=== PATIENT | female | born 1935 | race Caucasian/White ===

== ENCOUNTER 2022-10-30 08:32 | Outpatient (CLI) | payer MEDICARE, SELFPAY ==
[2022-10-30 19:34] LABS: Hematocrit 40.9 % (37.0-47.0); Mean Corpuscular HGB Conc 31.8 g/dl (32-36); Mean Corpuscular Volume 103.8 fl (80-100); Mean Platelet Volume 11.5 fl (7.4-10.4); Platelet Count Result 254 k/mm3 (150-375); Red Blood Count 3.94 M/mm3 (4.2-5.4); Red Cell Distribution Width 14.6 % (11.5-14.5); White Blood Count 8.6 K/mm3 (4.5-10.0)
[2022-10-30 20:22] LABS: Alanine Aminotransferase 16 U/L (6-35); Alkaline Phosphatase 108 U/L (38-126); Anion Gap 8 mmol/L (8-16); Aspartate Amino Transferase 46 U/L (14-36); Bilirubin,Total 0.8 mg/dL (0.2-1.3); Blood Urea Nitrogen 27 mg/dL (7-17); Calcium 9.5 mg/dL (8.4-10.2); Carbon Dioxide 25 mmol/L (22-30); Chloride 100 mmol/L (98-107); Estimated Glomerular Filt Rate 43; Glucose 82 mg/dL (65-110); Potassium 4.5 mmol/L (3.4-5.0); Sodium 133 mmol/L (137-145)
== END 2022-10-30 08:33 | disposition home or self-care (01) ==
PROVIDERS: PCP Family Medicine; Visit Provider Family Medicine
DX: E03.9 Hypothyroidism, unspecified (principal)
CPT/HCPCS: 36415; 80053; 84443; 85027

== ENCOUNTER 2022-12-11 15:19 | Outpatient (CLI) | payer MEDICARE, SELFPAY ==
[2022-12-11 18:45] LABS: Basophils Absolute Auto 0.1 K/mm3 (0.0-0.1); Basophils Percent Auto 0.9 % (0.2-1.2); Eosinophils Absolute Auto 0.3 K/mm3 (0-0.3); Eosinophils Percent Auto 3.6 % (0-4.4); Hematocrit 39.2 % (37.0-47.0); Hemoglobin 12.7 g/dL (12.0-15.0); Immature Granulocyte Absolute 0.02 K/mm3 (0.00-0.031); Immature Granulocyte Percent A 0.3 % (0-0.5); Lymphocytes Absolute Auto 1.04 K/mm3 (0.9-3.2); Mean Corpuscular HGB Conc 32.4 g/dl (32-36); Mean Corpuscular Hemoglobin 32.2 pg (26-34); Mean Corpuscular Volume 99.5 fl (80-100); Mean Platelet Volume 11.2 fl (7.4-10.4); Monocytes Absolute Auto 0.8 K/mm3 (0.1-0.6); Monocytes Percent Auto 10.9 % (2.6-8.5); Neutrophils Absolute Auto 4.8 K/mm3 (1.3-6.7); Neutrophils Percent Auto 69.3 % (45.5-73.1); Platelet Count Result 254 k/mm3 (150-375); Red Blood Count 3.94 M/mm3 (4.2-5.4); Red Cell Distribution Width 14.6 % (11.5-14.5)
[2022-12-11 18:48] LABS: Appearance Urine Clear (Clear); Bacteria Urine None Seen /hpf; Bilirubin Urine Negative (Negative); Blood Urine Negative (Negative); Color Urine Yellow (Yellow); Glucose Urine UA Negative (Negative); Ketones Urine Negative (Negative); Leukocyte Esterase Ur 2+ LEU/UL (NEGATIVE); Nitrate Urine Negative (Negative); Non Pathogenic Casts 0-2; Protein Urine Negative (Negative); RBC Urine 0-2 /hpf (0-2); Specific Grav Ur 1.009 (1.001-1.035); Squamous Epithelial Cell Urine Occasional /hpf (Few); Urobilinogen Urine 0.2 mg/dL (<2.0)
[2022-12-11 19:07] LABS: Add Urine Microscopic? YES; Alanine Aminotransferase 20 U/L (6-35); Albumin Level 4.4 g/dL (3.5-5.1); Alkaline Phosphatase 115 U/L (38-126); Anion Gap 7 mmol/L (8-16); Aspartate Amino Transferase 33 U/L (14-36); Bilirubin,Total 0.7 mg/dL (0.2-1.3); Blood Urea Nitrogen 20 mg/dL (7-17); Calcium 9.6 mg/dL (8.4-10.2); Carbon Dioxide 27 mmol/L (22-30); Chloride 97 mmol/L (98-107); Estimated Glomerular Filt Rate 47; Glucose 97 mg/dL (65-110); Magnesium 1.6 mg/dL (1.6-2.3); Phosphorus 4.1 mg/dL (2.5-4.5); Potassium 4.3 mmol/L (3.4-5.0); Sodium 131 mmol/L (137-145); Uric Acid 2.8 mg/dL (2.5-7.5)
[2022-12-11 19:28] LABS: Erythrocyte Sedimentation Rate 30 mm/hr (0-20)
[2022-12-11 20:06] LABS: Creatinine Urine 50.8 mg/dL; Total Protein Urine Random 9 mg/dL; Ur Ttl Prot Creatinine Ratio 0.18 mg/mg (0-0.20)
== END 2022-12-11 15:20 | disposition home or self-care (01) ==
PROVIDERS: PCP Family Medicine; Visit Provider Internal Medicine Nephrology
DX: I12.9 Hypertensive chronic kidney disease with stage 1 through stage 4 chronic kidney disease, or unspecified chronic kidney disease (principal); N18.31 Chronic kidney disease, stage 3a
CPT/HCPCS: 36415; 80069; 80076; 81001; 82570; 83735; 84156; 84550; 85025; 85652

== ENCOUNTER 2023-01-10 09:06 | Outpatient (CLI) | payer MEDICARE, SELFPAY ==
[2023-01-10 20:25] LABS: Albumin Level 3.8 g/dL (3.5-5.1); Anion Gap 8 mmol/L (8-16); Blood Urea Nitrogen 23 mg/dL (7-17); Carbon Dioxide 23 mmol/L (22-30); Chloride 102 mmol/L (98-107); Estimated Glomerular Filt Rate 53; Glucose 75 mg/dL (65-110); Phosphorus 4.4 mg/dL (2.5-4.5); Potassium 4.4 mmol/L (3.4-5.0); Sodium 133 mmol/L (137-145)
== END 2023-01-10 09:07 | disposition home or self-care (01) ==
PROVIDERS: PCP Family Medicine; Visit Provider Internal Medicine Nephrology
DX: E87.1 Hypo-osmolality and hyponatremia (principal); I12.9 Hypertensive chronic kidney disease with stage 1 through stage 4 chronic kidney disease, or unspecified chronic kidney disease; N18.31 Chronic kidney disease, stage 3a
CPT/HCPCS: 36415; 80069

== ENCOUNTER 2023-04-02 10:05 | Outpatient (CLI) | payer MEDICARE, SELFPAY ==
[2023-04-02 20:07] LABS: Anion Gap 5 mmol/L (8-16); Blood Urea Nitrogen 21 mg/dL (7-17); Carbon Dioxide 27 mmol/L (22-30); Chloride 101 mmol/L (98-107); Estimated Glomerular Filt Rate 39; Glucose 83 mg/dL (65-110); Potassium 4.7 mmol/L (3.4-5.0); Sodium 133 mmol/L (137-145)
== END 2023-04-02 10:06 | disposition home or self-care (01) ==
PROVIDERS: PCP Family Medicine; Visit Provider Family Medicine
DX: E87.1 Hypo-osmolality and hyponatremia (principal)
CPT/HCPCS: 36415; 80048

== ENCOUNTER 2023-05-07 11:21 | Outpatient (CLI) | payer MEDICARE, SELFPAY ==
[2023-05-07 18:53] LABS: Appearance Urine Clear (Clear); Bacteria Urine None Seen /hpf; Bilirubin Urine Negative (Negative); Blood Urine Negative (Negative); Color Urine Yellow (Yellow); Glucose Urine UA Negative (Negative); Ketones Urine Negative (Negative); Leukocyte Esterase Ur Trace LEU/UL (NEGATIVE); Nitrate Urine Negative (Negative); Non Pathogenic Casts 0-2; Protein Urine Negative (Negative); RBC Urine 0-2 /hpf (0-2); Specific Grav Ur 1.007 (1.001-1.035); Squamous Epithelial Cell Urine None seen /hpf (Few); Urobilinogen Urine 0.2 mg/dL (<2.0); WBC Urine 0-5 /hpf (0-3); pH Urine 5.5 (5.0-9.0)
[2023-05-07 19:04] LABS: Add Urine Microscopic? YES
[2023-05-07 20:16] LABS: Albumin Level 4.3 g/dL (3.5-5.1); Anion Gap 9 mmol/L (8-16); Blood Urea Nitrogen 11 mg/dL (7-17); Calcium 9.7 mg/dL (8.4-10.2); Carbon Dioxide 26 mmol/L (22-30); Chloride 101 mmol/L (98-107); Estimated Glomerular Filt Rate 60; Glucose 92 mg/dL (65-110); Phosphorus 3.6 mg/dL (2.5-4.5); Sodium 136 mmol/L (137-145)
== END 2023-05-07 11:22 | disposition home or self-care (01) ==
PROVIDERS: PCP Family Medicine; Visit Provider Internal Medicine Nephrology
DX: N18.31 Chronic kidney disease, stage 3a (principal); E87.1 Hypo-osmolality and hyponatremia; R35.1 Nocturia
CPT/HCPCS: 36415; 80069; 81001

== ENCOUNTER 2023-09-24 07:58 | Outpatient (CLI) | payer MEDICARE, SELFPAY ==
[2023-09-24 19:19] LABS: Hematocrit 42.9 % (37.0-47.0); Hemoglobin 12.9 g/dL (12.0-15.0); Mean Corpuscular HGB Conc 30.1 g/dl (32-36); Mean Corpuscular Hemoglobin 31.2 pg (26-34); Mean Corpuscular Volume 103.6 fl (80-100); Mean Platelet Volume 10.7 fl (7.4-10.4); Platelet Count Result 254 k/mm3 (150-375); Red Blood Count 4.14 M/mm3 (4.2-5.4); Red Cell Distribution Width 14.6 % (11.5-14.5)
[2023-09-24 19:41] LABS: Free T4 Free Thyroxine 1.57 ng/mL (0.78-2.19)
[2023-09-24 20:13] LABS: Alanine Aminotransferase 13 U/L (6-35); Albumin Level 3.9 g/dL (3.5-5.1); Alkaline Phosphatase 123 U/L (38-126); Anion Gap 6 mmol/L (8-16); Aspartate Amino Transferase 63 U/L (14-36); Bilirubin,Total 0.9 mg/dL (0.2-1.3); Blood Urea Nitrogen 16 mg/dL (7-17); Calcium 9.6 mg/dL (8.4-10.2); Carbon Dioxide 27 mmol/L (22-30); Chloride 105 mmol/L (98-107); Cholesterol 126 mg/dL (0-200); Estimated Glomerular Filt Rate > 60; Glucose 82 mg/dL (65-110); HDL Direct 48 mg/dL; Potassium 3.7 mmol/L (3.4-5.0); Sodium 138 mmol/L (137-145); Triglycerides 62 mg/dL (<150)
[2023-09-24 20:24] LABS: LDL Cholesterol Direct 61 mg/dL
[2023-09-27 07:12] LABS: Triiodothyronine T3 Free 2.6 pg/mL (2.3-4.2)
== END 2023-09-24 07:59 | disposition home or self-care (01) ==
PROVIDERS: PCP Family Medicine; Visit Provider Family Medicine
DX: E03.9 Hypothyroidism, unspecified (principal); E87.1 Hypo-osmolality and hyponatremia; N28.9 Disorder of kidney and ureter, unspecified; R10.13 Epigastric pain
CPT/HCPCS: 36415; 80053; 80061; 84439; 84443; 84481; 85027

== ENCOUNTER 2024-03-26 09:24 | Outpatient (CLI) | payer MEDICARE, SELFPAY ==
[2024-03-26 19:29] LABS: Hematocrit 44.4 % (37.0-47.0); Hemoglobin 14.1 g/dL (12.0-15.0); Mean Corpuscular HGB Conc 31.8 g/dl (32-36); Mean Corpuscular Hemoglobin 32.3 pg (26-34); Mean Corpuscular Volume 101.8 fl (80-100); Mean Platelet Volume 11.2 fl (7.4-10.4); Platelet Count Result 260 k/mm3 (150-375); Red Blood Count 4.36 M/mm3 (4.2-5.4); Red Cell Distribution Width 14.2 % (11.5-14.5); White Blood Count 9.9 K/mm3 (4.5-10.0)
[2024-03-26 21:13] LABS: Alanine Aminotransferase 16 U/L (6-35); Albumin Level 4.3 g/dL (3.5-5.1); Alkaline Phosphatase 117 U/L (38-126); Anion Gap 11 mmol/L (4-12); Aspartate Amino Transferase 43 U/L (14-36); Bilirubin,Total 1.2 mg/dL (0.2-1.3); Blood Urea Nitrogen 21 mg/dL (7-17); Calcium 9.7 mg/dL (8.4-10.2); Carbon Dioxide 23 mmol/L (22-30); Chloride 102 mmol/L (98-107); Cholesterol 148 mg/dL (0-200); Estimated Glomerular Filt Rate 59; Glucose 91 mg/dL (65-110); HDL Direct 57 mg/dL; Potassium 4.4 mmol/L (3.4-5.0); Sodium 136 mmol/L (137-145); Triglycerides 47 mg/dL (<150)
[2024-03-26 21:25] LABS: LDL Cholesterol Direct 59 mg/dL
[2024-03-26 21:42] LABS: Thyroid Stimulating Hormone 0.901 uIU/mL (0.465-4.680)
== END 2024-03-26 09:25 | disposition home or self-care (01) ==
LOC: ANHBWCLAB 09:27
PROVIDERS: PCP Nurse Practitioner Adult Health; Visit Provider Nurse Practitioner Adult Health
DX: E03.9 Hypothyroidism, unspecified (principal); E87.5 Hyperkalemia; I10 Essential (primary) hypertension; R10.13 Epigastric pain; Z00.00 Encounter for general adult medical examination without abnormal findings
CPT/HCPCS: 36415; 80053; 80061; 84443; 85027

== ENCOUNTER 2024-12-03 20:00 | Inpatient (IN) | payer MEDICARE, SELFPAY ==
[2024-12-03] VITALS (15 sets, daily range): BP systolic 71–91; BP diastolic 47–77; PULSE 75–81; RESP 18–24; TEMP 36.4; O2SAT 87–97; BMI 25.1
--- NOTE | ~2024-12-03 | CT_ITS ---
EXAMINATION: CT chest high resolution wo co DATE: 12/06/2024 09:19 INDICATION: right hemithorax opacification TECHNIQUE: Computed tomography (CT) of the chest was performed without intravenous contrast. Addition al 3D reconstructions utilizing coronal maximum intensity projection (MIP) were performed. Automated exposure control and iterative reconstruction technique were employed. The dose-length product was 27 6.48 mGy-cm. COMPARISON: Chest CT dated 12/03/2024 FINDINGS: New small bilateral pleural effusions, right greater than left. There is improved aeration of the pre viously collapsed right lower lobe. There are however prominent patchy airspace opacities in the righ t lower lobe as well as in the right upper lobe, left lower lobe and to lesser degree in the lingula consistent with pneumonia. Tracheobronchial malacia with prominent AP narrowing of the trachea and ma instem bronchi. Heart size is normal. Atherosclerotic coronary artery calcific lesion. No pericardial effusion. Thoracic aorta is normal in caliber. No pathologically enlarged thoracic lymphadenopathy. Calcified gallstones in the none dilated gallbladder. Likely age-related mild bilateral renal atrophy . Mild S-shaped curvature of the thoracic spine with moderate spondylosis. IMPRESSION: 1. Worsening multifocal pneumonia in the bilateral lower lobes, right upper lobe and to lesser degree at the lingula. 2. New small bilateral pleural effusions, right greater than left. Reviewed, dictated and finalized at location A. IMPRESSION: 1. Worsening multifocal pneumonia in the bilateral lower lobes, right upper lob e and to lesser degree at the lingula. 2. New small bilateral pleural effusions, right greater than left.
--- NOTE | ~2024-12-03 | XR_ITS ---
XR chest 1V portable Ordering provider: Juan Herrera MD History: 89 years Female with . SOB, low blood pressure . Comparison: None. FINDINGS: MEDIASTINUM: The cardiac silhouette is moderately enlarged. Prominent elliot. LUNGS: No or pneumothorax. Opacification in the right lung base is seen suggestive of atelectasis michael levar pneumonia with possible effusion. Minimal opacification in the left lung base medially is also no surendra. OTHER: No free air under the diaphragm. IMPRESSION: Right basilar atelectasis versus pneumonia. Left basilar atelectasis versus pneumonia in the left lung base medially Reviewed, dictated and finalized at location A.
--- NOTE | ~2024-12-03 | XR_ITS ---
CHEST RADIOGRAPH CLINICAL HISTORY: Respiratory failure, pneumonia . COMPARISON: 12/07/2024 TECHNIQUE: Single portable view of the chest. Examination is somewhat limited by patient rotation. FINDINGS Left internal jugular central venous catheter identified with its tip projecting over the superior ve na cava. The remainder of the cardiomediastinal silhouette is partially obscured, and enlarged, unchanged. Large right-sided pleural effusion with a small left-sided pleural effusion. Patchy opacification of the left mid to lower lung field is unchanged. IMPRESSION: Large right-sided pleural effusion. Small left-sided pleural effusion Left mid to lower lung field infiltrate, largely unchanged from prior. Reviewed, dictated and finalized at location A.
--- NOTE | ~2024-12-03 | XR_ITS ---
Portable chest x-ray Comparison: 12/03/2024 Clinical History: Respiratory failure Findings: Stable right-sided central venous line. Moderate right pleural effusion is significantly i ncreased from prior exam. Possible minimal left pleural effusion. Cardiomediastinal silhouette is st able. Bones and soft tissues are unremarkable. Impression: Moderate right pleural effusion is significantly increased from prior exam. Possible minimal left ple ural effusion. Stable support line. Reviewed, dictated and finalized at location M. Impression: Moderate right pleural effusion is significantly increased from prior exam. Pos sible minimal left pleural effusion. Stable support line.
--- NOTE | ~2024-12-03 | CT_ITS ---
CTA chest PE protocol Ordering provider: Ulices Carrasco MD History: 89 years Female with . hypoxia, recent hosptial amdit, leg swelling . Comparison: None. Technique: CT angiogram chest was performed following timed intravenous injection of contrast. Thin s lice axial images and reformatted coronal images were obtained. Three dimensional reformatted images of the chest were also obtained using a [employer] workstation. . Automated exposure control and iterati ve reconstruction technique were employed. The dose-length product was 432.40 mGy-cm. 100 mL Omnipaqu e 350 was given IV. Findings: PULMONARY ARTERIES: No pulmonary embolus. VISUALIZED THORACIC INLET: Normal. Position of the right carotid artery. position of the right carotid artery is noted. 1 MEDIASTINUM: Aorta/coronary arteries: Mild atheromatous disease. Heart/other: The heart is slightly enlarged. Lymph nodes: No mediastinal or hilar adenopathy. LUNGS: Pneumonia in the right lower lobe is noted medially. Deviation of the trachea to the right side is no surendra. Minimal atelectasis versus pneumonia in the middle lobe is also seen. Patchy areas of pneumonia also seen in the left upper lobe. Possible nodule in the lingula is seen measuring 9 mm. 3 months follow-up CT is advised. Focal pneumonia in the left lung base medially is also noted with possible 9 mm nodule. No pulmonary masses. No effusions. No pneumothorax. VISUALIZED UPPER ABDOMEN: Fat infiltration of the liver. Cholelithiasis. Small right kidney cyst. Oth erwise, the visualized upper abdomen is normal. MUSCULOSKELETAL: Soft tissues: The superficial soft tissues are normal. Bones: Age appropriate degenerative changes of the spine. IMPRESSION: 1. No pulmonary embolism. 2. Pneumonia in the right lower lobe. 3. Focal areas of pneumonia in the middle lobe, lingula and left lower lobe. 4. Nodule in the lingula and left lower lobe. Three-month CT follow-up advised. 5. 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 6. Cholelithiasis. Fat infiltration of the liver. Reviewed, dictated and finalized at location A. IMPRESSION: 1. No pulmonary embolism. 2. Pneumonia in the right lower lobe. 3. Focal areas of pneumonia in the middle lobe, lingula and left lower lobe. 4. Nodule in the lingula and left lower lobe. Three-month CT follow-up advised . 5. 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 6. Cholelithiasis. Fat infiltration of the liver.
--- NOTE | ~2024-12-03 | XR_ITS ---
EXAMINATION: XR chest 1V portable DATE: 12/09/2024 06:06 INDICATION: Respiratory failure. Pneumonia. TECHNIQUE: frontal view of the chest was obtained. COMPARISON: Chest radiograph dated 12/09/2024 FINDINGS: No significant change in patchy airspace opacities throughout both lungs, right greater than left. Sm all right and possible small left pleural effusions. No pneumothorax. Heart size is within normal trejo its for AP technique. IMPRESSION: 1. No significant change in diffuse bilateral lung disease, right greater than left consistent with m ultifocal pneumonia. 2. Small right and possible small left pleural effusions. Reviewed, dictated and finalized at location A. IMPRESSION: 1. No significant change in diffuse bilateral lung disease, right greater than left consistent with multifocal pneumonia. 2. Small right and possible small left pleural effusions.
--- NOTE | ~2024-12-03 | US_ITS ---
EXAMINATION:US venous doppler LE BI INDICATION:Lower extremity swelling TECHNIQUE: Multiple grayscale, color flow and Doppler images of the right and left lower extremity de ep venous systems were obtained and reviewed. COMPARISON:No prior studies for comparison. FINDINGS: The common femoral, superficial femoral and popliteal veins demonstrate normal respiratory variation, augmentation and compressibility. Color flow is also seen within the posterior tibial, pe roneal, greater saphenous and profunda veins. IMPRESSION: 1: No lower extremity deep venous thrombosis. Reviewed, dictated and finalized at location A.
--- NOTE | ~2024-12-03 | XR_ITS ---
XR chest port-a-cath/central Ordering provider: Ulices Carrasco MD History: 89 years Female with . CENTRAL LINE PLACEMENT . Comparison: December 03, 2024 FINDINGS: MEDIASTINUM: The cardiac silhouette is slightly enlarged. Left central line with the tip overlying th e superior vena cava. Slightly congestive elliot. LUNGS: No pneumothorax. Right basilar atelectasis versus pneumonia with effusion. Patchy opacificatio n the left lung base medially. Prominent markings bilaterally OTHER: No free air under the diaphragm. IMPRESSION: Status post placement of left central line with the tip overlying the superior vena cava. Bibasilar opacification suggestive of atelectasis versus pneumonia with possible right pleural effusi on Reviewed, dictated and finalized at location A. IMPRESSION: Status post placement of left central line with the tip overlying the superior vena cava. Bibasilar opacification suggestive of atelectasis versus pneumonia with possibl e right pleural effusion
--- NOTE | ~2024-12-03 | XR_ITS ---
EXAMINATION: XR chest 1V portable DATE: 12/06/2024 05:57 INDICATION: Respiratory failure. Pneumonia. TECHNIQUE: frontal view of the chest was obtained. COMPARISON: Chest radiograph dated 12/05/[address] dated 12/03/2024 FINDINGS: No significant change in complete opacification of the right lower lung zone and mild airspace opacit ies in the left lower lung zone. No pneumothorax. Unchanged cardiomediastinal silhouette with mild ri ghtward shift of the mediastinum. Left internal jugular central venous catheter with distal tip at th e junction of the left brachiocephalic vein and the superior vena cava. IMPRESSION: 1. Unchanged complete opacification of the right lower lung zone consistent with pneumonia, atelectas is, pleural effusion or most likely combination thereof. 2. Mild opacity left lower lung zone which could represent additional atelectasis or pneumonia. Reviewed, dictated and finalized at location A. IMPRESSION: 1. Unchanged complete opacification of the right lower lung zone consistent wit h pneumonia, atelectasis, pleural effusion or most likely combination thereof. 2. Mild opacity left lower lung zone which could represent additional atelectas is or pneumonia.
--- NOTE | ~2024-12-03 | XR_ITS ---
EXAMINATION: XR chest 1V portable DATE: 12/09/2024 02:54 INDICATION: Shortness of breath TECHNIQUE: frontal view of the chest was obtained. COMPARISON: Chest radiograph dated 12/08/[address] dated 12/06/2024 FINDINGS: Interstitial and patchy airspace opacities throughout both lungs relatively sparing the left upper hector ng zone with more dense consolidation at the lower lung zones. Blunting at the costophrenic angles co nsistent with small bilateral pleural effusions, right greater left. No pneumothorax. Heart size with in normal limits for AP technique. IMPRESSION: 1. Persistent opacities throughout the right lung and in the left mid to lower lung zone consistent w ith pneumonia. 2. Small bilateral pleural effusions, right greater than left. Reviewed, dictated and finalized at location A. IMPRESSION: 1. Persistent opacities throughout the right lung and in the left mid to lower lung zone consistent with pneumonia. 2. Small bilateral pleural effusions, right greater than left.
--- NOTE | ~2024-12-03 | XR_ITS ---
Portable chest x-ray Comparison: 12/06/2024 Clinical History: Respiratory failure Findings: Left-sided central venous line unchanged. Moderate right pleural effusion present. Probabl e small left pleural effusion. There is extensive left basilar/left perihilar airspace disease, new f rom prior exam. There is haziness in the right perihilar region. Cardiomediastinal silhouette is sta ble. Bones and soft tissues are unremarkable. Impression: Moderate right pleural effusion and small left pleural effusion. Moderate bilateral pulmonary edema versus bilateral pneumonia, significant worsened in the left lung as compared to prior exam. Probable right lower lobe/right basilar atelectasis. Stable support line. Stable cardiomegaly. Reviewed, dictated and finalized at location . Impression: Moderate right pleural effusion and small left pleural effusion. Moderate bilateral pulmonary edema versus bilateral pneumonia, significant wors ened in the left lung as compared to prior exam. Probable right lower lobe/right basilar atelectasis. Stable support line. Stable cardiomegaly.
--- NOTE | 2024-12-03 20:11 | ECG_ITS ---
Test Date: 2024-12-03 20:08:18 Measurements Intervals [place] Rate: 77 P: 24 [place]: 158 QRS: -34 QRSD: 93 T: 19 QT: 398 QTc: 452 Interpretive Statements SINUS RHYTHM LEFT AXIS DEVIATION [QRS AXIS < -30] PATTERN CONSISTENT WITH PULMONARY DISEASE No previous ECG available for comparison Electronically Signed On 12-04-2024 15:56:23 CDT by Tony Osei M.D.
[2024-12-03 20:39] LABS: Basophils Absolute Auto 0.1 K/mm3 (0.0-0.1); Basophils Percent Auto 0.5 % (0.2-1.2); Eosinophils Absolute Auto 0.1 K/mm3 (0-0.3); Eosinophils Percent Auto 0.4 % (0-4.4); Hematocrit 31.5 % (37.0-47.0); Hemoglobin 10.3 g/dL (12.0-15.0); Immature Granulocyte Absolute 0.09 K/mm3 (0.00-0.031); Immature Granulocyte Percent A 0.8 % (0-0.5); Lymphocytes Absolute Auto 1.21 K/mm3 (0.9-3.2); Lymphocytes Percent Auto 10.6 % (18.3-44.2); Mean Corpuscular HGB Conc 32.7 g/dl (32-36); Mean Corpuscular Hemoglobin 31.9 pg (26-34); Mean Corpuscular Volume 97.5 fl (80-100); Mean Platelet Volume 10.6 fl (7.4-10.4); Monocytes Absolute Auto 0.9 K/mm3 (0.1-0.6); Monocytes Percent Auto 7.6 % (2.6-8.5); Neutrophils Absolute Auto 9.2 K/mm3 (1.3-6.7); Neutrophils Percent Auto 80.1 % (45.5-73.1); Platelet Count Result 376 k/mm3 (150-375); Red Blood Count 3.23 M/mm3 (4.2-5.4); White Blood Count 11.4 K/mm3 (4.5-10.0)
[2024-12-03] MEDS: CEFEPIME 2 GM/NS 50 ML 2 GM/50 ML BAG IVPB (20:42)
[2024-12-03] MEDS: LACTATED RINGERS 1,000 ML 999 ML IV CONT ×2 (20:42)
[2024-12-03 20:48] LABS: Alanine Aminotransferase 16 U/L (6-35); Albumin Level 3.3 g/dL (3.5-5.1); Alkaline Phosphatase 84 U/L (38-126); Anion Gap 12 mmol/L (4-12); Aspartate Amino Transferase 25 U/L (14-36); Bilirubin,Total 0.7 mg/dL (0.2-1.3); Blood Urea Nitrogen 26 mg/dL (7-17); Calcium 8.6 mg/dL (8.4-10.2); Carbon Dioxide 21 mmol/L (22-30); Chloride 97 mmol/L (98-107); Estimated CRCL calculation 26 ml/min; Estimated Glomerular Filt Rate 46; Glucose 101 mg/dL (65-110); Potassium 3.4 mmol/L (3.4-5.0); Sodium 130 mmol/L (137-145)
--- NOTE | 2024-12-03 20:48 | PC.NURSE ---
Pt to CT at this time. Pt placed on monitor, IVF infusing.
--- OUTSIDE RECORDS SUMMARY | 2024-12-03 20:50 | XMS_ITS | Clinical Summary ---
Author Organization [facility] Address [address] [place] [address] Care Team Providers Care Enrober Tender Name Role Phone Tom Sharma MD Primary Care Provider [phone] Social History Tobacco Use Types Packs/Day Years Used Date Smoking Tobacco: Never Assessed Personal Safety Answer Date Recorded Getting School Help Needed Not on file 10/06 Comments Unknown Sex and Gender Information Value Date Recorded Sex Assigned at Not on file Legal Sex Female 2:22 AM DIRECTOR INPATIENT HEADACHE PROGRAM Gender Identity Not on file Sexual Orientation Not on file Plan of Treatment Health Maintenance Due Date Last Done Comments Depression Screening 1935 Fall Risk Assessment 1935 Hepatitis B Screening 11/12/1955 Zoster Vaccine (1 of 2) 11/12/1987 Well Visit 65+ 2002 Covid-19 Vaccine (2023-2 5 season) 2024 05/12/2022, 12/07/2021, 05/27/2021, Additional history exists Influenza Vaccine (Season Ended) 2025 07/23/19 13 DTaP/Tdap/Td Vaccine (2 - Td or Tdap) 08/10/2032 08/10/2022, 06/22/2013 Pneumococcal vaccine 65+ Completed 04/11/2016, 07/2012 Insurance MEDICARE [facility] MEDICARE [facility] Care Teams Enrober Tender Relationship Specialty Start Date End Date Tom Sharma MD PCP - General Family Practice 11/16/22
--- OUTSIDE RECORDS SUMMARY | 2024-12-03 20:50 | XMS_ITS | Encounter Summary ---
Author Organization [facility] Address [address] [place] [address] Phone Care Team Providers Care Business Support Associate Name Role Phone Reyna Vega MD Primary Care Provider [phone] Tom Sharma MD Primary Care Provider [phone] Reason for Visit * Reason Comments Medication Refill Encounter Details Date Type Department Care Team (Late st Contact Info) Description 02/20/2022 Refill [facility] - [place] [address] [place] [place] [address] Reyna Vega MD [address] [place] [address] Medication Refill Social History Tobacco Use Types Packs/Day Years Used Date Smoking Tobacco: Former Cigarettes Q uit: 10/07/2011 Smokeless Tobacco: Never Alcohol Use Standard Drinks/Week Comments No 0 (1 standard drink = 0.6 oz pur e alcohol) PHQ-2 Answer Date Recorded PHQ-2 Score 0 04/08/2019 Comments No Sex and Gender Information Value Date Recorded Sex Assigned at Not on file Legal Sex Female 10:17 PM CDT Gender Identity Not on file Sexual Orientation Not on file documented as of this encounter Miscellaneous Notes * Telephone Encounter - Valerie Kidd RN - 02/20/2022 10:49 AM CDT Medication failed the protocol, provider to review and approve the medication order if appropriate. Requested Prescriptions Pending Prescriptions Disp Refills allopurinol (ZYLOPRIM) 300 MG Tablet [Pharmacy Med Name: ALLOPURINOL 300MG TABLETS] 90 Tablet 1 Sig: TAKE 1 TABLET BY MOUTH DAILY Gout Agents Protocol Failed - 02/20/2022 5:52 AM Failed - Uric acid on record in past 12 months URIC ACID Date Value Ref Range Status 04/17/2019 3.8 2.4 - 5.7 mg/dL Final Passed - Visit with relevant provider in past 12 months or upcoming 90 days Recent Visits Date Type Provider Dept 12/12/21 Office Visit Reyna Vega MD [facility] 06/13/21 Office Visit [facility] Showing recent visits within past 365 days and meeting all other requirements Future Appointments No visits were found meeting these conditions. Showing future appointments within next 90 days and meeting all other requirements Passed - Serum creatinine on record in past 12 months CREATININE, BLOOD Date Value Ref Range Status 12/05/2021 0.84 0.60 - 1.10 mg/dL Final Signed Prescriptions Disp Refills levothyroxine (SYNTHROID) 88 MCG Tablet 90 Tablet 0 Sig: TAKE 1 TABLET BY MOUTH DAILY Thyroid Hormones Protocol Passed - 02/20/2022 5:52 AM Passed - Visit with relevant provider in past 12 months or upcoming 90 days Recent Visits Date Type Provider Dept 12/12/21 Office Visit Reyna Vega MD [facility] 06/13/21 Office Visit Reyna Vega MD [facility] [facility] Showing recent visits within past 365 days and meeting all other requirements Future Appointments No visits were found meeting these conditions. Showing future appointments within next 90 days and meeting all other requirements Passed - Normal TSH in past 12 months TSH Date Value Ref Range Status 12/05/2021 0.859 0.270 - 4.200 mIU/L Final hydroCHLOROthiazide 25 MG Tablet 90 Tablet 0 Sig: TAKE 1 TABLET BY MOUTH DAILY Diuretics Protocol Passed - 02/20/2022 5:52 AM Passed - Serum potassium on record in past 12 months POTASSIUM Date Value Ref Range Status 12/05/2021 4.1 3.5 - 5.1 mmol/L Final Passed - Serum sodium on record in past 12 months SODIUM Date Value Ref Range Status 12/05/2021 133 (L) 136 - 144 mmol/L Final Passed - Blood pressure on record in past 12 months Clinician-entered: BP Readings from Last 3 Encounters: 12/12/21 126/74 06/13/21 118/64 12/06/20 120/72 Patient-entered: No data recorded Passed - Visit with relevant provider in past 12 months or upcoming 90 days Recent Visits Date Type Provider Dept 12/12/21 [facility] 06/13/21 Office Visit Reyna Vega MD [facility] Showing recent visits within past 365 days and meeting all other requirements Future Appointments No visits were found meeting these conditions. Showing future appointments within next 90 days and meeting all other requirements Passed - GFR on record in past 12 months GFR, EST. NONAFRICAN Date Value Ref Range Status 12/05/2021 >60 >=60 Final metoprolol Succinate (TOPROL-XL) 100 MG TABLET SR 24 HR 180 Tablet 0 Sig: TAKE 1 TABLET BY MOUTH TWICE DAILY Beta-Blockers Protocol Passed - 02/20/2022 5:52 AM Passed - BP on record in the past year Clinician-entered: BP Readings from Last 3 Encounters: 12/12/21 126/74 06/13/21 118/64 12/06/20 120/72 Patient-entered: No data recorded Passed - Visit with relevant provider in past 12 months or upcoming 90 days Recent Visits Date Type Provider Dept 12/12/21 Office Visit [facility] 06/13/21 Office Visit Reyna Vega MD [facility] Showing recent visits within past 365 days and meeting all other requirements Future Appointments No visits were found meeting these conditions. Showing future appointments within next 90 days and meeting all other requirements documented in this encounter Plan of Treatment Not on file documented as of this encounter Visit Diagnoses Diagnosis Essential hypertension Unspecified essential hypertension Gout, unspecified cause, unspecified chronicity, unspecified site documented in this encounter Additional Health Concerns Infection Onset Date Last Indicated Resolved Time COVID - 19 11/17/2024 11/17/2024 11/17/2024 1:11 PM CDT Assessment Noted Time PHQ-9 Depression Total Score: 0 10/23/19 9:00 AM CDT documented as of this encounter Care Teams Business Support Associate Relationship Specialty Start Date End Date Reyna Vega MD PCP - General Family Medicine 05/10/15 08/20/22 Tom Sharma MD [address] [place] [address] PCP - General Family Medicine 08/21/22 documented as of this encounter
--- OUTSIDE RECORDS SUMMARY | 2024-12-03 20:50 | XMS_ITS | Encounter Summary ---
Author Organization [facility] Address [address] [facility] [place] [address] Phone Care Team Providers Care Enrollment Advisor Name Role Phone Reyna Vega MD Primary Care Provider [phone] Tom Sharma MD Primary Care Provider [phone] Reason for Visit * Reason Comments Medication Refill Encounter Details Date Type Department Care Team (Late st Contact Info) Description 02/02/2020 [facility] [address] [place] [address] Almita Wright Opal, PAC [address] [place] [address] Medication Refill Social History Tobacco Use Types [...] on file documented as of this encounter Plan of Treatment Not on file documented as of this encounter Visit Diagnoses Diagnosis Essential hypertension Unspecified essential hypertension documented in this encounter Additional Health Concerns Infection Onset Date Last Indicated Resolved Time COVID - 19 11/17/2024 11/17/2024 11/17/2024 1:11 PM CDT Assessment Noted Time PHQ-9 Depression Total Score: 0 10/23/19 19 9:00 AM CDT documented as of this encounter Care Teams Enrollment Advisor Relationship Specialty Start Date End Date Reyna Vega MD PCP - General Family Medicine 05/10/15 08/20/22 Tom Sharma MD [address] [place] [address] PCP - General Family Medicine 08/21/22 documented as of this encounter
--- OUTSIDE RECORDS SUMMARY | 2024-12-03 20:50 | XMS_ITS | Encounter Summary ---
Author Organization [facility] Address [address] [place] [address] Phone Care Team Providers Care Manufacturing Support Engineer Name Role Phone Reyna Vega MD Primary Care Provider [phone] Tom Sharma MD Primary Care Provider [phone] Reason for Visit * Reason Comments Medication Refill Encounter Details Date Type Department Care Team (Late st Contact Info) Description 01/04/2022 Refill [facility] - [place] [address] [place] [address] Reyna Vega MD [address] [place] [address] Medication Refill Social History Tobacco [...] on file Sexual Orientation Not on file COVID-19 Exposure Response Date Recorded In the last 10 days, have yo u been in contact with someone who was confirmed or suspected to have Coronavirus/COVID-19? No / Unsure 12/12/2021 10:15 AM CDT documented as of this encounter Miscellaneous Notes * Telephone Encounter - Catherine Salcido RN - 01/04/2022 10:27 AM CDT Medication approved and signed per standing order protocol. documented in this encounter Plan of Treatment [...] documented as of this encounter Care Teams Manufacturing Support Engineer Relationship Specialty Start Date End Date Reyna Vega MD PCP - General Family Medicine 05/10/15 08/20/22 Tom Sharma MD [address] [place] [address] PCP - General Family Medicine 08/21/22 documented as of this encounter
--- OUTSIDE RECORDS SUMMARY | 2024-12-03 20:50 | XMS_ITS | Encounter Summary ---
Author Organization [facility] Address [address] [place] [address] Phone Care Team Providers Care Can Bander Operator Name Role Phone Reyna Vega MD Primary Care Provider Tom Sharma MD Primary Care Provider [phone] Reason for Visit * Reason Comments Medication Refill Encounter Details Date Type Department Care Team (Late st Contact Info) Description 05/05/2021 Refill [facility] - [place] [address] [place] [address] Reyna Vega MD [address] [place] [address] Medication Refill Social History Tobacco [...] as of this encounter Visit Diagnoses Diagnosis Chronic obstructive pulmonary disease, unspecified COPD type (HCC) documented in this encounter Additional Health Concerns Infection Onset Date Last Indicated Resolved Time COVID - 19 11/17/2024 11/17/2024 11/17/2024 1:11 PM CDT Assessment Noted Time PHQ-9 Depression Total Score: 0 10/23/19 9:00 AM CDT documented as of this encounter Care Teams Can Bander Operator Relationship Specialty Start Date End Date Reyna Vega MD PCP - General Family Medicine 05/10/15 08/20/22 Tom Sharma MD [address] [place] [id number] PCP - General Family Medicine 08/21/22 documented as of this encounter
--- OUTSIDE RECORDS SUMMARY | 2024-12-03 20:50 | XMS_ITS | Encounter Summary ---
Author Organization [facility] Address [address] [place] [address] Phone Care Team Providers Care Boxer Operator Name Role Phone Reyna Vega MD Primary Care Provider Tom Sharma MD Primary Care Provider [phone] Reason for Visit * Reason Comments Medication Refill Encounter Details Date Type Department Care Team (Late st Contact Info) Description 08/20/2022 Refill [facility] - Primary Care - [place] [address] [place] [address] Reyna Vega MD [address] [place] [address] Medication Refill Social History Tobacco [...] encounter Miscellaneous Notes * Telephone Encounter - Cristina Montoya RN - 08/21/2022 10:26 AM CST Duplicate request. RATING KILN OPERATOR documented in this encounter Plan of Treatment Not on file documented as of this encounter Visit Diagnoses Diagnosis Gout, unspecified cause, unspecified chronicity, unspecified site documented in this encounter Additional Health Concerns Infection Onset Date Last Indicated Resolved Time COVID - 19 11/17/2024 11/17/2024 11/17/2024 1:1 1 PM CDT Assessment Noted Time PHQ-9 Depression Total Score: 0 10/23/19 9:00 AM CDT documented as of this encounter Care Teams Boxer Operator Relationship Specialty Start Date End Date Reyna Vega MD PCP - General Family Medicine 05/10/15 08/20/22 Tom Sharma MD [address] [place] [address] PCP - General Family Medicine 08/21/22 documented as of this encounter
--- OUTSIDE RECORDS SUMMARY | 2024-12-03 20:50 | XMS_ITS | Encounter Summary ---
Author Organization [facility] Address [address] [place] [address] Phone Care Team Providers Care Placement Officer Name Role Phone Reyna Vega MD Primary Care Provider [phone] Tom Sharma MD Primary Care Provider [phone] Reason for Visit * Reason Comments Medication Refill Encounter Details Date Type Department Care Team (Late st Contact Info) Description 11/08/2020 Refill [facility] - [place] [address] [place] [address] Reyna Vega MD [address] [place] [address] Medication Refill Social History Tobacco [...] obstructive pulmonary disease, unspecified COPD type (HCC) Essential hypertension Unspecified essential hypertension documented in this encounter Additional Health Concerns Infection Onset Date Last Indicated Resolved Time COVID - 19 11/17/2024 11/17/2024 11/17/2024 1:11 PM CDT Assessment Noted Time PHQ-9 Depression Total Score: 0 10/23/19 19 9:00 AM CDT documented as of this encounter Care Teams Placement Officer Relationship Specialty Start Date End Date Reyna Vega MD PCP - General Family Medicine 05/10/15 08/20/22 Tom Sharma MD [address] [place] [id number] PCP - General Family Medicine 08/21/22 documented as of this encounter
--- OUTSIDE RECORDS SUMMARY | 2024-12-03 20:50 | XMS_ITS | Encounter Summary ---
Author Organization [facility] Address [address] [facility] [place] [address] Phone Care Team Providers Care Language Arts Teacher Name Role Phone Reyna Vega MD Primary Care Provider [phone] Tom Sharma MD Primary Care Provider [phone] Reason for Visit * Reason Comments Medication Refill Encounter Details Date Type Department Care Team (Late st Contact Info) Description 04/27/2020 [facility] [address] [place] [address] Almita Wright Opal, PAC [address] [place] [address] Medication Refill Social History Tobacco Use Types [...] encounter Miscellaneous Notes * Telephone Encounter - Dominique Montes De Oca RN - 04/28/2020 4:04 PM CDT Medication failed the protocol, routing to provider to review and approve the medication order. Requested Prescriptions Pending Prescriptions Disp Refills hydroCHLOROthiazide 25 MG Tablet [Pharmacy Med Name: HYDROCHLOROTHIAZIDE 25MG TABLETS] 90 Tab 0 Sig: TAKE 1 TABLET BY MOUTH DAILY Cardiovascular: Diuretics Failed - 04/27/2020 4:22 PM Failed - Last BP in normal range BP Readings from Last 1 Encounters: 04/24/19 128/62 Passed - Valid encounter within last 12 months Past Office Visits Recent Outpatient Visits 4 months ago Chronic obstructive pulmonary disease, unspecified COPD type (HCC) [facility] - Reyna Perry MD 1 year ago Essential hypertension [facility] - Reyna Perry MD 1 year ago Essential hypertension [facility] - Reyna Perry MD 1 year ago Essential hypertension [facility] - Reyna Perry MD 1 year ago Essential hypertension [facility] - Reyna Perry MD Upcoming Appointments Future Appointments In 1 month [facility] In 1 month Reyna Vega MD [facility] MACHINE II CUTTER - Recent and Past Visits Recent Visits Date Type Provider Dept 12/02/19 Telemedicine Reyna Vega MD [facility] 04/24/19 Office Visit Reyna Vega MD [facility] Showing recent visits within past 460 days with a meds authorizing provider and meeting all other requirements Future Appointments Date Type Provider Dept 06/04/20 Appointment [facility] Show[facility] future appointments within next 90 days with a meds authorizing provider and meeting all other requirements documented in [...] documented as of this encounter Care Teams Language Arts Teacher Relationship Specialty Start Date End Date Reyna Vega MD PCP - General Family Medicine 05/10/15 08/20/22 Tom Sharma MD [address] [place] [id number] PCP - General Family Medicine 08/21/22 documented as of this encounter
--- OUTSIDE RECORDS SUMMARY | 2024-12-03 20:50 | XMS_ITS | Encounter Summary ---
Author Organization [facility] Address [address] [place] [address] Phone Care Team Providers Care Plaster Maker Name Role Phone Reyna Vega MD Primary Care Provider [phone] Tom Sharma MD Primary Care Provider [phone] Reason for Visit * Reason Comments Medication Refill Encounter Details Date Type Department Care Team (Late st Contact Info) Description 12/08/2020 Refill [facility] Primary [facility] - [place] [address] [place] [address] Reyna Vega MD [address] [place] [address] Medication Refill Social History Tobacco [...] Exposure Response Date Recorded In the last month, have you been in contact with someone who was confirmed or suspected to have Coronavirus / COVID-19? No / Unsure 12/06/2020 8:30 AM CDT documented as of this encounter Miscellaneous Notes * Telephone Encounter - Catherine Salcido RN - 12/08/2020 7:48 AM CDT Medication approved and signed per [...] documented as of this encounter Care Teams Plaster Maker Relationship Specialty Start Date End Date Reyna Vega MD PCP - General Family Medicine 05/10/15 08/20/22 Tom Sharma MD [address] [place] [address] PCP - General Family Medicine 08/21/22 documented as of this encounter
--- OUTSIDE RECORDS SUMMARY | 2024-12-03 20:50 | XMS_ITS | Encounter Summary ---
Author Organization [facility] Address [address] [place] [address] Phone Care Team Providers Care Floral Department Specialist Name Role Phone Reyna Vega MD Primary Care Provider Tom Sharma MD Primary Care Provider [phone] Reason for Visit * Reason Comments Medication Refill Encounter Details Date Type Department Care Team (Late st Contact Info) Description 04/27/2020 [facility] [address] [place] [address] Reyna Vega MD [address] [place] [address] Medication Refill Social History Tobacco [...] Dominique Montes De Oca RN - 04/28/2020 3:46 PM CDT Medication failed the protocol, routing to provider to review and approve the medication order. Requested Prescriptions Pending Prescriptions Disp Refills Olmesartan Medoxomil 40 MG Tablet [Pharmacy Med Name: OLMESARTAN MEDOXOMIL 40MG TABLETS] 90 Tab 0 Sig: TAKE 1 TABLET BY MOUTH DAILY Cardiovascular: Angiotensin Receptor Blockers Failed - 04/27/2020 4:22 PM Failed - Last BP in normal range BP Readings from Last 1 Encounters: 04/24/19 128/62 Passed - Valid encounter within last 12 months Past Office Visits Recent Outpatient Visits 4 months ago Chronic obstructive pulmonary disease, unspecified COPD type (HCC) [facility] - Reyna Perry MD 1 year ago Essential hypertension [facility] - Reyna Perry MD 1 year ago Essential hypertension [facility] - Reyna Perry MD 1 year ago Essential hypertension [facility] - Reyna Perry MD 1 year ago Essential hypertension [facility] - Reyna Perry MD Upcoming Appointments [facility] PRESS ASSISTANT AND FEEDER - Recent and Past Visits Recent Visits Date Type Provider Dept 12/02/19 Telemedicine Reyna Vega MD [facility] 04/24/19 Office Visit Reyna Vega MD [facility] Showing recent visits within past 460 days with a meds authorizing provider and meeting all other requirements Future Appointments Date Type Provider Dept 06/04/20 Appointment [facility] future appointments within next 90 days [...] documented as of this encounter Care Teams Floral Department Specialist Relationship Specialty Start Date End Date Reyna Vega MD PCP - General Family Medicine 05/10/15 08/20/22 Tom Sharma MD [address] [place] [address] PCP - General Family Medicine 08/21/22 documented as of this encounter
--- OUTSIDE RECORDS SUMMARY | 2024-12-03 20:50 | XMS_ITS | Encounter Summary ---
Author Organization [facility] Address [address] [place] [address] Phone Care Team Providers Care Fiber Machine Tender Name Role Phone Reyna Vega MD Primary Care Provider Tom Sharma MD Primary Care Provider [phone] Reason for Visit * Reason Comments Medication Refill Encounter Details Date Type Department Care Team (Late st Contact Info) Description 03/31/2021 Refill [facility] - Primary Care - [place] [address] [place] [address] Reyna Vega MD [address] [place] [address] Medication Refill Social History Tobacco [...] Telephone Encounter - Valerie Kidd RN - 03/31/2021 11:01 AM CDT Medication failed the protocol, provider to review and approve the medication order if appropriate. Requested Prescriptions Pending Prescriptions Disp Refills levothyroxine (SYNTHROID) 88 MCG Tablet [Pharmacy Med Name: LEVOTHYROXINE 0.088MG (88MCG) TAB] 90 Tablet 0 Sig: Take 1 Tablet by mouth daily. Thyroid Hormones Protocol Passed - 03/31/2021 10:56 AM Passed - Visit with relevant provider in past 12 months or upcoming 90 days Recent Visits Date Type Provider Dept 12/06/20 Office Visit Reyna Vega MD [facility] 06/04/20 Office Visit Reyna Vega MD [facility] Showing recent visits within past 365 days and meeting all other requirements Future Appointments Date Type Provider Dept 06/06/21 [facility] 06/13/21 Appointment Reyna Vega MD [facility] Showing future appointments within next 90 days and meeting all other requirements Passed - Normal TSH in past 12 months TSH Date Value Ref Range Status 11/29/2020 1.870 0.270 - 4.200 mIU/L Final allopurinol (ZYLOPRIM) 300 MG Tablet [Pharmacy Med Name: ALLOPURINOL 300MG TABLETS] 90 Tablet 0 Sig: TAKE 1 TABLET BY MOUTH DAILY Gout Agents Protocol Failed - 03/31/2021 10:56 AM Failed - Uric acid on record in past 12 months URIC ACID Date Value Ref Range Status 04/17/2019 3.8 2.4 - 5.7 mg/dL Final Passed - Visit with relevant provider in past 12 months or upcoming 90 days Recent Visits Date Type Provider Dept 12/06/20 Office Visit Reyna Vega MD [facility] 06/04/20 Office Visit Reyna Vega MD [facility] Showing recent visits within past 365 days and meeting all other requirements Future Appointments Date Type Provider Dept 06/06/21 Appointment Lab, [facility] 06/13/21 Appointment Reyna Vega MD [facility] Showing future appointments within next 90 days and meeting all other requirements Passed - Serum creatinine on record in past 12 months CREATININE, BLOOD Date Value Ref Range Status 11/29/2020 1.01 0.60 - 1.10 mg/dL Final metoprolol Succinate (TOPROL-XL) 100 MG TABLET SR 24 HR [Pharmacy Med Name: METOPROLOL ER [id number] TABS] 180 Tablet 0 Sig: TAKE 1 TABLET BY MOUTH TWICE DAILY Beta-Blockers Protocol Passed - 03/31/2021 10:56 AM Passed - BP on record in the past year Clinician-entered: BP Readings from Last 3 Encounters: 12/06/20 120/72 06/04/20 132/72 04/24/19 128/62 Patient-entered: No data recorded Passed - Visit with relevant provider in past 12 months or upcoming 90 days Recent Visits Date Type Provider Dept 12/06/20 Office Visit Reyna Vega MD [facility] 06/04/20 Office Visit Reyna Vega MD [facility] Showing recent visits within past 365 days and meeting all other requirements Future Appointments Date Type Provider Dept 06/06/21 Appointment [email or web address] [facility] 06/13/21 Appointment Reyn[facility] MD [facility] Showing future appointments within next 90 days and meeting all other requirements hydroCHLOROthiazide 25 MG Tablet [Pharmacy Med Name: HYDROCHLOROTHIAZIDE 25MG TABLETS] 90 Tablet 0 Sig: TAKE 1 TABLET BY MOUTH DAILY Diuretics Protocol Failed - 03/31/2021 10:56 AM Failed - Serum sodium on record in past 12 months SODIUM Date Value Ref Range Status 11/29/2020 135 (L) 136 - 144 mmol/L Final Passed - Serum potassium on record in past 12 months POTASSIUM Date Value Ref Range Status 11/29/2020 4.2 3.5 - 5.1 mmol/L Final Passed - Blood pressure on record in past 12 months Clinician-entered: BP Readings from Last 3 Encounters: 12/06/20 120/72 06/04/20 132/72 04/24/19 128/62 Patient-entered: No data recorded Passed - Visit with relevant provider in past 12 months or upcoming 90 days Recent Visits Date Type Provider Dept 12/06/20 Office Visit Reyna Vega MD [facility] 06/04/20 Office Visit Reyna Vega MD [facility] Showing recent visits within past 365 days and meeting all other requirements Future Appointments Date Type Provider Dept 06/06/21 Appointment [facility] [employer] [facility] 06/13/21 Appointment Reyna Vega MD [facility] Showing future appointments within next 90 days and meeting all other requirements Passed - GFR on record in past 12 months GFR, EST. NONAFRICAN Date Value Ref Range Status 11/29/2020 52 (L) >=60 Final Olmesartan Medoxomil 40 MG Tablet [Pharmacy Med Name: OLMESARTAN MEDOXOMIL 40MG TABLETS] 90 Tablet 0 Sig: TAKE 1 TABLET BY MOUTH DAILY ARB Protocol Passed - 03/31/2021 10:56 AM Passed - Serum potassium on record in past 12 months POTASSIUM Date Value Ref Range Status 11/29/2020 4.2 3.5 - 5.1 mmol/L Final Passed - BP on record in the past year Clinician-entered: BP Readings from Last 3 Encounters: 12/06/20 120/72 06/04/20 132/72 04/24/19 128/62 Patient-entered: No data recorded Passed - Visit with relevant provider in past year or upcoming 90 days Recent Visits Date Type Provider Dept 12/06/20 Office Visit Reyna Vega MD [facility] [employer] [facility] 06/04/20 Office Visit Reyna Vega MD [facility] Showing recent visits within past 365 days and meeting all other requirements Future Appointments Date Type Provider Dept 06/06/21 Appointment [facility] [employer] [facility] 06/13/21 Appointment Reyna Vega MD [facility] Showing future appointments within next 90 days and meeting all other requirements Passed - GFR on record in past 12 months GFR, EST. NONAFRICAN Date Value Ref Range Status 11/29/2020 52 (L) >=60 Final documented in this encounter Plan of Treatment Not on file documented as of this encounter Visit Diagnoses Diagnosis Gout, unspecified cause, unspecified chronicity, unspecified site Essential hypertension Unspecified essential hypertension documented in this encounter Additional Health Concerns Infection Onset Date Last Indicated Resolved Time COVID - 19 11/17/2024 11/17/2024 11/17/2024 1:11 PM CDT Assessment Noted Time PHQ-9 Depression Total Score: 0 10/23/19 9:00 AM CDT documented as of this encounter Care Teams Fiber Machine Tender Relationship Specialty Start Date End Date Reyan Vega MD PCP - General Family Medicine 05/10/15 08/20/22 Tom Sharma MD [address] [place] [id number] PCP - General Family Medicine 08/21/22 documented as of this encounter
--- OUTSIDE RECORDS SUMMARY | 2024-12-03 20:50 | XMS_ITS | Encounter Summary ---
Author Organization [facility] Address [address] [place] [address] Phone Care Team Providers Care Rotor Assembler Name Role Phone Reyna Vega MD Primary Care Provider Tom Sharma MD Primary Care Provider [phone] Reason for Visit * Reason Comments Medication Refill Encounter Details Date Type Department Care Team (Late st Contact Info) Description 05/22/2022 Refill [facility] Family [facility] [address] [place] [address] Reyna Vega MD [address] [place] [address] Medication Refill Social History Tobacco Use Types [...] encounter Miscellaneous Notes * Telephone Encounter - Sandra Tamayo RN - 05/22/2022 2:31 PM CDT Medication failed the protocol, provider to review and approve the medication order if appropriate. Requested Prescriptions Pending Prescriptions Disp Refills Advair Diskus 250-50 MCG/ACT AEROSOL POWDER, BREATH ACTIVATED [Pharmacy Med Name: ADVAIR DISKUS 250/50MCG (YELLOW) 60] 180 Each 0 Sig: INHALE 1 PUFF BY MOUTH TWICE DAILY Inhaled Combinations Protocol Failed - 05/22/2022 2:16 PM Failed - Active short-acting beta agonist prescription Passed - Visit with relevant provider in past 12 months or upcoming 90 days Recent Visits Date Type Provider Dept 12/12/21 Office Visit [facility]a [facility] [employer] 06/13/21 Office Visit Reyna Vega MD [facility] [employer] Showing recent visits within past 365 days and meeting all other requirements Future Appointments Date Type Provider Dept 05/29/22 Appointment [facility] 06/05/22 Appointment Reyna Vega MD [facility] [employer] Showing future appointments within next 90 days [...] documented as of this encounter Care Teams Rotor Assembler Relationship Specialty Start Date End Date Reyna Vega MD PCP - General Family Medicine 05/10/15 08/20/22 Tom Sharma MD [address] [place] [id number] PCP - General Family Medicine 08/21/22 documented as of this encounter
--- OUTSIDE RECORDS SUMMARY | 2024-12-03 20:50 | XMS_ITS | Clinical Summary ---
Author Organization [facility] Facility Address [address] [address] Care Team Providers Care Research Center Director Name Role Phone Tom Sharma MD Primary Care Provider [phone] Allergies Active Allergy Reactions Criticality Noted Date Comments Ciprofloxacin Other (see comments) 11/16/2022 constipation Influenza Virus Vaccine Other (see comments) High Medications omeprazole (PriLOSEC) [address] capsule Take 40 mg by mouth 1 (one) time each day Do not crush or chew. Active aspirin (ST CHEYANNE) 81 MG EC tablet Take 81 mg by mouth 1 (one) time each day Active cholecalciferol (VITAMIN D-3) 25 MCG (1000 UT) tablet Take 1,000 Units by mouth 1 (one) time each day Active cyanocobalamin (VITAMIN B-12) 1000 MCG tablet Take 1,000 mcg by mouth 1 (one) time each day Active allopurinol (ZYLOPRIM) 300 MG tablet Take 300 mg by mouth 1 (one) time each day Active metoprolol succinate XL (TOPROL-XL) 100 MG 24 hr tablet Take 100 mg by mouth in the morning and 100 mg in the evening. Do not crush or chew. . Active olmesartan (BENICAR) 40 MG tablet Take 40 mg by mouth 1 (one) time each day Active tiotropium (SPIRIVA) 18 MCG per inhalation capsule Place 1 capsule into inhaler and inhale 1 (one) time each day Active levothyroxine sodium (TIROSINT) 88 MCG capsule Take 88 mcg by mouth 1 (one) time each day Active amLODIPine (NORVASC) 10 MG tablet Take 10 mg by mouth 1 (one) time each day Active Multiple Vitamins-Minera ls (ICAPS AREDS 2 PO) Take 2 tablets by mouth 1 (one) time each day Active Active Problems No known active problems Family History Medical History Relation Comments Hypertension Mother Stroke Mother Thyroid disease Sister Relation Status Comments Mother Sister Social History Tobacco Use Types Packs/Day Years Used Date Smoking Tobacco: Former Cigarettes Q uit: 2012 Smokeless Tobacco: Never Tobacco Cessation:Counseling Given: Not Answered Alcohol Use Standard Drinks/Week Comments Never 0 (1 standard drink = 0.6 oz pur e alcohol) Comments Unknown Sex and Gender Information Value Date Recorded Sex Assigned at Not on file Legal Sex Female 1:46 PM EDT Gender Identity Not on file Sexual Orientation Not on file Last Filed Vital Signs Vital Sign Reading Time Taken Comments Blood Pressure 130/70 11/29/2022 10:26 AM CDT Pulse 64 11/29/2022 10:26 AM CDT Temperature 36.7 C (98 F) 11/29/2022 10:26 AM CDT Respiratory Rate - - Oxygen Saturation 97% 11/29/2022 10:26 AM CDT Inhaled Oxygen Concentration - - Weight 66 kg (145 lb 8 oz) 11/29/2022 10:26 AM C DT Height 149.9 cm (4' 11 ) 11/29/2022 10:26 AM CDT Body Mass Index 29.39 11/29/2022 10:26 AM CDT Plan of Treatment Upcoming Encounters Date Type Department Care Team (Late st Contact Info) Description 01/20/2025 9:30 AM CDT Office Visit [facility]. [address] [facility] [address] [place] [id number] Jimbo Mauricio MD [address] [facility] [address] [place] [address] Health Maintenance Due Date Last Done Comments Pneumococcal Vaccine: 50+ Years Completed 04/11/2016, 06/22/2013 Hepatitis B Vaccine Aged Out No longe r eligible based on patient's age to complete this topic Insurance Medicare [facility] Care Teams Research Center Director Relationship Specialty Start Date End Date Tom Sharma MD [address] [place] [address] PCP - General Family Medicine 11/29/22
--- OUTSIDE RECORDS SUMMARY | 2024-12-03 20:50 | XMS_ITS | Clinical Summary ---
Author Organization [facility] Address [address] [address] Phone Care Team Providers Care Assistant Foreman Name Role Phone Tom Sharma MD Primary Care Provider [phone] Allergies Active Allergy Reactions Criticality Noted Date Comments Ciprofloxacin Other (see Comments) constipation Influenza Virus Vaccine Other (see Comments) High Medications vitamin D (CHOLECALCIFEROL ) 1000 UNIT Tablet Take 1,000 Units by mouth daily. Active Aspirin 81 MG Tablet Take 81 mg by mouth daily. Active Multiple Vitamins-Mineral s (PRESERVISION AREDS 2) Capsule Take 1 Cap by mouth 2 times daily. Active amLODIPine (NORVASC) 10 MG TabletIndication s:Essential hypertension TAKE 1 TABLET BY MOUTH DAILY 90 Tablet 1 01/05/20 22 Active allopurinol (ZYLOPRIM) 300 MG TabletIndication s:Gout, unspecified cause, unspecified chronicity, unspecified site TAKE 1 TABLET BY MOUTH DAILY 90 Tablet 1 02/21/20 22 Active Olmesartan Medoxomil 40 MG TabletIndication s:Essential hypertension TAKE 1 TABLET BY MOUTH DAILY 90 Tablet 05/22/20 22 Active Spiriva HandiHaler 18 MCG CapsuleIndicatio ns:Chronic obstructive pulmonary disease, unspecified COPD type (HCC) INHALE THE CONTENTS OF 1 CAPSULE VIA INHALATION DEVICE DAILY 90 Capsule 1 05/22/20 22 Active levothyroxine (SYNTHROID) 88 MCG Tablet TAKE 1 TABLET BY MOUTH DAILY 90 Tablet 05/22/20 22 Active metoprolol Succinate (TOPROL-XL) 100 MG TABLET SR 24 HRIndications:Es sential hypertension TAKE 1 TABLET BY MOUTH TWICE DAILY 180 Tablet 05/22/20 Active Dulera 200-5 MCG/ACT Aerosol take 2 Puffs by inhalation 2 times daily. 10/28/19 25 Active omeprazole (PriLOSEC) 40 MG CAPSULE DELAYED RELEASE Take 40 mg by mouth daily. Active Cyanocobalamin 1000 MCG Tablet Take 1,000 mcg by mouth daily. Active hydroCHLOROthiaz poncho 25 MG TabletIndication s:Essential hypertension TAKE 1 TABLET BY MOUTH DAILY 90 Tablet 05/22/20 22 025 Discontinu ed(Med List Clean Up) Advair Diskus 250-50 MCG/ACT AEROSOL POWDER, BREATH ACTIVATEDIndicat ions:Chronic obstructive pulmonary disease, unspecified COPD type (HCC) INHALE 1 PUFF BY MOUTH TWICE DAILY 180 Each 05/22/20 22 025 Discontinu ed(Med List Clean Up) Cyanocobalamin (B-12 PO) Take by mouth daily. 025 Discontinu ed(Med List Clean Up) amoxicillin-clav ulanate (AUGMENTIN) 875-125 MG TabletIndication s:Community Acquired Pneumonia Take 1 Tablet by mouth 3 times daily for 3 doses. Indications: Community Acquired Pneumonia 3 Tablet 11/22/19 25 025 Active Problems Problem Noted Date Diagnosed Date Acute respiratory failure with hypoxia Multifocal pneumonia 11/17/2024 Macular degeneration of left eye 06/13/2021 Chronic kidney disease 04/24/2019 Macrocytosis without anemia 04/24/2019 Obesity (BMI 30.0-34.9) 04/17/2017 Vitamin D deficiency 10/07/2015 COPD (chronic obstructive pulmonary disease) HTN (hypertension) GERD (gastroesophageal reflux disease) Mild diastolic dysfunction IBS (irritable bowel syndrome) Hypothyroidism Prediabetes Gout Subclavian artery stenosis Overview (06/09/2015): Right Encounters Date Type Department Care Team Description 11/17/2024 1:34 PM CDT - 11/20/2024 7:03 PM CDT Hospital Encounter [facility] Med Surg [address] [place] [phone] Irais Polk MD Dianati, Behfar, MD Acute respiratory failure with hypoxia (HCC) Discharge Disposition: Discharged/Transferr ed to [facility] 11/17/2024 Travel from Last 3 Months Immunizations Immunization Administration Dates Next Due Covid-19, Mrna, Lnp-s, PF, 1 00 mcg/0.5 mL Dose (Moderna) 09/25/2020,08/28/2020 Covid-19, Mrna, Lnp-s, Pf, 1 00 Mcg Or 50 Mcg Dose (MODERNA) 05/27/2021 Influenza Vaccine greater than 3 yrs 07/23/2012 PUR PCV-13 04/11/2016 Pneumococcal Vaccine Adult - 23 Valent 3 TD VACCINE 06/22/2013 Social History Tobacco Use Types Packs/Day Years Used Date Smoking Tobacco: Former Cigarettes Q uit: 10/07/2011 Smokeless Tobacco: Never Tobacco Cessation:Counseling Given: Not Answered Alcohol Use Standard Drinks/Week Comments No 0 (1 standard drink = 0.6 oz pur e alcohol) Repities Answer Date Recorded In the past 12 months has th e [email or web address], gas, oil, or water [employer] threatened to shut off services in your home? No 11/17/2024 AUDIT-C Answer Date Recorded Q1: How often do you have a drink containing alcohol? Never 11/17/2024 Q2: How many drinks containi ng alcohol do you have on a typical day when you are drinking? Patient does not drink Q3: How often do you have si x or more drinks on one occasion? Never 11/17/2024 PHQ-2 Answer Date Recorded PHQ-2 Score 0 04/08/2019 Hunger Vital Sign Answer Date Recorded Within the past 12 months, y ou worried that your food would run out before you got the money to buy more. Never true 11/18/19 25 Within the past 12 months, t he food you bought just didn't last and you didn't have money to get more. Never true 11/17/2024 PRAPARE - Transportation Answer Date Re corded In the past 12 months, has l ack of transportation kept you from medical appointments or from getting medications? No 10/22 In the past 12 months, has l ack of transportation kept you from meetings, work, or from getting things needed for daily living? No 11/17/2024 Housing Stability Vital Sign Answer Milton e Recorded In the last 12 months, was t here a time when you were not able to pay the mortgage or rent on time? No 11/17/2024 In the past 12 months, how m any times have you moved where you were living? 0 11/17/2024 At any time in the past 12 m [facility], were you homeless or living in a long-term (including now)? No 11/17/2024 Comments No Sex and Gender Information Value Date Recorded Sex Assigned at Not on file Legal Sex Female 10:17 PM CDT Gender Identity Not on file Sexual Orientation Not on file Last Filed Vital Signs Vital Sign Reading Time Taken Comments Blood Pressure 94/61 11/20/2024 8:12 AM CDT Pulse 78 11/20/2024 3:34 PM CDT Temperature 36.1 C (96.9 F) 11/20/2024 3:34 PM CDT Respiratory Rate 16 11/20/2024 3:34 PM CDT Oxygen Saturation 95% 11/20/2024 3:34 PM CDT Inhaled Oxygen Concentration - - Weight 64.1 kg (141 lb 5 oz) 11/17/2024 7:16 PM CDT Height 149.9 cm (4' 11 ) 11/17/2024 7:16 PM CDT Body Mass Index 28.54 11/17/2024 7:16 PM CDT Plan of Treatment Health Maintenance Due Date Last Done Comments Hepatitis C Virus (HCV) Screening 1935 Zoster Immunization (1 of 2) 11/12/1987 Respiratory Syncytial Virus (RSV) Immunization (Adult) (1 - 1-dose 75+ series) 2012 SARS-COV-2 Immunization ( season) 2024 05/07/2023, 05/12/2022, 12/07/2021, Additional history exists Influenza Immunization Discontinued 07/23/2012 Pneumococcal Immunization (50+ years) Completed 04/11/2016, 06/22/2013 Pneumococcal Immunization Combined Discontinued 04/11/2016, 06/22/2013 TdaP Immunization Completed 08/10/2022 DEXA Bone Density Discontinued Hepatitis B Immunization Aged Out No longer eligible based on patient's age to complete this topic Human Papillomavirus (HPV) Immunization Aged Out No longer eligible based on patient's age to complete this topic Meningococcal Immunization (ACWY) Aged Out No longer eligible based on patient's age to complete this topic Rotavirus Immunization Aged Out No lo nger eligible based on patient's age to complete this topic Procedures Procedure Name Priority Date/Time Associated Diagnosis Comments XR FOOT 2 VIEWS LEFT Routine 11/20/2024 3:23 PM CDT CBC WITH AUTO DIFFERENTIAL Routine 11/20/2024 3:38 AM CDT COMPLETE BLOOD COUNT (CBC) WITH DIFF Routine 11/20/2024 3:38 AM CDT BASIC METABOLIC PANEL W/ CALCIUM TOTAL Routine 11/20/2024 3:38 AM CDT RHYTHM STRIP 11/20/2024 12:00 AM CDT RHYTHM STRIP 11/20/2024 12:00 AM CDT ADULT TRANS THORACIC ECHO 2D COMPLT W CONT Routine 11/19/2024 11:35 AM CDT PHOSPHORUS (PO4) Routine 11/19/2024 10:06 AM CDT MAGNESIUM (MG) Routine 11/19/2024 10:06 AM CDT CBC WITH AUTO DIFFERENTIAL Routine 11/19/2024 3:46 AM CDT COMPLETE BLOOD COUNT (CBC) WITH DIFF Routine 11/19/2024 3:46 AM CDT BASIC METABOLIC PANEL W/ CALCIUM TOTAL Routine 11/19/2024 3:46 AM CDT RHYTHM STRIP 11/19/2024 12:00 AM CDT RHYTHM STRIP 11/19/2024 12:00 AM CDT RHYTHM STRIP 11/19/2024 12:00 AM CDT RHYTHM STRIP 11/19/2024 12:00 AM CDT RHYTHM STRIP 11/19/2024 12:00 AM CDT STREPTOCOCCUS PNEUMONIAE ANTIGEN, URINE Routine 11/18/2024 5:08 AM CDT UR LEGIONELLA ANTIGEN Routine 11/18/2024 5:08 AM CDT URINALYSIS REFLEX IF INDICATED BY ABNORMAL RESULTS STAT 11/18/2024 5:08 AM CDT CBC WITH AUTO DIFFERENTIAL STAT 11/18/2024 4:25 AM CDT PROCALCITONIN Routine 11/18/2024 4:25 AM CDT COMPLETE BLOOD COUNT (CBC) WITH DIFF STAT 11/18/2024 4:25 AM CDT BASIC METABOLIC PANEL W/ CALCIUM TOTAL STAT 11/18/2024 4:25 AM CDT RHYTHM STRIP 11/18/2024 12:00 AM CDT RHYTHM STRIP 11/18/2024 12:00 AM CDT RHYTHM STRIP 11/18/2024 12:00 AM CDT POCT GLUCOSE Routine 11/17/2024 9:17 PM CDT MDI TREATMENT RT-INITIAL Routine 11/17/2024 8:16 PM CDT AEROSOL NEBULIZER-INITIAL Routine 11/17/2024 8:16 PM CDT MRSA NASAL PCR Routine 11/17/2024 7:47 PM CDT MRSA NASAL BY PCR Routine 11/17/2024 7:4 7 PM CDT POCT GLUCOSE STAT 11/17/2024 5:[address] ANGIO CHEST W/WO CONTRAST WITH PP (POST PROCESSING) Stat with Interpretation 11/17/2024 4:24 PM CDT TROPONIN I, HIGH SENSITIVITY (HSTRP) STAT 11/17/2024 3:18 PM CDT BLOOD GASES, ARTERIAL W/ O2 SATURATION STAT 11/17/2024 3:01 PM CDT CULTURE, BLOOD STAT 11/17/2024 2:34 PM CDT LACTIC ACID (LACTATE) STAT 11/17/2024 2:26 PM CDT D-DIMER STAT 11/17/2024 2:26 PM CDT CULTURE, BLOOD STAT 11/17/2024 2:26 PM CDT CRITICAL CARE Routine 11/17/2024 2:25 PM CDT XR CHEST 2 VIEWS STAT 11/17/2024 11:49 AM CDT CBC WITH AUTO DIFFERENTIAL STAT 11/17/2024 11:30 AM CDT HEMOGLOBIN A1C W/ ESTIMATED GLUCOSE STAT 11/17/2024 11:30 AM CDT B-TYPE NATRIURETIC PEPTIDE (BNP) STAT 11/17/2024 11:30 AM CDT TROPONIN I, HIGH SENSITIVITY (HSTRP) STAT 11/17/2024 11:30 AM CDT CMP (COMPREHENSIVE METABOLIC PANEL) STAT 11/17/2024 11:30 AM CDT COMPLETE BLOOD COUNT (CBC) WITH DIFF STAT 11/17/2024 11:30 AM CDT RSV,SARS-COV-2,INFL UENZA A&B BY PCR STAT 11/17/2024 11:30 AM CDT EKG 12 LEAD STAT 11/17/2024 11:24 AM CDT RHYTHM STRIP 11/17/2024 12:00 AM CDT EKG SCAN 11/17/2024 12:00 AM CDT from Last 3 Months Results * XR FOOT 2 VIEWS LEFT (11/20/2024 3:23 PM CDT) Anatomical Region Laterality Modality LOWER EXTREMITY, foot Left Digital Ra diography 11/20/2024 6:56 PM CDT Impressions 11/20/2024 6:59 PM CDT IMPRESSION: No acute osseous abnormality. Narrative 11/20/2024 6:59 PM CDT EXAM DESCRIPTION: XR FOOT 2 VIEWS LEFT REASON FOR STUDY: Left foot pain at rest and with activity x today. pt is unsure if there was injury. TECHNIQUE: 2 radiographic view(s) of the left foot . COMPARISON: 08/13/2014 FINDINGS: BONES/JOINTS: There is no acute fracture, malalignment or osseous abnormality. The joint spaces are normal. Osteopenia. Hallux valgus and metatarsus varus. SOFT TISSUES: Soft tissue swelling about the left foot. No radiopaque foreign body. THIS IS AN ELECTRONICALLY VERIFIED FINAL REPORT 11/20/2024 6:56 PM - Electronically signed by Carlos Barriga M.D. KT: RACQUEL Report ID: [id number] Reading Location: [id number] Procedure Note Carlos Barriga MD - 11/20/2024 EXAM DESCRIPTION: XR FOOT 2 VIEWS LEFT REASON FOR STUDY: Left foot pain at rest and with activity x today. pt is unsure if there was injury. TECHNIQUE: 2 radiographic view(s) of the left foot . COMPARISON: 08/13/2014 FINDINGS: BONES/JOINTS: There is no acute fracture, malalignment or osseous abnormality. The joint spaces are normal. Osteopenia. Hallux valgus and metatarsus varus. SOFT TISSUES: Soft tissue swelling about the left foot. No radiopaque foreign body. THIS IS AN ELECTRONICALLY VERIFIED FINAL REPORT 11/20/2024 6:56 PM - Electronically signed by Carlos Barriga M.D. KT: RACQUEL Report ID: [id number] Reading Location: [id number] IMPRESSION: No acute osseous abnormality. Behhernando Stephenson MD [facility] ORDERABLES Aleah l Result * (ABNORMAL) CBC with Auto Differential (11/20/2024 3:38 AM CDT) Only the most recent of4 resultswithin the time period is included. WBC 9.48 4.00 - 12.00 10(3)/mcL 11/20/2024 4:29 AM CDT [facility] RBC 2.82(L) 3.80 - 5.30 10(6)/mcL 11/20/2024 4:29 AM CDT [facility] HEMOGLOBIN (HGB) 9.2(L) 12.0 - 15.8 g/dL 11/20/2024 4:29 AM CDT [facility] HEMATOCRIT (HCT) 27.3(L) 36.0 - 47.0 % 11/20/2024 4:29 AM CDT [facility] MCV 96.8(H) 82.0 - 96.0 fL 11/20/2024 4:29 AM CDT [facility] MCH 32.6 26.0 - 34.0 pg 11/20/2024 4:29 AM CDT [facility] MCHC 33.7 31.0 - 36.0 g/dL 11/20/2024 4:29 AM CDT [facility] PLATELET COUNT 256 140 - 440 10(3)/mcL 11/20/2024 4:29 AM CDT [facility] RDW 13.0 11.8 - 15.5 % 11/20/2024 4:29 AM CDT [facility] MPV 10.1 9.7 - 12.4 fL 11/20/2024 4:29 AM CDT [facility] NEUTROPHILS 78.3(H) 47.0 - 73.0 % 11/20/2024 4:29 AM CDT [facility] LYMPHOCYTES 9.4(L) 18.0 - 42.0 % 11/20/2024 4:29 AM CDT [facility] MONOCYTES 9.5 4.0 - 12.0 % 11/20/2024 4:29 AM CDT [facility] EOSINOPHILS 2.3 0.0 - 5.0 % 11/20/2024 4:29 AM CDT [facility] BASOPHILS 0.5 0.0 - 1.0 % 11/20/2024 4:29 AM CDT [facility] ABSOLUTE NEUTROPHILS 7.42 1.60 - 7.70 10(3)/mcL 11/20/2024 4:29 AM CDT [facility] ABSOLUTE LYMPHOCYTES 0.89(L) 1.30 - 3.20 10(3)/[facility] 11/20/2024 4:29 AM CDT [facility] ABSOLUTE MONOCYTES 0.90 0.20 - 1.00 10(3)/[facility] 11/20/2024 4:29 AM CDT [facility] ABSOLUTE EOSINOPHIL 0.22 0.00 - 0.40 10(3)/[facility] 11/20/2024 4:29 AM CDT [facility] ABSOLUTE BASOPHILS 0.05 0.00 - 0.10 10(3)/[facility] 11/20/2024 4:29 AM CDT [facility] NRBC PER 100 WBC 0 11/21/19 25 4:29 AM CDT [facility] Blood Venipuncture / Unknown 11/20/2024 3:38 AM CDT 11/20/2024 4:22 AM CDT us Lona Lopez FRONT END MANAGER, HEAD SULFIDE OPERATOR HEMATOLOGY ORDERABLES F inal Result [facility] [address] [place] [address] * (ABNORMAL) BMP with Ca, Total (11/20/2024 3:38 AM CDT) Only the most recent of3 resultswithin the time period is included. SODIUM 132(L) 136 - 145 mmol/L 11/20/2024 5:00 AM CDT [facility] POTASSIUM 3.8 3.5 - 5.1 mmol/L 11/20/2024 5:00 AM CDT [facility] CHLORIDE 105 98 - 107 mmol/L 11/20/2024 5:00 AM CDT [facility] CO2, VENOUS 17(L) 22 - 30 mmol/L 11/20/2024 5:00 AM CDT [facility] ANION GAP 13.8 <18.0 mmol/L 11/20/2024 5:00 AM CDT [facility] GLUCOSE 65(L) 70 - 99 mg/dL 11/20/2024 5:00 AM CDT [facility] BUN 24(H) 10 - 20 mg/dL 11/20/2024 5:00 AM T [facility] CREATININE, BLOOD 0.99 0.60 - 1.00 mg/dL 11/20/2024 5:00 AM T [facility] BUN/CREATININE RATIO 24(H) 12 - 20 ratio 11/20/2024 5:00 AM T [facility] CALCIUM 8.8 8.7 - 10.5 mg/dL 11/20/2024 5:00 AM CDT [facility] GFR, ESTIMATED 55(L) >=60 11/20/2024 5:00 AM CDT [facility] Comment: Creatinine Clearance is the preferred criteria for selecting drug dose adjustments in renally impaired patients. The GFR is provided as additional pertinent clinical information. GFR is reported in mL/min/1.73 sq m. Calculation based on the Chronic Kidney Disease Epidemiology Collaboration (CKD- EPI) equation refit without adjustment for race. GFR, EST. >60 >=60 025 5:00 AM CDT [facility] GFR, EST. NONAFRICAN 53(L) >=60 11/20/2024 5:00 AM T [facility] Blood Venipuncture / Unknown 11/20/2024 3:38 AM CDT 11/20/2024 4:22 AM CDT us Lona Lopez FRONT END MANAGER, HEAD SULFIDE OPERATOR CHEMISTRY ORDERABLES Fi nal Result [facility] [facility] [place] [address] * RHYTHM STRIP (11/20/2024 12:00 AM CDT) Only the most recent of11 resultswithin the time period is included. 11/20/2024 us Provider Scan IMG ECG ORDERABLES Final Result RESULTING AGENCY * ADULT TRANS THORACIC ECHO 2D COMPLT W CONT (11/19/2024 11:35 AM CDT) AV Peak Grad mmHg 8.29 mmHg RESULTING AGENCY Mean Aortic Valve Gradient (MAVG) 5 mmHg RESULTING AGENCY LV end jaquan diam cm 3.5 cm RESULTING AGENCY LV end sys diam cm 2.6 cm RESULTING AGENCY Aortic Root Diam cm 2.6 cm RESULTING AGENCY LA vol index ml/m2 20 ml/m2 RESULTING AGENCY LVOT Peak Tommie m/sec 1.09 m/sec RESULTING AGENCY AV Peak Tommie m/sec 1.44 m/sec RESULTING AGENCY MVA by PHT cm2 3.01 cm2 RESUL TING AGENCY E/A Ratio 0.61 RESULTING AGENCY TR Tommie m/sec 2.47 m/sec RESULTI NG AGENCY E/E' 7.6 RESULTING AGENCY AV Area (VTI) cm2 2.02 cm2 RESULTING AGENCY SEPTUM DIASTOLIC CM 1.1 cm RESULTING AGENCY PW DIASTOLIC CM 1.1 cm RESU LTING AGENCY LA VOLUME 31.9 ml RESULTING AGENCY LV EF(estimated)% 63 RESULTING AGENCY Anatomical Region Laterality Modality CARDIO N/A Ultrasound Narrative 11/20/2024 5:09 PM CDT Transthoracic Echocardiography Report (TTE) Patient name ARIAS Loving Johana 1935 Patient ID (UPI) [id number] Indications: Respiratory Distress, Atrial fibrillation, Hypertension, COPD and Shortness of breath. Study Date11/19/2024 Technical quality: Poor visualization Limitation Reason: COPD/Emphysema Type of Study: TTE procedure: Adult Trans Thoracic Echo 2D Complete. Priority:RoutineHR: 82 bpmBP: 120/101 mmHg Contrast Medium: Lumason. Amount - 3 ml Conclusions Summary The left ventricle is normal in size. Wall thickness is normal. LV function is normal. There are no regional wall motion abnormalities. LV EF of 60-65%. Grade I diastolic dysfunction. Findings Mitral Valve The mitral valve is normal. There is no evidence of mitral stenosis. There is no significant mitral regurgitation. Aortic Valve The aortic valve is trileaflet with normal leaflet excursion. There is no evidence of aortic valve stenosis. Trace AI. Tricuspid Valve The tricuspid valve is normal. There is no evidence of tricuspid stenosis. Trace tricuspid valve regurgitation. Insufficient TR jet to estimate PASP. Pulmonic Valve The pulmonic valve structure appears normal. There is no evidence of pulmonic stenosis. Trace pulmonic regurgitation. Left Atrium The left atrium size is normal. Left Ventricle The left ventricle is normal in size. Wall thickness is normal. LV function is normal. There are no regional wall motion abnormalities. LV EF of 60-65%. Grade I diastolic dysfunction. Right Atrium The right atrium size is normal. Right Ventricle Normal right ventricular cavity size and normal systolic function. Pericardial Effusion Epicardial fat pad noted. No pericardial effusion. Miscellaneous Aortic root and proximal ascending aorta are normal in size. Atrial septum appears intact. IVC is normal in size and respiratory response. Aortic arch appears normal. Valves Mitral Valve Area (PHT): 3.01 cm^2 Peak E-Wave: 0.65 m/s Deceleration Time: 249 msec Peak A-Wave: 1.08 m/s Peak Gradient: 1.72 mmHg P1/2t: 73 msec Tissue Doppler E' Velocity: 0.05 m/s E/E':7.6 E/A Ratio: 0.61 E/Lat E': 7.6 E/Med E':11 Aortic Valve Area (continuity): 2.02 cm^2 Mean Velocity: 1.01 m/s Area (VTI):2.01 cm^2 Mean Gradient: 5 mmHg Peak Velocity: 1.44 m/s AV VTI: 24.9 cm Peak Gradient: 8.29 mmHg Tricuspid Valve Peak E-Wave: 0.53 m/s Peak Gradient: 1.14 mmHg TR Velocity: 2.47 m/s TR Gradient: 24.4 mmHg Pulmonic Valve Peak Velocity: 1.09 m/s Mean Velocity: 0.63 m/s Peak Gradient: 4.75 mmHg Mean Gradient: 2 mmHg LVOT Peak Velocity: 1.09 m/s Mean Velocity: 0.73 m/s Peak Gradient: 5 mmHg Mean Gradient: 3 mmHg LVOT Diameter: 1.9 cm LVOT VTI: 17.7 cm Stroke Volume: 50 ml Stroke Volume Index: 31.45 ml/m^2 Structures Left Ventricle Diastolic Dimension: 3.5 cm Systolic Dimension: 2.6 cm Septum Diastolic: 1.1 cm Septum Systolic: 1.6 cm PW Diastolic: 1.1 cm PW Systolic: 1.6 cm Diastolic Length: 28 cm Systolic Length: 17 cm EF Calculated: 61.02% CI: 2.58 l/min*m^2 CO: 4.11 l/min RWT: 0.63 LV EDV: 96.2 ml FS: 25.71 % LV EDV Index: 61 m^2 LV Length: 6.75 cm LV ESV: 37.5 ml LVOT Diameter: 1.9 cm LV ESV Index: 24 m^2 Right Ventricle RVOT (PLAX) diameter:3.9 cm Tissue Doppler RV S': 14.1 TAPSE: 1.88 cm Left Atrium LA Systolic Pressure: 11.53 mmHg LA Area: 11.4 cm^2 LA Volume: 31.9 ml LA Index: 20ml/m^2 Great Vessels Aorta Ascending Aorta: 2.9 cm Aorta Root:2.6 cm Ascending Aorta Index:1.82 cm/m^2 Contractility Score LV regional wall motion: (0-Not visualized 1-Normal 1'-Hyperkinesis 2-Hypokinesis 3-Akinesis 4-Dyskinesis 5-Aneurysm) Demographics Age 89 Gender Female Race Height 59.02 in. Weight 141.32 lbs. BMI (BSA) 28.53 kg/m^2 (1.59 m^2) Community Support Specialist Julia Rodriguezcy Room 7 Interpreting Jo-Ann ALICIA Physician Aris Physician Procedure Note Aris Busch MD - 11/20/2024 Transthoracic Echocardiography Report (TTE) Patient name ARIAS Loving Johana 1935 Patient ID ([facility]) [id number] Indications: Respiratory Distress, Atrial fibrillation, Hypertension, COPD and Shortness of breath. Study Date11/19/2024 Technical quality: Poor visualization Limitation Reason: COPD/Emphysema Type of Study: TTE procedure: Adult Trans Thoracic Echo 2D Complete. Priority:RoutineHR: 82 bpmBP: 120/101 mmHg Contrast Medium: Lumason. Amount - 3 ml Conclusions Summary The left ventricle is normal in size. Wall thickness is normal. LV function is normal. There are no regional wall motion abnormalities. LV EF of 60-65%. Grade I diastolic dysfunction. Findings Mitral Valve The mitral valve is normal. There is no evidence of mitral stenosis. There is no significant mitral regurgitation. Aortic Valve The aortic valve is trileaflet with normal leaflet excursion. There is no evidence of aortic valve stenosis. Trace AI. Tricuspid Valve The tricuspid valve is normal. There is no evidence of tricuspid stenosis. Trace tricuspid valve regurgitation. Insufficient TR jet to estimate PASP. Pulmonic Valve The pulmonic valve structure appears normal. There is no evidence of pulmonic stenosis. Trace pulmonic regurgitation. Left Atrium The left atrium size is normal. Left Ventricle The left ventricle is normal in size. Wall thickness is normal. LV function is normal. There are no regional wall motion abnormalities. LV EF of 60-65%. Grade I diastolic dysfunction. Right Atrium The right atrium size is normal. Right Ventricle Normal right ventricular cavity size and normal systolic function. Pericardial Effusion Epicardial fat pad noted. No pericardial effusion. Miscellaneous Aortic root and proximal ascending aorta are normal in size. Atrial septum appears intact. IVC is normal in size and respiratory response. Aortic arch appears normal. Valves Mitral Valve Area (PHT): 3.01 cm^2 Peak E-Wave: 0.65 m/s Deceleration Time: 249 msec Peak A-Wave: 1.08 m/s Peak Gradient: 1.72 mmHg P1/2t: 73 msec Tissue Doppler E' Velocity: 0.05 m/s E/E':7.6 E/A Ratio: 0.61 E/Lat E': 7.6 E/Med E':11 Aortic Valve Area (continuity): 2.02 cm^2 Mean Velocity: 1.01 m/s Area (VTI):2.01 cm^2 Mean Gradient: 5 mmHg Peak Velocity: 1.44 m/s AV VTI: 24.9 cm Peak Gradient: 8.29 mmHg Tricuspid Valve Peak E-Wave: 0.53 m/s Peak Gradient: 1.14 mmHg TR Velocity: 2.47 m/s TR Gradient: 24.4 mmHg Pulmonic Valve Peak Velocity: 1.09 m/s Mean Velocity: 0.63 m/s Peak Gradient: 4.75 mmHg Mean Gradient: 2 mmHg LVOT Peak Velocity: 1.09 m/s Mean Velocity: 0.73 m/s Peak Gradient: 5 mmHg Mean Gradient: 3 mmHg LVOT Diameter: 1.9 cm LVOT VTI: 17.7 cm Stroke Volume: 50 ml Stroke Volume Index: 31.45 ml/m^2 Structures Left Ventricle Diastolic Dimension: 3.5 cm Systolic Dimension: 2.6 cm Septum Diastolic: 1.1 cm Septum Systolic: 1.6 cm PW Diastolic: 1.1 cm PW Systolic: 1.6 cm Diastolic Length: 28 cm Systolic Length: 17 cm EF Calculated: 61.02% CI: 2.58 l/min*m^2 CO: 4.11 l/min RWT: 0.63 LV EDV: 96.2 ml FS: 25.71 % LV EDV Index: 61 m^2 LV Length: 6.75 cm LV ESV: 37.5 ml LVOT Diameter: 1.9 cm LV ESV Index: 24 m^2 Right Ventricle RVOT (PLAX) diameter:3.9 cm Tissue Doppler RV S': 14.1 TAPSE: 1.88 cm Left Atrium LA Systolic Pressure: 11.53 mmHg LA Area: 11.4 cm^2 LA Volume: 31.9 ml LA Index: 20ml/m^2 Great Vessels Aorta Ascending Aorta: 2.9 cm Aorta Root:2.6 cm Ascending Aorta Index:1.82 cm/m^2 Contractility Score LV regional wall motion: (0-Not visualized 1-Normal 1'-Hyperkinesis 2-Hypokinesis 3-Akinesis 4-Dyskinesis 5-Aneurysm) Demographics Age 89 Gender Female Race Height 59.02 in. Weight 141.32 lbs. BMI (BSA) 28.53 kg/m^2 (1.59 m^2) Community Support Specialist [facility] Room 7 Interpreting Jo-Ann ALICIA Physician Aris Physician Isabell Stephenson MD IMG ECHO ORDERABLES Edited Res ult - Final * PHOSPHORUS (PO4) (11/19/2024 10:06 AM CDT) PHOSPHORUS 3.4 2.5 - 4.5 mg/dL 11/19/2024 10:33 AM CDT [facility] Blood Venipuncture / Unknown 11/19/2024 10:06 AM CDT 11/19/2024 10:06 AM CDT us Isabell Stephenson MD CHEMISTRY ORDERABLES Final Res ult [facility] [place] [address] * MAGNESIUM (MG) (11/19/2024 10:06 AM CDT) MAGNESIUM 1.8 1.6 - 2.6 mg/dL 11/19/2024 10:33 AM CDT [facility] Blood Venipuncture / Unknown 11/19/2024 10:06 AM CDT 11/19/2024 10:06 AM CDT Isabell Stephenson MD CHEMISTRY ORDERABLES Final Res ult [facility] [place] [address] * (ABNORMAL) URINALYSIS REFLEX IF INDICATED BY ABNORMAL RESULTS (11/18/2024 5:08 AM CDT) SPECIFIC GRAVITY 1.015 1.003 - 1.030 11/18/2024 5:30 AM CDT [facility] URINE PH 5.0 5.0 - 9.0 11/18/2024 5:30 AM CDT [facility] WBC ESTERASE Negative Negative 11/18/2024 5:30 AM CDT [facility] NITRITE Negative Negative 11/18/2024 5:30 AM CDT [facility] PROTEIN, RANDOM URINE 30 mg/dL(A) Negative 11/18/2024 5:30 AM CDT [facility] URINE GLUCOSE, QUAL Negative Negative 11/18/2024 5:30 AM CDT [facility] URINE KETONES 15 mg/dL(A) Negative 11/18/2024 5:30 AM CDT [facility] UROBILINOGEN Normal Normal mg/dL 11/18/2024 5:30 AM CDT [facility] URINE BLOOD Negative Negative david/ul 11/18/2024 5:30 AM CDT [facility] URINALYSIS COLOR Yellow 11/19/19 5:30 AM CDT [facility] URINALYSIS CLARITY Clear 11/18/2024 5:30 AM CDT [facility] WBC (Urine) 0-5 Negative, 0-5 /hpf 11/18/2024 5:30 AM CDT [facility] URINE RBC'S 0-2 Negative, 0-2 /hpf 11/18/2024 5:30 AM CDT [facility] EPITHELIAL CELLS Small amount /lpf 2024 5:30 AM CDT [facility] BACTERIA, URINE Few(A) Negative /hpf 11/18/2024 5:30 AM CDT [facility] CRYSTALS Amorphous urates 11/18/2024 5:30 AM CDT [facility] Urine URINE SPECIMEN OBTAINED BY CLEAN CATCH PROCEDURE / Unknown Non-Phlebotomy Collection / Unknown 11/18/2024 5:08 AM CDT 11/18/2024 5:12 AM CDT us Irais Polk MD URINE ORDERABLES Final Result Performing Organization Address City/[facility]/ZIP Co de Phone Number [facility] [place] [address] * Streptococcus Pneumoniae Antigen (11/18/2024 5:08 AM CDT) STREP PNEUMO ANTIGEN Negative Negative 11/18/2024 3:22 PM CDT [facility] Comment:Negative result sugg ests no current or recent pneumococcal infection. Infection due to S. pneumoniae cannot be ruled out since the antigen present in the sample may be below the detection limit of the test. Other Non-Phlebotomy Collection / Unknown 11/18/2024 5:08 AM CDT 11/18/2024 5:12 AM CDT us Lona Lopez FRONT END MANAGER, HEAD SULFIDE OPERATOR URINE ORDERABLES Final Result Performing Organization Address City/[facility]/ZIP Co de Phone Number [facility] [address] [place] [address], * Ur Legionella Antigen (11/18/2024 5:08 AM CDT) LEGIONELLA URINE AG Negative Negative 11/18/2024 3:22 PM CDT [facility] Comment:Presumptive Negative for Legionella Pneumophila Serogroup 1 Antigen in urine, suggesting no recent or current infection. Infection due to Legionella cannot be ruled out since other serogroups and species may cause disease. Antigen may not be present in urine in early infection, and the level of antigen present in the urine may be below the detection limit of the test. Other Non-Phlebotomy Collection / Unknown 11/18/2024 5:08 AM CDT 11/18/2024 5:12 AM CDT Lona Lopez FRONT END MANAGER, HEAD SULFIDE OPERATOR URINE ORDERABLES Final Result [facility] [address] [place] [address], * (ABNORMAL) Procalcitonin (11/18/2024 4:25 AM CDT) PROCALCITONIN 3.79(H) <=0.25 ng/mL 11/18/2024 5:57 AM CDT [facility] Blood Venipuncture / Unknown 11/18/2024 4:25 AM CDT 11/18/2024 5:13 AM CDT Narrative [facility] - 11/18/2024 5:57 AM CDT If the differential diagnosis is systemic bacterial infection, sepsis, or septic shock use these guidelines: <=0.25 ng/mL: Low risk for systemic bacterial infection, sepsis, or septic shock. Localized bacterial infection possible: Suggest re-testing in 24 hours >=0.50 ng/mL: Systemic bacterial infection, sepsis, or septic shock are possible: suggest re-testing in approximately 24 hours. If the differential diagnosis is suspected lower respiratory tract infection (LRTI) or there is confirmed LRTI: < 0.1 ng/mL: Suggests absence of bacterial infection. Antibiotic therapy strongly discouraged. 0.1-0.25 ng/mL: Suggests bacterial infection is unlikely. Antibiotic therapy discouraged. 0.26-0.5 ng/mL: Suggests possible bacterial infection. Antibiotic therapy encouraged. > 0.5 ng/mL: Suggests bacterial infection. Antibiotic therapy strongly encouraged us Lavada J Lopez FRONT END MANAGER, HEAD SULFIDE OPERATOR IMMUNOLOGY ORDERABLES F inal Result Performing Organization Address [facility] Co de Phone Number [facility] [place] [address] * POCT Glucose (11/17/2024 9:17 PM CDT) Only the most recent of2 resultswithin the time period is included. GLUCOSE,BEDSIDE POCT 89 70 - 99 mg/dL 11/17/2024 9:23 PM CDT [facility] Blood 11/17/2024 9:17 PM CDT 11/17/2024 9:23 PM CDT us None Provider POINT OF CARE TESTING Final Resu lt Performing Organization Address [facility] Co de Phone Number [facility] [place] [address] * MRSA NASAL PCR (11/17/2024 7:47 PM CDT) MRSA PCR RESULT Negative Negative, Invalid 11/17/2024 9:28 PM CDT [facility] Other NASOPHARYNGEAL SWAB / Unknown Non-Phlebotomy Collection / Unknown 11/17/2024 7:47 PM CDT 11/17/2024 8:16 PM CDT us Isabell Stephenson MD MICROBIOLOGY - GENERAL ORDERAB LES Final Result Performing Organization Address [facility] Co de Phone Number [facility] [place] [address] * CT ANGIO CHEST W/WO CONTRAST WITH PP (POST PROCESSING) (11/17/2024 4:24 PM CDT) Anatomical Region Laterality Modality vascular N/A Computed Tomogra phy 11/17/2024 4:48 PM CDT Impressions 11/17/2024 4:51 PM CDT IMPRESSION: No evidence of pulmonary embolism. Multifocal areas of consolidation bilaterally, concerning for pneumonia. Recommend follow-up chest CT in 3 months to ensure resolution. Mild emphysema. Dilated main pulmonary artery, which can be seen in the setting of pulmonary hypertension. Cholelithiasis. Marked cortical atrophy of the kidneys. Additional findings as above. Narrative 11/17/2024 4:51 PM CDT EXAM DESCRIPTION: CT ANGIO CHEST W/WO CONTRAST WITH PP (POST PROCESSING) REASON FOR STUDY: shortness of breath and productive cough for 1 week. d-dmier 3.68 TECHNIQUE: CT angiogram of the chest performed with intravenous contrast using helical scanning technique with dynamic intravenous contrast injection. Reconstructed coronal and sagittal MPR images reviewed. All images stored on PACS. 3D MIP images rendered on scanning unit and reviewed at time of interpretation. Automated exposure control was used as a dose optimization technique for this examination. CONTRAST TYPE/DOSE: 100mL of IOPAMIDOL 76 % IV SOLN injected via Intravenous COMPARISON: None FINDINGS: VASCULATURE: No identified pulmonary emboli. Main pulmonary artery is dilated measuring 3.4 cm. Thoracic aorta is normal in course and caliber without dissection. It contains a large amount of atherosclerotic plaque. LUNGS: Mild respiratory motion degrades evaluation of the pulmonary parenchyma. There is mild emphysema. Central airways are patent. There are multifocal areas of consolidation bilaterally in the lung bases, as well as in the upper portions of the right and left upper lobes. PLEURA: No effusion. No pneumothorax. MEDIASTINUM/SID: Small hiatal hernia. No lymphadenopathy. HEART: The heart size is mildly enlarged. There is trace pericardial fluid. There are multivessel coronary artery calcifications. Aortic valvular calcifications are also present. AXILLA: No adenopathy. CHEST WALL: No masses. No subcutaneous air. HARDWARE/LINES/TUBES: None. UPPER ABDOMEN: Cholelithiasis. There is also marked cortical atrophy of the kidneys. MUSCULOSKELETAL: There is no suspicious osseous lesion. OTHER: No significant abnormality. THIS IS AN ELECTRONICALLY VERIFIED FINAL REPORT 11/17/2024 4:48 PM - Electronically signed by Marko Sherwood M.D. AM: AM Report ID: [id number] Reading Location: [place] [address] Procedure Note Marko Sherwood MD - 11/17/2024 EXAM DESCRIPTION: CT ANGIO CHEST W/WO CONTRAST WITH PP (POST PROCESSING) REASON FOR STUDY: shortness of breath and productive cough for 1 week. d-dmier 3.68 TECHNIQUE: CT angiogram of the chest performed with intravenous contrast using helical scanning technique with dynamic intravenous contrast injection. Reconstructed coronal and sagittal MPR images reviewed. All images stored on PACS. 3D MIP images rendered on scanning unit and reviewed at time of interpretation. Automated exposure control was used as a dose optimization technique for this examination. CONTRAST TYPE/DOSE: 100mL of IOPAMIDOL 76 % IV SOLN injected via Intravenous COMPARISON: None FINDINGS: VASCULATURE: No identified pulmonary emboli. Main pulmonary artery is dilated measuring 3.4 cm. Thoracic aorta is normal in course and caliber without dissection. It contains a large amount of atherosclerotic plaque. LUNGS: Mild respiratory motion degrades evaluation of the pulmonary parenchyma. There is mild emphysema. Central airways are patent. There are multifocal areas of consolidation bilaterally in the lung bases, as well as in the upper portions of the right and left upper lobes. PLEURA: No effusion. No pneumothorax. MEDIASTINUM/SID: Small hiatal hernia. No lymphadenopathy. HEART: The heart size is mildly enlarged. There is trace pericardial fluid. There are multivessel coronary artery calcifications. Aortic valvular calcifications are also present. AXILLA: No adenopathy. CHEST WALL: No masses. No subcutaneous air. HARDWARE/LINES/TUBES: None. UPPER ABDOMEN: Cholelithiasis. There is also marked cortical atrophy of the kidneys. MUSCULOSKELETAL: There is no suspicious osseous lesion. OTHER: No significant abnormality. THIS IS AN ELECTRONICALLY VERIFIED FINAL REPORT 11/17/2024 4:48 PM - Electronically signed by Marko Sherwood M.D. AM: AM Report ID: [id number] Reading Location: [id number] IMPRESSION: No evidence of pulmonary embolism. Multifocal areas of consolidation bilaterally, concerning for pneumonia. Recommend follow-up chest CT in 3 months to ensure resolution. Mild emphysema. Dilated main pulmonary artery, which can be seen in the setting of pulmonary hypertension. Cholelithiasis. Marked cortical atrophy of the kidneys. Additional findings as above. Irais Polk MD IMG CT ORDERABLES Final Resul t * TROPONIN I, HIGH SENSITIVITY (HSTRP) (11/17/2024 3:18 PM CDT) Only the most recent of2 resultswithin the time period is included. Pathologist [facility] TROPONIN I, HIGH SENSITIVITY- OTRRES 9 <=14 ng/L 11/17/2024 4:15 PM CDT [facility] Comment: High-sensitivity troponin I results are reported in ng/L making the result appear to be 1,000 times higher than the contemporary troponin I value which is reported in ng/ml. Results from [facility]. Blood Venipuncture / Unknown 11/17/2024 3:18 PM CDT 11/17/2024 3:46 PM CDT us Irais Polk MD CHEMISTRY ORDERABLES Final Re sult [facility] [place] [address] * (ABNORMAL) Blood Gases, Arterial w/ O2 Saturation [id number] (11/17/2024 3:01 PM CDT) [facility] O2 STATUS 2 lpm nasal cannula 11/17/2024 3:05 PM CDT [facility] PH ARTERIAL 7.45 7.35 - 7.45 11/17/2024 3:05 PM CDT [facility] PC02 (ARTERIAL) 24(L) 35 - 45 mmHg 11/17/2024 3:05 PM CDT [facility] PO2 (ARTERIAL) 66(L) 75 - 100 mmHg 11/17/2024 3:05 PM CDT [facility] O2 SAT ART, MEASURED 87(L) 94 - 100 % 11/17/2024 3:05 PM CDT [facility] BASE ARTERIAL -4.9(L) -2.0 - 2.0 mmol/L 11/17/2024 3:05 PM CDT [facility] BICARBONATE 16.9(L) 22.0 - 26.0 mmol/L 11/17/2024 3:05 PM CDT [facility] KAVON'S TEST RESULTS Not Performed 11/17/2024 3:05 PM CDT [facility] Comment:left brachial CARBOXYHEMOGLOBIN 1.1 0.0 - 5.0 % 11/17/2024 3:05 PM CDT [facility] METHEMOGLOBIN 0.4 0.0 - 1.5 % 11/17/2024 3:05 PM CDT [facility] ART Blood Gas Arterial Punctur e / Unknown 11/17/2024 3:01 PM CDT 11/17/2024 3:02 PM CDT Irais Polk MD CHEMISTRY ORDERABLES Final Re sult [facility] [place] [address] * Culture, Blood [id number] (11/17/2024 2:34 PM CDT) Only the most recent of2 resultswithin the time period is included. CULTURE RESULTS NO GROWTH WITHIN 5 DAYS, FINAL RESULT 11/22/2024 3:00 PM CDT [facility] Culture (Peripheral Vein) Venipuncture / Unknown 11/17/2024 2:34 PM CDT 11/17/2024 2:38 PM CDT Irais Polk MD MICROBIOLOGY - GENERAL ORDERA BLES Final Result [facility] [address] [place] [address], [place] * Lactic Acid (Lactate) (11/17/2024 2:26 PM CDT) LACTIC ACID 1.6 0.7 - 2.0 mmol/L 11/17/2024 3:02 PM CDT [facility] Blood Venipuncture / Unknown 11/17/2024 2:26 PM CDT 11/17/2024 2:38 PM CDT us Irais Polk MD CHEMISTRY ORDERABLES Final Re sult Performing Organization Address [facility] Co de Phone Number [facility] [place] [address] * (ABNORMAL) D-DIMER [id number] (11/17/2024 2:26 PM CDT) D DIMER 3.68(H) <0.50 mcg/mL FEU 11/17/2024 2:37 PM CDT [facility] Blood Venipuncture / Unknown 11/17/2024 2:26 PM CDT 11/17/2024 2:28 PM CDT Narrative [facility] - 11/17/2024 2:37 PM CDT The FDA has approved this method to exclude the diagnosis of DVT and/or PE at the cutoff value of <0.50 mcg/mL FEU. us Irais Polk MD HEMATOLOGY ORDERABLES Final R esult Performing Organization Address [facility] Co de Phone Number [facility] [place] [address] * Critical Care (11/17/2024 2:25 PM CDT) Narrative Irais Polk MD - 11/17/2024 2:25 PM CDT Irais Polk MD 11/19/2024 1:25 PM Critical Care Performed by: Irais Polk MD Authorized by: Irais Polk MD Critical care provider statement: Critical care time (minutes): 35 Critical care was necessary to treat or prevent imminent or life-threatening deterioration of the following conditions: Respiratory failure Critical care was time spent personally by me on the following activities: Development of treatment plan with patient or surrogate, evaluation of patient's response to treatment, examination of patient, ordering and performing treatments and interventions, ordering and review of radiographic studies, ordering and review of laboratory studies, pulse oximetry and re-evaluation of patient's condition Care discussed with: admitting provider Comments: Supplemental O2 for Hypoxia Irais Polk MD PROCEDURE/MINOR SURGICAL ORDKendra BRINK Final Result * XR CHEST 2 VIEWS (11/17/2024 11:49 AM CDT) Anatomical Region Laterality Modality Chest N/A Digital Radiogra phy 11/17/2024 12:5 5 PM CDT Impressions 11/17/2024 12:58 PM CDT IMPRESSION: Mild patchy bilateral airspace opacities, likely multifocal pneumonia. Recommend follow-up radiographs in 6-8 weeks to document improvement. Narrative 11/17/2024 12:58 PM CDT EXAM DESCRIPTION: XR CHEST 2 VIEWS REASON FOR STUDY: sob and productive cough x 1 week. hx of copd and htn TECHNIQUE: 2 radiographic view(s) of the chest. COMPARISON: None FINDINGS: Mild patchy bilateral airspace opacities. Likely small left effusion. No definite pneumothorax. Heart size is normal. Hilar prominent. The thoracic aorta is likely tortuous. THIS IS AN ELECTRONICALLY VERIFIED FINAL REPORT 11/17/2024 12:55 PM - Electronically signed by Ceferino Gustafson M.D. AG: CLARITA Report ID: [id number] Reading Location: [id number] Procedure Note Ceferino Gustafson MD - 11/17/2024 EXAM DESCRIPTION: XR CHEST 2 VIEWS REASON FOR STUDY: sob and productive cough x 1 week. hx of copd and htn TECHNIQUE: 2 radiographic view(s) of the chest. COMPARISON: None FINDINGS: Mild patchy bilateral airspace opacities. Likely small left effusion. No definite pneumothorax. Heart size is normal. Hilar prominent. The thoracic aorta is likely tortuous. THIS IS AN ELECTRONICALLY VERIFIED FINAL REPORT 11/17/2024 12:55 PM - Electronically signed by Ceferion Gustafson M.D. AG: AG Report ID: [id number] Reading Location: [id number] IMPRESSION: Mild patchy bilateral airspace opacities, likely multifocal pneumonia. Recommend follow-up radiographs in 6-8 weeks to document improvement. us Irais Polk MD IM DIAGNOSTIC ORDERABLES Fin al Result * Hemoglobin A1C (if indicated) (11/17/2024 11:30 AM CDT) HGB-A1C 4.9 4.0 - 6.0 % 11/17/2024 5:22 PM CDT [facility] Est Average Glucose 93.9 mg/dL 11/17/2024 5:22 PM CDT [facility] Blood Venipuncture / Unknown 11/17/2024 11:30 AM CDT 11/17/2024 12:20 PM CDT Narrative [facility] - 11/17/2024 5:22 PM CDT HEMOGLOBIN A1C: DIABETIC PATIENTS: WELL-CONTROLLED: 6.2 - 7.0 INTERMEDIATE WELL-CONTROLLED: 7.0 - 9.0 POORLY-CONTROLLED: >9.0 Specimens containing greater than 5% of Hemoglobin F may result in lower than expected % HbA1C results. us Lona Lopez FRONT END MANAGER, HEAD SULFIDE OPERATOR CHEMISTRY ORDERABLES Fi nal Result [facility] [place] [address] * RSV,SARS-COV-2,INFLUENZA A&B BY PCR (11/17/2024 11:30 AM CDT) FLU A Negative Negative, Error 11/17/2024 1:11 PM CDT [facility] FLU B Negative Negative 11/17/2024 1:11 PM CDT [facility] RESP SYNC VIRUS Negative Negative 1:11 PM CDT [facility] SARSCOV2 NOT DETECTED (Reference Range for this test is Not Detected) 11/17/2024 1:11 PM CDT [facility] Comment:This test was perfor med by a Reverse Human Resources Director PCR Method. Swab NASOPHARYNGEAL STRUCTURE / Unknown Non-Phlebotomy Collection / Unknown 11/17/2024 11:30 AM CDT 11/17/2024 12:20 PM CDT Irais Polk MD MICROBIOLOGY - GENERAL ORDERA BLES Final Result [facility] [place] [address] * (ABNORMAL) Comprehensive Metabolic Panel (Cmp) [id number] (11/17/2024 11:30 AM CDT) SODIUM 132(L) 136 - 145 mmol/L 11/17/2024 12:50 PM CDT [facility] POTASSIUM 3.5 3.5 - 5.1 mmol/L 11/17/2024 12:50 PM CDT [facility] CHLORIDE 103 98 - 107 mmol/L 11/17/2024 12:50 PM CDT [facility] CO2, VENOUS 15(L) 22 - 30 mmol/L 11/17/2024 12:50 PM CDT [facility] ANION GAP 17.5 <18.0 mmol/L 11/17/2024 12:50 PM CDT [facility] GLUCOSE 105(H) 70 - 99 mg/dL 11/17/2024 12:50 PM CDT [facility] BUN 22(H) 10 - 20 mg/dL 11/17/2024 12:50 PM CDT [facility] CREATININE, BLOOD 0.96 0.60 - 1.00 mg/dL 11/17/2024 12:50 PM CDT [facility] BUN/CREATININE RATIO 23(H) 12 - 20 ratio 11/17/2024 12:50 PM CDT [facility] TOTAL PROTEIN 6.4 6.0 - 8.0 g/dL 11/17/2024 12:50 PM CDT [facility] ALBUMIN 3.0(L) 3.5 - 5.0 g/dL 11/17/2024 12:50 PM CDT [facility] A/G RATIO 0.9(L) 1.0 - 2.2 11/17/2024 12:50 PM CDT [facility] CALCIUM 8.7 8.7 - 10.5 mg/dL 11/17/2024 12:50 PM CDT [facility] T BILI 2.1(H) 0.2 - 1.2 mg/dL 11/17/2024 12:50 PM CDT [facility] SGOT (AST) 21 <43 U/L 11/17/2024 12:50 PM CDT [facility] SGPT (ALT) 8 <56 U/L 11/17/2024 12:50 PM CDT [facility] ALKALINE PHOSPHATASE 94 40 - 150 U/L 11/17/2024 12:50 PM CDT [facility] GFR, ESTIMATED 57(L) >=60 11/17/2024 12:50 PM CDT [facility] Comment: Creatinine Clearance is the preferred criteria for selecting drug dose adjustments in renally impaired patients. The GFR is provided as additional pertinent clinical information. GFR is reported in mL/min/1.73 sq m. Calculation based on the Chronic Kidney Disease Epidemiology Collaboration (CKD- EPI) equation refit without adjustment for race. GFR, EST. >60 >=60 025 12:50 PM CDT [facility] GFR, EST. NONAFRICAN 55(L) >=60 11/17/2024 12:50 PM CDT [facility] Blood Venipuncture / Unknown 11/17/2024 11:30 AM CDT 11/17/2024 12:20 PM CDT Irais Polk MD CHEMISTRY ORDERABLES Final Re sult [facility] [place] [address] * (ABNORMAL) B-Type Natriuretic Peptide (BNP) (11/17/2024 11:30 AM CDT) B TYPE NATRIURETIC PEPTIDE 167(H) <100 pg/mL 11/17/2024 12:54 PM CDT [facility] Blood Venipuncture / Unknown 11/17/2024 11:30 AM CDT 11/17/2024 12:20 PM CDT us Irais Polk MD CHEMISTRY ORDERABLES Final Re sult [facility] [place] [address] * EKG 12 LEAD (11/17/2024 11:24 AM CDT) Ventricular Rate 83 BPM EXTERNAL EKG Atrial Rate 83 BPM EXTERNAL EKG P-R Interval 136 ms EXTERNAL EKG QRS Duration 86 ms EXTERNAL EKG Q-T Duration 374 ms EXTERNAL EKG QTC CALCULATION 439 ms EXTERNAL EKG P [place] 37 degrees EXTERNAL EKG R [place] -53 degrees EXTERNAL EKG T [place] 26 degrees EXTERNAL EKG 11/17/2024 11:2 4 AM CDT Impressions EXTERNAL EKG - 11/17/2024 10:04 PM CDT Sinus rhythm with premature atrial complexes Left anterior fascicular block Minimal voltage criteria for LVH, may be normal variant ( R in aVL ) Possible Lateral infarct , age undetermined Abnormal ECG No previous ECGs available Confirmed by Yoana Perez ([id number]) on 11/17/2024 10:04:21 PM Narrative Procedure Note Yoana Perez MD PhD - 11/17/2024 IMPRESSION: Sinus rhythm with premature atrial complexes Left anterior fascicular block Minimal voltage criteria for LVH, may be normal variant ( R in aVL ) Possible Lateral infarct , age undetermined Abnormal ECG No previous ECGs available Confirmed by Yoana Perez ([id number]) on 11/17/2024 10:04:21 PM us Irais Polk MD IMG ECG ORDERABLES Final Resu lt EXTERNAL EKG * EKG SCAN (11/17/2024 12:00 AM CDT) 11/17/2024 us Provider Scan IMG ECG ORDERABLES Final Result RESULTING AGENCY from Last 3 Months Insurance MEDICARE [facility] Advance Directives * Full Code (Latest Code Status on File) Date Activated Date Inactivated Comments 11/17/2024 4:48 PM CPR-Full Treat ment: FULL ARREST: Attempt Resuscitation/CPR wit intubation and mechanical ventilation. PRE-ARREST: Use entire range of life support measures to stabilize the patient. Care Teams Assistant Foreman Relationship Specialty Start Date End Date Tom Sharma MD [address] [place] [address] PCP - General Family Medicine 08/21/22
--- OUTSIDE RECORDS SUMMARY | 2024-12-03 20:50 | XMS_ITS | Encounter Summary ---
Author Organization [facility] Address [address] [place] [address] Phone Care Team Providers Care Tower Truck Driver Name Role Phone Reyna Vega MD Primary Care Provider [phone] Tom Sharma MD Primary Care Provider [phone] Reason for Visit * Reason Comments Medication Refill Encounter Details Date Type Department Care Team (Late st Contact Info) Description 01/03/2021 Refill [facility] - [place] [address] [place] [address] Reyna Vega MD [address] [place] [address] Medication Refill Social History Tobacco [...] encounter Miscellaneous Notes * Telephone Encounter - Varsha Siegel RN - 01/03/2021 10:02 AM CDT Medication failed the protocol, provider to review and approve the medication order if appropriate. Requested Prescriptions Pending Prescriptions Disp Refills allopurinol (ZYLOPRIM) 300 MG Tablet [Pharmacy Med Name: ALLOPURINOL 300MG TABLETS] 90 Tablet 0 Sig: Take 1 [facility]t [facility] mouth daily. [facility]: Gout Agents Passed - 01/03/2021 10:02 AM Passed - Valid encounter within last 12 months Past Office Visits Recent Outpatient Visits 4 weeks ago Essential hypertension [facility] Reyna Vega MD 7 months ago Essential hypertension [facility] Reyna Vega MD 1 year ago Chronic obstructive pulmonary disease, unspecified COPD type (HCC) [facility] Reyna Perry MD 1 year ago Essential hypertension [facility] Reyna Vega MD 2 years ago Essential hypertension [facility] Reyna Vega MD Upcoming Appointments Future Appointments In 5 months Tra [facility] In 5 months Reyna Vega MD [facility] ROOFING CONTRACTOR - Recent and Past Visits Recent Visits Date Type Provider Dept 12/06/20 Office Visit Reyna Vega MD [facility] 06/04/20 Office Visit Reyna Vega MD [facility] 12/02/19 Telemedicine Reyna Vega MD [facility] Showing recent visits within past 460 days with a meds authorizing provider and meeting all other requirements Future Appointments No visits were found meeting these conditions. Showing future appointments within next 90 days with a meds authorizing provider and meeting all other requirements metoprolol Succinate (TOPROL-XL) 100 MG TABLET SR 24 HR [Pharmacy Med Name: METOPROLOL ER [id number] TABS] 180 Tablet 0 Sig: TAKE 1 TABLET BY MOUTH TWICE DAILY Beta-Blockers Protocol Passed - 01/03/2021 10:02 AM Passed - BP on record in the past year Clinician-entered: BP Readings from Last 3 Encounters: 12/06/20 120/72 06/04/20 132/72 04/24/19 128/62 Patient-entered: No data recorded Passed - Visit with relevant provider in past 12 months or upcoming 90 days Recent Visits Date Type Provider Dept 12/06/20 Office Visit Reyna Vega MD [facility] [address] 06/04/20 Office Visit Reyna Vega MD [facility] [address] Showing recent visits within past 365 days and meeting all other requirements Future Appointments No visits were found meeting these conditions. Showing future appointments within next 90 days and meeting all other requirements hydroCHLOROthiazide 25 MG Tablet [Pharmacy Med Name: HYDROCHLOROTHIAZIDE 25MG TABLETS] 90 Tablet 0 Sig: Take 1 Tablet by mouth daily. Diuretics Protocol Failed - 01/03/2021 10:02 AM Failed - Serum sodium on record [...] Type Provider Dept 12/06/20 Office Visit Reyna Vgea MD [facility] [address] 06/04/20 Office Visit Reyna Vega MD [facility] [address] Showing recent visits within past 365 days and meeting all other requirements Future Appointments No visits were found meeting these conditions. Showing future appointments within next 90 days and meeting all other requirements Passed - GFR on record in past 12 months GFR, EST. Date Value Ref Range Status 11/29/2020 >60 >=60 Final Comment: Creatinine Clearance is the preferred criteria for selecting drug dose adjustments in renally impaired patients. The GFR is provided as additional pertinent clinical information. GFR is reported in mL/min/1.73 sq m. GFR, EST. NONAFRICAN Date Value Ref Range Status 11/29/2020 52 (L) >=60 Final Olmesartan Medoxomil 40 MG Tablet [Pharmacy Med Name: OLMESARTAN MEDOXOMIL 40MG TABLETS] 90 Tablet 0 Sig: Take 1 Tablet by mouth daily. ARB Protocol Passed - 01/03/2021 10:02 AM Passed - Serum potassium on record [...] Dept 12/06/20 Office Visit [facility] Office Visit Reyna Vega MD [facility] Showing recent visits within past 365 days and meeting all other requirements Future Appointments No visits were found meeting these conditions. Showing future appointments within next 90 days and meeting all other requirements Passed - GFR on record in past 12 months GFR, EST. Date Value Ref Range Status 11/29/2020 >60 >=60 Final Comment: Creatinine Clearance is the preferred criteria for selecting drug dose adjustments in renally impaired patients. The GFR is provided as additional pertinent clinical information. GFR is reported in mL/min/1.73 sq m. GFR, EST. NONAFRICAN Date Value Ref Range [...] documented as of this encounter Care Teams Tower Truck Driver Relationship Specialty Start Date End Date Reyna Vega MD PCP - General Family Medicine 05/10/15 08/20/22 Tom Sharma MD [address] [place] [address] PCP - General Family Medicine 08/21/22 documented as of this encounter
--- OUTSIDE RECORDS SUMMARY | 2024-12-03 20:50 | XMS_ITS | Encounter Summary ---
Author Organization [facility] Address [address] [place] [address] Phone Care Team Providers Care Business Communications Instructor Name Role Phone Reyna Vega MD Primary Care Provider Tom Sharma MD Primary Care Provider [phone] Reason for Visit * Reason Comments Medication Refill Encounter Details Date Type Department Care Team (Late st Contact Info) Description 03/21/2022 Refill [facility] [address] [place] [id number] Reyna Vega MD [address] [place] [address] Medication Refill Social History Tobacco Use Types [...] Telephone Encounter - Valerie Kidd RN - 03/21/2022 11:03 AM CDT Medication failed the protocol, provider to review and approve the medication order if appropriate. Requested Prescriptions Pending Prescriptions Disp Refills Advair Diskus 250-50 MCG/ACT AEROSOL POWDER, BREATH ACTIVATED [Pharmacy Med Name: ADVAIR DISKUS 250/50MCG (YELLOW) 60] 180 Each 0 Sig: INHALE 1 PUFF BY MOUTH TWICE DAILY Inhaled Combinations Protocol Failed - 03/21/2022 10:59 AM Failed - Active short-acting beta agonist prescription Passed - Visit with relevant provider in past 12 months or upcoming 90 days Recent Visits Date Type Provider Dept 12/12/21 Office Visit [facility] 06/13/21 Office Visit Reyn[facility] Showing recent visits within past 365 days and meeting all other requirements Future Appointments Date Type Provider Dept 05/29/22 Appointment [facility] 06/05/22 Appointment Reyna [facility]ega MD [facility] Showing future appointments within next 90 days [...] as of this encounter Care Teams Business Communications Instructor Relationship Specialty Start Date End Date Reyna Vega MD PCP - General Family Medicine 05/10/15 08/20/22 Tom Sharma MD [address] [place] [id number] PCP - General Family Medicine 08/21/22 documented as of this encounter
--- OUTSIDE RECORDS SUMMARY | 2024-12-03 20:50 | XMS_ITS | Encounter Summary ---
Author Organization [facility] Address [address] [place] [address] Phone Care Team Providers Care Pv Design Engineer Name Role Phone Reyna Vega MD Primary Care Provider Tom Sharma MD Primary Care Provider [phone] Reason for Visit * Reason Comments Medication Refill Encounter Details Date Type Department Care Team (Late st Contact Info) Description 08/19/2022 Refill [facility] - Primary Care - [place] [address] [place] [address] Reyna Vega MD [address] [place] [address] Medication Refill Social History Tobacco [...] Encounter - Cristina Montoya RN - 08/21/2022 10:29 AM CST Patient no longer under provider/office care. RAMMER documented in this encounter Plan of Treatment [...] documented as of this encounter Care Teams Pv Design Engineer Relationship Specialty Start Date End Date Reyna Vega MD PCP - General Family Medicine 05/10/15 08/20/22 Tom Sharma MD [address] [place] [address] PCP - General Family Medicine 08/21/22 documented as of this encounter
--- OUTSIDE RECORDS SUMMARY | 2024-12-03 20:50 | XMS_ITS | Encounter Summary ---
Author Organization [facility] Address [address] [place] [address] Phone Care Team Providers Care Dynamics Ax Consultant Name Role Phone Reyna Vega MD Primary Care Provider Tmo Sharma MD Primary Care Provider [phone] Reason for Visit * Reason Comments Medication Refill Encounter Details Date Type Department Care Team (Late st Contact Info) Description 05/21/2022 Refill [facility] - [facility] - [place] [address] [place] [address] Reyna Vega MD [address] [place] [address] Medication Refill Social History Tobacco [...] Encounter - Sandra Tamayo RN - 05/22/2022 9:51 AM CDT Medication failed the protocol, provider to review and approve the medication order if appropriate. Requested Prescriptions Pending Prescriptions Disp Refills Spiriva HandiHaler 18 MCG Capsule [Pharmacy Med Name: SPIRIVA 18MCG CAPS 30S &HANDIHALER] 90 Capsule 1 Sig: INHALE THE CONTENTS OF 1 CAPSULE VIA INHALATION DEVICE DAILY Inhaled Anticholinergics Protocol Failed - 05/21/2022 5:48 AM Failed - Active short-acting beta agonist prescription Passed - Visit with relevant provider in past 12 months or upcoming 90 days Recent Visits Date Type Provider Dept 12/12/21 Office Visit [facility] 06/13/21 Office Visit Reyna Vega MD [facility] [employer] Showing recent visits within past 365 days and meeting all other requirements Future Appointments Date Type Provider Dept 05/29/22 Appointment Lab, [employer] 06/05/22 Appointment Reyna Vega MD [facility] [employer] Showing future appointments within next 90 days and meeting all other requirements Passed - No encounter with glaucoma or BPH diagnosis in the past 6 months Signed Prescriptions Disp Refills Olmesartan Medoxomil 40 MG Tablet 90 Tablet 0 Sig: TAKE 1 TABLET BY MOUTH DAILY ARB Protocol Passed - 05/21/2022 5:48 AM Passed - Serum potassium on record [...] Dept 12/12/21 Office Visit Reyna [facility] 06/13/21 Office Visit Reyna Vega MD [facility] Showing recent visits within past 365 days and meeting all other requirements Future Appointments Date Type Provider Dept 05/29/22 Appointment Lab, [employer] 06/05/22 Appointment Reyna Vega MD [facility] [employer] Showing future appointments within next 90 days and meeting all other requirements Passed - GFR on record in past 12 months GFR, EST. NONAFRICAN Date Value Ref Range Status 12/05/2021 >60 >=60 Final levothyroxine (SYNTHROID) 88 MCG Tablet 90 Tablet 0 Sig: TAKE 1 TABLET BY MOUTH DAILY Thyroid Hormones Protocol Passed - 05/21/2022 5:48 AM Passed - Visit with relevant provider in past 12 months or upcoming 90 days Recent Visits Date Type Provider Dept 12/12/21 Office Visit Reyna [facility] 06/13/21 Office Visit Reyna Vega MD [facility] Showing recent visits within past 365 days and meeting all other requirements Future Appointments Date Type Provider Dept 05/29/22 Appointment Lab[facility] [place] [facility] 06/05/22 Appointment Reyna Vega MD [facility] Showing future appointments within next 90 days and meeting all other requirements Passed - Normal TSH in past 12 months TSH Date Value Ref Range Status 12/05/2021 0.859 0.270 - 4.200 mIU/L Final metoprolol Succinate (TOPROL-XL) 100 MG TABLET SR 24 HR 180 Tablet 0 Sig: TAKE 1 TABLET BY MOUTH TWICE DAILY Beta-Blockers Protocol Passed - 05/21/2022 5:48 AM Passed - BP on record in the past year Clinician-entered: BP Readings from Last 3 Encounters: 12/12/21 126/74 06/13/21 118/64 12/06/20 120/72 Patient-entered: No data recorded Passed - Visit with relevant provider in past 12 months or upcoming 90 days Recent Visits Date Type Provider Dept 12/12/21 Office Visit Reyna [facility] MD [facility] 06/13/21 Office Visit Reyna Vega MD [facility] Showing recent visits within past 365 days and meeting all other requirements Future Appointments Date Type Provider Dept 05/29/22 Appointment Lab, [place] [facility] 06/05/22 Appointment Reyna Vega MD [facility] Showing future appointments within next 90 days and meeting all other requirements hydroCHLOROthiazide 25 MG Tablet 90 Tablet 0 Sig: TAKE 1 TABLET BY MOUTH DAILY Diuretics Protocol Passed - 05/21/2022 5:48 AM Passed - Serum potassium on record [...] Dept 12/12/21 Office Visit Reyna Vega MD [facility] 06/13/21 Office Visit Reyna Vega MD [facility] [employer] Showing recent visits within past 365 days and meeting all other requirements Future Appointments Date Type Provider Dept 05/29/22 Appointment Lab, [place] [facility] 06/05/22 Appointment Reyna Vega MD [facility] Showing future appointments within next 90 days and meeting all other requirements Passed - GFR on record in past 12 months GFR, EST. NONAFRICAN Date Value Ref Range Status 12/05/2021 >60 >=60 Final Refused Prescriptions Disp Refills amLODIPine (NORVASC) 10 MG Tablet [Pharmacy Med Name: AMLODIPINE BESYLATE 10MG TABLETS] 90 Tablet 1 Sig: TAKE 1 TABLET BY MOUTH DAILY Calcium-Channel Blockers Protocol Passed - 05/21/2022 5:48 AM Passed - BP on record in the past year Clinician-entered: BP Readings from Last 3 Encounters: 12/12/21 126/74 06/13/21 118/64 12/06/20 120/72 Patient-entered: No data recorded Passed - Visit with relevant provider in past 12 months or upcoming 90 days Recent Visits Date Type Provider Dept 12/12/21 Office Visit Reyna Vega MD [facility] [employer] 06/13/21 Office Visit Reyna Vega MD [facility] [employer] Showing recent visits within past 365 days and meeting all other requirements Future Appointments Date Type Provider Dept 05/29/22 [facility] [place] [facility] [address] 06/05/22 Appointment Reyna Vega MD [facility] Showing future appointments within next 90 days and meeting all other requirements documented in this encounter Plan of Treatment Not on file documented as of this encounter Visit Diagnoses Diagnosis Essential hypertension Unspecified essential hypertension Chronic obstructive pulmonary disease, unspecified COPD type (HCC) documented in this encounter Additional Health Concerns Infection Onset Date Last Indicated Resolved Time COVID - 19 11/17/2024 11/17/2024 11/17/2024 1:11 PM CDT Assessment Noted Time PHQ-9 Depression Total Score: 0 10/23/19 19 9:00 AM CDT documented as of this encounter Care Teams Dynamics Ax Consultant Relationship Specialty Start Date End Date Reyna Vega MD PCP - General Family Medicine 05/10/15 08/20/22 Tom Sharma MD [address] [place] [address] PCP - General Family Medicine 08/21/22 documented as of this encounter
--- OUTSIDE RECORDS SUMMARY | 2024-12-03 20:50 | XMS_ITS | Referral Summary ---
Author Organization [facility] Address [address] [place] [address] Care Team Providers Care Milled Rubber Tender Name Role Phone Tom Sharma MD Primary Care Provider [phone] Social History Tobacco Use Types Packs/Day Years Used Date Smoking Tobacco: Never Assessed Personal Safety Answer Date Recorded Getting School Help Needed Not on file 10/06 Comments Unknown Sex and Gender Information Value Date Recorded Sex Assigned at Not on file Legal Sex Female 2:22 AM CYTOPATHOLOGIST Gender Identity Not on file Sexual Orientation Not on file Plan of Treatment Not [place] [address] [facility] MEDICARE [facility] Care Teams Milled Rubber Tender Relationship Specialty Start Date End Date Tom Sharma MD PCP - General Family Practice 11/16/22
--- OUTSIDE RECORDS SUMMARY | 2024-12-03 20:51 | XMS_ITS | Encounter Summary ---
Author Organization [facility] Address [address] [place] [address] Phone Care Team Providers Care Bowling Floor Desk Clerk Name Role Phone Reyna Vega MD Primary Care Provider Tom Sharma MD Primary Care Provider [phone] Reason for Visit * Reason Comments Medication Refill Encounter Details Date Type Department Care Team (Late st Contact Info) Description 09/19/2021 Refill [facility] - Primary Care - [place] [address] [place] [address] Reyna Vega MD [address] [place] [address] Medication Refill Social History Tobacco [...] Telephone Encounter - Valerie Kidd RN - 09/19/2021 9:16 AM PROJECT DESIGN ENGINEER Medication failed the protocol, provider to review and approve the medication order if appropriate. Requested Prescriptions Pending Prescriptions Disp Refills allopurinol (ZYLOPRIM) 300 MG Tablet [Pharmacy Med Name: ALLOPURINOL 300MG TABLETS] 90 Tablet 0 Sig: TAKE 1 TABLET BY MOUTH DAILY Gout Agents Protocol Failed - 09/19/2021 8:40 AM Failed - Uric acid on record in past 12 months URIC ACID Date Value Ref Range Status 04/17/2019 3.8 2.4 - 5.7 mg/dL Final Passed - Visit with relevant provider in past 12 months or upcoming 90 days Recent Visits Date Type Provider Dept 06/13/21 Office Visit Reyna Vega MD [address] [employer] [facility] 12/06/20 Office [facility] [employer] Showing recent visits within past 365 days and meeting all other requirements Future Appointments Date Type Provider Dept 12/05/21 Appointment Lab, [employer] 12/12/21 Appointment [facility] [employer] Showing future appointments within next 90 days and meeting all other requirements Passed - Serum creatinine on record in past 12 months CREATININE, BLOOD Date Value Ref Range Status 06/08/2021 0.95 0.60 - 1.10 mg/dL Final Signed Prescriptions Disp Refills levothyroxine (SYNTHROID) 88 MCG Tablet 90 Tablet 0 Sig: TAKE 1 TABLET BY MOUTH DAILY Thyroid Hormones Protocol Passed - 09/19/2021 8:40 AM Passed - Visit with relevant provider in past 12 months or upcoming 90 days Recent Visits Date Type Provider Dept 06/13/21 Office Visit [facility] 12/06/20 Office Visit Reyn[facility] [employer] Showing recent visits within past 365 days and meeting all other requirements Future Appointments Date Type Provider Dept 12/05/21 Appointment Lab, [employer] 12/12/21 Appointment Reyna [facility] [employer] Showing future appointments within next 90 days and meeting all other requirements Passed - Normal TSH in past 12 months TSH Date Value Ref Range Status 06/08/2021 3.400 0.270 - 4.200 mIU/L Final metoprolol Succinate (TOPROL-XL) 100 MG TABLET SR 24 HR 180 Tablet 0 Sig: TAKE 1 TABLET BY MOUTH TWICE DAILY Beta-Blockers Protocol Passed - 09/19/2021 8:40 AM Passed - BP on record in the past year Clinician-entered: BP Readings from Last 3 Encounters: 06/13/21 118/64 12/06/20 120/72 06/04/20 132/72 Patient-entered: No data recorded Passed - Visit with relevant provider in past 12 months or upcoming 90 days Recent Visits Date Type Provider Dept 06/13/21 Office Visit [facility] [employer] 12/06/20 Office Visit Reyn[facility] [employer] Showing recent visits within past 365 days and meeting all other requirements Future Appointments Date Type Provider Dept 12/05/21 Appointment Lab, [employer] 12/12/21 Appointment Reyna V[facility] [employer] Showing future appointments within next 90 days and meeting all other requirements hydroCHLOROthiazide 25 MG Tablet 90 Tablet 0 Sig: TAKE 1 TABLET BY MOUTH DAILY Diuretics Protocol Passed - 09/19/2021 8:40 AM Passed - Serum potassium on record in past 12 months POTASSIUM Date Value Ref Range Status 06/08/2021 4.0 3.5 - 5.1 mmol/L Final Passed - Serum sodium on record in past 12 months SODIUM Date Value Ref Range Status 06/08/2021 136 136 - 144 mmol/L Final Passed - Blood pressure on record in past 12 months Clinician-entered: BP Readings from Last 3 Encounters: 06/13/21 118/64 12/06/20 120/72 06/04/20 132/72 Patient-entered: No data recorded Passed - Visit with relevant provider in past 12 months or upcoming 90 days Recent Visits Date Type Provider Dept 06/13/21 Office Visit Reyna [facility] [employer] 12/06/20 Office Visit Reyn[facility] [employer] Showing recent visits within past 365 days and meeting all other requirements Future Appointments Date Type Provider Dept 12/05/21 Appointment Lab, [employer] 12/12/21 Appointment Reyna Vega MD [facility] Showing future appointments within next 90 days and meeting all other requirements Passed - GFR on record in past 12 months GFR, EST. NONAFRICAN Date Value Ref Range Status 06/08/2021 56 (L) >=60 Final ECT DESIGN ENGINEER documented in this encounter Plan of Treatment [...] documented as of this encounter Care Teams Bowling Floor Desk Clerk Relationship Specialty Start Date End Date Reyna Vega MD PCP - General Family Medicine 05/10/15 08/20/22 Tom Sharma MD [address] [place] [address] PCP - General Family Medicine 08/21/22 documented as of this encounter
--- OUTSIDE RECORDS SUMMARY | 2024-12-03 20:51 | XMS_ITS | Continuity of Care Document ---
Author Organization [employer] Address [address] [address] [place] [address] Phone Care Team Providers Care Fixture Maker Name Role Phone Lilly CALIX FACS, Jorge Unavailable Unavailab le Allergies, Adverse Reactions, Alerts Substance Reaction Status Criticality FLU VIRUS VACC TVS (18 YR UP) CELL DERIVED Active No Information CIPROFLOXACIN HCL Active No Informa tion ciprofloxacin Active No Information Medications Medication Instructions Dosage Effective Dates (start - stop) Status Comments AREDS 2 ORAL CAPSULE take 1 tablet once daily - Active Vitamin D3 25 mcg (1,000 unit) capsule take 1 tablet once daily - Active olmesartan 40 mg tablet take 1 tablet by oral route every day 40 MG - Active amlodipine 10 mg tablet take 1 tablet by oral route every day 10 MG - Active hydrochlorothiazide 25 mg tablet take 1 tablet by oral route every day 25 MG - Active Advair Diskus 250 mcg-50 mcg/dose powder for inhalation inhale 1 puff by inhalation route 2 times every day in the morning and evening approximately 12 hours apart 1.00 puff - Active Spiriva with HandiHaler 18 mcg and inhalation capsules inhale 1 capsule by inhalation route every day using 2 inhalations via handihaler - Active aspirin 81 mg tablet,delayed release take 1 tablet by oral route every day 81 MG - Active Tirosint 88 mcg capsule take 1 capsule b y oral route every day 88 MCG - Active metoprolol succinate ER 100 mg tablet,extended release 24 hr take 1 tablet by oral route 2 times every day 100 MG - Active allopurinol 300 mg tablet take 1 tablet by oral route every day 300 MG - Active Procedures Procedure Date No Charge GDX Retina Fundus Photography W/ Report Eye Exam & Treatment Fundus Photography W/ Report Eye Exam & Treatment No Charge Refraction Eye Exam & Treatment No Charge Refraction Office/outpatient Visit, Est No Charge Refraction Post-op Follow-up Visit Post-op Follow-up Visit Remove Cataract, Post Op Care 7 Remove Cataract, Insert Lens,Comanaged A IOLMaster-Professional No Charge Refraction Post-op Follow-up Visit Post-op Follow-up Visit Remove Cataract, Post Op Care 7 Remove Cataract, Insert Lens,Comanaged F IOLMaster-Professional No Charge Refraction IOLMaster-Technical Office/outpatient Visit, [facility] Advance Directives Directive Yes / No Effective Date File Name No Information Encounters Encounter Description Practice Location Reason(s) For Visit Diagnoses Date Provider Providers [facility]ied on [facility], [facility] Tech [address], [place], [place], [id number], tel:[phone] SEC Tabby Handley No Information 0 Lilly Patel. [facility] [employer], [address], [place], [place], [address], [place]. tel:[phone] [facility] [employer] [facility], [address], [place], [place], [address], tel:[phone] SEC Gianluca MCDONOUGH Professional Complete Exam (chief complaint) Nexdtve age-related mclr degn, bilateral, stage unspecifiedOt her secondary cataract, bilateralPres ence of intraocular lens 0 Lilly Jorge. [facility] [employer], [address], [place], [place], [address], [place]. tel:[phone] Specialist : Srinivasan Trejo MD, [address] [place] [address], [address] . tel:[phone] erring Provider: Tom Geoffrey OD, [facility] [address] [place], [address]. tel:[phone] [facility], [address] [place] [address] [address], [place], [place], [address], [place] tel:[phone] SEC [place] Luz Ware No Information November- 5- 0 Sharad Velasquez. [address] [facility], [address], [place], [place], [address], [place]. tel:[phone] [facility], [address] [place] [address] [address], [place], [place], [address], [place] tel:[phone] SEC [facility] Professional Complete Exam (chief complaint) Nexdtve age-related mclr degn, bilateral, intermed dry stagePresence of intraocular lensOther secondary cataract, bilateralABMD (anterior basement membrane dystrophy) 201 9 Sharad Velasquez. [address] [facility], [address], [place], [place], [address], [place]. tel:[phone] Referring Provider: Tom Hale OD, [facility] [address] [place], [address]. tel:[phone] [facility], [address] [place] [address] [address], [place], [place], [address], [place] tel:[phone] SEC Gianluca [place] Professional Complete Exam (chief complaint) Nexdtve age-related mclr degn, bilateral, intermed dry stageBilatera l artificial lens implantOther secondary cataract, bilateral -201 8 Sharad Velasquez. [address] [facility], [address], [place], [place], [address], [place]. tel:[phone] Referring Provider: Tom Hale OD, [facility] [address] [place], [address]. tel:[phone] [facility], [address], [place], [place], [address], [place] tel:[phone] SEC [place] Serena [employer] Lily Professional No Information 8 7 Whitt Laurence. [address] [place], [address], [place]. tel:[phone] Office/outpa tient Visit, Est [facility], [address], [place], [place], [address], [place] [phone] SEC Gianluca [place] Professional 6 mo IOL ck (chief complaint) Bilateral artificial lens implantNexdtv e age-related mclr degn, bilateral, intermed dry stage 7 Whitt Laurence. [address] [place], [address], [place]. tel:[phone] Referring Provider: Tom Hale OD, [facility] [address] [place], [address]. tel:[phone] [facility], [address] [place] [address] [address], [place], [place], [address], [place] [phone] SEC Gianluca [employer] Professional 4 wk PC IOL PO (chief complaint) No Information 201 7 Wankum Bryan. [address] [place], [address], [place]. tel:[phone] Referring Provider: Tom Hale OD, [facility] [address] [place], [address]. tel:[phone] [facility], [address] [place] [address] [address], [place], [place], [address], [place] [phone] SEC [place] Professional 1 wk CE PO (chief complaint) No Information 0 3-201 7 Wankum Bryan. [address] [facility] [place], [address], [place]. tel:[phone] Referring Provider: Tom Geoffrey OD, [facility] [address] [place], [address]. tel:[phone] [facility], [address], [place], [place], [address], [place] tel:[phone] SEC [place] Professional 1 day PO PCIOL (chief complaint) No Information Storm Admas. [address], [place], [place], [address], [place]. tel:[phone] Referring Provider: Tom Geoffrey OD, [facility] [address] [place], [address]. tel:[phone] [facility], [address], [place], [place], [address], [place] [phone] [facility] No Information 7 Sharad Velasquez. [address], [place], [place], [address], [place]. tel:[phone] Referring Provider: Tom Hale OD, [facility] [address] [place], [address]. tel:[phone] [facility], [address], [place], [place], [address], [place] [phone] SEC Tabby Handley No Information 7 Sharad Velasquez. [address], [place], [place], [address], [place]. tel:[phone] Referring Provider: Tom Hale OD, [facility] [address] [place], [address]. tel:[phone] [facility], [address], [place], [place], [address], [place] tel:[phone] SEC [place] Professional 1 mo CAT PO (chief complaint) No Information 0- 7 Sharad Velasquez. [address] [employer], [address], [place], [place], [address], [place]. tel:[phone] Referring Provider: Tom Hale OD, [facility] [address] [place], [address]. tel:[phone] [facility], [address], [place], [place], [address], [place] tel:[phone] SEC Gianluca MCDONOUGH Professional Post-Op (chief complaint) No Information 7 Storm Adams. [address], [address], [place], [place], [address], [place]. tel:[phone] Referring Provider: Tom Hale OD, [facility] [address] [place], [address]. tel:[phone] [facility], [address] [place] [address] [address], [place], [place], [address], [place] tel:[phone] SEC Gianluca MCDONOUGH Professional 1 day post op to phaco c IOL OD (chief complaint) No Information 0 9 7 Storm Adams. [address] [employer] [employer], [address], [place], [place], [address], [place]. tel:[phone] Referring Provider: Tom Geoffrey OD, [facility] [address] [place], [address]. tel:[phone] [facility], [address], [place], [place], [address], [place] tel:[phone] [facility] No Information 0 8- 7 Sharad Velasquez. [address], [address], [address], [place]. tel:[phone] Referring Provider: Tom Hale OD, [facility] [address] [place], [address]. tel:[phone] [facility], [address] [place] [address] [address], [place], [place], [address], tel:[phone] SEC Tabby Handley No Information 7 Sharad Velasquez. [address], [address], [address], [place]. tel:[phone] Referring Provider: Tom Hale OD, [facility] [address] [place], [address]. tel:[phone] Office/outpa tient Visit, [facility], [address] [place], [place] [address], [place], [place], [address], tel:[phone] SEC Gianluca MCDONOUGH Professional Cataract Evaluation (chief complaint) No Information 6 Sharad Velasquez. [address], [address], [address], [place]. tel:[phone] Referring Provider: Tom Hale OD, [facility] [address] [place], [address]. tel:[phone] [facility], [address] [place], [place] [address], [place], [place], [address], [phone] SEC Gianluc[place] Professional No Information 6 Sharad Velasquez. [address], [address], [place], [address], [place]. tel:[phone] Family History Family Member Type Diagnosis Age At Onset Brother Problem (finding) degenerative disorder o f macula Maternal grandfather Problem (finding) glaucoma Sister Problem (finding) degenerative disorder o f macula Mother Problem (finding) degenerative disorder o f macula Payers Payer name Insurance type Covered constitution party ID Authoriza tion(s) Medicare [facility] [id number] [facility] [id number] Social History Type Description Quantity Date Captured Comments Alcohol Use Details Unknown Caffeine Use Details Unknown Tobacco Use Status No Information Smoking Status No Information Sex Female Chief Complaint And Reason For Visit No Information Reason For Referral Reason For Referral No Information Plan Of Treatment Date Type Action Status Referral Referred To: Srinivasan Trejo [address] [place], [place], [id number] Ordered: Referrals: Allopathic & Osteopathic Physicians : Ophthalmology. Srinivasan Trejo. Consult ordered Patient Education Age-Related Macular Deg eneration: Car~ completed Patient Education Age-Related Macular Deg eneration: Car~ completed History Of Present Illness Encounter Date Complaint History Of Prese nt Illness Complete Exam The 84 year old female presents for evaluation of Complete Exam in the right eye and left eye. Hx PCIOL OU, PCO OU, Dry AMD OU, ABMD OU. Pt reports wavy lines in OS when watching TV since June, words look broken and are floating around. Pt reports losing her AMSLER grid and not being able to check daily. Pt has been taking AREDS2 po BID. Pt uses ATs BID OU. Complete Exam The 83 year old female presents for a complete exam ou. Patient is pseudo ou and monitoring macular degeneration ou. Patient c/o she has noticed when reading words look jagged with her left eye for the last 2-3 months. Patient wears reading glasses. Complete Exam The 82 year old female presents for evaluation of Complete Exam in the right eye and left eye. Hx of PCIOL OU, AMD OU, PCO OD, PVD OD and DENA OU. Pt reports she uses AFT TID OU and AREDS BID PO. Pt reports no change in VA, OD, since last appt. Pt reports she noticed, while checking the Amsler grid, that lines are broken and wavy with OS, x couple mos. Pt denies any changes in VA, OU, since last appt. 6 mo IOL ck The 81 year old female presents for 6 mo IOL ck in the right eye and left eye. Hx of PC IOL OU and ARMD OU. Pt states vision is stable OU at distance and near x 6 mos. Pt states she is seeing a black spot on left eye, it moves when she moves her eye, spot is in her vision all the time and it is like a gnat is flying around her eye. Pt denies flashes of light. 4 wk PC IOL PO The 81 year old female presents for 4 wk PC IOL PO in the left eye. Pt using Poly tid, pt stopped using PF1& anfd Diclo yesterday at her 4 wks. Should pt continue using Poly? Pt states Va is very good. Pt denies pain or discomfort. 1 wk CE PO The 81 year old female presents for 1 wk CE PO in the left eye. Hx of PCIOL OU. Pt using Pred, Diclo, and Poly TID OS. Pt reports OU seems to be doing great. Pt reports no pain, irritation, or discomfort OU. 1 day PO PCIOL The 81 year old female presents for 1 day PO PCIOL in the left eye. Hx PCIOL OD. PT states her vision is doing pretty good this morning. PT states she is using Pred, Poly adn Diclo as directed OS. PT states no pain/discomfort. 1 mo CAT PO The 80 year old female presents for 1 mo CAT PO in the right eye. Pt has Hx of PCIOL OD, CAT OS, and AMD OU. Pt reports OD seems to be doing great. Pt reports no pain, irritation, or discomfort OU. Pt has only a couple of gtts left of Diclofenac. Pt states she is still having trouble with OS vision while driving at night because of her vision. States she has a lot of glare with headlights and on bright cortez days. Pt has a hard time seeing at distance but near vision seems ok with glasses. Pt reports she has appt to have CE for OS on October 11. Post-Op The 80 year old female presents for a 1 week post op CE OD., Patient is using Pred and Poly qid OD and Diclofenac. Patient states OD is doing good. 1 day post op to phaco c IOL OD The 80 year old female presents for 1 day post op to phaco c IOL OD, post op instructions explained, understood, and given to patient. Patient assigned poly, pred, and diclo Cataract Evaluation The 80 year old female presents for Cataract Evaluation in the right eye and left eye. Hx Cataracts OU, AMD OU. Pt taking Ocuvite. Pt states she has been having trouble driving at night because of her vision. States she has a lot of glare with headlights and on bright cortez days. Pt has a hard time seeing at distance but near vision seems ok with glasses. Pt states no pain, irritation or discomfort OU. Functional Status Date Functional Assessmen t No Information Instructions Date Instruction Additional Guccir maria a Impression/Plan Impression/Plan Impression/Plan Educational material given Relat ed to Nexdtve age-related mclr degn, bilateral, intermed dry stage Return in 1 year wit edy Whitt M.D. for Complete Exam. Related to Bilateral artificial lens implant Bilateral artificial lens implant - Educational material provided Related to Bilateral artificial lens implant Impression/Plan - Co ndition appears stable OU. Recommend AREDS 2 BID PO. Amsler Grid given to patient, instructed weekly monitoring and to call office right away with any changes. Return to Dr Hale in 6 months for follow up. Return to our clinic in 1 year for complete exam. Related to Nexdtve age-related mclr degn, bilateral, intermed dry stage Impression/Plan - Di scussed exam findings with patient. IOL's in good position, clear pc OU. IOP is stable OU. Return to Dr Hale in 6 months for follow up. Return to our clinic in 1 year for complete exam or sooner with problems. Related to Bilateral artificial lens implant Follow up - Return i n 1 year with Laurence Whitt M.D. for Complete Exam. Related to Bilateral artificial lens implant Follow up - 6 months for IOL johann ck Impression/Plan - Go od post op results. Instructed pt to finish all post op drops. Discussed AMD, continue AREDS 2 formula. Instructed pt to call office right away with any sudden vision changes. Completed DMV form for patient. Return to clinic in 6 months for IOL check or sooner with any problems. Impression/Plan - Go od results after CE OS. Pt understands OS vision is not as good as OD due to AMD. Continue post op drops as instructed. Return to clinic as scheduled or sooner with any problems. Follow up - as scheduled Follow up - as scheduled Impression/Plan - 1 day post op Phaco with PCIOL OS, discussed post op instructions and medication use. Return to clinic as scheduled Impression/Plan - 1 month s/p Phaco IOL OD:- Patient has healed well.- All post operative medications are finished.- Vision is good and IOP is stable.- Patient elects to proceed with OS CE as scheduled. Follow up - Proceed with OS CE as scheduled Impression/Plan - Go od post op results after CE OD. Continue post op drops as instructed. Follow up - as scheduled Impression/Plan - 1 day post op Phaco with PCIOL OD, discussed post op instructions and medication use. Return to clinic as scheduled. 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 Related to Combined forms of age-related cataract of right eye Impression/Plan - No nexudative macular degeneration OU discussed with patient. Recommend patient continue the use of eye vitamins as directed by Dr. Hale. Discussed with patient that AMD may continue to limit vision s/p CE.Cataract OU accounts for patient's visual complaints. Discussed all risks, benefits and alternatives pertaining to cataract surgery. The procedure and recovery from cataract extraction were discussed. Recommend phacoemulsification with intraocular lens implant. Lifestyle lens options discussed. The possibility that patient may still need to wear glasses to correct astigmatism and/or for reading vision following surgery reviewed and understood by patient. Patient elects to proceed with CE OD with the standard IOL set for distance, followed by CE OS with the standard IOL set for distance.*Shugarcaine and possible Malyugin ring due to poor pupillary dilation in the office. *Tom Hale, OD referral*Surgeries to be 4 weeks apart due to high myopia*Call daughterChika to schedule surgery and PO appointments Follow up - Schedule CE OD with the standard IOL set for distance, followed by OS CE with the standard IOL set for distance Assessments Type Assessment Date No Information Patient Care Teams Name Effective Dates (start - stop) Status Members No Information
--- OUTSIDE RECORDS SUMMARY | 2024-12-03 20:51 | XMS_ITS | Encounter Summary ---
Author Organization [facility] Address [address] [place] [address] Phone Care Team Providers Care Bag Presser Name Role Phone Reyna Vega MD Primary Care Provider [phone] Tom Sharma MD Primary Care Provider [phone] Reason for Visit * Reason Comments Medication Refill Encounter Details Date Type Department Care Team (Late st Contact Info) Description 11/23/2021 Refill [facility] - Primary Care - [place] [address] [place] [address] Reyna Vega MD [address] [place] [address] Medication Refill Social History Tobacco [...] Telephone Encounter - Varsha Siegel RN - 11/23/2021 9:11 AM CDT Medication failed the protocol, provider to review and approve the medication order if appropriate. Requested Prescriptions Pending Prescriptions Disp Refills levothyroxine (SYNTHROID) 88 MCG Tablet [Pharmacy Med Name: LEVOTHYROXINE 0.088MG (88MCG) TAB] 90 Tablet 0 Sig: TAKE 1 TABLET BY MOUTH DAILY Thyroid Hormones Protocol Passed - 11/23/2021 5:52 AM Passed - Visit with relevant provider in past 12 months or upcoming 90 days Recent Visits Date Type Provider Dept 06/13/21 Office Visit Reyna Vega MD [facility] 12/06/20 Office Visit Reyna Vega MD [facility] Showing recent visits within past 365 days and meeting all other requirements Future Appointments Date Type Provider Dept 12/05/21 Appointment [facility] 12/12/21 Appointment Reyna Vega MD [facility] Showing future appointments within next 90 days and meeting all other requirements Passed - Normal TSH in past 12 months TSH Date Value Ref Range Status 06/08/2021 3.400 0.270 - 4.200 mIU/L Final hydroCHLOROthiazide 25 MG Tablet [Pharmacy Med Name: HYDROCHLOROTHIAZIDE 25MG TABLETS] 90 Tablet 0 Sig: TAKE 1 TABLET BY MOUTH DAILY Diuretics Protocol Passed - 11/23/2021 5:52 AM Passed - Serum potassium on [...] Dept 06/13/21 Office Visit Reyna Vega MD [facility] 12/06/20 Office Visit Reyna Vega MD [facility] Showing recent visits within past 365 days and meeting all other requirements Future Appointments Date Type Provider Dept 12/05/21 [facility]ointment [facility] 12/12/21 Appointment Reyna Vega MD [facility] Showing future appointments within next 90 days and meeting all other requirements Passed - GFR on record in past 12 months GFR, EST. NONAFRICAN Date Value Ref Range Status 06/08/2021 56 (L) >=60 Final Spiriva HandiHaler 18 MCG Capsule [Pharmacy Med Name: SPIRIVA 18MCG CAPS 30S &HANDIHALER] 90 Capsule 1 Sig: INHALE THE CONTENTS OF 1 CAPSULE VIA INHALATION DEVICE DAILY Inhaled Anticholinergics Protocol Failed - 11/23/2021 5:52 AM Failed - Active short-acting beta agonist prescription Passed - Visit with relevant provider in past 12 months or upcoming 90 days Recent Visits Date Type Provider Dept 06/13/21 Office Visit Reyna Vega MD [facility] 12/06/20 Office Visit Reyna Vega MD [facility] Showing recent visits within past 365 days and meeting all other requirements Future Appointments Date Type Provider Dept 12/05/21 Appointment [facility] 12/12/21 Appointment Reyna Vega MD [facility] Showing future appointments within next 90 days and meeting all other requirements Passed - No encounter with glaucoma or BPH diagnosis in the past 6 months metoprolol Succinate (TOPROL-XL) 100 MG TABLET SR 24 HR [Pharmacy Med Name: METOPROLOL ER [id number] TABS] 180 Tablet 0 Sig: TAKE 1 TABLET BY MOUTH TWICE DAILY Beta-Blockers Protocol Passed - 11/23/2021 5:52 AM Passed - BP on record in the past year Clinician-entered: BP Readings from Last 3 Encounters: 06/13/21 118/64 12/06/20 120/72 06/04/20 132/72 Patient-entered: No data recorded Passed - Visit with relevant provider in past 12 months or upcoming 90 days Recent Visits Date Type Provider Dept 06/13/21 Office Visit Reyna Vega MD [facility] 12/06/20 Office Visit Reyna Vega MD [facility] Showing recent visits within past 365 days and meeting all other requirements Future Appointments Date Type Provider Dept 12/05/21 [facility]21 Appointment Reyna Vega MD [facility] Showing future appointments within next 90 days [...] documented as of this encounter Care Teams Bag Presser Relationship Specialty Start Date End Date Reyna Vega MD PCP - General Family Medicine 05/10/15 08/20/22 Tom Sharma MD [address] [place] [address] PCP - General Family Medicine 08/21/22 documented as of this encounter
--- OUTSIDE RECORDS SUMMARY | 2024-12-03 20:51 | XMS_ITS | Encounter Summary ---
Author Organization [facility] Address [address] [place] [address] Phone Care Team Providers Care Welder Gas Automatic Name Role Phone Reyna Vega MD Primary Care Provider Tom Sharma MD Primary Care Provider [phone] Reason for Visit * Reason Comments Medication Refill Encounter Details Date Type Department Care Team (Late st Contact Info) Description 06/30/2021 Refill [facility] - Primary [facility] - [place] [address] [place] [address] Reyna Vega MD [address] [place] [address] Medication Refill Social History Tobacco [...] have Coronavirus / COVID-19? No / Unsure 06/13/2021 8:10 AM MUSHROOM PICKER documented as of this encounter Miscellaneous Notes * Telephone Encounter - OmariCatherine mina ARI Monsivais - 06/30/2021 11:46 AM MUSHROOM PICKER Medication failed the protocol, provider to review and approve the medication order if appropriate. Requested Prescriptions Pending Prescriptions Disp Refills hydroCHLOROthiazide 25 MG Tablet [Pharmacy Med Name: HYDROCHLOROTHIAZIDE 25MG TABLETS] 90 Tablet 0 Sig: TAKE 1 TABLET BY MOUTH DAILY Diuretics Protocol Passed - 06/30/2021 11:44 AM Passed - Serum potassium on record [...] 3 Encounters: 06/13/21 118/64 12/06/20 120/72 06/04/20 13272 Patient-entered: No data recorded Passed - Visit with relevant provider in past 12 months or upcoming 90 days Recent Visits Date Type Provider Dept 06/13/21 Office Visit Reyna Vega MD [facility] 12/06/20 Office Visit Reyna Vega MD [facility] Showing recent visits within past 365 days and meeting all other requirements Future Appointments No visits were found meeting these conditions. Showing future appointments within next 90 days and meeting all other requirements Passed - GFR on record in past 12 months GFR, EST. NONAFRICAN Date Value Ref Range Status 06/08/2021 56 (L) >=60 Final Olmesartan Medoxomil 40 MG Tablet [Pharmacy Med Name: OLMESARTAN MEDOXOMIL 40MG TABLETS] 90 Tablet 0 Sig: TAKE 1 TABLET BY MOUTH DAILY ARB Protocol Passed - 06/30/2021 11:44 AM Passed - Serum potassium on record [...] Dept 06/13/21 Office Visit Reyna Vega MD [email or web address] 12/06/20 Office Visit Reyna Vega MD [facility] [email or web address] [facility] Showing recent visits within past 365 days and meeting all other requirements Future Appointments No visits were found meeting these conditions. Showing future appointments within next 90 days and meeting all other requirements Passed - GFR on record in past 12 months GFR, EST. NONAFRICAN Date Value Ref Range Status 06/08/2021 56 (L) >=60 Final metoprolol Succinate (TOPROL-XL) 100 MG TABLET SR 24 HR [Pharmacy Med Name: METOPROLOL ER [id number] TABS] 180 Tablet 0 Sig: TAKE 1 TABLET BY MOUTH TWICE DAILY Beta-Blockers Protocol Passed - 06/30/2021 11:44 AM Passed - BP on record in the past year Clinician-entered: BP Readings from Last 3 Encounters: 06/13/21 118/64 12/06/20 120/72 06/04/20 132/72 Patient-entered: No data recorded Passed - Visit with relevant provider in past 12 months or upcoming 90 days Recent Visits Date Type Provider Dept 06/13/21 Office Visit Reyna Vega MD [facility] [email or web address] [facility] 12/06/20 Office Visit Reyna Vega MD [facility] [email or web address] [facility] Showing recent visits within past 365 days and meeting all other requirements Future Appointments No visits were found meeting these conditions. Showing future appointments within next 90 days and meeting all other requirements levothyroxine (SYNTHROID) 88 MCG Tablet [Pharmacy Med Name: LEVOTHYROXINE 0.088MG (88MCG) TAB] 90 Tablet 0 Sig: TAKE 1 TABLET BY MOUTH DAILY Thyroid Hormones Protocol Passed - 06/30/2021 11:44 AM Passed - Visit with relevant provider in past 12 months or upcoming 90 days Recent Visits Date Type Provider Dept 06/13/21 Office Visit Reyna Vega MD [facility] [email or web address] [facility] 12/06/20 Office Visit Reyna Vega MD [facility] Showing recent visits within past 365 days and meeting all other requirements Future Appointments No visits were found meeting these conditions. Showing future appointments within next 90 days and meeting all other requirements Passed - Normal TSH in past 12 months TSH Date Value Ref Range Status 06/08/2021 3.400 0.270 - 4.200 mIU/L Final allopurinol (ZYLOPRIM) 300 MG Tablet [Pharmacy Med Name: ALLOPURINOL 300MG TABLETS] 90 Tablet 0 Sig: TAKE 1 TABLET BY MOUTH DAILY Gout Agents Protocol Failed - 06/30/2021 11:44 AM Failed - Uric acid on record in past 12 months URIC ACID Date Value Ref Range Status 04/17/2019 3.8 2.4 - 5.7 mg/dL Final Passed - Visit with relevant provider in past 12 months or upcoming 90 days Recent Visits Date Type Provider Dept 06/13/21 Office Visit Reyna Vega MD [facility] 12/06/20 Office Visit Reyna Vega MD [facility] Showing recent visits within past 365 days and meeting all other requirements Future Appointments No visits were found meeting these conditions. Showing future appointments within next 90 days and meeting all other requirements Passed - Serum creatinine on record in past 12 months CREATININE, BLOOD Date Value Ref Range Status 06/08/2021 0.95 0.60 - 1.10 mg/dL Final ROOM PICKER documented in this encounter Plan of Treatment [...] documented as of this encounter Care Teams Welder Gas Automatic Relationship Specialty Start Date End Date Reyna Vega MD PCP - General Family Medicine 05/10/15 08/20/22 Tom Sharma MD [address] [place], [place] [phone] (Work) PCP - General Family Medicine 08/21/22 documented as of this encounter
--- OUTSIDE RECORDS SUMMARY | 2024-12-03 20:51 | XMS_ITS | Encounter Summary ---
Author Organization [facility] Address [address] [place] [address] Phone Care Team Providers Care Entertainment Lawyer Name Role Phone Reyna Vega MD Primary Care Provider Tom Sharma MD Primary Care Provider [phone] Reason for Visit * Reason Comments Medication Refill Encounter Details Date Type Department Care Team (Late st Contact Info) Description 12/09/2021 Refill [facility] - Primary Care - [place] [address] [place] [address] Reyna Vega MD [address] [place] [address] Medication Refill Social History Tobacco [...] Telephone Encounter - Sandra Tamayo RN - 12/09/2021 11:11 AM CDT Medication failed the protocol, provider to review and approve the medication order if appropriate. Requested Prescriptions Pending Prescriptions Disp Refills Advair Diskus 250-50 MCG/ACT AEROSOL POWDER, BREATH ACTIVATED [Pharmacy Med Name: ADVAIR DISKUS 250/50MCG (YELLOW) 60] 60 Each 0 Sig: INHALE 1 PUFF BY MOUTH TWICE DAILY Inhaled Combinations Protocol Failed - 12/09/2021 11:05 AM Failed - Active on medication list Failed - Active short-acting beta agonist prescription Passed - Visit with relevant provider in past 12 months or upcoming 90 days Recent Visits Date Type Provider Dept 06/13/21 Office Visit [email or web address] Showing recent visits within past 365 days and meeting all other requirements Future Appointments Date Type Provider Dept 12/12/21 Appointment [facility] Showing future appointments within next 90 days [...] documented as of this encounter Care Teams Entertainment Lawyer Relationship Specialty Start Date End Date Reyna Vega MD PCP - General Family Medicine 05/10/15 08/20/22 Tom Sharma MD [address] [place] [address] PCP - General Family Medicine 08/21/22 documented as of this encounter
[2024-12-03 20:54] LABS: Lactic Acid Reflex 1.1 mmol/L (0.7-2.0)
[2024-12-03 21:00] LABS: Troponin I < 0.012 ng/mL (0.000-0.034)
[2024-12-03 21:02] LABS: INR 1.1; Prothrombin Time 14.7 Seconds (11.1-14.7)
[2024-12-03 21:03] LABS: Partial Thromboplastin Time 38.5 Seconds (22.3-36.8)
--- NOTE | 2024-12-03 21:04 | ED_ITS ---
HPI - SOB/Dyspnea General Chief Complaint: Shortness of Breath/Dyspnea Stated Complaint: SHORTNESS OF BREATH Time Seen by Provider: 12/03/24 20:12 History of Present Illness HPI Narrative: 89-year-old female with a past medical history including hypertension, hypothyroidism, GERD. Patient presents to the emergency department from local rehab institute for consult lytes of shortness of breath and hypotension. Patient has a history of recent pneumonia infection requiring ICU admission at [facility] at the end of last month. Patient was discharged to rehab facility after her hospital stay. During her rehab stay they obtained a chest x-ray yesterday that showed pneumonia and she was started on antibiotics again including azithromycin and Augmentin. Patient is noted to be hypotensive in the 70s to 80s systolic at the facility as well as hypoxic now requiring oxygen. EMS arrived and found her 8 3% on room air, 87% on 3 L nasal cannula and presently she is 97% on 4 L. patient's family notes that she has been hypotensive all weekend no and has been doing anything about this. Patient is on 3 different blood pressure medications for high blood pressure and never had any issues with low blood pressure and there has not been any changes to her regimen upon discharge. 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 Family is concerned that they were told she might have heart failure but worked also told that her ejection fraction was 65% during her last hospital admission several weeks ago. Patient herself is DNR, awake and answering questions appropriately in complaining of shortness of breath but no pain. Patient is very hard of hearing and a poor historian because of this. Related Data Home Medications ?Medication ?Instructions ?Recorded ?Confirmed ?Last Taken ?Type aspirin 81 mg tablet,delayed 81 mg PO DAILY 08/10/22 12/03/24 Unknown History release (Adult Low Dose Aspirin) cholecalciferol (vitamin D3) 25 25 mcg PO DAILY 08/10/22 12/03/24 Unknown History mcg (1,000 unit) chewable tablet mecobalamin (vitamin B12) 1,000 1,000 mcg PO DAILY 08/10/22 12/03/24 Unknown History mcg chewable tablet fluticasone 250 mcg-salmeterol 50 1 inh inhalation BID 12/03/24 12/03/24 Unknown History mcg/dose blistr powdr for inhalation (Advair Diskus) Allergies Allergy/AdvReac Type Severity Reaction Status Date / Time ciprofloxacin (From Cipro) Allergy Unknown Unknown Verified 12/03/24 21:14 flu vaccine Allergy Unknown Unknown Uncoded 12/03/24 21:14 Review of Systems 2 Review of Systems: As reviewed above in HPI [facility] Family History Family History Father History of ETOH abuse Mother Hypertension Cerebrovascular accident Sibling Disorder of thyroid Social History Social History Smoking status: Never smoker Alcohol intake: never Substance use: never Substance use type: does not use Lack of Transportation: No Lack of Food: Never True Current Housing: I Have Housing Concerned About Future Housing: No Difficulty Paying Gas/Electric Bills: No Difficulty Paying for Meds: No Currently Unemployed: No Education: High School Diploma/GED Difficulty w/ Childcare or Family Care: No Living arrangements: alone Occupation/Education: retired Gender identity (if verbalized by the patient): Female Agree to blood products: Yes Exam 2 Narrative: GENERAL: Elderly and chronically ill-appearing, not any acute distress, awake and answering questions HEAD: [Normocephalic, atraumatic.] EYES: [PERRLA and EOMI.] ENT: Nares clear, no rhinorrhea or epistaxis. Mucous membranes moist. NECK: Supple. CHEST: Coarse bibasilar breath sounds but no wheezing, prolonged expiratory phase or retractions. Slightly tachypneic. Conversing in full sentences. HEART: [Regular rate and rhythm]. No murmur heard. [Normal peripheral pulses.] ABDOMEN: [Soft, nondistended], [nontender], [No rigidity or guarding] EXTREMITIES: Normal range of motion. 1+ pitting edema bilaterally and symmetric SKIN: Warm, dry, no rash. NEURO: [No focal deficits]. Alert and oriented [x3.] PSYCH: [Normal mood and affect.] Course Vital Signs Vital signs: Vital Signs Temperature 36.4 C L 12/03/24 19:58 Pulse Rate 78 12/03/24 19:58 Respiratory Rate 24 H 12/03/24 19:58 Blood Pressure 83/57 L 12/03/24 19:58 Pulse Oximetry 97 12/03/24 19:58 Oxygen Delivery Nasal Cannula 12/03/24 19:58 Oxygen Flow Rate 4 12/03/24 19:58 Temperature 36.4 C L 12/03/24 19:58 Pulse Rate 81 12/03/24 21:52 Respiratory Rate 19 12/03/24 21:52 Blood Pressure 87/61 L 12/03/24 21:52 Pulse Oximetry 95 12/03/24 21:58 Oxygen Delivery High Flow Nasal Cannula 12/03/24 21:58 Oxygen Flow Rate 6 12/03/24 21:58 Procedures Central Line Placement Left IJ: Central Line Date: 12/03/24 Central Line Time: 22:00 Discussed w/ the patient/family/POA,the placement of a central venous catheter, including its clinical necessity/indication & associated potential risks, benifits and alternatives.: Yes The patient/family/POA understand(s) and acknowledge(s) the need to proceed with central venous catheter insertion as an important element of the patient's clinical management.: Yes Time Out Performed: Yes Patient Placed on Monitor/Pulse Ox: Yes Max. Sterile Barrier Technique: Caps, large sterile sheet and hand hygiene Central Line Prep: 2% chlorhexidine scrub and sterile drapes applied Technique: US-Guided Local Anesthetic: lidocaine 1% Amount of anesthesia used (mL): 5 Ultrasound Used for Placement: Yes Central Line Lumen Inserted: triple Post Procedure: sutured in place, good blood return, all ports aspirated, flushed, capped and sterile dressing applied Post Procedure X-Ray: tip of catheter in good position and no pneumothorax seen Patient Tolerated Procedure: well and no complications Complications: none Additional Comments: Did fail left subclavian central venous access prior to converting to left IJ successfully Other Procedure Procedure 1: Other Procedure: Procedure: Bedside echocardiogram point of care ultrasound Indication: Shock and hypotension Note: Four views of the cardiac chambers were reviewed including parasternal long axis, parasternal short axis, apical 4 chamber and subxiphoid views and evaluation of the IVC was conducted as well. Patient has an ejection fraction greater than 60%, appears without any right ventricular strain or bowing of the right ventricle, trace pericardial effusion is identified, IVC is flattened collapsible with respiratory variation. No signs of arrhythmia or hypokinesis. Findings consistent with good systolic function and intravascular volume depletion consistent with patient's exam and history. MDM - SOB/Dyspnea MDM Narrative Medical decision making narrative: 89-year-old female with history of hypertension, hypothyroidism, GERD, recent admission to the ICU at [facility] at the end of last month for pneumonia. She was discharged to local rehab [place] where she had a repeat x-ray showing recurrence of pneumonia several days ago and started on antibiotics including Augmentin and azithromycin. Patient is noted to be hypotensive at the facility for several days and now hypoxic. EMS found her hypoxic to 83% on room air currently she is 97% on 4 L and after DuoNeb inhalation. Patient is complaining of weakness and shortness of breath, but no chest pain, nauseousness, vomiting, headache, vision changes, abdominal pain, back pain, fever chills. She is chronically ill-appearing, elderly and is hypoxic and hypotensive. Her blood pressure is 83/57 in triage, she is tachypneic with coarse bibasilar breath sounds but no wheezing or prolonged expiratory phase. Afebrile presently but requiring oxygen supplementation for maintaining oxygen saturation. Considerations at this time are recurrence of her pneumonia causing sepsis, septic shock, intravascular depletion, ROXANA, electrolyte derangements, urinary infection, pulmonary embolism or cardiogenic causes of shock although very unlikely given her normal ejection fraction recently and no significant cardiac history other than high blood pressure. Workup was ordered including septic bundle and initiation of vancomycin and cefepime for hospital-acquired pneumonia coverage, blood cultures lactic acid, CBC, CMP, troponin, BNP, ABG, chest x-ray and a CTA of the chest with PE protocol as ordered. A bedside echocardiogram confirms that she has a good ejection fraction greater than 60%, slight trace pericardial effusion, collapsed IVC and no signs of ventricular dysfunction right heart strain. She was given a full 30 cc/kg bolus given her reassuring echocardiogram findings and a total of 2 L LR infused via pressure bags. Patient will be re-evaluated for blood pressure response and started on pressors if need be. Patient's workup shows a leukocytosis of 11.4, hemoglobin of 10.3 with no recent baseline to compare to but no active bleeding or history of bleeding per family. Platelets are normal. Has a left shift consistent with infectious process. Coag panel largely unremarkable. Electrolytes show dehydration with low sodium and chloride but no significant derangements otherwise. She does have an ROXANA consistent with intravascular volume depletion and her dehydration on echocardiogram. She was given 2 L pressure bag. Lactic acid is -1.1. Normal LFTs. Negative troponin. BNP is mildly elevated at 1220 which is normal for her age range. Albumin is slightly low but not severe range. Chest x-ray independently reviewed shows multifocal pneumonia. Patient is on appropriate antibiotic coverage. CTA is pending. EKG shows no signs of dysrhythmia or ST segment elevations or depressions. CTA shows no pulmonary embolism but does have multifocal pneumonia. Patient did not respond any fluid resuscitation and still appears very dry on ultrasonography and clinical examination with blood pressures in the low 80s. She was started on peripheral norepinephrine while central venous catheter was placed. Left subclavian was attempted and ultimately left IJ was successfully placed with acceptable positioning on the chest x-ray. Norepinephrine switched to central venous catheter after confirming on the x-ray. Patient is doing well on high-flow nasal cannula at this time and saturating 95%. Blood pressures improving. ABG shows respiratory alkalosis secondary to tachypnea but no signs of metabolic acidosis. Negative lactic acid. I discussed the case with the ICU attending Dr. Ortiz as well as the and hospitalist Dr. Humphrey who accepted the patient to the hospital for further evaluation and treatment of her multifocal pneumonia leading to dehydration, shock and likely sepsis. Maintenance IV fluids started. Family members aware of the plan and agreeable to plan. Patient is DNR DNI and confirmed on paperwork presented at bedside with family members. Hospitalist team made aware of code status. Medical Records Attestation: I reviewed the patient's medical records. Lab Data Attestation: I reviewed the patient's lab results. 12/03/24 20:26 12/03/24 20:26 Labs: Lab Results 12/03/24 12/03/24 12/03/24 Range/Units 20:25 20:26 20:36 WBC 11.4 H (4.5-10.0) K/mm3 RBC 3.23 L (4.2-5.4) M/mm3 Hgb 10.3 L D (12.0-15.0) g/dL Hct 31.5 L (37.0-47.0) % MCV 97.5 (80-100) fl MCH 31.9 (26-34) pg MCHC 32.7 (32-36) g/dl RDW 14.0 (11.5-14.5) % Plt Count 376 H (150-375) k/mm3 MPV 10.6 H (7.4-10.4) fl Immature Gran % (Auto) 0.8 H (0-0.5) % Neut % (Auto) 80.1 H (45.5-73.1) % Lymph % (Auto) 10.6 L (18.3-44.2) % Alpine % (Auto) 7.6 (2.6-8.5) % Eos % (Auto) 0.4 (0-4.4) % Baso % (Auto) 0.5 (0.2-1.2) % Lymph # (Auto) 1.21 (0.9-3.2) K/mm3 Alpine # (Auto) 0.9 H (0.1-0.6) K/mm3 Eos # (Auto) 0.1 (0-0.3) K/mm3 Baso # (Auto) 0.1 (0.0-0.1) K/mm3 Abs Immat Gran (auto) 0.09 H (0.00-0.031) K/mm3 Absolute Neuts (auto) 9.2 H (1.3-6.7) K/mm3 Absolute Nucleated RBC 0.000 (0.0-0.012) K/mm3 Nucleated RBC % 0.0 (0.0-0.2) % PT 14.7 (11.1-14.7) Seconds INR 1.1 APTT 38.5 H (22.3-36.8) Seconds Methemoglobin (0-1.5) %THb Sodium 130 L (137-145) mmol/L Potassium 3.4 (3.4-5.0) mmol/L Chloride 97 L (98-107) mmol/L Carbon Dioxide 21 L (22-30) mmol/L Anion Gap 12 (4-12) mmol/L BUN 26 H (7-17) mg/dL Creatinine 1.11 H (0.7-1.0) mg/dL Estim Creat Clear Calc 26 ml/min Estimated GFR 46 L (59 - ) Glucose 101 (65-110) mg/dL Lactic Acid 1.1 (0.7-2.0) mmol/L Calcium 8.6 (8.4-10.2) mg/dL Total Bilirubin 0.7 (0.2-1.3) mg/dL AST 25 (14-36) U/L ALT 16 (6-35) U/L Alkaline Phosphatase 84 (38-126) U/L Troponin I < 0.012 (0.000-0.034) ng/mL C-Reactive Protein 13.1 H (<1.0) mg/dL NT-Pro-B Natriuret Pep 1220 H (19.9-100) pg/mL Total Protein 7.0 (6.3-8.2) g/dL Albumin 3.3 L (3.5-5.1) g/dL Influenza A (RT-PCR) Negative (Negative) Influenza B (RT-PCR) Negative (Negative) RSV (RT-PCR) Negative (Negative) SARS-CoV-2 RNA (RT-PCR) Negative (Negative) 12/03/24 Range/Units 21:24 WBC (4.5-10.0) K/mm3 RBC (4.2-5.4) M/mm3 Hgb (12.0-15.0) g/dL Hct (37.0-47.0) % MCV (80-100) fl MCH (26-34) pg MCHC (32-36) g/dl RDW (11.5-14.5) % Plt Count (150-375) k/mm3 MPV (7.4-10.4) fl Immature Gran % (Auto) (0-0.5) % Neut % (Auto) (45.5-73.1) % Lymph % (Auto) (18.3-44.2) % Alpine % (Auto) (2.6-8.5) % Eos % (Auto) (0-4.4) % Baso % (Auto) (0.2-1.2) % Lymph # (Auto) (0.9-3.2) K/mm3 Alpine # (Auto) (0.1-0.6) K/mm3 Eos # (Auto) (0-0.3) K/mm3 Baso # (Auto) (0.0-0.1) K/mm3 Abs Immat Gran (auto) (0.00-0.031) K/mm3 Absolute Neuts (auto) (1.3-6.7) K/mm3 Absolute Nucleated RBC (0.0-0.012) K/mm3 Nucleated RBC % (0.0-0.2) % PT (11.1-14.7) Seconds INR APTT (22.3-36.8) Seconds Methemoglobin 0.2 (0-1.5) %THb Sodium (137-145) mmol/L Potassium (3.4-5.0) mmol/L Chloride (98-107) mmol/L Carbon Dioxide (22-30) mmol/L Anion Gap (4-12) mmol/L BUN (7-17) mg/dL Creatinine (0.7-1.0) mg/dL Estim Creat Clear Calc ml/min Estimated GFR (59 - ) Glucose (65-110) mg/dL Lactic Acid (0.7-2.0) mmol/L Calcium (8.4-10.2) mg/dL Total Bilirubin (0.2-1.3) mg/dL AST (14-36) U/L ALT (6-35) U/L Alkaline Phosphatase (38-126) U/L Troponin I (0.000-0.034) ng/mL C-Reactive Protein (<1.0) mg/dL NT-Pro-B Natriuret Pep (19.9-100) pg/mL Total Protein (6.3-8.2) g/dL Albumin (3.5-5.1) g/dL Influenza A (RT-PCR) (Negative) Influenza B (RT-PCR) (Negative) RSV (RT-PCR) (Negative) SARS-CoV-2 RNA (RT-PCR) (Negative) ABG Data ABG results: 12/03/24 21:24 Puncture Site Right brachial ABG pH 7.484 H ABG pCO2 26.8 L ABG pO2 48.2 L* ABG PO2/FiO2 Ratio 1.21 ABG HCO3 19.7 L ABG O2 Saturation 87.7 L* ABG O2 Content 10.6 L ABG Base Excess -3.0 A-a Gradient 206.2 Oxyhemoglobin 84.7 L* Carboxyhemoglobin 0.3 Reduced Hemoglobin 14.8 H Total Hemoglobin 8.9 L O2 Delivery Device Nasal cannula O2 Liters/Min 5.0 FiO2 40 Attestation: I personally reviewed and interpreted this ABG as follows: Interpretation: Respiratory alkalosis with tachypnea, no metabolic acidosis component. Imaging Data Attestation: I personally reviewed and interpreted this imaging study as follows: My impression: Impressions Chest X-Ray 12/03/24 20:39 IMPRESSION: Right basilar atelectasis versus pneumonia. Left basilar atelectasis versus pneumonia in the left lung base medially Chest CTA 12/03/24 21:39 IMPRESSION: 1. No pulmonary embolism. 2. Pneumonia in the right lower lobe. 3. Focal areas of pneumonia in the middle lobe, lingula and left lower lobe. 4. Nodule in the lingula and left lower lobe. Three-month CT follow-up advised. 5. 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 6. Cholelithiasis. Fat infiltration of the liver. Critical Care Time Critical Care Time Critical Care Time: Yes Total Critical Care Time: 75 Discharge Plan Discharge Clinical Impression: Multifocal pneumonia, Acute dehydration, Shock circulatory, ROXANA (acute kidney injury), Sepsis Patient Disposition: Still a Patient Condition: Guarded Prognosis Patient Language: Martiniquais Prescriptions: No Action aspirin [Adult Low Dose Aspirin] 81 mg tablet,delayed release (DR/EC) 81 mg PO DAILY cholecalciferol (vitamin D3) 25 mcg (1,000 unit) tablet,chewable 25 mcg PO DAILY mecobalamin (vitamin B12) 1,000 mcg tablet,chewable 1,000 mcg PO DAILY fluticasone propion-salmeterol [Advair Diskus] 250-50 mcg/dose blister with device 1 inh inhalation BID levothyroxine 88 mcg tablet 88 mcg PO DAILY Qty: 90 1RF Dulera 200-5 mcg/actuation HFA aerosol inhaler See Rx Instructions .ROUTE .COMPLEX Qty: 13 6RF Dose Instruction: INHALE 2 PUFFS BY MOUTH TWICE DAILY Rx Instructions: INHALE 2 PUFFS BY MOUTH TWICE DAILY tiotropium bromide [Spiriva with HandiHaler] 18 mcg capsule, w/inhalation device See Rx Instructions .ROUTE .COMPLEX Qty: 90 6RF Dose Instruction: INHALE CONTENTS OF 1 CAPSULE ONCE DAILY USING HANDIHALER DIRECTED Rx Instructions: INHALE CONTENTS OF 1 CAPSULE ONCE DAILY USING HANDIHALER DIRECTED amlodipine 10 mg tablet See Rx Instructions .ROUTE .COMPLEX Qty: 90 3RF Dose Instruction: TAKE 1 TABLET BY MOUTH DAILY Rx Instructions: TAKE 1 TABLET BY MOUTH DAILY olmesartan 40 mg tablet See Rx Instructions .ROUTE .COMPLEX Qty: 90 3RF Dose Instruction: TAKE 1 TABLET BY MOUTH DAILY Rx Instructions: TAKE 1 TABLET BY MOUTH DAILY allopurinol 300 mg tablet See Rx Instructions .ROUTE .COMPLEX Qty: 90 3RF Dose Instruction: TAKE 1 TABLET BY MOUTH DAILY Rx Instructions: TAKE 1 TABLET BY MOUTH DAILY metoprolol succinate 100 mg tablet extended release 24 hr See Rx Instructions .ROUTE .COMPLEX Qty: 180 3RF Dose Instruction: TAKE 1 TABLET BY MOUTH TWICE DAILY Rx Instructions: TAKE 1 TABLET BY MOUTH TWICE DAILY azithromycin 250 mg tablet See Rx Instructions PO .COMPLEX Qty: 6 0RF Rx Instructions: For 250 mg dose pack: take 500 mg today (day 1), then 250 mg for 4 days (days 2-5) PO Follow-up/Referrals: Rosie Miguel APRN [Primary Care Provider] - Time of Disposition: 22:22
[2024-12-03 21:09] LABS: NT Pro B Type Natriuretic Pept 1220 pg/mL (19.9-100)
[2024-12-03 21:16] LABS: Influenza A QL RT-PCR Negative (Negative); Influenza B QL RT-PCR Negative (Negative); RSV RNA, RT-PCR Negative (Negative); SARS-CoV-2 RNA PCR Negative (Negative)
[2024-12-03 21:17] LABS: CRP 13.1 mg/dL (<1.0)
[2024-12-03] MEDS: NOREPINEPHRINE 8 MG/D5W 250 ML 8 MG/250 ML BAG 9.38 MG IV CONT (21:33)
[2024-12-03 21:44] LABS: Alveolar/Arterial O2 Gradient 206.2 mmHg; Carboxyhemoglobin 0.3 % THb (0-2.0); Fractional Inspired Oxygen 40 %; HCO3 ABG 19.7 mEq/l (22.0-26.0); Methemoglobin ABG 0.2 %THb (0-1.5); Oxygen Content ABG 10.6 %vol (16.0-22.0); PCO2 ABG 26.8 mmHg (35.0-45.0); PO2 FiO2 Ratio Arterial Blood 1.21 %; Reduced Hemoglobin 14.8 %THb (0-5.0); Total Hemoglobin 8.9 g/dL (12.0-18.0); pH ABG 7.484 (7.350-7.450)
--- NOTE | 2024-12-03 21:46 | PC.NURSE ---
This RN at bedside with EDP Dr. Carrasco for central line placement.
[2024-12-03 21:49] LABS: PO2 ABG 48.2 mmHg (80.0-100.0)
[2024-12-03 21:50] LABS: Device NASAL CANNULA; Modified Allen's Test Pass; Oxygen Saturation ABG 87.7 % (95.0-100.0); Oxyhemoglobin 84.7 % THb (90.0-100.0); Site Drawn RIGHT BRACHIAL
--- NOTE | 2024-12-03 22:14 | P.HP_ITS ---
H&P: HPI History of Present Illness Date/Time: 12/03/24 22:14 Chief Complaint: Shortness of breath Narrative: Patient is 89-year-old female with history of hypertension, hypothyroidism, GERD, recent admission to the ICU at [facility] at the end of last month for pneumonia. patient was later discharged to rehab [place] with a repeat chest x-ray showed recurrence of pneumonia and was started on Augmentin and azithromycin. Patient had episode of hypotension and hypoxia at the rehab and was sent by EMS to [place] ED. pertinent ED labs: WBC 11.4, hemoglobin 10.3, hematocrit 31.25, platelet 376, sodium 130, potassium 3.4, chloride 97, bicarb 21, creatinine 1.1, GFR 46 CRP 30.1 BNP 1220 UA shows no significant finding for UTI CTA chest:1. No pulmonary embolism. 2. Pneumonia in the right lower lobe. 3. Focal areas of pneumonia in the middle lobe, lingula and left lower lobe. 4. Nodule in the lingula and left lower lobe. Three-month CT follow-up advised. 5. 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 6. Cholelithiasis. Fat infiltration of the liver. Patient is admitted in the setting of sepsis due to pneumonia and ROXANA.ED chart review indicates the patient was treated as sepsis due to pneumonia. Patient received 2 L LR. patient started on vancomycin and cefepime for hospital- acquired pneumonia. A bedside echocardiogram confirms patient has ejection fraction greater than 60%, slight trace pericardial effusion with signs of cardiac tamponade, collapsed IVC and no signs of ventricular dysfunction. Patient still has blood pressure in 80s and was started initially on peripheral vasopressor and underwent central line placement. Currently on vancomycin and cefepime. Patient is DNR DNI and confirm the code status with ED physician. CTA shows no evidence of pulmonary embolism but evidence of multifocal pneumonia . Regards to AKA patient will have trial of fluids and if no improved can consider Nephrology consult. Review of Systems Review of Systems: As reviewed above in HPI [facility] Family History Family History Father History of ETOH abuse Mother Hypertension Cerebrovascular accident Sibling Disorder of thyroid Social History Social History Smoking status: Never smoker Alcohol intake: never Substance use: never Substance use type: does not use Lack of Transportation: No Lack of Food: Never True Current Housing: I Have Housing Concerned About Future Housing: No Difficulty Paying Gas/Electric Bills: No Difficulty Paying for Meds: No Currently Unemployed: No Education: High School Diploma/GED Difficulty w/ Childcare or Family Care: No Living arrangements: alone Occupation/Education: retired Gender identity (if verbalized by the patient): Female Agree to blood products: Yes Meds Home Medications and Allergies Home Medications ?Medication ?Instructions ?Recorded ?Confirmed ?Type aspirin 81 mg tablet,delayed 81 mg PO DAILY 08/10/22 12/03/24 History release (Adult Low Dose Aspirin) cholecalciferol (vitamin D3) 25 25 mcg PO DAILY 08/10/22 12/03/24 History mcg (1,000 unit) chewable tablet mecobalamin (vitamin B12) 1,000 1,000 mcg PO DAILY 08/10/22 12/03/24 History mcg chewable tablet levothyroxine 88 mcg tablet 88 mcg PO DAILY #90 tabs 05/08/24 12/03/24 Rx mometasone-formoterol HFA 200 See Rx Instructions .Route 09/01/24 12/03/24 Rx mcg-5 mcg/actuation aerosol .COMPLEX #13 grams inhaler (Dulera) tiotropium bromide 18 mcg capsule See Rx Instructions .Route 10/01/24 12/03/24 Rx with inhalation device (Spiriva .COMPLEX #90 caps with HandiHaler) allopurinol 300 mg tablet See Rx Instructions .Route 11/03/24 12/03/24 Rx .COMPLEX #90 tabs amlodipine 10 mg tablet See Rx Instructions .Route 11/03/24 12/03/24 Rx .COMPLEX #90 tabs metoprolol succinate 100 mg See Rx Instructions .Route 11/03/24 12/03/24 Rx tablet,extended release 24 hr .COMPLEX #180 tabs olmesartan 40 mg tablet See Rx Instructions .Route 11/03/24 12/03/24 Rx .COMPLEX #90 tabs azithromycin 250 mg tablet See Rx Instructions PO .COMPLEX #6 11/17/24 12/03/24 Rx tabs fluticasone 250 mcg-salmeterol 50 1 inh inhalation BID 12/03/24 12/03/24 History mcg/dose blistr powdr for inhalation (Advair Diskus) Allergies Allergy/AdvReac Type Severity Reaction Status Date / Time ciprofloxacin (From Cipro) Allergy Unknown Unknown Verified 12/03/24 21:14 flu vaccine Allergy Unknown Unknown Uncoded 12/03/24 21:14 Vital Signs Vital Signs - 24 hr 12/03/24 19:58 12/03/24 20:36 12/03/24 20:37 Temperature 97.5 F L Pulse Rate 78 Respiratory Rate 24 H Blood Pressure 83/57 L Pulse Oximetry 97 87 L 91 Oxygen Delivery Nasal Cannula Room Air Nasal Cannula Oxygen Flow Rate 4 3 12/03/24 20:37 12/03/24 20:59 12/03/24 21:14 Temperature Pulse Rate 78 77 Respiratory Rate 18 Blood Pressure 71/55 L Pulse Oximetry 94 92 Oxygen Delivery Nasal Cannula Oxygen Flow Rate 3 12/03/24 21:33 12/03/24 21:38 12/03/24 21:38 Temperature Pulse Rate 76 81 80 Respiratory Rate 22 H Blood Pressure 83/52 L 86/47 L 86/47 L Pulse Oximetry 93 Oxygen Delivery Oxygen Flow Rate 12/03/24 21:45 12/03/24 21:45 12/03/24 21:52 Temperature Pulse Rate 78 81 Respiratory Rate 24 H 19 Blood Pressure 90/55 L 87/61 L Pulse Oximetry 93 95 94 Oxygen Delivery Nasal Cannula Oxygen Flow Rate 5 12/03/24 21:58 Temperature Pulse Rate Respiratory Rate Blood Pressure Pulse Oximetry 95 Oxygen Delivery High Flow Nasal Cannula Oxygen Flow Rate 6 Exam Narrative: GENERAL: Elderly and chronically ill-appearing, not any acute distress, awake and answering questions HEAD: [Normocephalic, atraumatic.] EYES: [PERRLA and EOMI.] ENT: Nares clear, no rhinorrhea or epistaxis. Mucous membranes moist. NECK: Supple. CHEST: Coarse bibasilar breath sounds but no wheezing, prolonged expiratory phase or retractions. Slightly tachypneic. Conversing in full sentences. HEART: [Regular rate and rhythm]. No murmur heard. [Normal peripheral pulses.] ABDOMEN: [Soft, nondistended], [nontender], [No rigidity or guarding] EXTREMITIES: Normal range of motion. 1+ pitting edema bilaterally and symmetric SKIN: Warm, dry, no rash. NEURO: [No focal deficits]. Alert and oriented [x3.] PSYCH: [Normal mood and affect.] H&P: Results Labs Labs: Short CBC 12/03/24 Range/Units 20:26 WBC 11.4 H (4.5-10.0) K/mm3 Hgb 10.3 L D (12.0-15.0) g/dL Hct 31.5 L (37.0-47.0) % Plt Count 376 H (150-375) k/mm3 BMP 12/03/24 20:26 Sodium 130 L Potassium 3.4 Chloride 97 L Carbon Dioxide 21 L BUN 26 H Creatinine 1.11 H Glucose 101 Calcium 8.6 Cardiac Enzymes 12/03/24 Range/Units 20:26 Troponin I < 0.012 (0.000-0.034) ng/mL Liver Function 12/03/24 Range/Units 20:26 Total Bilirubin 0.7 (0.2-1.3) mg/dL AST 25 (14-36) U/L ALT 16 (6-35) U/L Alkaline Phosphatase 84 (38-126) U/L Albumin 3.3 L (3.5-5.1) g/dL Assessment and Plan Assessment and plan (1) ROXANA (acute kidney injury): Code(s): N17.9 - Acute kidney failure, unspecified Status: Acute (2) Sepsis: Code(s): A41.9 - Sepsis, unspecified organism Status: Acute (3) Multifocal pneumonia: Code(s): J18.9 - Pneumonia, unspecified organism Status: Acute Plan Sepsis 2/2 PNA Meets SIRS criteria: WBC 11.4, RR 24, heart rate greater than 90 Given 2l bolus 30ml/kg in first 3 hours,initial 1l in first 30 min On cefepime and vancomycin Suspected source PNA Reviewed ABG Pending BC,UC CRP 13.1 Lactic acid COVID flu RSV negative Monitor vitals Medication review indicate not on chronic steroids ROXANA Possibly due to infection /dehydration On IVF Avoid nephrotoxic drugs Trend BUN and creatinine Hold olmesartan Hospitalist MIPS Advance Care Plan I have confirmed that the patient's Advanced Care Plan is present, code status is documented, or surrogate decision maker is listed in patient medical record.: Yes Medication Reconciliation I have utilized all available resources to obtain, update and review the patients current medications (includes all prescriptions, OTC, herbals, cannabis, and nutritional supplements).: Yes
[2024-12-03] MEDS: WATER FOR IRRIGATION, STERILE 500 ML BOTTLE (22:15)
[2024-12-03] MEDS: LIDOCAINE 1% LOCAL INJ 10 ML VIAL (22:15)
[2024-12-03] MEDS: VANCOMYCIN 1,500 MG/NS 500 ML 1,500 MG/500 ML BAG 250 MG IVPB (22:21)
[2024-12-03 22:24] LABS: Add Urine Microscopic? NO; Appearance Urine Clear (Clear); Bilirubin Urine Negative (Negative); Blood Urine Negative (Negative); Color Urine Yellow (Yellow); Glucose Urine UA Negative (Negative); Ketones Urine Negative (Negative); Leukocyte Esterase Ur Negative LEU/UL (Negative); Nitrate Urine Negative (Negative); Protein Urine Negative (Negative); Specific Grav Ur 1.011 (1.001-1.035); Urobilinogen Urine 0.2 mg/dL (<2.0)
[2024-12-03] MEDS: CENTRAL LINE FLUSH 10 ML IV PUSH (22:55)
--- NOTE | 2024-12-03 22:55 | PC.NURSE ---
This patient, Chika Chan, was admitted to Intensive Care Unit-7. Patient/family oriented to hospital policies and general routines including ID bracelet, bed and alarms, visiting hours, pain management, procedures, bathroom and other care routines, personal items, smoking policy, room service/diet, and visiting hours. Information on how to activate the Rapid Response Team has been discussed. Patient/Family are encouraged to report perceived risks to care and to ask questions if they do not understand what they are told or what they should do.
--- NOTE | 2024-12-03 23:46 | PM.IMHP ---
H&P: HPI History of Present Illness Date/Time: 12/03/24 23:46 Narrative: Patient is 89-year-old female with history of hypertension, hypothyroidism, GERD, recent admission to the ICU at [facility] at the end of last month for pneumonia. patient was later discharged to rehab [place] with a repeat chest x-ray showed recurrence of pneumonia and was started on Augmentin and azithromycin. Patient had episode of hypotension and hypoxia at the rehab and was sent by EMS to [place] ED. Pertinent ED labs: WBC 11.4, hemoglobin 10.3, hematocrit 31.25, platelet 376, sodium 130, potassium 3.4, chloride 97, bicarb 21, creatinine 1.1, GFR 46 CRP 30.1 BNP 1220 UA shows no significant finding for UTI CTA chest:1. No pulmonary embolism. 2. Pneumonia in the right lower lobe. 3. Focal areas of pneumonia in the middle lobe, lingula and left lower lobe. 4. Nodule in the lingula and left lower lobe. Three-month CT follow-up advised. 5. 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 6. Cholelithiasis. Fat infiltration of the liver. Patient is admitted in the setting of sepsis due to pneumonia and ROXANA.ED chart review indicates the patient was treated as sepsis due to pneumonia. Patient received 2 L LR. patient started on vancomycin and cefepime for hospital-acquired pneumonia. A bedside echocardiogram confirms patient has ejection fraction greater than 60%, slight trace pericardial effusion with signs of cardiac tamponade, collapsed IVC and no signs of ventricular dysfunction. Patient still has blood pressure in 80s and was started initially on peripheral vasopressor and underwent central line placement. Currently on vancomycin and cefepime. Patient is DNR DNI and confirm the code status with ED physician. CTA shows no evidence of pulmonary embolism but evidence of multifocal pneumonia . Regards to AKA patient will have trial of fluids and if no improved can consider Nephrology consult. Review of Systems Review of Systems: As reviewed above in HPI [facility] Family History Family History Father History of ETOH abuse Mother Hypertension Cerebrovascular accident Sibling Disorder of thyroid Social History Social History Smoking status: Never smoker Alcohol intake: never Substance use: never Substance use type: does not use Lack of Transportation: No Lack of Food: Never True Current Housing: I Have Housing Concerned About Future Housing: No Difficulty Paying Gas/Electric Bills: No Difficulty Paying for Meds: No Currently Unemployed: No Education: High School Diploma/GED Difficulty w/ Childcare or Family Care: No Living arrangements: alone Occupation/Education: retired Gender identity (if verbalized by the patient): Female Agree to blood products: Yes Meds Home Medications and Allergies Home Medications ?Medication ?Instructions ?Recorded ?Confirmed ?Type aspirin 81 mg tablet,delayed 81 mg PO DAILY 08/10/22 12/03/24 History release (Adult Low Dose Aspirin) cholecalciferol (vitamin D3) 25 25 mcg PO DAILY 08/10/22 12/03/24 History mcg (1,000 unit) chewable tablet mecobalamin (vitamin B12) 1,000 1,000 mcg PO DAILY 08/10/22 12/03/24 History mcg chewable tablet levothyroxine 88 mcg tablet 88 mcg PO DAILY #90 tabs 05/08/24 12/03/24 Rx mometasone-formoterol HFA 200 See Rx Instructions .Route 09/01/24 12/03/24 Rx mcg-5 mcg/actuation aerosol .COMPLEX #13 grams inhaler (Dulera) tiotropium bromide 18 mcg capsule See Rx Instructions .Route 10/01/24 12/03/24 Rx with inhalation device (Spiriva .COMPLEX #90 caps with HandiHaler) allopurinol 300 mg tablet See Rx Instructions .Route 11/03/24 12/03/24 Rx .COMPLEX #90 tabs amlodipine 10 mg tablet See Rx Instructions .Route 11/03/24 12/03/24 Rx .COMPLEX #90 tabs metoprolol succinate 100 mg See Rx Instructions .Route 11/03/24 12/03/24 Rx tablet,extended release 24 hr .COMPLEX #180 tabs olmesartan 40 mg tablet See Rx Instructions .Route 11/03/24 12/03/24 Rx .COMPLEX #90 tabs azithromycin 250 mg tablet See Rx Instructions PO .COMPLEX #6 11/17/24 12/03/24 Rx tabs fluticasone 250 mcg-salmeterol 50 1 inh inhalation BID 12/03/24 12/03/24 History mcg/dose blistr powdr for inhalation (Advair Diskus) Allergies Allergy/AdvReac Type Severity Reaction Status Date / Time [facility] Allergy Unknown Unknown Verified 12/03/24 21:14 flu vaccine Allergy Unknown Unknown Uncoded 12/03/24 21:14 Vital Signs Vital Signs - 24 hr 12/03/24 19:58 12/03/24 20:36 12/03/24 20:37 Temperature 97.5 F L Pulse Rate 78 Respiratory Rate 24 H Blood Pressure 83/57 L Pulse Oximetry 97 87 L 91 Oxygen Delivery Nasal Cannula Room Air Nasal Cannula Oxygen Flow Rate 4 3 12/03/24 20:37 12/03/24 20:59 12/03/24 21:14 Temperature Pulse Rate 78 77 Respiratory Rate 18 Blood Pressure 71/55 L Pulse Oximetry 94 92 Oxygen Delivery Nasal Cannula Oxygen Flow Rate 3 12/03/24 21:33 12/03/24 21:38 12/03/24 21:38 Temperature Pulse Rate 76 81 80 Respiratory Rate 22 H Blood Pressure 83/52 L 86/47 L 86/47 L Pulse Oximetry 93 Oxygen Delivery Oxygen Flow Rate 12/03/24 21:45 12/03/24 21:45 12/03/24 21:52 Temperature Pulse Rate 78 81 Respiratory Rate 24 H 19 Blood Pressure 90/55 L 87/61 L Pulse Oximetry 93 95 94 Oxygen Delivery Nasal Cannula Oxygen Flow Rate 5 12/03/24 21:58 12/03/24 22:16 12/03/24 22:25 Temperature Pulse Rate 77 75 Respiratory Rate 19 Blood Pressure 83/54 L 89/60 L Pulse Oximetry 95 95 Oxygen Delivery High Flow Nasal Cannula Oxygen Flow Rate 6 12/03/24 23:17 Temperature Pulse Rate 77 Respiratory Rate 20 Blood Pressure Pulse Oximetry 93 Oxygen Delivery High Flow Nasal Cannula Oxygen Flow Rate 6 Exam Narrative: GENERAL: Elderly and chronically ill-appearing, not any acute distress, awake and answering questions HEAD: [Normocephalic, atraumatic.] EYES: [PERRLA and EOMI.] ENT: Nares clear, no rhinorrhea or epistaxis. Mucous membranes moist. NECK: Supple. CHEST: Coarse bibasilar breath sounds but no wheezing, prolonged expiratory phase or retractions. Slightly tachypneic. Conversing in full sentences. HEART: [Regular rate and rhythm]. No murmur heard. [Normal peripheral pulses.] ABDOMEN: [Soft, nondistended], [nontender], [No rigidity or guarding] EXTREMITIES: Normal range of motion. 1+ pitting edema bilaterally and symmetric SKIN: Warm, dry, no rash. NEURO: [No focal deficits]. Alert and oriented [x3.] PSYCH: [Normal mood and affect.] H&P: Results Labs Labs: Short CBC 12/03/24 Range/Units 20:26 WBC 11.4 H (4.5-10.0) K/mm3 Hgb 10.3 L D (12.0-15.0) g/dL Hct 31.5 L (37.0-47.0) % Plt Count 376 H (150-375) k/mm3 BMP 12/03/24 20:26 Sodium 130 L Potassium 3.4 Chloride 97 L Carbon Dioxide 21 L BUN 26 H Creatinine 1.11 H Glucose 101 Calcium 8.6 Cardiac Enzymes 12/03/24 Range/Units 20:26 Troponin I < 0.012 (0.000-0.034) ng/mL Liver Function 12/03/24 Range/Units 20:26 Total Bilirubin 0.7 (0.2-1.3) mg/dL AST 25 (14-36) U/L ALT 16 (6-35) U/L Alkaline Phosphatase 84 (38-126) U/L Albumin 3.3 L (3.5-5.1) g/dL Urine 12/03/24 Range/Units 22:11 Urine Color Yellow (Yellow) Urine Appearance Clear (Clear) Urine pH 5.0 (5.0-9.0) Ur Specific [place] 1.011 (1.001-1.035) Urine Protein Negative (Negative) mg/dL Urine Glucose (UA) Negative (Negative) mg/dL Assessment and Plan Assessment and plan (1) ROXANA (acute kidney injury): Code(s): N17.9 - Acute kidney failure, unspecified Status: Acute (2) Sepsis: Code(s): A41.9 - Sepsis, unspecified organism Status: Acute (3) Multifocal pneumonia: Code(s): J18.9 - Pneumonia, unspecified organism Status: Acute Plan Sepsis 2/2 PNA Meets SIRS criteria: WBC 11.4, RR 24, heart rate greater than 90 Given 2l bolus 30ml/kg in first 3 hours,initial 1l in first 30 min On cefepime and vancomycin Suspected source PNA Reviewed ABG Pending BC,UC CRP 13.1 Lactic acid COVID flu RSV negative Monitor vitals Medication review indicate not on chronic steroids ROXANA Possibly due to infection /dehydration On IVF Avoid nephrotoxic drugs Trend BUN and creatinine Hold olmesartan,allopurinol Hospitalist MIPS Advance Care Plan I have confirmed that the patient's Advanced Care Plan is present, code status is documented, or surrogate decision maker is listed in patient medical record.: Yes Medication Reconciliation I have utilized all available resources to obtain, update and review the patients current medications (includes all prescriptions, OTC, herbals, cannabis, and nutritional supplements).: Yes
[2024-12-04] VITALS (60 sets, daily range): BP systolic 79–126; BP diastolic 47–96; PULSE 67–89; RESP 15–29; TEMP 36.6–36.9; O2SAT 90–100
--- NOTE | 2024-12-04 | ECHO_ITS ---
Patient Info Name: Chika Chan Age: 89 years : 1935 Gender: Female Ht: 62 in Wt: 137 lbs BSA: 1.66 m2 HR: 73 bpm BP: 100 / 70 mmHg Heart Rhythm: Sinus Rhythm Technical Quality: Fair Exam Date: 12/04/2024 10:27 AM Patient Status: I Admit Date: 12/03/2024 Exam Type: CA echo doppler color flow Complete two-dimensional, color flow and Doppler transthoracic echocardiogram is performed. Staff Referring Physician: Ryan Ford MD Drying Machine Back Tender: Maria Isabel Licea Attending Provider: Sergei Humphrey Summary 1. Complete two-dimensional, color flow and Doppler transthoracic echocardiogram is performed. 2. Left ventricular chamber dimension is normal. 3. Left ventricular systolic function is normal, estimated at 65-70. 4. The left ventricular diastolic function is grade I diastolic dysfunction. 5. E/e' 10 is mildly elevated. 6. Left atrial chamber dimension is mildly enlarged. 7. There is mild aortic valve sclerosis. 8. There is trace aortic valve regurgitation. 9. No pulmonary hypertension, estimated pulmonary arterial systolic pressure is 39 mmHg. Left Ventricle E/e' 10 is mildly elevated. Left ventricular chamber dimension is normal. Left ventricular systolic function is normal, estimated at 65-70. The left ventricular diastolic function is grade I diastolic dysfunction. Right Ventricle Right ventricular chamber dimension is normal. Right ventricular systolic function is normal and with normal TAPSE 2.5 cm. Left Atria Left atrial chamber dimension is mildly enlarged. Right Atria Right atrial chamber dimension is normal. Aortic Valve The aortic valve is trileaflet. Cannot determine number of aortic valve leaflets. There is mild aortic valve sclerosis. There is no aortic valve stenosis. There is trace aortic valve regurgitation. Pulmonic Valve There is no pulmonic regurgitation. Mitral Valve There is no mitral valve stenosis. There is no mitral valve regurgitation. Tricuspid Valve There is no tricuspid valve regurgitation. No pulmonary hypertension, estimated pulmonary arterial systolic pressure is 39 mmHg. Pericardium/Pleural There is no pericardial effusion. Inferior Vena Cava Normal inferior vena cava with >50% collapse upon inspiration consistent with normal right atrial pressure, 5 mmHg. Aorta The aortic root size at the sinus of Valsalva is normal. Left Ventricular Outflow Tract Name Value Normal LVOT 2D LVOT Diameter 2.0 cm LVOT Doppler LVOT Peak Velocity 167 cm/s LVOT Peak Gradient 11 mmHg LVOT Mean Gradient 5 mmHg LVOT VTI 35 cm LVOT VTI/AV VTI Ratio 1.0 LVOT Stroke Volume 110 ml LVOT CO 9.5 l/min LVOT CI 5.7 l/min/m2 Pulmonic Valve Name Value Normal RVOT Doppler RVOT Peak Velocity 96 cm/s RVOT Peak Gradient 4 mmHg PV Doppler PV Peak Velocity 101 cm/s PV Peak Gradient 4 mmHg Mitral Valve Name Value Normal MV Diastolic Function MV E Peak Velocity 79 cm/s MV A Peak Velocity 98 cm/s MV E/A 0.8 MV Decel Time (PW) 240 ms MV Annular TDI MV E/e' (Septal) 14.0 MV E/e' (Lateral) 8.3 MV E/e' (Average) 11.2 Tricuspid Valve Name Value Normal TV Regurgitation Doppler TR Peak Velocity 291 cm/s TR Peak Gradient 34 mmHg Estimated PAP/RSVP RA Pressure 5 mmHg <=5 PA Systolic Pressure 39 mmHg <36 RV Systolic Pressure 39 mmHg <36 TV Annular TDI TV Lateral Bhumi s' Velocity 17.5 cm/s >=9.5 Aortic Valve Name Value Normal AV Doppler AV Peak Velocity 176 cm/s AV Peak Gradient 12 mmHg AV Mean Gradient 6 mmHg AV VTI 36 cm AV Area (Cont Eq VTI) 3.1 cm2 >=3.0 AV Area (Cont Eq Tommie) 3.0 cm2 AV DI (Tommie) 0.95 AV Regurgitation 2D LVOT Area 3.1 cm2 Ventricles Name Value Normal LV Dimensions 2D/MM IVS Diastolic Thickness (2D) 1.0 cm 0.6-1.0 LVID Diastole (2D) 3.2 cm 3.8-5.2 LVIW Diastolic Thickness (2D) 0.8 cm 0.6-0.9 LVID Systole (2D) 2.0 cm 2.2-3.5 LVOT Diameter 2.0 cm LV Mass (2D Cubed) 74.86 g 67.00-162.00 LV Mass Index (2D Cubed) 45 g/m2 43-95 Relative Wall Thickness (2D) 0.50 <=0.42 LV Fractional Shortening/Ejection Fraction 2D/MM LV Fractional Shortening (2D) 37 % 27-45 LV EF (2D Teichholz) 68 % LV Diastolic Volume (4C MOD) 81 ml LV EF (4C MOD) 65 % LV Diastolic Volume (2C MOD) 84 ml LV EF (2C MOD) 62 % LV Diastolic Volume (BP MOD) 80 ml 46-106 LV Diastolic Volume Index (BP MOD) 48 ml/m2 29-61 LV Systolic Volume (BP MOD) 31 ml 14-42 LV Systolic Volume Index (BP MOD) 18 ml/m2 8-24 LV EF (BP MOD) 62 % 54-74 LV Diastolic Length (4C) 7.0 cm LV Systolic Length (4C) 5.9 cm LV Stroke Volume (4C MOD) 52 ml Atria Name Value Normal LA Dimensions LA Volume (4C A-L) 69 ml LA Volume (BP A-L) 74 ml Report Signatures
[2024-12-04 01:21] LABS: MRSA (PCR) NOT DETECTED (NOT DETECTE)
[2024-12-04] MEDS: guaiFENesin 12 HR 600 MG TABCR PO ×3 (01:47→21:03)
[2024-12-04] MEDS: IPRATROPIUM 0.5 MG/ALBUTEROL SULFATE 2.5 MG AMPUL.NEB 3 ML INHALATION ×4 (05:29→19:52)
[2024-12-04] MEDS: LEVOTHYROXINE SODIUM 88 MCG TABLET PO (05:55)
[2024-12-04] MEDS: CENTRAL LINE FLUSH 10 ML IV PUSH ×4 (05:56→21:03)
[2024-12-04 06:17] LABS: Basophils Absolute Auto 0.1 K/mm3 (0.0-0.1); Basophils Percent Auto 0.4 % (0.2-1.2); Eosinophils Absolute Auto 0.1 K/mm3 (0-0.3); Eosinophils Percent Auto 0.4 % (0-4.4); Hematocrit 28.4 % (37.0-47.0); Hemoglobin 9.1 g/dL (12.0-15.0); Immature Granulocyte Absolute 0.14 K/mm3 (0.00-0.031); Lymphocytes Absolute Auto 1.02 K/mm3 (0.9-3.2); Lymphocytes Percent Auto 7.3 % (18.3-44.2); Mean Corpuscular Hemoglobin 31.4 pg (26-34); Mean Corpuscular Volume 97.9 fl (80-100); Mean Platelet Volume 9.9 fl (7.4-10.4); Monocytes Absolute Auto 1.1 K/mm3 (0.1-0.6); Monocytes Percent Auto 7.6 % (2.6-8.5); Neutrophils Absolute Auto 11.6 K/mm3 (1.3-6.7); Neutrophils Percent Auto 83.3 % (45.5-73.1); Platelet Count Result 316 k/mm3 (150-375); Red Cell Distribution Width 13.9 % (11.5-14.5); White Blood Count 13.9 K/mm3 (4.5-10.0)
[2024-12-04 06:25] LABS: Estimated CRCL calculation 28 ml/min; Estimated Glomerular Filt Rate 53
[2024-12-04 06:26] LABS: Alanine Aminotransferase 14 U/L (6-35); Albumin Level 2.7 g/dL (3.5-5.1); Alkaline Phosphatase 73 U/L (38-126); Anion Gap 7 mmol/L (4-12); Aspartate Amino Transferase 24 U/L (14-36); Bilirubin,Total 0.7 mg/dL (0.2-1.3); Blood Urea Nitrogen 22 mg/dL (7-17); Calcium 8.3 mg/dL (8.4-10.2); Carbon Dioxide 23 mmol/L (22-30); Chloride 102 mmol/L (98-107); Estimated CRCL calculation 28 ml/min; Estimated Glomerular Filt Rate 52; Glucose 96 mg/dL (65-110); Potassium 3.6 mmol/L (3.4-5.0); Sodium 132 mmol/L (137-145)
[2024-12-04] MEDS: ENOXAPARIN 30 MG/0.3 ML SYRINGE SUB-Q (08:10)
[2024-12-04] MEDS: ASPIRIN 81 MG ENTERIC TABLET PO (08:10)
[2024-12-04] MEDS: PANTOPRAZOLE SODIUM IV 40 MG VIAL IV PUSH (08:10)
[2024-12-04] MEDS: ACETYLCYSTEINE 20% INHAL SOLN 800 MG/4 ML VIAL 200 MG INHALATION ×3 (08:53→19:54)
[2024-12-04] MEDS: FLUTICASONE/SALMETEROL 230-21 MCG INHALER 1 PUFF 2 PUFF INHALATION ×2 (08:54→19:55)
[2024-12-04] MEDS: UMECLIDINIUM BROMIDE 62.5 MCG ELLIPTA 1 PUFF INHALATION (09:04)
[2024-12-04] MEDS: ALBUMIN HUMAN 25% 25 GM/100 ML 100 ML IVPB ×4 (10:06→23:54)
--- NOTE | 2024-12-04 11:16 | P.CONIN_ITS ---
Assessment and Plan Assessment and plan (1) Septic shock: Code(s): A41.9 - Sepsis, unspecified organism; R65.21 - Severe sepsis with septic shock Status: Acute Assessment and Plan: 12/03/2024: Patient presented with hypotension, hypoxia, productive cough and shortness of breath -in the ER was found to be in septic shock -received adequate IV fluids -will give additional small bolus of LR and albumin for intravascular volume expansion -started on Levophed, will maintain SBP > 100 mmHg and MAP > 65 mmHg for adequate end organ perfusion -will add vasopressin and stress dose steroids -urine output has been adequate -patient is awake, alert, oriented x3 -started on cefepime and vancomycin (12/03) -12/03: Blood cultures obtained and pending -12/04: Sputum cultures have been ordered -continue bronchodilators via inhalers -Mucomyst nebs -anti tussives, guaifenesin and Tessalon Perles -12/03: influenza, RSV, COVID PCR were negative 12/03: CTA chest 1. No pulmonary embolism. 2. Pneumonia in the right lower lobe. 3. Focal areas of pneumonia in the middle lobe, lingula and left lower lobe. 4. Nodule in the lingula and left lower lobe. Three-month CT follow-up advised. 5. 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 6. Cholelithiasis. Fat infiltration of the liver. (2) Multifocal pneumonia: Code(s): J18.9 - Pneumonia, unspecified organism Status: Acute Assessment and Plan: Treatment as above -stress dose steroids have been added (3) Hypothyroidism: Code(s): E03.9 - Hypothyroidism, unspecified Status: Acute Assessment and Plan: Continue levothyroxine (4) Electrolyte imbalance: Code(s): E87.8 - Other disorders of electrolyte and fluid balance, not elsewhere classified Status: Acute Assessment and Plan: Hyponatremia, could be related to pneumonia continue to monitor Plan DVT prophylaxis: Enoxaparin Stress ulcer prophylaxis: Protonix Nutrition: Heart healthy diet Code Status: DNR/DNI Critical Care Time Spent: 55 minutes Discussed with patient and 2 of her daughters at bedside and in rounds and updated them with patient's condition and plan of care. They are aware that patient is on blood pressure support medication, antibiotics. I answered all the questions Due to a high probability of clinically significant, life threatening deterioration, the patient required my highest level of preparedness to intervene emergently and I personally spent this critical care time directly and personally managing the patient. This critical care time included obtaining a history; examining the patient; pulse oximetry; ordering and review of studies; arranging urgent treatment with development of a management plan; evaluation of patient's response to treatment; frequent reassessment; and discussions with other providers. It was exclusive of separately billable procedures and treating other patients and teaching time. Please see Assessment and Plan section and the rest of the note for further information on patient assessment and treatment This dictation may have been done utilizing a voice recognition system. Attempts have been made to correct errors. However, there may be uncorrected grammatical, spelling, and recognitions errors present. Process Safety Manager Consult Note Consult date: 12/04/24 Reason for consult: Septic shock, Pneumonia, respiratory distress, hypoxia HPI: Chika Chan is a 89 year old female with history of hypertension, hypothyroidism, GERD, recent admission to the ICU at [facility] at the end of last month for pneumonia,according the daughters they were told that her EF was 65%. Off note patient was recently admitted to [facility] at the end of last month with pneumonia requiring ICU admission. She was discharged to a local rehab and this area but she has been hypotensive for several days, has been having cough, fevers full couple of days. She was found to be hypoxic so EMS was called. When EMS arrived she was saturating 83% on room air and 97% on 4 L after DuoNeb inhalation. She also was complaining of weakness, shortness of breath, cough productive of white sputum. Denies any chest pain, nausea, vomiting, abdominal pain, fevers or chills. Her blood pressures in the ER were 83/57, she received 2 L IV fluid bolus despite which her blood pressures were low, a central line in the left IJ was inserted and patient started on Levophed. Was given a dose of cefepime and started on vancomycin. Chest x-ray showed multifocal pneumonia. CTA chest with no pulmonary embolism, multifocal pneumonia. In the ER WBC was 411.4, hemoglobin 10.3, platelets 376, INR 1.1, sodium 130, potassium 3.4, CO2 21, BUN 26, creatinine 1.11, LFTs are within normal limits, lactic of 1.1, C-reactive protein 13.1, proBNP 1220. UA was unremarkable. Influenza, RSV and SARS-CoV-2 PCR was negative. Patient was transferred to the ICU for further management Patient seen examined this morning in the ICU. Very pleasant elderly female who is awake, alert oriented x3, states she feels much better. Continues to have productive cough with white sputum, denies any shortness of breath, chest pain, abdominal pain, nausea vomiting at this time. No other complaints. Remains on Levophed at 16 mcg/kg/min. Patient tolerating diet Review of Systems 2 Review of Systems: All systems reviewed & are unremarkable except as noted in HPI and below PMFSH Family History Family History Father History of ETOH abuse Mother Hypertension Cerebrovascular accident Sibling Disorder of thyroid Social History Social History Smoking status: Former smoker Smoking end date: 07/23/11 Alcohol intake: former Drinks per week: 1 Substance use: never Substance use type: does not use Do You Feel Safe in your Home?: Yes Lack of Transportation: No Lack of Food: Never True Current Housing: I Have Housing Concerned About Future Housing: No Difficulty Paying Gas/Electric Bills: No Difficulty Paying for Meds: No Currently Unemployed: No Education: Don't Know Difficulty w/ Childcare or Family Care: No Living arrangements: alone Occupation/Education: retired Gender identity (if verbalized by the patient): Female Spiritual care concerns: Yes ([employer]) Agree to blood products: Yes Meds Home Medications and Allergies Home Medications ?Medication ?Instructions ?Recorded ?Confirmed ?Type aspirin 81 mg tablet,delayed 81 mg PO DAILY 08/10/22 12/04/24 History release (Adult Low Dose Aspirin) cholecalciferol (vitamin D3) 25 25 mcg PO DAILY 08/10/22 12/04/24 History mcg (1,000 unit) chewable tablet levothyroxine 88 mcg tablet 88 mcg PO DAILY #90 tabs 05/08/24 12/04/24 Rx mometasone-formoterol HFA 200 See Rx Instructions .Route 09/01/24 12/04/24 Rx mcg-5 mcg/actuation aerosol .COMPLEX #13 grams inhaler (Dulera) tiotropium bromide 18 mcg capsule See Rx Instructions .Route 10/01/24 12/04/24 Rx with inhalation device (Spiriva .COMPLEX #90 caps with HandiHaler) allopurinol 300 mg tablet See Rx Instructions .Route 11/03/24 12/04/24 Rx .COMPLEX #90 tabs amlodipine 10 mg tablet See Rx Instructions .Route 11/03/24 12/04/24 Rx .COMPLEX #90 tabs metoprolol succinate 100 mg See Rx Instructions .Route 11/03/24 12/03/24 Rx tablet,extended release 24 hr .COMPLEX #180 tabs olmesartan 40 mg tablet See Rx Instructions .Route 11/03/24 12/04/24 Rx .COMPLEX #90 tabs amoxicillin 875 mg-potassium 1 tablet PO Q12H 12/04/24 12/04/24 History clavulanate 125 mg tablet cyanocobalamin (vitamin B-12) 500 500 mcg PO DAILY 12/04/24 12/04/24 History mcg tablet dextromethorphan-guaifenesin 10 10 ml PO Q4-6H PRN cough 12/04/24 12/04/24 History mg-100 mg/5 mL oral syrup (Ultra Tuss Safe) ipratropium 0.5 mg-albuterol 3 mg 3 ml inhalation Q4H PRN shortness 12/04/24 12/04/24 History (2.5 mg base)/3 mL nebulization of breath or wheezing soln omeprazole 20 mg capsule,delayed 20 mg PO DAILY 12/04/24 12/04/24 History release vit C 250 mg-vit E 90 mg-zinc 40 1 tablet PO BID 12/04/24 12/04/24 History mg-copper 1 [id number] capsule (PreserVision AREDS-2) Allergies Allergy/AdvReac Type Severity Reaction Status Date / Time ciprofloxacin (From Cipro) Allergy Unknown Unknown Verified 12/04/24 00:11 flu vaccine Allergy Unknown Unknown Uncoded 12/04/24 00:11 Vital Signs Vital Signs - 24 hr 12/03/24 19:58 12/03/24 20:36 12/03/24 20:37 Temperature 97.5 F L Pulse Rate 78 Respiratory Rate 24 H Blood Pressure 83/57 L Pulse Oximetry 97 87 L 91 Oxygen Delivery Nasal Cannula Room Air Nasal Cannula Oxygen Flow Rate 4 3 12/03/24 20:37 12/03/24 20:59 12/03/24 21:14 Temperature Pulse Rate 78 77 Respiratory Rate 18 Blood Pressure 71/55 L Pulse Oximetry 94 92 Oxygen Delivery Nasal Cannula Oxygen Flow Rate 3 12/03/24 21:33 12/03/24 21:38 12/03/24 21:38 Temperature Pulse Rate 76 81 80 Respiratory Rate 22 H Blood Pressure 83/52 L 86/47 L 86/47 L Pulse Oximetry 93 Oxygen Delivery Oxygen Flow Rate 12/03/24 21:45 12/03/24 21:45 12/03/24 21:52 Temperature Pulse Rate 78 81 Respiratory Rate 24 H 19 Blood Pressure 90/55 L 87/61 L Pulse Oximetry 93 95 94 Oxygen Delivery Nasal Cannula Oxygen Flow Rate 5 12/03/24 21:58 12/03/24 22:16 12/03/24 22:25 Temperature Pulse Rate 77 75 Respiratory Rate 19 Blood Pressure 83/54 L 89/60 L Pulse Oximetry 95 95 Oxygen Delivery High Flow Nasal Cannula Oxygen Flow Rate 6 12/03/24 23:05 12/03/24 23:17 12/03/24 23:45 Temperature 97.5 F L Pulse Rate 80 77 Respiratory Rate 20 20 Blood Pressure 91/77 L Pulse Oximetry 93 93 96 Oxygen Delivery High Flow Nasal Cannula Nasal Cannula Oxygen Flow Rate 6 6 12/04/24 00:00 12/04/24 00:00 12/04/24 00:00 Temperature Pulse Rate 76 76 Respiratory Rate 22 H Blood Pressure 88/61 L 88/61 L Pulse Oximetry 93 90 Oxygen Delivery Nasal Cannula Oxygen Flow Rate 4 12/04/24 00:00 12/04/24 00:30 12/04/24 00:45 Temperature Pulse Rate 79 72 72 Respiratory Rate Blood Pressure 96/61 L 98/72 L Pulse Oximetry Oxygen Delivery Oxygen Flow Rate 12/04/24 01:00 12/04/24 01:15 12/04/24 01:30 Temperature Pulse Rate 70 87 74 Respiratory Rate Blood Pressure 91/61 L 99/73 L 92/63 L Pulse Oximetry Oxygen Delivery Oxygen Flow Rate 12/04/24 02:00 12/04/24 02:00 12/04/24 02:00 Temperature Pulse Rate 72 72 72 Respiratory Rate 19 Blood Pressure 88/66 L 88/66 L Pulse Oximetry 91 Oxygen Delivery Oxygen Flow Rate 12/04/24 02:30 12/04/24 02:45 12/04/24 04:00 Temperature 97.9 F Pulse Rate 68 67 70 Respiratory Rate 20 Blood Pressure 99/64 L 89/57 L 94/60 L Pulse Oximetry 94 Oxygen Delivery Oxygen Flow Rate 12/04/24 04:00 12/04/24 04:00 12/04/24 04:00 Temperature Pulse Rate 70 68 Respiratory Rate Blood Pressure 94/60 L Pulse Oximetry 94 Oxygen Delivery Nasal Cannula Oxygen Flow Rate 3 12/04/24 04:15 12/04/24 05:30 12/04/24 05:32 Temperature Pulse Rate 68 74 Respiratory Rate 18 Blood Pressure 89/58 L Pulse Oximetry 94 Oxygen Delivery Nasal Cannula Oxygen Flow Rate 6 12/04/24 06:00 12/04/24 06:00 12/04/24 06:00 Temperature Pulse Rate 76 76 76 Respiratory Rate 16 Blood Pressure 83/61 L 83/61 L Pulse Oximetry 91 Oxygen Delivery Oxygen Flow Rate 12/04/24 06:15 12/04/24 06:45 12/04/24 08:00 Temperature 98.5 F Pulse Rate 71 74 Respiratory Rate 25 H Blood Pressure 89/60 L 95/63 L Pulse Oximetry 96 92 Oxygen Delivery Nasal Cannula Oxygen Flow Rate 4 12/04/24 08:00 12/04/24 08:59 12/04/24 08:59 Temperature Pulse Rate 74 78 Respiratory Rate 20 Blood Pressure 95/63 L Pulse Oximetry 92 Oxygen Delivery Nasal Cannula Oxygen Flow Rate 6 12/04/24 09:00 12/04/24 09:10 12/04/24 09:15 Temperature Pulse Rate 71 79 71 Respiratory Rate 20 Blood Pressure 90/66 L 94/64 L Pulse Oximetry Oxygen Delivery Oxygen Flow Rate 12/04/24 09:30 12/04/24 09:45 12/04/24 10:00 Temperature Pulse Rate 78 77 77 Respiratory Rate Blood Pressure 91/62 L 93/64 L 94/64 L Pulse Oximetry Oxygen Delivery Oxygen Flow Rate 12/04/24 10:00 12/04/24 10:15 12/04/24 11:00 Temperature 97.8 F Pulse Rate 79 77 79 Respiratory Rate 29 H Blood Pressure 94/64 L 100/70 90/62 L Pulse Oximetry 95 Oxygen Delivery Oxygen Flow Rate Exam 2 Narrative: General: Pleasant elderly female in no acute distress HEENT:? Pupils equal and reactive cause care as clear, moist oral mucosa Neck:? Supple Respiratory:? Coarse breath sounds bilaterally, decreased at bases, no air entry, Cardiac:? S1-S2 normal, regular rate and rhythm Abdomen:? Soft, nontender, nondistended, normoactive bowel sounds Extremities:? Bilateral lower extremity edema up to the knees, palpable pedal pulses Neuro:? Patient is awake, alert, oriented x3, nonfocal, able to answer questions and follows simple commands appropriately Skin:? No lesions no Psych:? Normal mentation and affect, hard of hearing Results Labs 12/04/24 06:02 12/04/24 06:02 Labs: Short CBC 12/03/24 12/04/24 Range/Units 20:26 06:02 WBC 11.4 H 13.9 H (4.5-10.0) K/mm3 Hgb 10.3 L D 9.1 L (12.0-15.0) g/dL Hct 31.5 L 28.4 L (37.0-47.0) % Plt Count 376 H 316 (150-375) k/mm3 BMP 12/03/24 12/04/24 12/04/24 20:26 05:58 06:02 Sodium 130 L 132 L Potassium 3.4 3.6 Chloride 97 L 102 Carbon Dioxide 21 L 23 BUN 26 H 22 H Creatinine 1.11 H 0.99 1.00 Glucose 101 96 Calcium 8.6 8.3 L Cardiac Enzymes 12/03/24 Range/Units 20:26 Troponin I < 0.012 (0.000-0.034) ng/mL Liver Function 12/03/24 12/04/24 Range/Units 20:26 06:02 Total Bilirubin 0.7 0.7 (0.2-1.3) mg/dL AST 25 24 (14-36) U/L ALT 16 14 (6-35) U/L Alkaline Phosphatase 84 73 (38-126) U/L Albumin 3.3 L 2.7 L (3.5-5.1) g/dL Urine 12/03/24 Range/Units 22:11 Urine Color Yellow (Yellow) Urine Appearance Clear (Clear) Urine pH 5.0 (5.0-9.0) Ur Specific [place] 1.011 (1.001-1.035) Urine Protein Negative (Negative) mg/dL Urine Glucose (UA) Negative (Negative) mg/dL Quality VTE Prophylaxis VTE prophylaxis: pharmacologic ordered Hospitalist MIPS Advance Care Plan I have confirmed that the patient's Advanced Care Plan is present, code status is documented, or surrogate decision maker is listed in patient medical record.: Yes Medication Reconciliation I have utilized all available resources to obtain, update and review the patients current medications (includes all prescriptions, OTC, herbals, cannabis, and nutritional supplements).: Yes
[2024-12-04] MEDS: NOREPINEPHRINE 8 MG/D5W 250 ML 8 MG/250 ML BAG 33.75 MG IV CONT (11:36)
[2024-12-04] MEDS: CEFEPIME 1 GM/NS 50 ML 1 GM/50 ML BAG IVPB ×2 (11:41→21:03)
[2024-12-04] MEDS: LACTATED RINGERS 250 ML IV CONT (11:42)
--- NOTE | 2024-12-04 11:44 | PCFNICU ---
ICU Rounding Note: Pt current nutrition is Heart Healthy. Nutrition recommendation: Ensure Clear BID. Last recorded weight is 62.4 kg, stable Bowel Motility: Last reported BM 12/03 Labs Reviewed: Na 132, Hct 28.4, Hgb 9.1 Meds Noted: Albumin, Cefepime, Levophed, Protonix Skin: WNL Additional Notes:Patient currently tolerating heart heathy diet. Diet supplements of Ensure Clear added BID for additional 240 kcal and 8 gm protein. Agree with diet orders. Following daily in ICU rounds.
[2024-12-04] MEDS: HYDROCORTISONE SODIUM SUCCINATE 100 MG/2 ML VIAL IV PUSH ×2 (12:14→21:03)
[2024-12-04] MEDS: VASOPRESSIN INJ 100 UNITS in DEXTROSE 5% 95 ML IV CONT (12:14)
[2024-12-04] MEDS: BENZONATATE 100 MG CAPSULE PO ×2 (12:14→17:09)
--- NOTE | 2024-12-04 13:46 | ECG_ITS ---
Test Date: 2024-12-04 13:51:45 Measurements Intervals [place] Rate: 78 P: 60 WV: 162 QRS: -17 QRSD: 92 T: 46 QT: 318 QTc: 364 Interpretive Statements SINUS RHYTHM WITH OCCASIONAL SUPRAVENTRICULAR PREMATURE COMPLEXES NONSPECIFIC T-WAVE ABNORMALITY ABNORMAL ECG Compared to ECG 12/03/2024 20:08:18 T-wave abnormality now present Left-axis deviation no longer present Electronically Signed On 12-05-2024 09:43:15 CDT by Killian Lynch M.D.
[2024-12-04] MEDS: POTASSIUM CHLORIDE 20 MEQ PACKET (FOR LIQUID) 40 MEQ PO (15:01)
[2024-12-04 15:25] LABS: Magnesium 1.1 mg/dL (1.6-2.3)
[2024-12-04] MEDS: MAGNESIUM SULF 4 GM/WATER100ML 4 GM/100 ML BAG IVPB (19:29)
[2024-12-05] VITALS (38 sets, daily range): BP systolic 97–122; BP diastolic 39–77; PULSE 70–94; RESP 16–255; TEMP 36.3–37.3; O2SAT 90–96
[2024-12-05] MEDS: ACETYLCYSTEINE 20% INHAL SOLN 800 MG/4 ML VIAL 200 MG INHALATION ×3 (02:00→20:32)
[2024-12-05 04:20] LABS: Basophils Percent Auto 0.2 % (0.2-1.2); Immature Granulocyte Absolute 0.07 K/mm3 (0.00-0.031); Immature Granulocyte Percent A 0.8 % (0-0.5); Lymphocytes Absolute Auto 0.53 K/mm3 (0.9-3.2); Lymphocytes Percent Auto 5.9 % (18.3-44.2); Mean Corpuscular HGB Conc 32.4 g/dl (32-36); Mean Corpuscular Hemoglobin 31.8 pg (26-34); Mean Corpuscular Volume 98.1 fl (80-100); Mean Platelet Volume 9.6 fl (7.4-10.4); Monocytes Absolute Auto 0.3 K/mm3 (0.1-0.6); Monocytes Percent Auto 3.7 % (2.6-8.5); Neutrophils Absolute Auto 8.1 K/mm3 (1.3-6.7); Neutrophils Percent Auto 89.4 % (45.5-73.1); Platelet Count Result 189 k/mm3 (150-375); Red Blood Count 2.14 M/mm3 (4.2-5.4); Red Cell Distribution Width 14.1 % (11.5-14.5)
[2024-12-05 04:22] LABS: Hemoglobin 6.8 g/dL (12.0-15.0)
[2024-12-05] MEDS: IPRATROPIUM 0.5 MG/ALBUTEROL SULFATE 2.5 MG AMPUL.NEB 3 ML INHALATION ×3 (04:32→20:32)
[2024-12-05 04:35] LABS: Lactic Acid Reflex 0.7 mmol/L (0.7-2.0)
[2024-12-05 04:36] LABS: Alanine Aminotransferase 10 U/L (6-35); Albumin Level 3.7 g/dL (3.5-5.1); Alkaline Phosphatase 56 U/L (38-126); Anion Gap 11 mmol/L (4-12); Aspartate Amino Transferase 19 U/L (14-36); Blood Urea Nitrogen 17 mg/dL (7-17); Calcium 8.9 mg/dL (8.4-10.2); Carbon Dioxide 20 mmol/L (22-30); Chloride 102 mmol/L (98-107); Estimated CRCL calculation 30 ml/min; Estimated Glomerular Filt Rate 58; Glucose 130 mg/dL (65-110); Magnesium 2.6 mg/dL (1.6-2.3); Potassium 3.9 mmol/L (3.4-5.0); Sodium 133 mmol/L (137-145)
[2024-12-05 05:06] LABS: Thyroid Stimulating Hormone 0.838 uIU/mL (0.465-4.680)
[2024-12-05] MEDS: HYDROCORTISONE SODIUM SUCCINATE 100 MG/2 ML VIAL IV PUSH ×3 (05:11→22:45)
[2024-12-05] MEDS: CENTRAL LINE FLUSH 10 ML IV PUSH ×3 (05:12→20:45)
[2024-12-05] MEDS: NOREPINEPHRINE 8 MG/D5W 250 ML 8 MG/250 ML BAG 5.63 MG IV CONT (05:15)
[2024-12-05 05:31] LABS: Hematocrit 20.7 % (37.0-47.0); Hemoglobin 6.9 g/dL (12.0-15.0)
[2024-12-05] MEDS: LEVOTHYROXINE SODIUM 88 MCG TABLET PO (05:52)
[2024-12-05] MEDS: FLUTICASONE/SALMETEROL 230-21 MCG INHALER 1 PUFF 2 PUFF INHALATION ×2 (07:40→20:32)
[2024-12-05] MEDS: UMECLIDINIUM BROMIDE 62.5 MCG ELLIPTA 1 PUFF INHALATION (07:51)
[2024-12-05] MEDS: ASPIRIN 81 MG ENTERIC TABLET PO (08:01)
[2024-12-05] MEDS: guaiFENesin 12 HR 600 MG TABCR PO ×2 (08:01→20:41)
[2024-12-05] MEDS: BENZONATATE 100 MG CAPSULE PO ×3 (08:01→18:18)
[2024-12-05] MEDS: CEFEPIME 1 GM/NS 50 ML 1 GM/50 ML BAG IVPB (08:02)
[2024-12-05] MEDS: PANTOPRAZOLE SODIUM IV 40 MG VIAL IV PUSH ×2 (08:05→20:45)
[2024-12-05 08:33] LABS: IFOB Positive Control Positive; Immunochemical Fecal Occult Bl Positive (N)
--- NOTE | 2024-12-05 08:53 | P.PNINT_ITS ---
Progress Note: A&P Assessment and Plan (1) Septic shock: Code(s): A41.9 - Sepsis, unspecified organism; R65.21 - Severe sepsis with septic shock Status: Acute Assessment and Plan: 12/03/2024: Patient presented with hypotension, hypoxia, productive cough and shortness of breath -in the ER was found to be in septic shock -received adequate IV fluids -will give additional small bolus of LR and albumin for intravascular volume expansion -contain Levophed, will maintain SBP > 100 mmHg and MAP > 65 mmHg for adequate end organ perfusion -off vasopressin -continue stress dose steroids -urine output has been adequate -patient is awake, alert, oriented x3 -started on cefepime and vancomycin (12/03) -12/03: Preliminary blood cultures are negative x2 -12/04: Sputum cultures are pending -continue bronchodilators -Mucomyst nebs -anti tussives, guaifenesin and Tessalon Perles -12/03: influenza, RSV, COVID PCR were negative 12/03: CTA chest 1. No pulmonary embolism. 2. Pneumonia in the right lower lobe. 3. Focal areas of pneumonia in the middle lobe, lingula and left lower lobe. 4. Nodule in the lingula and left lower lobe. Three-month CT follow-up advised. 5. 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 6. Cholelithiasis. Fat infiltration of the liver. (2) Multifocal pneumonia: Code(s): J18.9 - Pneumonia, unspecified organism Status: Acute Assessment and Plan: Treatment as above -stress dose steroids have been added (3) Hypothyroidism: Code(s): E03.9 - Hypothyroidism, unspecified Status: Acute Assessment and Plan: Continue levothyroxine -TSH level within normal limits (4) Electrolyte imbalance: Code(s): E87.8 - Other disorders of electrolyte and fluid balance, not elsewhere classified Status: Acute Assessment and Plan: Hyponatremia, could be related to pneumonia continue to monitor (5) Anemia: Code(s): D64.9 - Anemia, unspecified Status: Acute Assessment and Plan: Patient dropped hemoglobin to 6.9 this morning -will send stool for Hemoccult -check folic acid, B12 low -check iron panel -GI has been consulted -PPI increased to q.12 hours -hold aspirin and Lovenox Plan DVT prophylaxis: Hold Lovenox, continue SCDs. No chemoprophylaxis due to drop in hemoglobin and anemia Stress ulcer prophylaxis: Protonix IV q.12 hours Nutrition: Heart healthy diet Code Status: DNR/DNI Critical Care Time Spent: 33 minutes Discussed with patient and 2 of her daughters at bedside and in rounds and updated them with patient's condition and plan of care. They are aware that patient is on blood pressure support medication, antibiotics. I answered all the questions Due to a high probability of clinically significant, life threatening deterioration, the patient required my highest level of preparedness to intervene emergently and I personally spent this critical care time directly and personally managing the patient. This critical care time included obtaining a history; examining the patient; pulse oximetry; ordering and review of studies; arranging urgent treatment with development of a management plan; evaluation of patient's response to treatment; frequent reassessment; and discussions with other providers. It was exclusive of separately billable procedures and treating other patients and teaching time. Please see Assessment and Plan section and the rest of the note for further information on patient assessment and treatment This dictation may have been done utilizing a voice recognition system. Attempts have been made to correct errors. However, there may be uncorrected grammatical, spelling, and recognitions errors present. Subjective Date/time seen: 12/05/24 08:53 Interval history: Reason for consult: Septic shock, Pneumonia, respiratory distress, hypoxia, anemia 12/05/2024: Patient seen and examined in the ICU, is awake, alert, oriented x3, answers to questions appropriately and follows simple commands. Remains on Levophed at 1 mcg/kg/min. Dropped hemoglobin to 6.9 this morning, packed RBCs have been ordered. Afebrile, adequate urine output. States she feels much better this morning. Last evening with medium was low, was repleted and has normalized Review of Systems Review of Systems: All systems reviewed & are unremarkable except as noted in HPI and below Exam Narrative: General: Pleasant elderly female in no acute distress HEENT:? Pupils equal and reactive cause care as clear, moist oral mucosa Neck:? Supple Respiratory:? Coarse breath sounds bilaterally, decreased at bases Rt > Lt, adequate air entry, Cardiac:? S1-S2 normal, regular rate and rhythm Abdomen:? Soft, nontender, nondistended, normoactive bowel sounds Extremities:? Bilateral lower extremity edema up to the knees, palpable pedal pulses Neuro:? Patient is awake, alert, oriented x3, nonfocal, able to answer questions and follows simple commands appropriately Skin:? No lesions no Psych:? Normal mentation and affect, hard of hearing Objective Data Vital Signs Vital Signs: Vital Signs - 24 hr 12/04/24 08:59 12/04/24 08:59 12/04/24 09:00 Temperature Pulse Rate 78 71 Respiratory Rate 20 Blood Pressure 90/66 L Pulse Oximetry 92 Oxygen Delivery Nasal Cannula Oxygen Flow Rate 6 Fraction of Inspired Oxygen 12/04/24 09:10 12/04/24 09:15 12/04/24 09:30 Temperature Pulse Rate 79 71 78 Respiratory Rate 20 Blood Pressure 94/64 L 91/62 L Pulse Oximetry Oxygen Delivery Oxygen Flow Rate Fraction of Inspired Oxygen 12/04/24 09:45 12/04/24 10:00 12/04/24 10:00 Temperature Pulse Rate 77 77 71 Respiratory Rate Blood Pressure 93/64 L 94/64 L Pulse Oximetry Oxygen Delivery Oxygen Flow Rate Fraction of Inspired Oxygen 12/04/24 10:00 12/04/24 10:00 12/04/24 10:15 Temperature 97.8 F Pulse Rate 79 77 Respiratory Rate 29 H 29 H Blood Pressure 94/64 L 100/70 Pulse Oximetry 95 94 Oxygen Delivery Oxygen Flow Rate 8 Fraction of Inspired Oxygen 12/04/24 11:00 12/04/24 11:15 12/04/24 11:36 Temperature Pulse Rate 79 81 78 Respiratory Rate Blood Pressure 90/62 L 99/70 L 80/61 L Pulse Oximetry Oxygen Delivery Oxygen Flow Rate Fraction of Inspired Oxygen 12/04/24 11:49 12/04/24 12:00 12/04/24 12:00 Temperature 98.4 F Pulse Rate 75 80 77 Respiratory Rate 21 H Blood Pressure 101/63 94/59 L 94/59 L Pulse Oximetry 92 Oxygen Delivery Oxygen Flow Rate Fraction of Inspired Oxygen 12/04/24 12:00 12/04/24 12:00 12/04/24 12:14 Temperature Pulse Rate 72 76 Respiratory Rate 18 Blood Pressure 94/59 L Pulse Oximetry 96 Oxygen Delivery High Flow Therapy with Na Oxygen Flow Rate 35 Fraction of Inspired Oxygen 60 12/04/24 14:00 12/04/24 14:00 12/04/24 14:00 Temperature Pulse Rate 81 81 81 Respiratory Rate 15 Blood Pressure 91/58 L 91/58 L 91/58 L Pulse Oximetry 96 Oxygen Delivery Oxygen Flow Rate Fraction of Inspired Oxygen 12/04/24 14:18 12/04/24 14:18 12/04/24 14:38 Temperature Pulse Rate 83 89 Respiratory Rate 24 H 22 H Blood Pressure Pulse Oximetry 96 Oxygen Delivery High Flow Therapy with Na Oxygen Flow Rate 35 Fraction of Inspired Oxygen 75 12/04/24 14:57 12/04/24 15:05 12/04/24 15:20 Temperature Pulse Rate 88 88 85 Respiratory Rate Blood Pressure 121/74 126/71 115/64 Pulse Oximetry Oxygen Delivery Oxygen Flow Rate Fraction of Inspired Oxygen 12/04/24 15:37 12/04/24 15:39 12/04/24 16:00 Temperature Pulse Rate 84 84 84 Respiratory Rate Blood Pressure 124/96 H 124/96 H 116/55 L Pulse Oximetry Oxygen Delivery Oxygen Flow Rate Fraction of Inspired Oxygen 12/04/24 16:00 12/04/24 16:00 12/04/24 16:00 Temperature 98.1 F Pulse Rate 84 86 Respiratory Rate 21 H 20 Blood Pressure 116/55 L 116/55 L Pulse Oximetry 98 99 Oxygen Delivery High Flow Nasal Cannula Oxygen Flow Rate 35 Fraction of Inspired Oxygen 60 12/04/24 16:00 12/04/24 16:30 12/04/24 16:45 Temperature Pulse Rate 83 81 82 Respiratory Rate Blood Pressure 124/55 L 111/79 Pulse Oximetry Oxygen Delivery Oxygen Flow Rate Fraction of Inspired Oxygen 12/04/24 17:00 12/04/24 17:15 12/04/24 17:30 Temperature Pulse Rate 83 84 79 Respiratory Rate Blood Pressure 116/78 107/82 118/90 Pulse Oximetry Oxygen Delivery Oxygen Flow Rate Fraction of Inspired Oxygen 12/04/24 17:45 12/04/24 18:00 12/04/24 18:00 Temperature Pulse Rate 81 78 78 Respiratory Rate 24 H Blood Pressure 120/71 112/61 Pulse Oximetry 100 Oxygen Delivery Oxygen Flow Rate Fraction of Inspired Oxygen 12/04/24 18:00 12/04/24 18:00 12/04/24 18:30 Temperature Pulse Rate 78 78 78 Respiratory Rate Blood Pressure 112/61 112/61 115/70 Pulse Oximetry Oxygen Delivery Oxygen Flow Rate Fraction of Inspired Oxygen 12/04/24 18:45 12/04/24 19:03 12/04/24 20:00 Temperature Pulse Rate 88 70 Respiratory Rate Blood Pressure 111/92 H 91/48 L Pulse Oximetry 97 Oxygen Delivery High Flow Therapy with Na Oxygen Flow Rate 35 Fraction of Inspired Oxygen 75 12/04/24 20:00 12/04/24 20:00 12/04/24 20:00 Temperature 98.2 F Pulse Rate 70 74 Respiratory Rate 16 Blood Pressure 91/48 L Pulse Oximetry 94 94 Oxygen Delivery High Flow Therapy with Na Oxygen Flow Rate 35 Fraction of Inspired Oxygen 60 12/04/24 20:00 12/04/24 20:04 12/04/24 21:00 Temperature Pulse Rate 70 79 76 Respiratory Rate 22 H Blood Pressure 99/51 L 110/76 Pulse Oximetry Oxygen Delivery Oxygen Flow Rate Fraction of Inspired Oxygen 12/04/24 21:15 12/04/24 22:00 12/04/24 22:00 Temperature Pulse Rate 78 71 71 Respiratory Rate 18 Blood Pressure 89/53 L 94/47 L Pulse Oximetry 94 Oxygen Delivery Oxygen Flow Rate Fraction of Inspired Oxygen 12/04/24 22:00 12/04/24 22:00 12/04/24 22:15 Temperature Pulse Rate 71 71 71 Respiratory Rate Blood Pressure 94/74 L 94/47 L 79/61 L Pulse Oximetry Oxygen Delivery Oxygen Flow Rate Fraction of Inspired Oxygen 12/04/24 22:30 12/04/24 22:45 12/04/24 23:00 Temperature Pulse Rate 73 74 78 Respiratory Rate Blood Pressure 99/55 L 102/61 94/50 L Pulse Oximetry Oxygen Delivery Oxygen Flow Rate Fraction of Inspired Oxygen 12/05/24 00:00 12/05/24 00:00 12/05/24 00:00 Temperature 97.7 F Pulse Rate 75 75 Respiratory Rate 24 H Blood Pressure 104/52 L 104/52 L Pulse Oximetry 90 90 Oxygen Delivery High Flow Therapy with Na Oxygen Flow Rate 35 Fraction of Inspired Oxygen 60 12/05/24 00:00 12/05/24 00:00 12/05/24 00:15 Temperature Pulse Rate 73 78 71 Respiratory Rate Blood Pressure 104/52 L 113/50 L Pulse Oximetry Oxygen Delivery Oxygen Flow Rate Fraction of Inspired Oxygen 12/05/24 00:30 12/05/24 02:00 12/05/24 02:00 Temperature Pulse Rate 81 74 74 Respiratory Rate Blood Pressure 97/52 L 101/55 L Pulse Oximetry Oxygen Delivery Oxygen Flow Rate Fraction of Inspired Oxygen 12/05/24 02:00 12/05/24 02:00 12/05/24 02:00 Temperature Pulse Rate 74 76 74 Respiratory Rate 20 19 Blood Pressure 101/55 L 101/55 L Pulse Oximetry 93 Oxygen Delivery Oxygen Flow Rate Fraction of Inspired Oxygen 12/05/24 02:15 12/05/24 04:00 12/05/24 04:00 Temperature Pulse Rate 79 72 Respiratory Rate 19 Blood Pressure 101/51 L Pulse Oximetry 94 Oxygen Delivery High Flow Therapy with Na Oxygen Flow Rate 35 Fraction of Inspired Oxygen 60 12/05/24 04:00 12/05/24 04:00 12/05/24 04:00 Temperature 99.1 F Pulse Rate 72 71 72 Respiratory Rate 18 Blood Pressure 101/51 L 101/51 L Pulse Oximetry 94 Oxygen Delivery Oxygen Flow Rate Fraction of Inspired Oxygen 12/05/24 05:15 12/05/24 05:45 12/05/24 06:00 Temperature Pulse Rate 76 78 78 Respiratory Rate Blood Pressure 105/58 L 109/54 L 98/51 L Pulse Oximetry Oxygen Delivery Oxygen Flow Rate Fraction of Inspired Oxygen 12/05/24 06:00 12/05/24 06:00 12/05/24 06:00 Temperature Pulse Rate 78 77 77 Respiratory Rate 255 H Blood Pressure 98/51 L 98/51 L Pulse Oximetry 94 Oxygen Delivery Oxygen Flow Rate Fraction of Inspired Oxygen 12/05/24 06:30 12/05/24 06:45 12/05/24 07:31 Temperature 97.4 F L 98.1 F Pulse Rate 83 74 76 Respiratory Rate 26 H 24 H 16 Blood Pressure 102/39 L 101/57 L Pulse Oximetry 91 92 Oxygen Delivery Oxygen Flow Rate Fraction of Inspired Oxygen 12/05/24 07:32 12/05/24 07:45 12/05/24 07:55 Temperature 97.7 F Pulse Rate 72 78 Respiratory Rate 21 H Blood Pressure 113/57 L 113/57 L Pulse Oximetry 94 96 Oxygen Delivery High Flow Therapy with Na Oxygen Flow Rate 35 Fraction of Inspired Oxygen 70 12/05/24 08:00 12/05/24 08:00 12/05/24 08:00 Temperature 97.7 F Pulse Rate 84 75 Respiratory Rate 19 Blood Pressure 112/55 L Pulse Oximetry 94 94 Oxygen Delivery High Flow Therapy with Na Oxygen Flow Rate 35 Fraction of Inspired Oxygen 70 12/05/24 08:44 12/05/24 08:45 Temperature 98.1 F Pulse Rate 77 80 Respiratory Rate 20 Blood Pressure 116/64 106/60 Pulse Oximetry 94 Oxygen Delivery Oxygen Flow Rate Fraction of Inspired Oxygen Intake/Output Intake/Output: Intake & Output 12/02/24 12/03/24 12/04/24 12/05/24 23:59 23:59 23:59 23:59 Intake Total 2062.7 2661.5 741.5 Output Total 2150 400 Balance 2062.7 511.5 341.5 Meds/Results Medications: Active Medications Generic Name Dose Route Start Last Admin Trade Name Freq PRN Reason Stop Dose Admin Acetaminophen 650 mg 12/03/24 22:24 Acetaminophen 325 Mg Tablet PO Q4H PRN Mild Pain (1-3) or Fever Acetylcysteine 200 mg 12/04/24 08:00 12/05/24 07:30 Acetylcysteine 20% Inhal Soln 800 Mg/4 Ml Vial INHALATION 200 mg Q6HRT ATUL Administration Albuterol/Ipratropium 3 ml 12/04/24 04:34 12/05/24 04:32 Ipratropium 0.5 Mg/Albuterol Sulfate 2.5 Mg Ampul.Neb 3 Ml INHALATION 3 ml Q4H PRN Administration shortness of breath or wheezing Aspirin 81 mg 12/04/24 09:00 12/05/24 08:01 Aspirin 81 Mg Enteric Tablet PO 81 mg DAILY ATUL Administration Benzonatate 100 mg 12/04/24 13:00 12/05/24 08:01 Benzonatate 100 Mg Capsule PO 100 mg TID ATUL Administration Enoxaparin Sodium 30 mg 12/04/24 09:00 12/04/24 08:10 Enoxaparin 30 Mg/0.3 Ml Syringe SUB-Q 30 mg DAILY ATUL Administration Guaifenesin 600 mg 12/04/24 01:35 12/05/24 08:01 Guaifenesin 12 Hr 600 Mg Tabcr PO 600 mg Q12HR ATUL Administration Guaifenesin/Dextromethorphan 10 ml 12/04/24 04:34 Guaifenesin/Dextromethorphan 10 Ml Udc PO Q4-6H PRN cough Hydrocortisone Sodium Succinate 100 mg 12/04/24 11:45 12/05/24 05:11 Hydrocortisone Sodium Succinate 100 Mg/2 Ml Vial IV PUSH 100 mg Q8HR ATUL Administration Norepinephrine Bitartrate 8 mg in 250 mls @ 0 mls/hr 12/03/24 21:25 12/05/24 08:45 Levophed 8 Mg/D5w 250 Ml IV CONT 0 mcg/min .Q0M ATUL 0 mls/hr Titration Protocol Vancomycin HCl 1,250 mg in 250 mls @ 166.667 mls/hr 12/05/24 10:00 Vancomycin 1,250 Mg/Ns 250 Ml IVPB Q36H ATUL Cefepime HCl 1 gm in 50 mls @ 100 mls/hr 12/04/24 11:00 12/05/24 08:02 Maxipime 1 Gm/Ns 50 Ml IVPB 100 mls/hr Q12HR TAUL Administration Sodium Chloride 250 mls @ 30 mls/hr 12/05/24 05:51 Normal Saline Iv IV CONT 12/05/24 14:10 .Q8H20M STA Levothyroxine Sodium 88 mcg 12/04/24 06:30 12/05/24 05:52 Levothyroxine Sodium 88 Mcg Tablet PO 88 mcg DAILY@0630 ATUL Administration Pantoprazole Sodium 40 mg 12/05/24 09:00 12/05/24 08:05 Pantoprazole Sodium Iv 40 Mg Vial IV PUSH 40 mg Q12HR ATUL Administration Perflutren Lipid Microsphere 0 ml 12/04/24 06:14 Perflutren Lipid Microspheres 1.5 Ml Vial Diluted To 10 Ml Total Volume IV PUSH 12/07/24 06:14 ONCE PRN adequate visualization Protocol Fluticasone/Salmeterol 2 puff 12/04/24 08:00 12/04/24 19:55 Fluticasone/Salmeterol 230-21 Mcg Inhaler 1 Puff INHALATION 2 puff Q12HRT ATUL Administration Sodium Chloride 10 ml 12/03/24 22:00 12/05/24 05:12 Central Line Flush IV PUSH 10 ml Q8HR ATUL Administration Sodium Chloride 20 ml 12/03/24 21:34 Central Line Flush IV PUSH PRN PRN after blood draws Sodium Chloride 20 ml 12/03/24 22:03 Central Line Flush IV PUSH PRN PRN after blood draws Umeclidinium [place] 1 puff 12/04/24 08:00 12/05/24 07:51 Umeclidinium [place] 62.5 Mcg Ellipta INHALATION 1 puff DAILYRT ATUL Administration Radiology Results: ITS Impressions Chest CTA 12/03/24 21:39 IMPRESSION: 1. No pulmonary embolism. 2. Pneumonia in the right lower lobe. 3. Focal areas of pneumonia in the middle lobe, lingula and left lower lobe. 4. Nodule in the lingula and left lower lobe. Three-month CT follow-up advised. 5. 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 6. Cholelithiasis. Fat infiltration of the liver. Venous Doppler Study 12/04/24 14:12 IMPRESSION: 1: No lower extremity deep venous thrombosis. Chest X-Ray 12/05/24 05:30 Impression: Moderate right pleural effusion is significantly increased from prior exam. Possible minimal left pleural effusion. Stable support line. Labs Labs: Laboratory Results - last 24 hr 12/04/24 12/05/24 12/05/24 06:15 04:10 04:11 WBC 9.0 RBC 2.14 L Hgb 6.8 L* Hct 21.0 L MCV 98.1 MCH 31.8 MCHC 32.4 RDW 14.1 Plt Count 189 MPV 9.6 Immature Gran % (Auto) 0.8 H Neut % (Auto) 89.4 H Lymph % (Auto) 5.9 L [place] % (Auto) 3.7 Eos % (Auto) 0.0 Baso % (Auto) 0.2 Lymph # (Auto) 0.53 L [place] # (Auto) 0.3 Eos # (Auto) 0.0 Baso # (Auto) 0.0 Abs Immat Gran (auto) 0.07 H Absolute Neuts (auto) 8.1 H Absolute Nucleated RBC 0.000 Nucleated RBC % 0.0 Sodium 133 L Potassium 3.9 Chloride 102 Carbon Dioxide 20 L Anion Gap 11 BUN 17 Creatinine 0.92 Estim Creat Clear Calc 30 Estimated GFR 58 L Glucose 130 H Lactic Acid 0.7 Calcium 8.9 Phosphorus 3.0 Magnesium 1.1 L 2.6 H Total Bilirubin 1.0 AST 19 ALT 10 Alkaline Phosphatase 56 Total Protein 6.0 L Albumin 3.7 TSH 0.838 Stl Occult Blood (IFOB) Blood Type Antibody Screen Crossmatch 12/05/24 12/05/24 04:32 08:01 WBC RBC Hgb 6.9 L* Hct 20.7 L* MCV MCH MCHC RDW Plt Count MPV Immature Gran % (Auto) Neut % (Auto) Lymph % (Auto) [place] % (Auto) Eos % (Auto) Baso % (Auto) Lymph # (Auto) [place] # (Auto) Eos # (Auto) Baso # (Auto) Abs Immat Gran (auto) Absolute Neuts (auto) Absolute Nucleated RBC Nucleated RBC % Sodium Potassium Chloride Carbon Dioxide Anion Gap BUN Creatinine Estim Creat Clear Calc Estimated GFR Glucose Lactic Acid Calcium Phosphorus Magnesium Total Bilirubin AST ALT Alkaline Phosphatase Total Protein Albumin TSH Stl Occult Blood (IFOB) Positive H Blood Type B Positive Antibody Screen Negative Crossmatch See Detail Quality VTE Prophylaxis VTE prophylaxis: pharmacologic ordered
[2024-12-05] MEDS: SODIUM CHLORIDE 0.9% IV 250 ML 30 ML IV CONT (09:07)
[2024-12-05 09:37] LABS: Iron 47 ug/dL (37-170)
[2024-12-05 09:46] LABS: Percent Iron Saturation 36 % (20-50)
[2024-12-05] MEDS: VANCOMYCIN 1,250 MG/NS 250 ML 1,250 MG/250 ML BAG 166.67 MG IVPB (10:22)
[2024-12-05] MEDS: FUROSEMIDE INJ 40 MG/4 ML VIAL 20 MG IV PUSH (10:22)
--- NOTE | 2024-12-05 10:26 | PCFNICU ---
ICU Rounding Note: Pt current nutrition is heart Healthy, Ensure Clear BID (240 kcal, 8 g protein each). Nutrition recommendation: No new recommendations. Continue current nutrition care plan and orders. Agree with orders Last recorded weight is 63.9 kg. Bowel Motility: Last BM 12/03/24 Labs Reviewed: Hgb 6.9, Hc 20.7, Na 133, Glu 130 Meds Noted: Pressors are off. Protonix, albumin Skin: No skin issues Additional Notes: Not much appetite, does not like the food. Supplements are on. Family can bring in food. Continue with current nutrition care plan and orders Following daily in ICU rounds. .
[2024-12-05 10:35] LABS: Folic Acid 6.7 ng/mL (2.76->20); Vitamin B12 > 1000.0 pg/mL (239-931)
--- NOTE | 2024-12-05 12:20 | ECG_ITS ---
Test Date: 2024-12-05 12:20:40 Measurements Intervals [place] Rate: 86 P: 0 CO: 0 QRS: 87 QRSD: 98 T: 37 QT: 385 QTc: 463 Interpretive Statements SINUS RHYTHM WITH FREQUENT PREMATURE ATRIAL CONTRACTIONS. POSSIBLE ANTERIOR MYOCARDIAL INFARCTION [30 ms Q WAVE IN V3/V4, OR R < 0.2 mV IN V4], PROBABLY OLD ABNORMAL ECG Electronically Signed On 12-06-2024 07:57:21 CDT by Killian Lynch M.D.
[2024-12-05 14:01] LABS: Hemoglobin 9.6 g/dL (12.0-15.0)
[2024-12-05] MEDS: CEFEPIME 2 GM/NS 50 ML 2 GM/50 ML BAG IVPB (20:40)
[2024-12-06] VITALS (24 sets, daily range): BP systolic 105–122; BP diastolic 46–69; PULSE 70–93; RESP 16–29; TEMP 36.4–36.9; O2SAT 92–97
[2024-12-06] MEDS: IPRATROPIUM 0.5 MG/ALBUTEROL SULFATE 2.5 MG AMPUL.NEB 3 ML INHALATION ×4 (01:57→21:14)
[2024-12-06] MEDS: ACETYLCYSTEINE 20% INHAL SOLN 800 MG/4 ML VIAL 200 MG INHALATION ×4 (01:57→21:13)
[2024-12-06 06:37] LABS: Basophils Percent Auto 0.1 % (0.2-1.2); Hematocrit 29.5 % (37.0-47.0); Hemoglobin 9.8 g/dL (12.0-15.0); Immature Granulocyte Absolute 0.12 K/mm3 (0.00-0.031); Immature Granulocyte Percent A 1.3 % (0-0.5); Lymphocytes Absolute Auto 0.46 K/mm3 (0.9-3.2); Lymphocytes Percent Auto 5.1 % (18.3-44.2); Mean Corpuscular HGB Conc 33.2 g/dl (32-36); Mean Corpuscular Hemoglobin 31.5 pg (26-34); Mean Corpuscular Volume 94.9 fl (80-100); Mean Platelet Volume 10.5 fl (7.4-10.4); Monocytes Absolute Auto 0.5 K/mm3 (0.1-0.6); Monocytes Percent Auto 5.5 % (2.6-8.5); Neutrophils Absolute Auto 7.9 K/mm3 (1.3-6.7); Platelet Count Result 177 k/mm3 (150-375); Red Blood Count 3.11 M/mm3 (4.2-5.4)
[2024-12-06] MEDS: HYDROCORTISONE SODIUM SUCCINATE 100 MG/2 ML VIAL IV PUSH (06:43)
[2024-12-06] MEDS: CENTRAL LINE FLUSH 10 ML IV PUSH ×3 (06:44→22:10)
[2024-12-06] MEDS: LEVOTHYROXINE SODIUM 88 MCG TABLET PO (06:44)
[2024-12-06 06:49] LABS: Lactic Acid Reflex 0.9 mmol/L (0.7-2.0)
[2024-12-06 06:51] LABS: Alanine Aminotransferase 13 U/L (6-35); Albumin Level 3.3 g/dL (3.5-5.1); Alkaline Phosphatase 56 U/L (38-126); Anion Gap 7 mmol/L (4-12); Aspartate Amino Transferase 23 U/L (14-36); Bilirubin,Total 1.3 mg/dL (0.2-1.3); Blood Urea Nitrogen 13 mg/dL (7-17); Carbon Dioxide 23 mmol/L (22-30); Chloride 106 mmol/L (98-107); Estimated CRCL calculation 31 ml/min; Estimated Glomerular Filt Rate > 60; Glucose 120 mg/dL (65-110); Magnesium 1.8 mg/dL (1.6-2.3); Phosphorus 2.6 mg/dL (2.5-4.5); Sodium 136 mmol/L (137-145)
[2024-12-06] MEDS: FLUTICASONE/SALMETEROL 230-21 MCG INHALER 1 PUFF 2 PUFF INHALATION (07:55)
[2024-12-06] MEDS: POTASSIUM CHLORIDE 20 MEQ ER TABLET 40 MEQ PO (09:55)
[2024-12-06] MEDS: PANTOPRAZOLE SODIUM IV 40 MG VIAL IV PUSH ×2 (09:55→22:10)
[2024-12-06] MEDS: MAGNESIUM SULF 2 GM/WATER 50ML 2 GM/50 ML BAG IVPB (09:55)
[2024-12-06] MEDS: guaiFENesin 12 HR 600 MG TABCR PO (09:56)
[2024-12-06] MEDS: CEFEPIME 2 GM/NS 50 ML 2 GM/50 ML BAG IVPB ×2 (09:56→20:55)
[2024-12-06] MEDS: BENZONATATE 100 MG CAPSULE PO ×2 (09:56→12:05)
[2024-12-06] MEDS: KCL 40 MEQ/WATER 100 ML 100 ML 25 ML IVPB (10:30)
[2024-12-06] MEDS: metroNIDAZOLE 500 MG/ISO 100ML 500 MG/100 ML BAG 100 MG IVPB ×3 (11:39→22:56)
--- NOTE | 2024-12-06 13:41 | PM.CNPUL ---
Assessment and Plan Assessment and plan (1) Multifocal pneumonia: Code(s): J18.9 - Pneumonia, unspecified organism Status: Acute Assessment and Plan: Patient with recent admission to ICU at outside hospital and now admitted with multifocal pneumonia, septic shock and hypoxemic respiratory failure. ABG on 12/03/2024 7. on [address] scan of the chest on 12/06/2024 shows multifocal pneumonia right upper lobe, right middle lobe, right lower lobe, left lower lobe with right greater than left pleural effusion with fluid in the fissure. Patient has clinically responded to vancomycin, cefepime started 12/03, both day 4 and Flagyl started 12/06 and is currently off pressors on his stress dose steroids.. Plan: Will continue vancomycin and cefepime both day 4. Continue Flagyl, day 1. Patient is on guaifenesin 600 mg p.o. q.12 hours and will change 1200 mg p.o. q.12. Patient is on Mucomyst 200 mg q.6 hours. Her cough is improved and not bothered some at this time and I will discontinue the Tessalon Perles so as not to suppress her cough as I am wanting her to cough and expectorate. I will send a respiratory pathogen panel, urine for Legionella, urine for pneumococcal and mycoplasma IgM titer. Discussed with Dr. Ford, will follow with you (2) COPD (chronic obstructive pulmonary disease): Code(s): J44.9 - Chronic obstructive pulmonary disease, unspecified Status: Acute Assessment and Plan: Patient tells me she smoked from age 31 to 65 at 1 pack per day for total of 34 pack years. She told me she had PFTs and they told her she had COPD and is maintained on Advair and Incruse at home. Plan: Currently she has no wheezing. I will discontinue her inhaled corticosteroids and place her on DuoNebs q.6 hours. Goal saturation 90-94%. (3) Hypoxic respiratory failure: Code(s): J96.91 - Respiratory failure, unspecified with hypoxia Status: Acute Assessment and Plan: Patient with multifocal pneumonia, small right greater than left bilateral pleural effusions, history of COPD. ABG on 12/03/2024 7. on 5 L nasal cannula. patient is do not resuscitate. Patient was started on Airvo on 12/04 at 12 noon 35 L and 60% FiO2. 12/04 20:00 Airvo 35 L and 60% FIO2, sats 94% 12/05 08:00 Airvo 35 L and 70% FIO2, sats 94% 12/05 20:00 Airvo 35 L and 70% FIO2, sats 92% 12/06 08:00 Airvo 30 L and 60% FIO2, sats 95% History of Present Illness History of Present Illness Consult date: 12/06/24 Chief complaint: Multifocal pneumonia, Septic shock, ROXANA, Dehydrati Narrative: This is a new pulmonary consult for pneumonia. 89-year-old with a history of hypertension, hypothyroidism, GERD, COPD. Patient was at a rehab center after being and admitted to an outside hospital for pneumonia. On 12/02 2024 chest x-ray was obtained and the patient was started on azithromycin and Augmentin. She developed worsening shortness of breath, hypoxia and decreased blood pressure and in the emergency room her blood pressure was 83/57, heart rate 78, respirations 24 and saturations per EMS were 83% on room air and increased to 97% on 4 L. her white blood cell count was 11.4, creatinine was 1.11, BNP was 1220, CRP was 13.1, COVID, influenza, RSV RT PCR assay negative. Chest x-ray showed bibasilar infiltrates. Patient was hypotensive and given 2 L of lactated Ringer's and then started on Levophed. Patient was initially treated with vancomycin and cefepime. On 12/04/2024 the patient required vasopressin and stress dose steroids were added. On 12/05 she was on low doses of Levophed. 12/06/2024: The patient tells me she feels good, her cough is loosened up and does not strangle her anymore. Her phlegm remains clear. Her cough is improved. She is on high-flow nasal cannula 30 L and 65% FiO2 with saturations 93%. White blood cell count is 9.0, creatinine is 0.88. CT scan of the chest showed multilobar pneumonia in the right upper lobe, right middle lobe, right lower lobe and left lower lobe. Right greater than left pleural effusion with fluid in the minor fissure on the right. DATA: EXAMINATION: CT chest high resolution wo co DATE: 12/06/2024 09:19 INDICATION: right hemithorax opacification TECHNIQUE: Computed tomography (CT) of the chest was performed without intravenous contrast. Additional 3D reconstructions utilizing coronal maximum intensity projection (MIP) were performed. Automated exposure control and iterative reconstruction technique were employed. The dose-length product was 276.48 mGy-cm. COMPARISON: Chest CT dated 12/03/2024 FINDINGS: New small bilateral pleural effusions, right greater than left. There is improved aeration of the previously collapsed right lower lobe. There are however prominent patchy airspace opacities in the right lower lobe as well as in the right upper lobe, left lower lobe and to lesser degree in the lingula consistent with pneumonia. Tracheobronchial malacia with prominent AP narrowing of the trachea and mainstem bronchi. Heart size is normal. Atherosclerotic coronary artery calcific lesion. No pericardial effusion. Thoracic aorta is normal in caliber. No pathologically enlarged thoracic lymphadenopathy. Calcified gallstones in the none dilated gallbladder. Likely age-related mild bilateral renal atrophy. Mild S-shaped curvature of the thoracic spine with moderate spondylosis. IMPRESSION: 1. Worsening multifocal pneumonia in the bilateral lower lobes, right upper lobe and to lesser degree at the lingula. 2. New small bilateral pleural effusions, right greater than left. Review of Systems Constitutional: Constitutional: Reports no additional constitutional complaints Eyes: Eyes: Reports no additional eye complaints ENT: Reports system reviewed and no additional complaints, except as documented Cardiovascular: Cardiovascular: Reports no additional cardiovascular complaints Respiratory: Respiratory: Reports no additional respiratory complaints Gastrointestinal: Gastrointestinal: Reports no additional gastrointestinal complaints Musculoskeletal: Musculoskeletal: Reports no additional musculoskeletal complaints Neurologic: Reports system reviewed and no additional complaints, except as documented Psychiatric: Psychiatric: Reports no additional psychiatric complaints Endocrine: Endocrine: Reports no additional endocrine complaints Hematologic/Lymphatic: Hematologic/Lymphatic: Reports no additional hematologic/lymphatic complaints Allergic/Immunologic: Allergic/Immunologic: Reports no additional allergic/immunologic complaints [facility] Family History Family History Father History of ETOH abuse Mother Hypertension Cerebrovascular accident Sibling Disorder of thyroid Social History Social History Smoking status: Former smoker Smoking end date: 07/23/11 Alcohol intake: former Drinks per week: 1 Substance use: never Substance use type: does not use Do You Feel Safe in your Home?: Yes Lack of Transportation: No Lack of Food: Never True Current Housing: I Have Housing Concerned About Future Housing: No Difficulty Paying Gas/Electric Bills: No Difficulty Paying for Meds: No Currently Unemployed: No Education: Don't Know Difficulty w/ Childcare or Family Care: No Living arrangements: alone Occupation/Education: retired Gender identity (if verbalized by the patient): Female Spiritual care concerns: Yes ([facility]) Agree to blood products: Yes Meds Home Medications and Allergies Home Medications ?Medication ?Instructions ?Recorded ?Confirmed ?Type aspirin 81 mg tablet,delayed 81 mg PO DAILY 08/10/22 12/04/24 History release (Adult Low Dose Aspirin) cholecalciferol (vitamin D3) 25 25 mcg PO DAILY 08/10/22 12/04/24 History mcg (1,000 unit) chewable tablet levothyroxine 88 mcg tablet 88 mcg PO DAILY #90 tabs 05/08/24 12/04/24 Rx mometasone-formoterol HFA 200 See Rx Instructions .Route 09/01/24 12/04/24 Rx mcg-5 mcg/actuation aerosol .COMPLEX #13 grams inhaler (Dulera) tiotropium bromide 18 mcg capsule See Rx Instructions .Route 10/01/24 12/04/24 Rx with inhalation device (Spiriva .COMPLEX #90 caps with HandiHaler) allopurinol 300 mg tablet See Rx Instructions .Route 11/03/24 12/04/24 Rx .COMPLEX #90 tabs amlodipine 10 mg tablet See Rx Instructions .Route 11/03/24 12/04/24 Rx .COMPLEX #90 tabs metoprolol succinate 100 mg See Rx Instructions .Route 11/03/24 12/03/24 Rx tablet,extended release 24 hr .COMPLEX #180 tabs olmesartan 40 mg tablet See Rx Instructions .Route 11/03/24 12/04/24 Rx .COMPLEX #90 tabs amoxicillin 875 mg-potassium 1 tablet PO Q12H 12/04/24 12/04/24 History clavulanate 125 mg tablet cyanocobalamin (vitamin B-12) 500 500 mcg PO DAILY 12/04/24 12/04/24 History mcg tablet dextromethorphan-guaifenesin 10 10 ml PO Q4-6H PRN cough 12/04/24 12/04/24 History mg-100 mg/5 mL oral syrup (Ultra Tuss Safe) ipratropium 0.5 mg-albuterol 3 mg 3 ml inhalation Q4H PRN shortness 12/04/24 12/04/24 History (2.5 mg base)/3 mL nebulization of breath or wheezing soln omeprazole 20 mg capsule,delayed 20 mg PO DAILY 12/04/24 12/04/24 History release vit C 250 mg-vit E 90 mg-zinc 40 1 tablet PO BID 12/04/24 12/04/24 History mg-copper 1 [id number] capsule (PreserVision AREDS-2) Allergies Allergy/AdvReac Type Severity Reaction Status Date / Time ciprofloxacin (From [facility]) Allergy Unknown Unknown Verified 12/04/24 00:11 Influenza Virus Vaccines Allergy Unknown Unknown Verified 12/06/24 08:07 Vital Signs Vital Signs - 24 hr 12/05/24 14:00 12/05/24 14:00 12/05/24 14:00 Temperature Pulse Rate 76 78 76 Respiratory Rate 24 H Blood Pressure 100/62 100/62 Pulse Oximetry 91 Oxygen Delivery Oxygen Flow Rate Fraction of Inspired Oxygen 12/05/24 16:00 12/05/24 16:00 12/05/24 16:00 Temperature 36.6 C Pulse Rate 75 79 Respiratory Rate 25 H Blood Pressure 108/57 L 108/58 L Pulse Oximetry 90 90 Oxygen Delivery High Flow Therapy with Na Oxygen Flow Rate 35 Fraction of Inspired Oxygen 70 12/05/24 16:00 12/05/24 18:00 12/05/24 18:00 Temperature 36.8 C Pulse Rate 80 74 77 Respiratory Rate 30 H Blood Pressure 108/51 L 108/51 L Pulse Oximetry 94 Oxygen Delivery Oxygen Flow Rate Fraction of Inspired Oxygen 12/05/24 18:00 12/05/24 20:00 12/05/24 20:00 Temperature Pulse Rate 94 70 Respiratory Rate Blood Pressure 118/62 Pulse Oximetry 91 Oxygen Delivery High Flow Therapy with Na Oxygen Flow Rate 35 Fraction of Inspired Oxygen 70 12/05/24 20:00 12/05/24 20:00 12/05/24 20:34 Temperature 36.4 C Pulse Rate 70 77 86 Respiratory Rate 20 16 Blood Pressure 118/62 Pulse Oximetry 92 Oxygen Delivery Oxygen Flow Rate Fraction of Inspired Oxygen 12/05/24 20:37 12/05/24 20:43 12/05/24 22:00 Temperature Pulse Rate 80 70 Respiratory Rate 16 21 H Blood Pressure 112/53 L Pulse Oximetry 92 94 Oxygen Delivery High Flow Therapy with Na Oxygen Flow Rate 35 Fraction of Inspired Oxygen 70 12/05/24 22:00 12/05/24 22:00 12/06/24 00:00 Temperature Pulse Rate 70 70 Respiratory Rate Blood Pressure 112/53 L Pulse Oximetry 95 Oxygen Delivery High Flow Therapy with Na Oxygen Flow Rate 35 Fraction of Inspired Oxygen 70 12/06/24 00:00 12/06/24 00:00 12/06/24 00:00 Temperature 36.4 C L Pulse Rate 70 74 70 Respiratory Rate 19 Blood Pressure 110/46 L 110/46 L Pulse Oximetry 94 Oxygen Delivery Oxygen Flow Rate Fraction of Inspired Oxygen 12/06/24 01:56 12/06/24 02:00 12/06/24 02:00 Temperature Pulse Rate 80 79 79 Respiratory Rate 21 H 16 Blood Pressure 105/58 L 105/58 L Pulse Oximetry 97 Oxygen Delivery Oxygen Flow Rate Fraction of Inspired Oxygen 12/06/24 02:00 12/06/24 02:01 12/06/24 04:00 Temperature Pulse Rate 79 72 Respiratory Rate 23 H Blood Pressure Pulse Oximetry 93 Oxygen Delivery High Flow Therapy with Na Oxygen Flow Rate 35 Fraction of Inspired Oxygen 70 12/06/24 04:00 12/06/24 04:00 12/06/24 04:00 Temperature 36.5 C Pulse Rate 81 74 74 Respiratory Rate 19 Blood Pressure 105/52 L 105/52 L Pulse Oximetry 94 Oxygen Delivery Oxygen Flow Rate Fraction of Inspired Oxygen 12/06/24 06:00 12/06/24 06:00 12/06/24 06:00 Temperature Pulse Rate 83 83 83 Respiratory Rate 23 H Blood Pressure 111/62 111/62 Pulse Oximetry 94 Oxygen Delivery Oxygen Flow Rate Fraction of Inspired Oxygen 12/06/24 07:56 12/06/24 08:00 12/06/24 08:00 Temperature 36.9 C Pulse Rate 82 93 Respiratory Rate 17 29 H Blood Pressure 121/69 Pulse Oximetry 94 95 Oxygen Delivery High Flow Therapy with Na Oxygen Flow Rate 30 Fraction of Inspired Oxygen 65 12/06/24 08:00 12/06/24 08:33 12/06/24 10:00 Temperature Pulse Rate 93 81 Respiratory Rate 20 Blood Pressure 122/55 L Pulse Oximetry 95 95 Oxygen Delivery High Flow Therapy with Na Oxygen Flow Rate 30 Fraction of Inspired Oxygen 60 12/06/24 10:00 12/06/24 11:49 12/06/24 12:00 Temperature 36.7 C Pulse Rate 81 79 Respiratory Rate 18 Blood Pressure 114/66 Pulse Oximetry 93 Oxygen Delivery Oxygen Flow Rate Fraction of Inspired Oxygen 12/06/24 12:00 Temperature Pulse Rate Respiratory Rate Blood Pressure Pulse Oximetry 93 Oxygen Delivery High Flow Therapy with Na Oxygen Flow Rate 30 Fraction of Inspired Oxygen 65 Exam Const: General: cooperative, healthy appearing and comfortable HENMT: Head: normal to inspection Ears: hearing grossly normal bilaterally Eyes: General: appearance normal, both eyes and all related structures Neck: Neck: normal visual inspection Chest: Chest palpation & inspection: normal inspection of the chest Resp: Effort & Inspection: normal respiratory effort and able to speak in complete sentences Auscultation: no crackles, no rales, no rhonchi, no wheezes and lung sounds not diminished Other: Patient on high-flow nasal cannula. Bibasilar crackles. No wheezes. Cardio: Jugular venous distension: no JVD GI: Inspection: normal to inspection GI Palp: No abdominal tenderness Skin: General skin exam: normal color Neuro: General: oriented to person, oriented to place and oriented to time Extrem: General: normal to inspection Psych: Appearance: grossly normal Results Laboratory Findings 12/06/24 06:33 12/06/24 06:33 ABG, PT/INR, D-dimer: ABG ABG pH 7.484 (7.350-7.450) H 12/03/24 21:24 ABG pCO2 26.8 mmHg (35.0-45.0) L 12/03/24 21:24 ABG pO2 48.2 mmHg (80.0-100.0) L* 12/03/24 21:24 ABG O2 Saturation 87.7 % (95.0-100.0) L* 12/03/24 21:24 PT/INR, D-dimer PT 14.7 Seconds (11.1-14.7) 12/03/24 20: INR 1.1 12/03/24 20:25 Abnormal lab findings: Abnormal Labs 12/03/24 12/03/2425 20:25 20:26 21:24 WBC 11.4 H RBC 3.23 L Hgb 10.3 L D Hct 31.5 L RDW Plt Count 376 H MPV 10.6 H Immature Gran % (Auto) 0.8 H Neut % (Auto) 80.1 H Lymph % (Auto) 10.6 L Baso % (Auto) Lymph # (Auto) [place] # (Auto) 0.9 H Abs Immat Gran (auto) 0.09 H Absolute Neuts (auto) 9.2 H APTT 38.5 H ABG pH 7.484 H ABG pCO2 26.8 L ABG pO2 48.2 L* ABG HCO3 19.7 L ABG O2 Saturation 87.7 L* ABG O2 Content 10.6 L Oxyhemoglobin 84.7 L* Reduced Hemoglobin 14.8 H Total Hemoglobin 8.9 L Sodium 130 L Potassium Chloride 97 L Carbon Dioxide 21 L BUN 26 H Creatinine 1.11 H Estimated GFR 46 L Glucose Calcium Magnesium TIBC C-Reactive Protein 13.1 H NT-Pro-B Natriuret Pep 1220 H Total Protein Albumin 3.3 L Vitamin B12 Stl Occult Blood (IFOB) Crossmatch 12/04/24 12/04/24 12/04/24 05:58 06:02 06:15 WBC 13.9 H RBC 2.90 L Hgb 9.1 L Hct 28.4 L RDW Plt Count MPV Immature Gran % (Auto) 1.0 H Neut % (Auto) 83.3 H Lymph % (Auto) 7.3 L Baso % (Auto) Lymph # (Auto) [place] # (Auto) 1.1 H Abs Immat Gran (auto) 0.14 H Absolute Neuts (auto) 11.6 H APTT ABG pH ABG pCO2 ABG pO2 ABG HCO3 ABG O2 Saturation ABG O2 Content Oxyhemoglobin Reduced Hemoglobin Total Hemoglobin Sodium 132 L Potassium Chloride Carbon Dioxide BUN 22 H Creatinine Estimated GFR 53 L 52 L Glucose Calcium 8.3 L Magnesium 1.1 L TIBC C-Reactive Protein NT-Pro-B Natriuret Pep Total Protein 6.0 L Albumin 2.7 L Vitamin B12 Stl Occult Blood (IFOB) Crossmatch 12/05/24 12/05/24 12/05/24 04:10 04:11 04:32 WBC RBC 2.14 L Hgb 6.8 L* 6.9 L* Hct 21.0 L 20.7 L* RDW Plt Count MPV Immature Gran % (Auto) 0.8 H Neut % (Auto) 89.4 H Lymph % (Auto) 5.9 L Baso % (Auto) Lymph # (Auto) 0.53 L [place] # (Auto) Abs Immat Gran (auto) 0.07 H Absolute Neuts (auto) 8.1 H APTT ABG pH ABG pCO2 ABG pO2 ABG HCO3 ABG O2 Saturation ABG O2 Content Oxyhemoglobin Reduced Hemoglobin Total Hemoglobin Sodium 133 L Potassium Chloride Carbon Dioxide 20 L BUN Creatinine Estimated GFR 58 L Glucose 130 H Calcium Magnesium 2.6 H TIBC C-Reactive Protein NT-Pro-B Natriuret Pep Total Protein 6.0 L Albumin Vitamin B12 Stl Occult Blood (IFOB) Crossmatch See Detail 12/05/24 12/05/24 12/05/24 08:01 09:12 13:44 WBC RBC Hgb 9.6 L Hct 29.0 L RDW Plt Count MPV Immature Gran % (Auto) Neut % (Auto) Lymph % (Auto) Baso % (Auto) Lymph # (Auto) [place] # (Auto) Abs Immat Gran (auto) Absolute Neuts (auto) APTT ABG pH ABG pCO2 ABG pO2 ABG HCO3 ABG O2 Saturation ABG O2 Content Oxyhemoglobin Reduced Hemoglobin Total Hemoglobin Sodium Potassium Chloride Carbon Dioxide BUN Creatinine Estimated GFR Glucose Calcium Magnesium TIBC 129 L C-Reactive Protein NT-Pro-B Natriuret Pep Total Protein Albumin Vitamin B12 > 1000.0 H Stl Occult Blood (IFOB) Positive H Crossmatch 12/06/24 06:33 WBC RBC 3.11 L Hgb 9.8 L Hct 29.5 L RDW 15.0 H Plt Count MPV 10.5 H Immature Gran % (Auto) 1.3 H Neut % (Auto) 88.0 H Lymph % (Auto) 5.1 L Baso % (Auto) 0.1 L Lymph # (Auto) 0.46 L [place] # (Auto) Abs Immat Gran (auto) 0.12 H Absolute Neuts (auto) 7.9 H APTT ABG pH ABG pCO2 ABG pO2 ABG HCO3 ABG O2 Saturation ABG O2 Content Oxyhemoglobin Reduced Hemoglobin Total Hemoglobin Sodium 136 L Potassium 3.0 L Chloride Carbon Dioxide BUN Creatinine Estimated GFR Glucose 120 H Calcium Magnesium TIBC C-Reactive Protein NT-Pro-B Natriuret Pep Total Protein 6.0 L Albumin 3.3 L Vitamin B12 Stl Occult Blood (IFOB) Crossmatch Diagnostic Findings Additional studies: ITS Impressions Chest X-Ray 12/03/24 20:39 IMPRESSION: Right basilar atelectasis versus pneumonia. Left basilar atelectasis versus pneumonia in the left lung base medially Chest CTA 12/03/24 21:39 IMPRESSION: 1. No pulmonary embolism. 2. Pneumonia in the right lower lobe. 3. Focal areas of pneumonia in the middle lobe, lingula and left lower lobe. 4. Nodule in the lingula and left lower lobe. Three-month CT follow-up advised. 5. 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 6. Cholelithiasis. Fat infiltration of the liver. Chest X-Ray 12/03/24 22:26 IMPRESSION: Status post placement of left central line with the tip overlying the superior vena cava. Bibasilar opacification suggestive of atelectasis versus pneumonia with possible right pleural effusion Venous Doppler Study 12/04/24 14:12 IMPRESSION: 1: No lower extremity deep venous thrombosis. Chest X-Ray 12/05/24 05:30 Impression: Moderate right pleural effusion is significantly increased from prior exam. Possible minimal left pleural effusion. Stable support line. Chest X-Ray 12/06/24 07:00 IMPRESSION: 1. Unchanged complete opacification of the right lower lung zone consistent with pneumonia, atelectasis, pleural effusion or most likely combination thereof. 2. Mild opacity left lower lung zone which could represent additional atelectasis or pneumonia. High Resolution CT 12/06/24 09:19
--- NOTE | 2024-12-06 14:13 | WPDGICN ---
Assessment and Plan Assessment and plan (1) Anemia: Code(s): D64.9 - Anemia, unspecified Status: Acute Assessment and Plan: Given the lack of overt GI bleeding manifestations, especially the absence of melena despite a 3.5 g/dL drop in hemoglobin (melena would be expected if GI bleeding was the cause) acute GI hemorrhage is an unlikely primary cause of this patient's acute, non-iron deficient anemia. The anemia is more likely a result of the complex sum of factors seen in critically ill patients with sepsis, including hemolysis, suppressed red blood cell production, and hemodilution from fluid resuscitation. Suggest investigating LDH, haptoglobin and peripheral smear looking for a hemolytic component. We will sign off for now but remain available for re-evaluation should any signs of acute GI bleeding develop. GI Consult Note Consult date/time: 12/06/24 14:13 Reason for consult: Anemia HPI: Chika Chan, an 89-year-old female with a history of COPD, was admitted on 12/05/2024 due to septic shock, likely secondary to pneumonia. Her antibiotic regimen includes cefepime and vancomycin. While she initially required a norepinephrine infusion for vasopressor support, this has been discontinued. Consultation was requested for evaluation of a decrease in hemoglobin: from 10.3 g/dL on 12/03/2024 to 9.1 g/dL on 12/04/2024, and to 6.8 g/dL on 12/05/2024. The patient has received one unit of packed red blood cells and denies any episodes of melena, hematemesis, or hematochezia. Her iron saturation on 12/05/2024 was 36%. Review of Systems Review of Systems: All systems reviewed & are unremarkable except as noted in HPI and below [facility] Family History Family History Father History of ETOH abuse Mother Hypertension Cerebrovascular accident Sibling Disorder of thyroid Social History Social History Smoking status: Former smoker Smoking end date: 07/23/11 Alcohol intake: former Drinks per week: 1 Substance use: never Substance use type: does not use Do You Feel Safe in your Home?: Yes Lack of Transportation: No Lack of Food: Never True Current Housing: I Have Housing Concerned About Future Housing: No Difficulty Paying Gas/Electric Bills: No Difficulty Paying for Meds: No Currently Unemployed: No Education: Don't Know Difficulty w/ Childcare or Family Care: No Living arrangements: alone Occupation/Education: retired Gender identity (if verbalized by the patient): Female Spiritual care concerns: Yes (Restorationist) Agree to blood products: Yes Meds Home Medications and Allergies Home Medications ?Medication ?Instructions ?Recorded ?Confirmed ?Type aspirin 81 mg tablet,delayed 81 mg PO DAILY 08/10/22 12/04/24 History release (Adult Low Dose Aspirin) cholecalciferol (vitamin D3) 25 25 mcg PO DAILY 08/10/22 12/04/24 History mcg (1,000 unit) chewable tablet levothyroxine 88 mcg tablet 88 mcg PO DAILY #90 tabs 05/08/24 12/04/24 Rx mometasone-formoterol HFA 200 See Rx Instructions .Route 09/01/24 12/04/24 Rx mcg-5 mcg/actuation aerosol .COMPLEX #13 grams inhaler (Dulera) tiotropium bromide 18 mcg capsule See Rx Instructions .Route 10/01/24 12/04/24 Rx with inhalation device (Spiriva .COMPLEX #90 caps with HandiHaler) allopurinol 300 mg tablet See Rx Instructions .Route 11/03/24 12/04/24 Rx .COMPLEX #90 tabs amlodipine 10 mg tablet See Rx Instructions .Route 11/03/24 12/04/24 Rx .COMPLEX #90 tabs metoprolol succinate 100 mg See Rx Instructions .Route 11/03/24 12/03/24 Rx tablet,extended release 24 hr .COMPLEX #180 tabs olmesartan 40 mg tablet See Rx Instructions .Route 11/03/24 12/04/24 Rx .COMPLEX #90 tabs amoxicillin 875 mg-potassium 1 tablet PO Q12H 12/04/24 12/04/24 History clavulanate 125 mg tablet cyanocobalamin (vitamin B-12) 500 500 mcg PO DAILY 12/04/24 12/04/24 History mcg tablet dextromethorphan-guaifenesin 10 10 ml PO Q4-6H PRN cough 12/04/24 12/04/24 History mg-100 mg/5 mL oral syrup (Ultra Tuss Safe) ipratropium 0.5 mg-albuterol 3 mg 3 ml inhalation Q4H PRN shortness 12/04/24 12/04/24 History (2.5 mg base)/3 mL nebulization of breath or wheezing soln omeprazole 20 mg capsule,delayed 20 mg PO DAILY 12/04/24 12/04/24 History release vit C 250 mg-vit E 90 mg-zinc 40 1 tablet PO BID 12/04/24 12/04/24 History mg-copper 1 [id number]-thgino capsule (PreserVision AREDS-2) Allergies Allergy/AdvReac Type Severity Reaction Status Date / Time ciprofloxacin (From [facility]) Allergy Unknown Unknown Verified 12/04/24 00:11 Influenza Virus Vaccines Allergy Unknown Unknown Verified 12/06/24 08:07 Vital Signs Vital Signs - 24 hr 12/05/24 16:00 12/05/24 16:00 12/05/24 16:00 Temperature 98 F Pulse Rate 75 79 Respiratory Rate 25 H Blood Pressure 108/57 L 108/58 L Pulse Oximetry 90 90 Oxygen Delivery High Flow Therapy with Na Oxygen Flow Rate 35 Fraction of Inspired Oxygen 70 12/05/24 16:00 12/05/24 18:00 12/05/24 18:00 Temperature 98.3 F Pulse Rate 80 74 77 Respiratory Rate 30 H Blood Pressure 108/51 L 108/51 L Pulse Oximetry 94 Oxygen Delivery Oxygen Flow Rate Fraction of Inspired Oxygen 12/05/24 18:00 12/05/24 20:00 12/05/24 20:00 Temperature Pulse Rate 94 70 Respiratory Rate Blood Pressure 118/62 Pulse Oximetry 91 Oxygen Delivery High Flow Therapy with Na Oxygen Flow Rate 35 Fraction of Inspired Oxygen 70 12/05/24 20:00 12/05/24 20:00 12/05/24 20:34 Temperature 97.6 F Pulse Rate 70 77 86 Respiratory Rate 20 16 Blood Pressure 118/62 Pulse Oximetry 92 Oxygen Delivery Oxygen Flow Rate Fraction of Inspired Oxygen 12/05/24 20:37 12/05/24 20:43 12/05/24 22:00 Temperature Pulse Rate 80 70 Respiratory Rate 16 21 H Blood Pressure 112/53 L Pulse Oximetry 92 94 Oxygen Delivery High Flow Therapy with Na Oxygen Flow Rate 35 Fraction of Inspired Oxygen 70 12/05/24 22:00 12/05/24 22:00 12/06/24 00:00 Temperature Pulse Rate 70 70 Respiratory Rate Blood Pressure 112/53 L Pulse Oximetry 95 Oxygen Delivery High Flow Therapy with Na Oxygen Flow Rate 35 Fraction of Inspired Oxygen 70 12/06/24 00:00 12/06/24 00:00 12/06/24 00:00 Temperature 97.5 F L Pulse Rate 70 74 70 Respiratory Rate 19 Blood Pressure 110/46 L 110/46 L Pulse Oximetry 94 Oxygen Delivery Oxygen Flow Rate Fraction of Inspired Oxygen 12/06/24 01:56 12/06/24 02:00 12/06/24 02:00 Temperature Pulse Rate 80 79 79 Respiratory Rate 21 H 16 Blood Pressure 105/58 L 105/58 L Pulse Oximetry 97 Oxygen Delivery Oxygen Flow Rate Fraction of Inspired Oxygen 12/06/24 02:00 12/06/24 02:01 12/06/24 04:00 Temperature Pulse Rate 79 72 Respiratory Rate 23 H Blood Pressure Pulse Oximetry 93 Oxygen Delivery High Flow Therapy with Na Oxygen Flow Rate 35 Fraction of Inspired Oxygen 70 12/06/24 04:00 12/06/24 04:00 12/06/24 04:00 Temperature 97.7 F Pulse Rate 81 74 74 Respiratory Rate 19 Blood Pressure 105/52 L 105/52 L Pulse Oximetry 94 Oxygen Delivery Oxygen Flow Rate Fraction of Inspired Oxygen 12/06/24 06:00 12/06/24 06:00 12/06/24 06:00 Temperature Pulse Rate 83 83 83 Respiratory Rate 23 H Blood Pressure 111/62 111/62 Pulse Oximetry 94 Oxygen Delivery Oxygen Flow Rate Fraction of Inspired Oxygen 12/06/24 07:56 12/06/24 08:00 12/06/24 08:00 Temperature 98.5 F Pulse Rate 82 93 Respiratory Rate 17 29 H Blood Pressure 121/69 Pulse Oximetry 94 95 Oxygen Delivery High Flow Therapy with Na Oxygen Flow Rate 30 Fraction of Inspired Oxygen 65 12/06/24 08:00 12/06/24 08:33 12/06/24 10:00 Temperature Pulse Rate 93 81 Respiratory Rate 20 Blood Pressure 122/55 L Pulse Oximetry 95 95 Oxygen Delivery High Flow Therapy with Na Oxygen Flow Rate 30 Fraction of Inspired Oxygen 60 12/06/24 10:00 12/06/24 11:49 12/06/24 12:00 Temperature 98.1 F Pulse Rate 81 79 Respiratory Rate 18 Blood Pressure 114/66 Pulse Oximetry 93 Oxygen Delivery Oxygen Flow Rate Fraction of Inspired Oxygen 12/06/24 12:00 Temperature Pulse Rate Respiratory Rate Blood Pressure Pulse Oximetry 93 Oxygen Delivery High Flow Therapy with Na Oxygen Flow Rate 30 Fraction of Inspired Oxygen 65 Exam Const: General: cooperative and healthy appearing Resp: Effort & Inspection: normal respiratory effort and able to speak in complete sentences Auscultation: clear to auscultation bilaterally Cardio: Rate: regular rate Rhythm: regular rhythm GI: Inspection: normal to inspection GI Palp: No No hepatosplenomegaly present Auscultation: normal bowel sounds Other: rectal examination: Scant amount of stools in the rectal vault, light yellow color, semi liquid. Skin: General skin exam: normal color Psych: Appearance: grossly normal Mental Status: mental status grossly normal Results Labs 12/06/24 06:33 12/06/24 06:33 Labs: Short CBC 12/06/24 Range/Units 06:33 WBC 9.0 (4.5-10.0) K/mm3 Hgb 9.8 L (12.0-15.0) g/dL Hct 29.5 L (37.0-47.0) % Plt Count 177 (150-375) k/mm3 BMP 12/06/24 06:33 Sodium 136 L Potassium 3.0 L Chloride 106 Carbon Dioxide 23 BUN 13 Creatinine 0.88 Glucose 120 H Calcium 9.0 Liver Function 12/06/24 Range/Units 06:33 Total Bilirubin 1.3 (0.2-1.3) mg/dL AST 23 (14-36) U/L ALT 13 (6-35) U/L Alkaline Phosphatase 56 (38-126) U/L Albumin 3.3 L (3.5-5.1) g/dL
--- NOTE | 2024-12-06 14:21 | WPDINTPN ---
Progress Note: A&P Assessment and Plan (1) Septic shock: Code(s): A41.9 - Sepsis, unspecified organism; R65.21 - Severe sepsis with septic shock Status: Acute Assessment and Plan: 12/03/2024: Patient presented with hypotension, hypoxia, productive cough and shortness of breath -in the ER was found to be in septic shock -received adequate IV fluids -will give additional small bolus of LR and albumin for intravascular volume expansion -off Levophed -off vasopressin -wean steroids -urine output has been adequate -patient is awake, alert, oriented x3 -started on cefepime and vancomycin (12/03) -12/03: Preliminary blood cultures are negative x2 -12/04: Sputum cultures with budding yeast -chest x-ray this morning shows worsening right sided pneumonia, CT scan of the chest without contrast were ordered would also showed worsening multifocal pneumonia in the bilateral lower lobes, right upper lobe and less sedated at the lingula. 12/06: Added Flagyl -consulted superintendent gas distribution, agrees to plan of care and will follow patient in the intermediate 2 -continue bronchodilators -Mucomyst nebs -continue guaifenesin 12/06/24: Chest CT without contrast IMPRESSION: 1. Worsening multifocal pneumonia in the bilateral lower lobes, right upper lobe and to lesser degree at the lingula. 2. New small bilateral pleural effusions, right greater than left. -12/03: influenza, RSV, COVID PCR were negative 12/03: CTA chest 1. No pulmonary embolism. 2. Pneumonia in the right lower lobe. 3. Focal areas of pneumonia in the middle lobe, lingula and left lower lobe. 4. Nodule in the lingula and left lower lobe. Three-month CT follow-up advised. 5. 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 6. Cholelithiasis. Fat infiltration of the liver. (2) Multifocal pneumonia: Code(s): J18.9 - Pneumonia, unspecified organism Status: Acute Assessment and Plan: Treatment as above -stress dose steroids have been added (3) Hypothyroidism: Code(s): E03.9 - Hypothyroidism, unspecified Status: Acute Assessment and Plan: Continue levothyroxine -TSH level within normal limits (4) Electrolyte imbalance: Code(s): E87.8 - Other disorders of electrolyte and fluid balance, not elsewhere classified Status: Acute Assessment and Plan: Hyponatremia, could be related to pneumonia continue to monitor (5) Anemia: Code(s): D64.9 - Anemia, unspecified Status: Acute Assessment and Plan: Patient dropped hemoglobin to 6.9 this morning -will send stool for Hemoccult -folic acid and B12 levels within normal limit -9 deficiency anemia -PPI increased to q.12 hours -hold aspirin and Lovenox -appreciate GI evaluation and recommendations. Continue to monitor hemoglobin and this could be multifactorial secondary to sepsis, some pressured blood cell production, hemodilution. GI to order labs for hemolytic workup Plan DVT prophylaxis: Hold Lovenox, continue SCDs. No chemoprophylaxis due to drop in hemoglobin and anemia Stress ulcer prophylaxis: Protonix IV q.12 hours Nutrition: Heart healthy diet Code Status: DNR/DNI Critical Care Time Spent: 32 minutes Patient will move out of the ICU to intermediate Unit Discussed daughter in rounds updated her with patient's condition and plan of care. She is aware that we will be adding an antibiotic, obtaining CT scan of the chest without contrast and pulmonology will follow the patient. I answered all questions Due to a high probability of clinically significant, life threatening deterioration, the patient required my highest level of preparedness to intervene emergently and I personally spent this critical care time directly and personally managing the patient. This critical care time included obtaining a history; examining the patient; pulse oximetry; ordering and review of studies; arranging urgent treatment with development of a management plan; evaluation of patient's response to treatment; frequent reassessment; and discussions with other providers. It was exclusive of separately billable procedures and treating other patients and teaching time. Please see Assessment and Plan section and the rest of the note for further information on patient assessment and treatment This dictation may have been done utilizing a voice recognition system. Attempts have been made to correct errors. However, there may be uncorrected grammatical, spelling, and recognitions errors present. Subjective Date/time seen: 12/06/24 14:21 Interval history: Reason for consult: Septic shock, Pneumonia, respiratory distress, hypoxia, anemia 12/06/2024: Patient seen and examined in the ICU, is awake, alert, oriented x3, answers to questions appropriately and follows simple commands. Off Levophed for greater than 24 hours. Received 2 units of packed RBCs on 12/05/2024. Hemoglobin is stable this morning. Afebrile, adequate urine output. States she feels much better this morning. Potassium is low this morning Review of Systems Review of Systems: All systems reviewed & are unremarkable except as noted in HPI and below Exam Narrative: General: Pleasant elderly female in no acute distress HEENT:? Pupils equal and reactive cause care as clear, moist oral mucosa Neck:? Supple Respiratory:? Coarse breath sounds bilaterally, decreased at bases Rt > Lt, adequate air entry, Cardiac:? S1-S2 normal, regular rate and rhythm Abdomen:? Soft, nontender, nondistended, normoactive bowel sounds Extremities:? Bilateral lower extremity edema up to the knees, palpable pedal pulses Neuro:? Patient is awake, alert, oriented x3, nonfocal, able to answer questions and follows simple commands appropriately Skin:? No lesions no Psych:? Normal mentation and affect, hard of hearing Objective Data Vital Signs Vital Signs: Vital Signs - 24 hr 12/05/24 16:00 12/05/24 16:00 12/05/24 16:00 Temperature 98 F Pulse Rate 75 79 Respiratory Rate 25 H Blood Pressure 108/57 L 108/58 L Pulse Oximetry 90 90 Oxygen Delivery High Flow Therapy with Na Oxygen Flow Rate 35 Fraction of Inspired Oxygen 70 12/05/24 16:00 12/05/24 18:00 12/05/24 18:00 Temperature 98.3 F Pulse Rate 80 74 77 Respiratory Rate 30 H Blood Pressure 108/51 L 108/51 L Pulse Oximetry 94 Oxygen Delivery Oxygen Flow Rate Fraction of Inspired Oxygen 12/05/24 18:00 12/05/24 20:00 12/05/24 20:00 Temperature Pulse Rate 94 70 Respiratory Rate Blood Pressure 118/62 Pulse Oximetry 91 Oxygen Delivery High Flow Therapy with Na Oxygen Flow Rate 35 Fraction of Inspired Oxygen 70 12/05/24 20:00 12/05/24 20:00 12/05/24 20:34 Temperature 97.6 F Pulse Rate 70 77 86 Respiratory Rate 20 16 Blood Pressure 118/62 Pulse Oximetry 92 Oxygen Delivery Oxygen Flow Rate Fraction of Inspired Oxygen 12/05/24 20:37 12/05/24 20:43 12/05/24 22:00 Temperature Pulse Rate 80 70 Respiratory Rate 16 21 H Blood Pressure 112/53 L Pulse Oximetry 92 94 Oxygen Delivery High Flow Therapy with Na Oxygen Flow Rate 35 Fraction of Inspired Oxygen 70 12/05/24 22:00 12/05/24 22:00 12/06/24 00:00 Temperature Pulse Rate 70 70 Respiratory Rate Blood Pressure 112/53 L Pulse Oximetry 95 Oxygen Delivery High Flow Therapy with Na Oxygen Flow Rate 35 Fraction of Inspired Oxygen 70 12/06/24 00:00 12/06/24 00:00 12/06/24 00:00 Temperature 97.5 F L Pulse Rate 70 74 70 Respiratory Rate 19 Blood Pressure 110/46 L 110/46 L Pulse Oximetry 94 Oxygen Delivery Oxygen Flow Rate Fraction of Inspired Oxygen 12/06/24 01:56 12/06/24 02:00 12/06/24 02:00 Temperature Pulse Rate 80 79 79 Respiratory Rate 21 H 16 Blood Pressure 105/58 L 105/58 L Pulse Oximetry 97 Oxygen Delivery Oxygen Flow Rate Fraction of Inspired Oxygen 12/06/24 02:00 12/06/24 02:01 12/06/24 04:00 Temperature Pulse Rate 79 72 Respiratory Rate 23 H Blood Pressure Pulse Oximetry 93 Oxygen Delivery High Flow Therapy with Na Oxygen Flow Rate 35 Fraction of Inspired Oxygen 70 12/06/24 04:00 12/06/24 04:00 12/06/24 04:00 Temperature 97.7 F Pulse Rate 81 74 74 Respiratory Rate 19 Blood Pressure 105/52 L 105/52 L Pulse Oximetry 94 Oxygen Delivery Oxygen Flow Rate Fraction of Inspired Oxygen 12/06/24 06:00 12/06/24 06:00 12/06/24 06:00 Temperature Pulse Rate 83 83 83 Respiratory Rate 23 H Blood Pressure 111/62 111/62 Pulse Oximetry 94 Oxygen Delivery Oxygen Flow Rate Fraction of Inspired Oxygen 12/06/24 07:56 12/06/24 08:00 12/06/24 08:00 Temperature 98.5 F Pulse Rate 82 93 Respiratory Rate 17 29 H Blood Pressure 121/69 Pulse Oximetry 94 95 Oxygen Delivery High Flow Therapy with Na Oxygen Flow Rate 30 Fraction of Inspired Oxygen 65 12/06/24 08:00 12/06/24 08:33 12/06/24 10:00 Temperature Pulse Rate 93 81 Respiratory Rate 20 Blood Pressure 122/55 L Pulse Oximetry 95 95 Oxygen Delivery High Flow Therapy with Na Oxygen Flow Rate 30 Fraction of Inspired Oxygen 60 12/06/24 10:00 12/06/24 11:49 12/06/24 12:00 Temperature 98.1 F Pulse Rate 81 79 Respiratory Rate 18 Blood Pressure 114/66 Pulse Oximetry 93 Oxygen Delivery Oxygen Flow Rate Fraction of Inspired Oxygen 12/06/24 12:00 12/06/24 12:00 Temperature Pulse Rate 78 Respiratory Rate Blood Pressure Pulse Oximetry 93 Oxygen Delivery High Flow Therapy with Na Oxygen Flow Rate 30 Fraction of Inspired Oxygen 65 Intake/Output Intake/Output: Intake & Output 12/03/24 12/04/24 12/05/24 12/06/24 23:59 23:59 23:59 23:59 Intake Total 2062.7 2661.5 2091.5 650 Output Total 2150 1350 750 Balance 2062.7 511.5 741.5 -100 Meds/Results Medications: Active Medications Generic Name Dose Route Start Last Admin Trade Name Freq PRN Reason Stop Dose Admin Acetaminophen 650 mg 12/03/24 22:24 Acetaminophen 325 Mg Tablet PO Q4H PRN Mild Pain (1-3) or Fever Acetylcysteine 200 mg 12/04/24 08:00 12/06/24 07:55 Acetylcysteine 20% Inhal Soln 800 Mg/4 Ml Vial INHALATION 200 mg Q6HRT ATUL Administration Albuterol/Ipratropium 3 ml 12/04/24 04:34 12/06/24 07:55 Ipratropium 0.5 Mg/Albuterol Sulfate 2.5 Mg Ampul.Neb 3 Ml INHALATION 3 ml Q4H PRN Administration shortness of breath or wheezing Albuterol/Ipratropium 3 ml 12/06/24 14:00 Ipratropium 0.5 Mg/Albuterol Sulfate 2.5 Mg Ampul.Neb 3 Ml INHALATION Q6HRT [facility] Aspirin 81 mg 12/04/24 09:00 12/05/24 08:01 Aspirin 81 Mg Enteric Tablet PO 81 mg DAILY [facility] Administration Enoxaparin Sodium 30 mg 12/04/24 09:00 12/04/24 08:10 Enoxaparin 30 Mg/0.3 Ml Syringe SUB-Q 30 mg DAILY [facility] Administration Guaifenesin 1,200 mg 12/06/24 21:00 Guaifenesin 12 Hr 600 Mg Tabcr PO Q12HR [facility] Hydrocortisone Sodium Succinate 50 mg 12/06/24 18:00 Hydrocortisone Sodium Succinate 100 Mg/2 Ml Vial IV PUSH 12/07/24 23:59 Q12H ATUL Vancomycin HCl 1,250 mg in 250 mls @ 166.667 mls/hr 12/05/24 10:00 12/05/24 10:22 Vancomycin 1,250 Mg/Ns 250 Ml IVPB 166.67 mls/hr Q36H ATUL Administration Cefepime HCl 2 gm in 50 mls @ 100 mls/hr 12/05/24 20:00 12/06/24 10:26 Maxipime 2 Gm/Ns 50 Ml IVPB Infused Q12H ATUL Infusion Metronidazole 500 mg in 100 mls @ 100 mls/hr 12/06/24 11:00 12/06/24 12:39 Flagyl 500 Mg/Iso Soln 100 Ml IVPB Infused Q8HR ATUL Infusion Levothyroxine Sodium 88 mcg 12/04/24 06:30 12/06/24 06:44 Levothyroxine Sodium 88 Mcg Tablet PO 88 mcg DAILY@0630 ATUL Administration Pantoprazole Sodium 40 mg 12/05/24 09:00 12/06/24 09:55 Pantoprazole Sodium Iv 40 Mg Vial IV PUSH 40 mg Q12HR ATUL Administration Perflutren Lipid Microsphere 0 ml 12/04/24 06:14 Perflutren Lipid Microspheres 1.5 Ml Vial Diluted To 10 Ml Total Volume IV PUSH 12/07/24 06:14 ONCE PRN adequate visualization Protocol Sodium Chloride 10 ml 12/03/24 22:00 12/06/24 06:44 Central Line Flush IV PUSH 10 ml Q8HR ATUL Administration Sodium Chloride 20 ml 12/03/24 21:34 Central Line Flush IV PUSH PRN PRN after blood draws Sodium Chloride 20 ml 12/03/24 22:03 Central Line Flush IV PUSH PRN PRN after blood draws Radiology Results: ITS Impressions Chest CTA 12/03/24 21:39 IMPRESSION: 1. No pulmonary embolism. 2. Pneumonia in the right lower lobe. 3. Focal areas of pneumonia in the middle lobe, lingula and left lower lobe. 4. Nodule in the lingula and left lower lobe. Three-month CT follow-up advised. 5. 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 6. Cholelithiasis. Fat infiltration of the liver. Venous Doppler Study 12/04/24 14:12 IMPRESSION: 1: No lower extremity deep venous thrombosis. Chest X-Ray 12/06/24 07:00 IMPRESSION: 1. Unchanged complete opacification of the right lower lung zone consistent with pneumonia, atelectasis, pleural effusion or most likely combination thereof. 2. Mild opacity left lower lung zone which could represent additional atelectasis or pneumonia. High Resolution CT 12/06/24 09:19 IMPRESSION: 1. Worsening multifocal pneumonia in the bilateral lower lobes, right upper lobe and to lesser degree at the lingula. 2. New small bilateral pleural effusions, right greater than left. Labs Labs: Laboratory Results - last 24 hr 12/06/24 06:33 WBC 9.0 RBC 3.11 L Hgb 9.8 L Hct 29.5 L MCV 94.9 MCH 31.5 MCHC 33.2 RDW 15.0 H Plt Count 177 MPV 10.5 H Immature Gran % (Auto) 1.3 H Neut % (Auto) 88.0 H Lymph % (Auto) 5.1 L Rains % (Auto) 5.5 Eos % (Auto) 0.0 Baso % (Auto) 0.1 L Lymph # (Auto) 0.46 L Rains # (Auto) 0.5 Eos # (Auto) 0.0 Baso # (Auto) 0.0 Abs Immat Gran (auto) 0.12 H Absolute Neuts (auto) 7.9 H Absolute Nucleated RBC 0.000 Nucleated RBC % 0.0 Sodium 136 L Potassium 3.0 L Chloride 106 Carbon Dioxide 23 Anion Gap 7 BUN 13 Creatinine 0.88 Estim Creat Clear Calc 31 Estimated GFR > 60 Glucose 120 H Lactic Acid 0.9 Calcium 9.0 Phosphorus 2.6 Magnesium 1.8 Total Bilirubin 1.3 AST 23 ALT 13 Alkaline Phosphatase 56 Total Protein 6.0 L Albumin 3.3 L Quality VTE Prophylaxis VTE prophylaxis: pharmacologic ordered
[2024-12-06] MEDS: HYDROCORTISONE SODIUM SUCCINATE 100 MG/2 ML VIAL 50 MG IV PUSH (18:29)
[2024-12-06 18:42] LABS: Lactate Dehydrogenase 190 U/L (120-246)
[2024-12-06] MEDS: guaiFENesin 12 HR 600 MG TABCR 1200 MG PO (22:10)
[2024-12-06] MEDS: CENTRAL LINE FLUSH 20 ML IV PUSH (22:56)
[2024-12-06 23:42] LABS: Vancomycin Trough 11.9 ug/mL (10.0-20.0)
[2024-12-07] VITALS (24 sets, daily range): BP systolic 107–130; BP diastolic 47–85; PULSE 56–147; RESP 14–20; TEMP 36.4–37.2; O2SAT 89–99
[2024-12-07] MEDS: IPRATROPIUM 0.5 MG/ALBUTEROL SULFATE 2.5 MG AMPUL.NEB 3 ML INHALATION ×4 (02:04→20:19)
[2024-12-07] MEDS: ACETYLCYSTEINE 20% INHAL SOLN 800 MG/4 ML VIAL 200 MG INHALATION ×4 (02:04→20:18)
[2024-12-07] MEDS: VANCOMYCIN 1,250 MG/NS 250 ML 1,250 MG/250 ML BAG 166.67 MG IVPB (02:51)
[2024-12-07] MEDS: ACETAMINOPHEN 325 MG TABLET 650 MG PO ×2 (02:57→18:42)
[2024-12-07] MEDS: CENTRAL LINE FLUSH 20 ML IV PUSH (04:05)
[2024-12-07 04:08] LABS: Hematocrit 29.3 % (37.0-47.0); Hemoglobin 9.8 g/dL (12.0-15.0); Mean Corpuscular HGB Conc 33.4 g/dl (32-36); Mean Corpuscular Hemoglobin 31.4 pg (26-34); Mean Corpuscular Volume 93.9 fl (80-100); Red Blood Count 3.12 M/mm3 (4.2-5.4); Red Cell Distribution Width 14.9 % (11.5-14.5); White Blood Count 12.7 K/mm3 (4.5-10.0)
[2024-12-07 04:09] LABS: Basophils Percent Auto 0.1 % (0.2-1.2); Immature Granulocyte Absolute 0.14 K/mm3 (0.00-0.031); Immature Granulocyte Percent A 1.1 % (0-0.5); Lymphocytes Absolute Auto 0.64 K/mm3 (0.9-3.2); Mean Platelet Volume 9.8 fl (7.4-10.4); Monocytes Absolute Auto 0.9 K/mm3 (0.1-0.6); Monocytes Percent Auto 6.9 % (2.6-8.5); Neutrophils Percent Auto 86.9 % (45.5-73.1); Nucleated Red Blood Cells Perc 0.2 % (0.0-0.2); Platelet Count Result 166 k/mm3 (150-375)
[2024-12-07 04:21] LABS: Alanine Aminotransferase 17 U/L (6-35); Alkaline Phosphatase 54 U/L (38-126); Anion Gap 3 mmol/L (4-12); Aspartate Amino Transferase 30 U/L (14-36); Bilirubin,Total 1.2 mg/dL (0.2-1.3); Blood Urea Nitrogen 14 mg/dL (7-17); Calcium 8.9 mg/dL (8.4-10.2); Carbon Dioxide 25 mmol/L (22-30); Chloride 109 mmol/L (98-107); Estimated CRCL calculation 34 ml/min; Estimated Glomerular Filt Rate > 60; Glucose 109 mg/dL (65-110); Magnesium 2.2 mg/dL (1.6-2.3); Phosphorus 1.7 mg/dL (2.5-4.5); Potassium 3.1 mmol/L (3.4-5.0); Sodium 137 mmol/L (137-145)
[2024-12-07] MEDS: HYDROCORTISONE SODIUM SUCCINATE 100 MG/2 ML VIAL 50 MG IV PUSH ×2 (06:18→18:36)
[2024-12-07] MEDS: CENTRAL LINE FLUSH 10 ML IV PUSH ×3 (06:18→20:22)
[2024-12-07] MEDS: metroNIDAZOLE 500 MG/ISO 100ML 500 MG/100 ML BAG 100 MG IVPB ×3 (06:19→21:00)
[2024-12-07] MEDS: LEVOTHYROXINE SODIUM 88 MCG TABLET PO (06:20)
[2024-12-07 09:32] LABS: NT Pro B Type Natriuretic Pept 14300 pg/mL (19.9-100)
[2024-12-07] MEDS: PANTOPRAZOLE SODIUM IV 40 MG VIAL IV PUSH ×2 (10:37→20:18)
[2024-12-07] MEDS: guaiFENesin 12 HR 600 MG TABCR 1200 MG PO ×2 (10:37→20:17)
[2024-12-07] MEDS: CEFEPIME 2 GM/NS 50 ML 2 GM/50 ML BAG IVPB ×2 (10:37→20:19)
[2024-12-07] MEDS: droNABinol (*CRX) 2.5 MG CAPSULE PO ×2 (11:01→18:36)
--- NOTE | 2024-12-07 11:57 | P.PNPL_ITS ---
Progress Note: A&P Assessment and Plan (1) Multifocal pneumonia: Code(s): J18.9 - Pneumonia, unspecified organism Status: Acute Assessment and Plan: Patient with recent admission to ICU at outside hospital and now admitted with multifocal pneumonia, septic shock and hypoxemic respiratory failure. ABG on 12/03/2024 7. on [address] scan of the chest on 12/06/2024 shows multifocal pneumonia right upper lobe, right middle lobe, right lower lobe, left lower lobe with right greater than left pleural effusion with fluid in the fissure. Patient has clinically responded to vancomycin, cefepime started 12/03, both day 4 and Flagyl started 12/06 and is currently off pressors on his stress dose steroids.. Plan: Will continue vancomycin and cefepime both day 4. Continue Flagyl, day 1. Patient is on guaifenesin 600 mg p.o. q.12 hours and will change 1200 mg p.o. q.12. Patient is on Mucomyst 200 mg q.6 hours. Her cough is improved and not bothered some at this time and I will discontinue the Tessalon Perles so as not to suppress her cough as I am wanting her to cough and expectorate. I will send a respiratory pathogen panel, urine for Legionella, urine for pneumococcal and mycoplasma IgM titer. 12/07/2024: Patient transferred out of the ICU. Overall patient tells me she is breathing better. She has a small amount of phlegm with no hemoptysis. She is afebrile. White blood cell count 12.7, creatinine 0.81. When I enter the room she was on Airvo 40 L and 87% FiO2 with saturations 92%. I changed her to high-flow nasal cannula at 15 L and then decreased her to 12 L and her saturations were 91%. She felt stable on the high-flow nasal cannula. Yesterday the patient is 50 mL positive. Cumulative she has +2.8 L since admission. Her weight today is 64.7. BNP has increased from 1220 on 12/03/2024 to [address] today. Chest x-ray shows right greater than left effusions, bibasilar interstitial alveolar infiltrates with worsening on the left. Plan: overall the patient is improved. Her stress dose steroids will finish later tonight. Oxygenation has improved. Continue vancomycin and cefepime both day 5, of Flagyl day 2. Continue DuoNebs q.6,guaifenesin 1200 p.o. q.12 hours, Mucomyst 200 q.6 nebs, flutter valve as tolerated to help her expectorate. Respiratory pathogen panel, urine for Legionella, urine for pneumococcal and mycoplasma IgM titer pending. Attempt out of bed to chair. Discussed with Dr. Nova, will follow with you (2) COPD (chronic obstructive pulmonary disease): Code(s): J44.9 - Chronic obstructive pulmonary disease, unspecified Status: Acute Assessment and Plan: Patient tells me she smoked from age 31 to 65 at 1 pack per day for total of 34 pack years. She told me she had PFTs and they told her she had COPD and is maintained on Advair and Incruse at home. CT scan 12/06/2024 with mild apical predominant centrilobular emphysema. Plan: Currently she has no wheezing. I will discontinue her inhaled corticosteroids and place her on DuoNebs q.6 hours. Goal saturation 90-94%. 12/07/24: no wheezing. Plan: Continue DuoNebs q.6. Goal saturation 90-94%. (3) Hypoxic respiratory failure: Code(s): J96.91 - Respiratory failure, unspecified with hypoxia Status: Acute Assessment and Plan: Patient with multifocal pneumonia, small right greater than left bilateral pleural effusions, history of COPD. ABG on 12/03/2024 7. on 5 L nasal cannula. patient is DNR. Patient was started on Airvo on 12/04 at 12 noon 35 L and 60% FiO2. 12/04 20:00 Airvo 35 L and 60% FIO2, sats 94% 12/05 08:00 Airvo 35 L and 70% FIO2, sats 94% 12/05 20:00 Airvo 35 L and 70% FIO2, sats 92% 12/06 08:00 Airvo 30 L and 60% FIO2, sats 95% 12/06 21:00 Airvo 40 L and 85% FIO2, sats 97% 12/07 09:00 Airvo 40 L and 87% FIO2, sats 92%, I changed her to 12 L nasal cannula with saturations 91%. Plan: Goal saturation 90-94%. Adjust oxygen accordingly. Subjective Date/time seen: 12/07/24 11:57 Interval history: 12/06/24: This is a new pulmonary consult for pneumonia. 89-year-old with a history of hypertension, hypothyroidism, GERD, COPD. Patient was at a rehab center after being and admitted to an outside hospital for pneumonia. On 12/02 2024 chest x-ray was obtained and the patient was started on azithromycin and Augmentin. She developed worsening shortness of breath, hypoxia and decreased blood pressure and in the emergency room her blood pressure was 83/57, heart rate 78, respirations 24 and saturations per EMS were 83% on room air and increased to 97% on 4 L. her white blood cell count was 11.4, creatinine was 1.11, BNP was 1220, CRP was 13.1, COVID, influenza, RSV RT PCR assay negative. Chest x-ray showed bibasilar infiltrates. Patient was hypotensive and given 2 L of lactated Ringer's and then started on Levophed. Patient was initially treated with vancomycin and cefepime. On 12/04/2024 the patient required vasopressin and stress dose steroids were added. On 12/05 she was on low doses of Levophed. 12/06/2024: The patient tells me she feels good, her cough is loosened up and does not strangle her anymore. Her phlegm remains clear. Her cough is i mproved. She is on high-flow nasal cannula 30 L and 65% FiO2 with saturations 93%. White blood cell count is 9.0, creatinine is 0.88. CT scan of the chest showed multilobar pneumonia in the right upper lobe, right middle lobe, right lower lobe and left lower lobe. Right greater than left pleural effusion with fluid in the minor fissure on the right. 12/07/2024: Patient transferred out of the ICU. Overall patient tells me she is breathing better. She has a small amount of phlegm with no hemoptysis. She is afebrile. White blood cell count 12.7, creatinine 0.81. When I enter the room she was on Airvo 40 L and 87% FiO2 with saturations 92%. I changed her to high-flow nasal cannula at 15 L and then decreased her to 12 L and her saturations were 91%. She felt stable on the high-flow nasal cannula. Yesterday the patient is 50 mL positive. Cumulative she has +2.8 L since admission. Her weight today is 64.7. BNP has increased [place] 1220 [place] 12/03/2024 [place] [address] today. Chest x-ray shows right greater than left effusions, bibasilar interstitial alveolar infiltrates with worsening on the left. One year ago the family was going to purchase hearing aids for the patient. Four days prior to admission at her living facility there is an acute decrease in her hearing. Currently she remains very hard of hearing. DATA: EXAMINATION: CT chest high resolution wo co DATE: 12/06/2024 09:19 INDICATION: right hemithorax opacification TECHNIQUE: Computed tomography (CT) of the chest was performed without intravenous contrast. Additional 3D reconstructions utilizing coronal maximum intensity projection (MIP) were performed. Automated exposure control and iterative reconstruction technique were employed. The dose-length product was 276.48 mGy-cm. COMPARISON: Chest CT dated 12/03/2024 FINDINGS: New small bilateral pleural effusions, right greater than left. There is improved aeration of the previously collapsed right lower lobe. There are h owever prominent patchy airspace opacities in the right lower lobe as well as in the right upper lobe, left lower lobe and to lesser degree in the lingula consistent with pneumonia. Tracheobronchial malacia with prominent AP narrowing of the trachea and mainstem bronchi. Heart size is normal. Atherosclerotic coronary artery calcific lesion. No pericardial effusion. Thoracic aorta is normal in caliber. No pathologically enlarged thoracic lymphadenopathy. Calcified gallstones in the none dilated gallbladder. Likely age-related mild bilateral renal atrophy. Mild S-shaped curvature of the thoracic spine with moderate spondylosis. IMPRESSION: 1. Worsening multifocal pneumonia in the bilateral lower lobes, right upper lobe and to lesser degree at the lingula. 2. New small bilateral pleural effusions, right greater than left. Review of Systems Constitutional: Constitutional: Reports no additional constitutional complaints Eyes: Eyes: Reports no additional eye complaints ENT: Reports system reviewed and no additional complaints, except as documented Cardiovascular: Cardiovascular: Reports no additional cardiovascular complaints Respiratory: Respiratory: Reports no additional respiratory complaints Gastrointestinal: Gastrointestinal: Reports no additional gastrointestinal complaints Musculoskeletal: Musculoskeletal: Reports no additional musculoskeletal complaints Neurologic: Reports system reviewed and no additional complaints, except as documented Psychiatric: Psychiatric: Reports no additional psychiatric complaints Endocrine: Endocrine: Reports no additional endocrine complaints Hematologic/Lymphatic: Hematologic/Lymphatic: Reports no additional hematologic/lymphatic complaints Allergic/Immunologic: Allergic/Immunologic: Reports no additional allergic/immunologic complaints Exam Const: General: cooperative, healthy appearing and comfortable Orientation/consciousness: oriented to person, oriented to place and oriented to time HENMT: Head: normal to inspection Ears: hearing grossly normal bilaterally Eyes: General: appearance normal, both eyes and all related structures Neck: Neck: normal visual inspection Chest: Chest palpation & inspection: normal inspection of the chest Resp: Effort & Inspection: normal respiratory effort and able to speak in complete sentences Auscultation: no crackles, no rales, no rhonchi, no wheezes and lung sounds not diminished Other: Patient on high-flow nasal cannula 12 L. decreased breath sounds at the bases with few crackles. No wheezes. Cardio: Jugular venous distension: no JVD GI: Inspection: normal to inspection Skin: General skin exam: normal color Neuro: General: oriented to person, oriented to place and oriented to time Extrem: General: normal to inspection Psych: Appearance: grossly normal Objective Data Vital Signs Vital Signs: Vital Signs - 24 hr 12/06/24 12:00 12/06/24 12:00 12/06/24 12:00 Temperature Pulse Rate 79 78 Respiratory Rate 18 Blood Pressure 114/66 Pulse Oximetry 93 93 Oxygen Delivery High Flow Therapy with Na Oxygen Flow Rate 30 Fraction of Inspired Oxygen 65 12/06/24 14:00 12/06/24 14:00 12/06/24 15:24 Temperature Pulse Rate 74 86 Respiratory Rate Blood Pressure 107/57 L Pulse Oximetry 93 95 Oxygen Delivery High Flow Therapy with Na Oxygen Flow Rate 30 Fraction of Inspired Oxygen 60 12/06/24 15:26 12/06/24 16:00 12/06/24 16:00 Temperature Pulse Rate 84 83 Respiratory Rate 19 Blood Pressure Pulse Oximetry 93 Oxygen Delivery High Flow Therapy with Na Oxygen Flow Rate 30 Fraction of Inspired Oxygen 65 12/06/24 16:43 12/06/24 18:00 12/06/24 18:00 Temperature 36.7 C 36.7 C Pulse Rate 85 85 73 Respiratory Rate 20 20 Blood Pressure 105/54 L 105/54 L Pulse Oximetry 92 92 Oxygen Delivery Oxygen Flow Rate Fraction of Inspired Oxygen 12/06/24 20:00 12/06/24 20:00 12/06/24 21:14 Temperature Pulse Rate 78 71 71 Respiratory Rate 18 20 Blood Pressure 115/50 L Pulse Oximetry 97 Oxygen Delivery Oxygen Flow Rate Fraction of Inspired Oxygen 12/06/24 21:15 12/06/24 21:26 12/06/24 21:30 Temperature Pulse Rate 78 73 Respiratory Rate 18 20 Blood Pressure Pulse Oximetry 92 97 Oxygen Delivery High Flow Therapy with Na High Flow Therapy with Na Oxygen Flow Rate 40 40 Fraction of Inspired Oxygen 85 85 12/06/24 22:00 12/07/24 00:00 12/07/24 00:00 Temperature 36.6 C Pulse Rate 80 77 85 Respiratory Rate 18 Blood Pressure 107/47 L Pulse Oximetry 93 Oxygen Delivery Oxygen Flow Rate Fraction of Inspired Oxygen 12/07/24 00:32 12/07/24 02:00 12/07/24 02:06 Temperature Pulse Rate 77 86 86 Respiratory Rate 18 20 Blood Pressure Pulse Oximetry 93 Oxygen Delivery High Flow Therapy with Na Oxygen Flow Rate 40 Fraction of Inspired Oxygen 87 12/07/24 02:19 12/07/24 04:00 12/07/24 04:00 Temperature 36.4 C L Pulse Rate 79 64 82 Respiratory Rate 20 18 Blood Pressure 117/54 L Pulse Oximetry 93 Oxygen Delivery Oxygen Flow Rate Fraction of Inspired Oxygen 12/07/24 04:18 12/07/24 06:00 12/07/24 08:00 Temperature 36.6 C Pulse Rate 64 65 112 H Respiratory Rate 18 20 Blood Pressure 120/67 Pulse Oximetry 93 92 Oxygen Delivery High Flow Therapy with Na Oxygen Flow Rate 40 Fraction of Inspired Oxygen 87 12/07/24 09:23 12/07/24 09:23 12/07/24 09:35 Temperature Pulse Rate 64 67 Respiratory Rate 20 20 Blood Pressure Pulse Oximetry 92 Oxygen Delivery High Flow Therapy with Na Oxygen Flow Rate 40 Fraction of Inspired Oxygen 87 Intake/Output Intake/Output: Intake & Output 12/04/24 12/05/24 12/06/24 12/07/24 23:59 23:59 23:59 23:59 Intake Total 2661.5 2091.5 1200 350 Output Total 2150 1350 1150 800 Balance 511.5 741.5 50 -450 Meds/Results Medications: Active Medications Generic Name Dose Route Start Last Admin Trade Name Freq PRN Reason Stop Dose Admin Acetaminophen 650 mg 12/03/24 22:24 12/07/24 02:57 Acetaminophen 325 Mg Tablet PO 650 mg Q4H PRN Administration Mild Pain (1-3) or Fever Acetylcysteine 200 mg 12/04/24 08:00 12/07/24 09:23 Acetylcysteine 20% Inhal Soln 800 Mg/4 Ml Vial INHALATION 200 mg Q6HRT ATUL Administration Albuterol/Ipratropium 3 ml 12/04/24 04:34 12/06/24 07:55 Ipratropium 0.5 Mg/Albuterol Sulfate 2.5 Mg Ampul.Neb 3 Ml INHALATION 3 ml Q4H PRN Administration shortness of breath or wheezing Albuterol/Ipratropium 3 ml 12/06/24 14:00 12/07/24 09:23 Ipratropium 0.5 Mg/Albuterol Sulfate 2.5 Mg Ampul.Neb 3 Ml INHALATION 3 ml Q6HRT ATUL Administration Aspirin 81 mg 12/04/24 09:00 12/05/24 08:01 Aspirin 81 Mg Enteric Tablet PO 81 mg DAILY ATUL Administration Dronabinol 2.5 mg 12/07/24 10:15 Dronabinol (*Crx) 2.5 Mg Capsule PO BID ATUL Enoxaparin Sodium 30 mg 12/04/24 09:00 12/04/24 08:10 Enoxaparin 30 Mg/0.3 Ml Syringe SUB-Q 30 mg DAILY ATUL Administration Guaifenesin 1,200 mg 12/06/24 21:00 12/07/24 10:37 Guaifenesin 12 Hr 600 Mg Tabcr PO 1,200 mg Q12HR ATUL Administration Hydrocortisone Sodium Succinate 50 mg 12/06/24 18:00 12/07/24 06:18 Hydrocortisone Sodium Succinate 100 Mg/2 Ml Vial IV PUSH 12/07/24 23:59 50 mg Q12H ATUL Administration Cefepime HCl 2 gm in 50 mls @ 100 mls/hr 12/05/24 20:00 12/07/24 10:37 Maxipime 2 Gm/Ns 50 Ml IVPB 100 mls/hr Q12H ATUL Administration Metronidazole 500 mg in 100 mls @ 100 mls/hr 12/06/24 11:00 12/07/24 07:30 Flagyl 500 Mg/Iso Soln 100 Ml IVPB Infused Q8HR ATUL Infusion Vancomycin HCl 1,250 mg in 250 mls @ 166.667 mls/hr 12/07/24 01:00 12/07/24 04:21 Vancomycin 1,250 Mg/Ns 250 Ml IVPB Infused Q24H ATUL Infusion Levothyroxine Sodium 88 mcg 12/04/24 06:30 12/07/24 06:20 Levothyroxine Sodium 88 Mcg Tablet PO 88 mcg DAILY@0630 ATUL Administration Pantoprazole Sodium 40 mg 12/05/24 09:00 12/07/24 10:37 Pantoprazole Sodium Iv 40 Mg Vial IV PUSH 40 mg Q12HR ATUL Administration Sodium Chloride 10 ml 12/03/24 22:00 12/07/24 06:18 Central Line Flush IV PUSH 10 ml Q8HR ATUL Administration Sodium Chloride 20 ml 12/03/24 21:34 Central Line Flush IV PUSH PRN PRN after blood draws Sodium Chloride 20 ml 12/03/24 22:03 12/07/24 04:05 Central Line Flush IV PUSH 20 ml PRN PRN Administration after blood draws Radiology Results: ITS Impressions Chest CTA 12/03/24 21:39 IMPRESSION: 1. No pulmonary embolism. 2. Pneumonia in the right lower lobe. 3. Focal areas of pneumonia in the middle lobe, lingula and left lower lobe. 4. Nodule in the lingula and left lower lobe. Three-month CT follow-up advised. 5. 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 6. Cholelithiasis. Fat infiltration of the liver. Venous Doppler Study 12/04/24 14:12 IMPRESSION: 1: No lower extremity deep venous thrombosis. High Resolution CT 12/06/24 09:19 IMPRESSION: 1. Worsening multifocal pneumonia in the bilateral lower lobes, right upper lobe and to lesser degree at the lingula. 2. New small bilateral pleural effusions, right greater than left. Chest X-Ray 12/07/24 06:00 Impression: Moderate right pleural effusion and small left pleural effusion. Moderate bilateral pulmonary edema versus bilateral pneumonia, significant worsened in the left lung as compared to prior exam. Probable right lower lobe/right basilar atelectasis. Stable support line. Stable cardiomegaly. Labs Labs: Laboratory Results - last 24 hr 12/06/24 12/06/24 12/07/24 18:18 22:51 04:02 WBC 12.7 H RBC 3.12 L Hgb 9.8 L Hct 29.3 L MCV 93.9 MCH 31.4 MCHC 33.4 RDW 14.9 H Plt Count 166 MPV 9.8 Immature Gran % (Auto) 1.1 H Neut % (Auto) 86.9 H Lymph % (Auto) 5.0 L [place] % (Auto) 6.9 Eos % (Auto) 0.0 Baso % (Auto) 0.1 L Lymph # (Auto) 0.64 L [place] # (Auto) 0.9 H Eos # (Auto) 0.0 Baso # (Auto) 0.0 Abs Immat Gran (auto) 0.14 H Absolute Neuts (auto) 11.0 H Absolute Nucleated RBC 0.020 H Nucleated RBC % 0.2 Sodium 137 Potassium 3.1 L Chloride 109 H Carbon Dioxide 25 Anion Gap 3 L BUN 14 Creatinine 0.81 Estim Creat Clear Calc 34 Estimated GFR > 60 Glucose 109 Calcium 8.9 Phosphorus 1.7 L Magnesium 2.2 Total Bilirubin 1.2 AST 30 ALT 17 Alkaline Phosphatase 54 Lactate Dehydrogenase 190 NT-Pro-B Natriuret Pep 26468 H Total Protein 5.0 L Albumin 3.0 L Vancomycin Trough 11.9
--- NOTE | 2024-12-07 14:02 | P.PNIM_ITS ---
Progress Note: A&P Assessment and Plan (1) Septic shock: Code(s): A41.9 - Sepsis, unspecified organism; R65.21 - Severe sepsis with septic shock Status: Acute Assessment and Plan: From Pneumonia CTA Chest RLL pneumonia, RML, lingula and left lower lobe MRSA pending Cefepime, Doxycycline, Flagyl and Vanc Blood and Sputum cultue (2) Multifocal pneumonia: Code(s): J18.9 - Pneumonia, unspecified organism Status: Acute Assessment and Plan: Treatment as above -stress dose steroids have been added (3) Hypothyroidism: Code(s): E03.9 - Hypothyroidism, unspecified Status: Acute Assessment and Plan: Continue levothyroxine -TSH level within normal limits (4) Electrolyte imbalance: Code(s): E87.8 - Other disorders of electrolyte and fluid balance, not elsewhere classified Status: Acute Assessment and Plan: Hyponatremia, could be related to pneumonia continue to monitor (5) Anemia: Code(s): D64.9 - Anemia, unspecified Status: Acute Assessment and Plan: Patient dropped hemoglobin to 6.9 this morning -will send stool for Hemoccult -folic acid and B12 levels within normal limit -9 deficiency anemia -PPI increased to q.12 hours -hold aspirin and Lovenox -appreciate GI evaluation and recommendations. Continue to monitor hemoglobin and this could be multifactorial secondary to sepsis, some pressured blood cell production, hemodilution. GI to order labs for hemolytic workup Plan DVT prophylaxis: Hold Lovenox, continue SCDs. No chemoprophylaxis due to drop in hemoglobin and anemia Stress ulcer prophylaxis: Protonix IV q.12 hours Nutrition: Heart healthy diet Code Status: DNR/DNI Subjective Date/time seen: 12/07/24 14:02 Interval history: Comfortable at bedside complained of Left ear hearing loss Review of Systems Review of Systems: As reviewed above in HPI All systems reviewed & are unremarkable except as noted in HPI and below Exam Narrative: General: Pleasant elderly female in no acute distress HEENT:? Pupils equal and reactive cause care as clear, moist oral mucosa Neck:? Supple Respiratory:? Coarse breath sounds bilaterally, decreased at bases Rt > Lt, adequate air entry, Cardiac:? S1-S2 normal, regular rate and rhythm Abdomen:? Soft, nontender, nondistended, normoactive bowel sounds Extremities:? Bilateral lower extremity edema up to the knees, palpable pedal pulses Neuro:? Patient is awake, alert, oriented x3, nonfocal, able to answer questions and follows simple commands appropriately Skin:? No lesions no Psych:? Normal mentation and affect, hard of hearing Objective Data Vital Signs Vital Signs: Vital Signs - 24 hr 12/06/24 15:24 12/06/24 15:26 12/06/24 16:00 Temperature Pulse Rate 84 Respiratory Rate 19 Blood Pressure Pulse Oximetry 95 93 Oxygen Delivery High Flow Therapy with Na High Flow Therapy with Na Oxygen Flow Rate 30 30 Fraction of Inspired Oxygen 60 65 12/06/24 16:00 12/06/24 16:43 12/06/24 18:00 Temperature 98.0 F 98.0 F Pulse Rate 83 85 85 Respiratory Rate 20 20 Blood Pressure 105/54 L 105/54 L Pulse Oximetry 92 92 Oxygen Delivery Oxygen Flow Rate Fraction of Inspired Oxygen 12/06/24 18:00 12/06/24 20:00 12/06/24 20:00 Temperature Pulse Rate 73 78 71 Respiratory Rate 18 Blood Pressure 115/50 L Pulse Oximetry 97 Oxygen Delivery Oxygen Flow Rate Fraction of Inspired Oxygen 12/06/24 21:14 12/06/24 21:15 12/06/24 21:26 Temperature Pulse Rate 71 78 Respiratory Rate 20 18 Blood Pressure Pulse Oximetry 92 97 Oxygen Delivery High Flow Therapy with Na High Flow Therapy with Na Oxygen Flow Rate 40 40 Fraction of Inspired Oxygen 85 85 12/06/24 21:30 12/06/24 22:00 12/07/24 00:00 Temperature 97.8 F Pulse Rate 73 80 77 Respiratory Rate 20 18 Blood Pressure 107/47 L Pulse Oximetry 93 Oxygen Delivery Oxygen Flow Rate Fraction of Inspired Oxygen 12/07/24 00:00 12/07/24 00:32 12/07/24 02:00 Temperature Pulse Rate 85 77 86 Respiratory Rate 18 Blood Pressure Pulse Oximetry 93 Oxygen Delivery High Flow Therapy with Na Oxygen Flow Rate 40 Fraction of Inspired Oxygen 87 12/07/24 02:06 12/07/24 02:19 12/07/24 04:00 Temperature 97.5 F L Pulse Rate 86 79 64 Respiratory Rate 20 20 18 Blood Pressure 117/54 L Pulse Oximetry 93 Oxygen Delivery Oxygen Flow Rate Fraction of Inspired Oxygen 12/07/24 04:00 12/07/24 04:18 12/07/24 06:00 Temperature Pulse Rate 82 64 65 Respiratory Rate 18 Blood Pressure Pulse Oximetry 93 Oxygen Delivery High Flow Therapy with Na Oxygen Flow Rate 40 Fraction of Inspired Oxygen 87 12/07/24 08:00 12/07/24 09:23 12/07/24 09:23 Temperature 97.8 F Pulse Rate 112 H 64 Respiratory Rate 20 20 Blood Pressure 120/67 Pulse Oximetry 92 92 Oxygen Delivery High Flow Therapy with Na Oxygen Flow Rate 40 Fraction of Inspired Oxygen 87 12/07/24 09:35 12/07/24 12:00 12/07/24 13:33 Temperature 98.9 F Pulse Rate 67 147 H Respiratory Rate 20 20 Blood Pressure 127/60 Pulse Oximetry 90 89 L Oxygen Delivery High Flow Nasal Cannula Oxygen Flow Rate 10 Fraction of Inspired Oxygen 12/07/24 13:33 12/07/24 13:44 Temperature Pulse Rate 69 78 Respiratory Rate 20 20 Blood Pressure Pulse Oximetry Oxygen Delivery Oxygen Flow Rate Fraction of Inspired Oxygen Intake/Output Intake/Output: Intake & Output 12/04/24 12/05/24 12/06/24 12/07/24 23:59 23:59 23:59 23:59 Intake Total 2661.5 2091.5 1200 460 Output Total 2150 1350 1150 800 Balance 511.5 741.5 50 -340 Meds/Results Medications: Active Medications Generic Name Dose Route Start Last Admin Trade Name Freq PRN Reason Stop Dose Admin Acetaminophen 650 mg 12/03/24 22:24 12/07/24 02:57 Acetaminophen 325 Mg Tablet PO 650 mg Q4H PRN Administration Mild Pain (1-3) or Fever Acetylcysteine 200 mg 12/04/24 08:00 12/07/24 13:33 Acetylcysteine 20% Inhal Soln 800 Mg/4 Ml Vial INHALATION 200 mg Q6HRT ATUL Administration Albuterol/Ipratropium 3 ml 12/04/24 04:34 12/06/24 07:55 Ipratropium 0.5 Mg/Albuterol Sulfate 2.5 Mg Ampul.Neb 3 Ml INHALATION 3 ml Q4H PRN Administration shortness of breath or wheezing Albuterol/Ipratropium 3 ml 12/06/24 14:00 12/07/24 13:33 Ipratropium 0.5 Mg/Albuterol Sulfate 2.5 Mg Ampul.Neb 3 Ml INHALATION 3 ml Q6HRT ATUL Administration Aspirin 81 mg 12/04/24 09:00 12/05/24 08:01 Aspirin 81 Mg Enteric Tablet PO 81 mg DAILY ATUL Administration Dronabinol 2.5 mg 12/07/24 10:15 Dronabinol (*Crx) 2.5 Mg Capsule PO BID COUNTS INCLUDE 234 BEDS AT [facility] Enoxaparin Sodium 30 mg 12/04/24 09:00 12/04/24 08:10 Enoxaparin 30 Mg/0.3 Ml Syringe SUB-Q 30 mg DAILY ATUL Administration Guaifenesin 1,200 mg 12/06/24 21:00 12/07/24 10:37 Guaifenesin 12 Hr 600 Mg Tabcr PO 1,200 mg Q12HR ATUL Administration Hydrocortisone Sodium Succinate 50 mg 12/06/24 18:00 12/07/24 06:18 Hydrocortisone Sodium Succinate 100 Mg/2 Ml Vial IV PUSH 12/07/24 23:59 50 mg Q12H ATUL Administration Cefepime HCl 2 gm in 50 mls @ 100 mls/hr 12/05/24 20:00 12/07/24 11:07 Maxipime 2 Gm/Ns 50 Ml IVPB Infused Q12H ATUL Infusion Metronidazole 500 mg in 100 mls @ 100 mls/hr 12/06/24 11:00 12/07/24 07:30 Flagyl 500 Mg/Iso Soln 100 Ml IVPB Infused Q8HR ATUL Infusion Vancomycin HCl 1,250 mg in 250 mls @ 166.667 mls/hr 12/07/24 01:00 12/07/24 04:21 Vancomycin 1,250 Mg/Ns 250 Ml IVPB Infused Q24H ATUL Infusion Levothyroxine Sodium 88 mcg 12/04/24 06:30 12/07/24 06:20 Levothyroxine Sodium 88 Mcg Tablet PO 88 mcg DAILY@0630 ATUL Administration Pantoprazole Sodium 40 mg 12/05/24 09:00 12/07/24 10:37 Pantoprazole Sodium Iv 40 Mg Vial IV PUSH 40 mg Q12HR ATUL Administration Sodium Chloride 10 ml 12/03/24 22:00 12/07/24 06:18 Central Line Flush IV PUSH 10 ml Q8HR ATUL Administration Sodium Chloride 20 ml 12/03/24 21:34 Central Line Flush IV PUSH PRN PRN after blood draws Sodium Chloride 20 ml 12/03/24 22:03 12/07/24 04:05 Central Line Flush IV PUSH 20 ml PRN PRN Administration after blood draws Radiology Results: ITS Impressions Chest CTA 12/03/24 21:39 IMPRESSION: 1. No pulmonary embolism. 2. Pneumonia in the right lower lobe. 3. Focal areas of pneumonia in the middle lobe, lingula and left lower lobe. 4. Nodule in the lingula and left lower lobe. Three-month CT follow-up advised. 5. 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 6. Cholelithiasis. Fat infiltration of the liver. Venous Doppler Study 12/04/24 14:12 IMPRESSION: 1: No lower extremity deep venous thrombosis. High Resolution CT 12/06/24 09:19 IMPRESSION: 1. Worsening multifocal pneumonia in the bilateral lower lobes, right upper lobe and to lesser degree at the lingula. 2. New small bilateral pleural effusions, right greater than left. Chest X-Ray 12/07/24 06:00 Impression: Moderate right pleural effusion and small left pleural effusion. Moderate bilateral pulmonary edema versus bilateral pneumonia, significant worsened in the left lung as compared to prior exam. Probable right lower lobe/right basilar atelectasis. Stable support line. Stable cardiomegaly. Labs Labs: Laboratory Results - last 24 hr 12/06/24 12/06/24 12/07/24 18:18 22:51 04:02 WBC 12.7 H RBC 3.12 L Hgb 9.8 L Hct 29.3 L MCV 93.9 MCH 31.4 MCHC 33.4 RDW 14.9 H Plt Count 166 MPV 9.8 Immature Gran % (Auto) 1.1 H Neut % (Auto) 86.9 H Lymph % (Auto) 5.0 L [place] % (Auto) 6.9 Eos % (Auto) 0.0 Baso % (Auto) 0.1 L Lymph # (Auto) 0.64 L [place] # (Auto) 0.9 H Eos # (Auto) 0.0 Baso # (Auto) 0.0 Abs Immat Gran (auto) 0.14 H Absolute Neuts (auto) 11.0 H Absolute Nucleated RBC 0.020 H Nucleated RBC % 0.2 Sodium 137 Potassium 3.1 L Chloride 109 H Carbon Dioxide 25 Anion Gap 3 L BUN 14 Creatinine 0.81 Estim Creat Clear Calc 34 Estimated GFR > 60 Glucose 109 Calcium 8.9 Phosphorus 1.7 L Magnesium 2.2 Total Bilirubin 1.2 AST 30 ALT 17 Alkaline Phosphatase 54 Lactate Dehydrogenase 190 NT-Pro-B Natriuret Pep 32314 H Total Protein 5.0 L Albumin 3.0 L Vancomycin Trough 11.9 Quality VTE Prophylaxis VTE prophylaxis: pharmacologic ordered
--- NOTE | 2024-12-07 14:39 | PCPTNOTE ---
pt refused PT evaluation 2x this afternoon. Stated she was too tired, been busy today, afraid she would fall.
--- NOTE | 2024-12-07 14:41 | PCOTNOTE ---
Attempted OT evaluation 1435. Pt refused due to being too tired and scared of falling.
[2024-12-07] MEDS: DOXYCYCLINE 100 MG/NS 100 ML 100 MG/100 ML BAG IVPB ×2 (15:02→20:21)
[2024-12-07] MEDS: FLUTICASONE PROPIONATE 0.05% NA SPR 16 GM BTL (*BKC) 2 SPRAY NASAL (18:36)
[2024-12-08] VITALS (27 sets, daily range): BP systolic 114–146; BP diastolic 54–97; PULSE 61–118; RESP 14–20; TEMP 36.5–37; O2SAT 91–98
[2024-12-08] MEDS: VANCOMYCIN 1,250 MG/NS 250 ML 1,250 MG/250 ML BAG 166.67 MG IVPB (00:05)
[2024-12-08] MEDS: ACETAMINOPHEN 325 MG TABLET 650 MG PO ×2 (00:11→05:55)
[2024-12-08] MEDS: ACETYLCYSTEINE 20% INHAL SOLN 800 MG/4 ML VIAL 200 MG INHALATION ×4 (02:15→20:24)
[2024-12-08] MEDS: IPRATROPIUM 0.5 MG/ALBUTEROL SULFATE 2.5 MG AMPUL.NEB 3 ML INHALATION ×3 (02:16→14:56)
[2024-12-08] MEDS: LEVOTHYROXINE SODIUM 88 MCG TABLET PO (05:44)
[2024-12-08] MEDS: CENTRAL LINE FLUSH 10 ML IV PUSH ×2 (05:45→13:44)
[2024-12-08] MEDS: metroNIDAZOLE 500 MG/ISO 100ML 500 MG/100 ML BAG 100 MG IVPB ×3 (05:46→21:08)
[2024-12-08 06:02] LABS: Basophils Percent Auto 0.1 % (0.2-1.2); Eosinophils Percent Auto 0.1 % (0-4.4); Hematocrit 31.8 % (37.0-47.0); Hemoglobin 10.4 g/dL (12.0-15.0); Immature Granulocyte Absolute 0.17 K/mm3 (0.00-0.031); Immature Granulocyte Percent A 1.4 % (0-0.5); Lymphocytes Percent Auto 6.6 % (18.3-44.2); Mean Corpuscular HGB Conc 32.7 g/dl (32-36); Mean Corpuscular Hemoglobin 31.9 pg (26-34); Mean Corpuscular Volume 97.5 fl (80-100); Mean Platelet Volume 10.6 fl (7.4-10.4); Monocytes Absolute Auto 0.8 K/mm3 (0.1-0.6); Monocytes Percent Auto 6.5 % (2.6-8.5); Neutrophils Absolute Auto 10.3 K/mm3 (1.3-6.7); Neutrophils Percent Auto 85.3 % (45.5-73.1); Nucleated Red Blood Cells Perc 0.2 % (0.0-0.2); Platelet Count Result 169 k/mm3 (150-375); Red Blood Count 3.26 M/mm3 (4.2-5.4); Red Cell Distribution Width 14.9 % (11.5-14.5); White Blood Count 12.1 K/mm3 (4.5-10.0)
[2024-12-08 06:27] LABS: Alanine Aminotransferase 17 U/L (6-35); Albumin Level 2.9 g/dL (3.5-5.1); Alkaline Phosphatase 56 U/L (38-126); Anion Gap 6 mmol/L (4-12); Aspartate Amino Transferase 24 U/L (14-36); Bilirubin,Total 1.1 mg/dL (0.2-1.3); Blood Urea Nitrogen 14 mg/dL (7-17); Calcium 8.7 mg/dL (8.4-10.2); Carbon Dioxide 23 mmol/L (22-30); Chloride 107 mmol/L (98-107); Estimated CRCL calculation 39 ml/min; Estimated Glomerular Filt Rate > 60; Glucose 91 mg/dL (65-110); Magnesium 1.7 mg/dL (1.6-2.3); Phosphorus 1.8 mg/dL (2.5-4.5); Potassium 2.5 mmol/L (3.4-5.0); Sodium 136 mmol/L (137-145)
[2024-12-08] MEDS: MAGNESIUM SULF 1 GM/D5W 100 ML 1 GM/100 ML BAG IVPB (06:56)
[2024-12-08] MEDS: PANTOPRAZOLE SODIUM IV 40 MG VIAL IV PUSH ×2 (08:22→21:18)
[2024-12-08] MEDS: guaiFENesin 12 HR 600 MG TABCR 1200 MG PO ×2 (08:22→21:18)
[2024-12-08] MEDS: droNABinol (*CRX) 2.5 MG CAPSULE PO ×2 (08:22→16:41)
[2024-12-08] MEDS: FLUTICASONE PROPIONATE 0.05% NA SPR 16 GM BTL (*BKC) 2 SPRAY NASAL (08:23)
[2024-12-08] MEDS: KCL 20 MEQ/SW 100 ML 100 ML 60 MEQ IVPB (08:23)
[2024-12-08] MEDS: DOXYCYCLINE 100 MG/NS 100 ML 100 MG/100 ML BAG IVPB ×2 (08:24→21:08)
[2024-12-08] MEDS: CEFEPIME 2 GM/NS 50 ML 2 GM/50 ML BAG IVPB ×2 (08:24→20:51)
[2024-12-08] MEDS: FUROSEMIDE INJ 40 MG/4 ML VIAL 20 MG IV PUSH ×2 (10:14→17:38)
--- NOTE | 2024-12-08 11:51 | PM.PNPUL ---
Progress Note: A&P Assessment and Plan (1) Multifocal pneumonia: Code(s): J18.9 - Pneumonia, unspecified organism Status: Acute Assessment and Plan: Patient with recent admission to ICU at outside hospital and now admitted with multifocal pneumonia, septic shock and hypoxemic respiratory failure. ABG on 12/03/2024 7. on [address] scan of the chest on 12/06/2024 shows multifocal pneumonia right upper lobe, right middle lobe, right lower lobe, left lower lobe with right greater than left pleural effusion with fluid in the fissure. Patient has clinically responded to vancomycin, cefepime started 12/03, both day 4 and Flagyl started 12/06 and is currently off pressors on his stress dose steroids.. Plan: Will continue vancomycin and cefepime both day 4. Continue Flagyl, day 1. Patient is on guaifenesin 600 mg p.o. q.12 hours and will change 1200 mg p.o. q.12. Patient is on Mucomyst 200 mg q.6 hours. Her cough is improved and not bothered some at this time and I will discontinue the Tessalon Perles so as not to suppress her cough as I am wanting her to cough and expectorate. I will send a respiratory pathogen panel, urine for Legionella, urine for pneumococcal and mycoplasma IgM titer. 12/07/2024: Patient transferred out of the ICU. Overall patient tells me she is breathing better. She has a small amount of phlegm with no hemoptysis. She is afebrile. White blood cell count 12.7, creatinine 0.81. When I enter the room she was on Airvo 40 L and 87% FiO2 with saturations 92%. I changed her to high-flow nasal cannula at 15 L and then decreased her to 12 L and her saturations were 91%. She felt stable on the high-flow nasal cannula. Yesterday the patient is 50 mL positive. Cumulative she has +2.8 L since admission. Her weight today is 64.7. BNP has increased [place] 1220 [place] 12/03/2024 [place] [address] today. Chest x-ray shows right greater than left effusions, bibasilar interstitial alveolar infiltrates with worsening on the left. Plan: overall the patient is improved. Her stress dose steroids will finish later tonight. Oxygenation has improved. Continue vancomycin and cefepime both day 5, of Flagyl day 2. Continue DuoNebs q.6,guaifenesin 1200 p.o. q.12 hours, Mucomyst 200 q.6 nebs, flutter valve as tolerated to help her expectorate. Respiratory pathogen panel, urine for Legionella, urine for pneumococcal and mycoplasma IgM titer pending. Attempt out of bed to chair. 12/08/2024: The patient tells me she feels better than yesterday. Her phlegm is clear with minimal production. She says she has no cough. She is afebrile. White blood cell count 12.1, creatinine 0.69. When I enter the room the patient was on 12 L nasal cannula saturations 94%. I decreased her to 8 L and her saturations were 91%. Currently a on 10 L nasal cannula saturation 94%. Chest x-ray shows right lower lobe consolidation with bilateral effusions, unchanged bilateral infiltrates. Plan: overall the patient is slowly improving. Now off stress dose steroids. Oxygenation has improved. Discontinue vancomycin 12/03/24 through 12/08, continue cefepime day 6, Flagyl day 3, and doxycycline day 2. Continue DuoNebs q.6, guaifenesin 1200 p.o. q.12 hours, Mucomyst 200 q.6 nebs, flutter valve as tolerated to help her expectorate. Respiratory pathogen panel, urine for Legionella, urine for pneumococcal and mycoplasma IgM titer pending. Attempt out of bed to chair. Discussed with Dr. Nova, will follow with you (2) COPD (chronic obstructive pulmonary disease): Code(s): J44.9 - Chronic obstructive pulmonary disease, unspecified Status: Acute Assessment and Plan: Patient tells me she smoked from age 31 to 65 at 1 pack per day for total of 34 pack years. She told me she had PFTs and they told her she had COPD and is maintained on Advair and Incruse at home. CT scan 12/06/2024 with mild apical predominant centrilobular emphysema. Plan: Currently she has no wheezing. I will discontinue her inhaled corticosteroids and place her on DuoNebs q.6 hours. Goal saturation 90-94%. 12/07/24: no wheezing. Plan: Continue DuoNebs q.6. Goal saturation 90-94%. 12/08/24: no wheezing. Continue DuoNebs q.6 hours. (3) Hypoxic respiratory failure: Code(s): J96.91 - Respiratory failure, unspecified with hypoxia Status: Acute Assessment and Plan: Patient with multifocal pneumonia, small right greater than left bilateral pleural effusions, history of COPD. ABG on 12/03/2024 7. on 5 L nasal cannula. patient is DNR. Patient was started on Airvo on 12/04 at 12 noon 35 L and 60% FiO2. 12/04 20:00 Airvo 35 L and 60% FIO2, sats 94% 12/05 08:00 Airvo 35 L and 70% FIO2, sats 94% 12/05 20:00 Airvo 35 L and 70% FIO2, sats 92% 12/06 08:00 Airvo 30 L and 60% FIO2, sats 95% 12/06 21:00 Airvo 40 L and 85% FIO2, sats 97% 12/07 09:00 Airvo 40 L and 87% FIO2, sats 92%, I changed her to 12 L nasal cannula with saturations 91%. 12/07 20:00 7 L NC, sats 90% 12/08 08:00 15 L nasal cannula saturation 95%., I decreased her to 8 L kit nasal cannula and later in the day increased to 10 L nasal cannula saturation 94%. Plan: Goal saturation 90-94%. Adjust oxygen accordingly. Subjective Date/time seen: 12/08/24 11:51 Interval history: 12/06/24: This is a new pulmonary consult for pneumonia. 89-year-old with a history of hypertension, hypothyroidism, GERD, COPD. Patient was at a rehab center after being and admitted to an outside hospital for pneumonia. On 12/02 2024 chest x-ray was obtained and the patient was started on azithromycin and Augmentin. She developed worsening shortness of breath, hypoxia and decreased blood pressure and in the emergency room her blood pressure was 83/57, heart rate 78, respirations 24 and saturations per EMS were 83% on room air and increased to 97% on 4 L. her white blood cell count was 11.4, creatinine was 1.11, BNP was 1220, CRP was 13.1, COVID, influenza, RSV RT PCR assay negative. Chest x-ray showed bibasilar infiltrates. Patient was hypotensive and given 2 L of lactated Ringer's and then started on Levophed. Patient was initially treated with vancomycin and cefepime. On 12/04/2024 the patient required vasopressin and stress dose steroids were added. On 12/05 she was on low doses of Levophed. 12/06/2024: The patient tells me she feels good, her cough is loosened up and does not strangle her anymore. Her phlegm remains clear. Her cough is improved. She is on high-flow nasal cannula 30 L and 65% FiO2 with saturations 93%. White blood cell count is 9.0, creatinine is 0.88. CT scan of the chest showed multilobar pneumonia in the right upper lobe, right middle lobe, right lower lobe and left lower lobe. Right greater than left pleural effusion with fluid in the minor fissure on the right. 12/07/2024: Patient transferred out of the ICU. Overall patient tells me she is breathing better. She has a small amount of phlegm with no hemoptysis. She is afebrile. White blood cell count 12.7, creatinine 0.81. When I enter the room she was on Airvo 40 L and 87% FiO2 with saturations 92%. I changed her to high-flow nasal cannula at 15 L and then decreased her to 12 L and her saturations were 91%. She felt stable on the high-flow nasal cannula. Yesterday the patient is 50 mL positive. Cumulative she has +2.8 L since admission. Her weight today is 64.7. BNP has increased [place] 1220 [place] 12/03/2024 to [address] today. Chest x-ray shows right greater than left effusions, bibasilar interstitial alveolar infiltrates with worsening on the left. One year ago the family was going to purchase hearing aids for the patient. Four days prior to admission at her living facility there is an acute decrease in her hearing. Currently she remains very hard of hearing. ENT consult. 12/08/2024: The patient tells me she feels better than yesterday. Her phlegm is clear with minimal production. She says she has no cough. She is afebrile. White blood cell count 12.1, creatinine 0.69. When I enter the room the patient was on 12 L nasal cannula saturations 94%. I decreased her to 8 L and her saturations were 91%. Chest x-ray shows right lower lobe consolidation with bilateral effusions, unchanged bilateral infiltrates. DATA: EXAMINATION: CT chest high resolution wo co DATE: 12/06/2024 09:19 INDICATION: right hemithorax opacification TECHNIQUE: Computed tomography (CT) of the chest was performed without intravenous contrast. Additional 3D reconstructions utilizing coronal maximum intensity projection (MIP) were performed. Automated exposure control and iterative reconstruction technique were employed. The dose-length product was 276.48 mGy-cm. COMPARISON: Chest CT dated 12/03/2024 FINDINGS: New small bilateral pleural effusions, right greater than left. There is improved aeration of the previously collapsed right lower lobe. There are however prominent patchy airspace opacities in the right lower lobe as well as in the right upper lobe, left lower lobe and to lesser degree in the lingula consistent with pneumonia. Tracheobronchial malacia with prominent AP narrowing of the trachea and mainstem bronchi. Heart size is normal. Atherosclerotic coronary artery calcific lesion. No pericardial effusion. Thoracic aorta is normal in caliber. No pathologically enlarged thoracic lymphadenopathy. Calcified gallstones in the none dilated gallbladder. Likely age-related mild bilateral renal atrophy. Mild S-shaped curvature of the thoracic spine with moderate spondylosis. IMPRESSION: 1. Worsening multifocal pneumonia in the bilateral lower lobes, right upper lobe and to lesser degree at the lingula. 2. New small bilateral pleural effusions, right greater than left. Review of Systems Constitutional: Constitutional: Reports no additional constitutional complaints Eyes: Eyes: Reports no additional eye complaints ENT: Reports system reviewed and no additional complaints, except as documented Cardiovascular: Cardiovascular: Reports no additional cardiovascular complaints Respiratory: Respiratory: Reports no additional respiratory complaints Gastrointestinal: Gastrointestinal: Reports no additional gastrointestinal complaints Musculoskeletal: Musculoskeletal: Reports no additional musculoskeletal complaints Neurologic: Reports system reviewed and no additional complaints, except as documented Psychiatric: Psychiatric: Reports no additional psychiatric complaints Endocrine: Endocrine: Reports no additional endocrine complaints Hematologic/Lymphatic: Hematologic/Lymphatic: Reports no additional hematologic/lymphatic complaints Allergic/Immunologic: Allergic/Immunologic: Reports no additional allergic/immunologic complaints Exam Const: General: cooperative, healthy appearing and comfortable Orientation/consciousness: oriented to person, oriented to place and oriented to time HENMT: Head: normal to inspection Ears: hearing grossly normal bilaterally Eyes: General: appearance normal, both eyes and all related structures Neck: Neck: normal visual inspection Chest: Chest palpation & inspection: normal inspection of the chest Resp: Effort & Inspection: normal respiratory effort and able to speak in complete sentences Auscultation: no crackles, no rales, no rhonchi, no wheezes and lung sounds not diminished Other: Patient on high-flow nasal cannula 12 L. decreased breath sounds at the bases with few crackles. No wheezes. Cardio: Jugular venous distension: no JVD GI: Inspection: normal to inspection Skin: General skin exam: normal color Neuro: General: oriented to person, oriented to place and oriented to time Extrem: General: normal to inspection Psych: Appearance: grossly normal Objective Data Vital Signs Vital Signs: Vital Signs - 24 hr 12/07/24 12:00 12/07/24 12:00 12/07/24 12:00 Temperature 37.2 C Pulse Rate 147 H 92 Respiratory Rate 20 Blood Pressure 127/60 Pulse Oximetry 90 91 Oxygen Delivery High Flow Nasal Cannula Oxygen Flow Rate 8 Fraction of Inspired Oxygen 12/07/24 13:33 12/07/24 13:33 12/07/24 13:44 Temperature Pulse Rate 69 78 Respiratory Rate 20 20 Blood Pressure Pulse Oximetry 89 L Oxygen Delivery High Flow Nasal Cannula Oxygen Flow Rate 10 Fraction of Inspired Oxygen 12/07/24 14:00 12/07/24 14:46 12/07/24 16:00 Temperature 36.4 C 36.7 C Pulse Rate 65 87 56 L Respiratory Rate 14 14 Blood Pressure 130/85 126/61 Pulse Oximetry 99 90 Oxygen Delivery Oxygen Flow Rate Fraction of Inspired Oxygen 12/07/24 16:00 12/07/24 16:00 12/07/24 16:19 Temperature Pulse Rate 78 Respiratory Rate Blood Pressure Pulse Oximetry 92 90 Oxygen Delivery High Flow Nasal Cannula High Flow Nasal Cannula Oxygen Flow Rate 7 6 Fraction of Inspired Oxygen 44 12/07/24 18:00 12/07/24 20:00 12/07/24 20:00 Temperature 36.7 C Pulse Rate 88 80 Respiratory Rate 14 Blood Pressure 128/54 L Pulse Oximetry 90 90 Oxygen Delivery High Flow Nasal Cannula Oxygen Flow Rate 7 Fraction of Inspired Oxygen 12/07/24 20:00 12/07/24 20:19 12/07/24 20:31 Temperature Pulse Rate 69 67 66 Respiratory Rate 20 20 Blood Pressure Pulse Oximetry Oxygen Delivery Oxygen Flow Rate Fraction of Inspired Oxygen 12/07/24 22:00 12/08/24 00:00 12/08/24 00:00 Temperature 36.6 C Pulse Rate 83 72 Respiratory Rate 14 Blood Pressure 126/54 L Pulse Oximetry 91 91 Oxygen Delivery High Flow Nasal Cannula Oxygen Flow Rate 7 Fraction of Inspired Oxygen 12/08/24 00:00 12/08/24 02:00 12/08/24 02:16 Temperature Pulse Rate 88 79 69 Respiratory Rate 20 Blood Pressure Pulse Oximetry Oxygen Delivery Oxygen Flow Rate Fraction of Inspired Oxygen 12/08/24 02:25 12/08/24 04:00 12/08/24 04:00 Temperature Pulse Rate 72 61 Respiratory Rate 20 Blood Pressure Pulse Oximetry 91 Oxygen Delivery High Flow Nasal Cannula Oxygen Flow Rate 7 Fraction of Inspired Oxygen 12/08/24 04:00 12/08/24 06:00 12/08/24 08:00 Temperature 37.0 C 36.6 C Pulse Rate 77 97 88 Respiratory Rate 14 18 Blood Pressure 137/71 146/71 H Pulse Oximetry 98 Oxygen Delivery Oxygen Flow Rate Fraction of Inspired Oxygen 12/08/24 08:00 12/08/24 08:00 12/08/24 08:05 Temperature Pulse Rate 99 Respiratory Rate Blood Pressure Pulse Oximetry 93 95 Oxygen Delivery High Flow Therapy with Na High Flow Nasal Cannula Oxygen Flow Rate 15 15 Fraction of Inspired Oxygen 12/08/24 08:05 12/08/24 08:15 12/08/24 10:00 Temperature Pulse Rate 79 83 110 H Respiratory Rate 20 20 Blood Pressure Pulse Oximetry Oxygen Delivery Oxygen Flow Rate Fraction of Inspired Oxygen 12/08/24 10:26 12/08/24 11:21 12/08/24 11:47 Temperature 36.6 C Pulse Rate 87 Respiratory Rate 18 Blood Pressure 130/69 Pulse Oximetry 93 94 Oxygen Delivery High Flow Therapy with Na High Flow Therapy with Na Oxygen Flow Rate 10 10 Fraction of Inspired Oxygen Intake/Output Intake/Output: Intake & Output 12/05/24 12/06/24 12/07/24 12/08/24 23:59 23:59 23:59 23:59 Intake Total 2091.5 1200 1030 720 Output Total 1350 1150 800 600 Balance 741.5 50 230 120 Meds/Results Medications: Active Medications Generic Name Dose Route Start Last Admin Trade Name Freq PRN Reason Stop Dose Admin Acetaminophen 650 mg 12/03/24 22:24 12/08/24 05:55 Acetaminophen 325 Mg Tablet PO 650 mg Q4H PRN Administration Mild Pain (1-3) or Fever Acetylcysteine 200 mg 12/04/24 08:00 12/08/24 08:04 Acetylcysteine 20% Inhal Soln 800 Mg/4 Ml Vial INHALATION 200 mg Q6HRT ATUL Administration Albuterol/Ipratropium 3 ml 12/04/24 04:34 12/06/24 07:55 Ipratropium 0.5 Mg/Albuterol Sulfate 2.5 Mg Ampul.Neb 3 Ml INHALATION 3 ml Q4H PRN Administration shortness of breath or wheezing Albuterol/Ipratropium 3 ml 12/06/24 14:00 12/08/24 08:04 Ipratropium 0.5 Mg/Albuterol Sulfate 2.5 Mg Ampul.Neb 3 Ml INHALATION 3 ml Q6HRT ATUL Administration Aspirin 81 mg 12/04/24 09:00 12/05/24 08:01 Aspirin 81 Mg Enteric Tablet PO 81 mg DAILY ATUL Administration Dronabinol 2.5 mg 12/07/24 10:15 12/08/24 08:22 Dronabinol (*Crx) 2.5 Mg Capsule PO 2.5 mg BID ATUL Administration Enoxaparin Sodium 30 mg 12/04/24 09:00 12/04/24 08:10 Enoxaparin 30 Mg/0.3 Ml Syringe SUB-Q 30 mg DAILY ATUL Administration Fluticasone Propionate 2 spray 12/07/24 09:00 12/08/24 08:23 Fluticasone Propionate 0.05% Na Spr 16 Gm Btl (*Bkc) NASAL 2 spray QAM ATUL Administration Furosemide 20 mg 12/08/24 09:00 12/08/24 10:14 Furosemide Inj 40 Mg/4 Ml Vial IV PUSH 20 mg BID ATUL Administration Guaifenesin 1,200 mg 12/06/24 21:00 12/08/24 08:22 Guaifenesin 12 Hr 600 Mg Tabcr PO 1,200 mg Q12HR ATUL Administration Cefepime HCl 2 gm in 50 mls @ 100 mls/hr 12/05/24 20:00 12/08/24 08:24 Maxipime 2 Gm/Ns 50 Ml IVPB 100 mls/hr Q12H ATUL Administration Metronidazole 500 mg in 100 mls @ 100 mls/hr 12/06/24 11:00 12/08/24 06:46 Flagyl 500 Mg/Iso Soln 100 Ml IVPB Infused Q8HR ATUL Infusion Doxycycline Hyclate 100 mg in 100 mls @ 100 mls/hr 12/07/24 14:30 12/08/24 08:24 Vibramycin 100 Mg/Ns 100 Ml IVPB 100 mls/hr Q12HR ATUL Administration Levothyroxine Sodium 88 mcg 12/04/24 06:30 12/08/24 05:44 Levothyroxine Sodium 88 Mcg Tablet PO 88 mcg DAILY@0630 ATUL Administration Pantoprazole Sodium 40 mg 12/05/24 09:00 12/08/24 08:22 Pantoprazole Sodium Iv 40 Mg Vial IV PUSH 40 mg Q12HR ATUL Administration Sodium Chloride 10 ml 12/03/24 22:00 12/08/24 05:45 Central Line Flush IV PUSH 10 ml Q8HR ATUL Administration Sodium Chloride 20 ml 12/03/24 21:34 Central Line Flush IV PUSH PRN PRN after blood draws Sodium Chloride 20 ml 12/03/24 22:03 12/07/24 04:05 Central Line Flush IV PUSH 20 ml PRN PRN Administration after blood draws Radiology Results: ITS Impressions Chest CTA 12/03/24 21:39 IMPRESSION: 1. No pulmonary embolism. 2. Pneumonia in the right lower lobe. 3. Focal areas of pneumonia in the middle lobe, lingula and left lower lobe. 4. Nodule in the lingula and left lower lobe. Three-month CT follow-up advised. 5. 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 6. Cholelithiasis. Fat infiltration of the liver. Venous Doppler Study 12/04/24 14:12 IMPRESSION: 1: No lower extremity deep venous thrombosis. High Resolution CT 12/06/24 09:19 IMPRESSION: 1. Worsening multifocal pneumonia in the bilateral lower lobes, right upper lobe and to lesser degree at the lingula. 2. New small bilateral pleural effusions, right greater than left. Chest X-Ray 12/08/24 08:48 IMPRESSION: Large right-sided pleural effusion. Small left-sided pleural effusion Left mid to lower lung field infiltrate, largely unchanged from prior. Labs Labs: Laboratory Results - last 24 hr 12/08/24 05:52 WBC 12.1 H RBC 3.26 L Hgb 10.4 L Hct 31.8 L MCV 97.5 MCH 31.9 MCHC 32.7 RDW 14.9 H Plt Count 169 MPV 10.6 H Immature Gran % (Auto) 1.4 H Neut % (Auto) 85.3 H Lymph % (Auto) 6.6 L [place] % (Auto) 6.5 Eos % (Auto) 0.1 Baso % (Auto) 0.1 L Lymph # (Auto) 0.80 L [place] # (Auto) 0.8 H Eos # (Auto) 0.0 Baso # (Auto) 0.0 Abs Immat Gran (auto) 0.17 H Absolute Neuts (auto) 10.3 H Absolute Nucleated RBC 0.020 H Nucleated RBC % 0.2 Sodium 136 L Potassium 2.5 L* Chloride 107 Carbon Dioxide 23 Anion Gap 6 BUN 14 Creatinine 0.69 L Estim Creat Clear Calc 39 Estimated GFR > 60 Glucose 91 Calcium 8.7 Phosphorus 1.8 L Magnesium 1.7 Total Bilirubin 1.1 AST 24 ALT 17 Alkaline Phosphatase 56 Total Protein 5.0 L Albumin 2.9 L
--- NOTE | 2024-12-08 14:12 | P.PNIM_ITS ---
Progress Note: A&P Assessment and Plan (1) Septic shock: Code(s): A41.9 - Sepsis, unspecified organism; R65.21 - Severe sepsis with septic shock Status: Acute Assessment and Plan: From Pneumonia CTA Chest RLL pneumonia, RML, lingula and left lower lobe MRSA Negative Cefepime, Doxycycline, Flagyl Stopped Vanc Blood and Sputum cultue (2) Multifocal pneumonia: Code(s): J18.9 - Pneumonia, unspecified organism Status: Acute Assessment and Plan: Treatment as above (3) Hypothyroidism: Code(s): E03.9 - Hypothyroidism, unspecified Status: Acute Assessment and Plan: Continue levothyroxine -TSH level within normal limits (4) Electrolyte imbalance: Code(s): E87.8 - Other disorders of electrolyte and fluid balance, not elsewhere classified Status: Acute Assessment and Plan: Hyponatremia, could be related to pneumonia continue to monitor (5) Anemia: Code(s): D64.9 - Anemia, unspecified Status: Acute Assessment and Plan: Patient dropped hemoglobin to 6.9 this morning -will send stool for Hemoccult -folic acid and B12 levels within normal limit -9 deficiency anemia -PPI increased to q.12 hours -hold aspirin and Lovenox -appreciate GI evaluation and recommendations. Continue to monitor hemoglobin and this could be multifactorial secondary to sepsis, some pressured blood cell production, hemodilution. Plan Acute hypoxemic respiratory failure From Pneumonia and CHF Conitnue abx as above on lasix 20mg bid titrate oxygen CHF exacerbation ECHO showed Grade Diastolic Bilateral pleural effusion likleyf rom CHF contineu gentle rehydration and monitor Code Status: DNR/DNI DVT prophylaxis: Hold Lovenox, continue SCDs. No chemoprophylaxis due to drop in hemoglobin and anemia Stress ulcer prophylaxis: Protonix IV q.12 hours Nutrition: Heart healthy diet PT/OT for discharge recs Subjective Date/time seen: 12/08/24 14:12 Interval history: COmfortable at bedside oxygenation improving Review of Systems Review of Systems: As reviewed above in HPI All systems reviewed & are unremarkable except as noted in HPI and below Exam Narrative: General: Pleasant elderly female in no acute distress HEENT:? Pupils equal and reactive cause care as clear, moist oral mucosa Neck:? Supple Respiratory:? Coarse breath sounds bilaterally, decreased at bases Rt > Lt, adequate air entry, Cardiac:? S1-S2 normal, regular rate and rhythm Abdomen:? Soft, nontender, nondistended, normoactive bowel sounds Extremities:? Bilateral lower extremity edema up to the knees, palpable pedal pulses Neuro:? Patient is awake, alert, oriented x3, nonfocal, able to answer questions and follows simple commands appropriately Skin:? No lesions no Psych:? Normal mentation and affect, hard of hearing Objective Data Vital Signs Vital Signs: Vital Signs - 24 hr 12/07/24 14:46 12/07/24 16:00 12/07/24 16:00 Temperature 97.6 F 98.0 F Pulse Rate 87 56 L Respiratory Rate 14 14 Blood Pressure 130/85 126/61 Pulse Oximetry 99 90 92 Oxygen Delivery High Flow Nasal Cannula Oxygen Flow Rate 7 Fraction of Inspired Oxygen 12/07/24 16:00 12/07/24 16:19 12/07/24 18:00 Temperature Pulse Rate 78 88 Respiratory Rate Blood Pressure Pulse Oximetry 90 Oxygen Delivery High Flow Nasal Cannula Oxygen Flow Rate 6 Fraction of Inspired Oxygen 44 12/07/24 20:00 12/07/24 20:00 12/07/24 20:00 Temperature 98.0 F Pulse Rate 80 69 Respiratory Rate 14 Blood Pressure 128/54 L Pulse Oximetry 90 90 Oxygen Delivery High Flow Nasal Cannula Oxygen Flow Rate 7 Fraction of Inspired Oxygen 12/07/24 20:19 12/07/24 20:31 12/07/24 22:00 Temperature Pulse Rate 67 66 83 Respiratory Rate 20 20 Blood Pressure Pulse Oximetry Oxygen Delivery Oxygen Flow Rate Fraction of Inspired Oxygen 12/08/24 00:00 12/08/24 00:00 12/08/24 00:00 Temperature 98 F Pulse Rate 72 88 Respiratory Rate 14 Blood Pressure 126/54 L Pulse Oximetry 91 91 Oxygen Delivery High Flow Nasal Cannula Oxygen Flow Rate 7 Fraction of Inspired Oxygen 12/08/24 02:00 12/08/24 02:16 12/08/24 02:25 Temperature Pulse Rate 79 69 72 Respiratory Rate 20 20 Blood Pressure Pulse Oximetry Oxygen Delivery Oxygen Flow Rate Fraction of Inspired Oxygen 12/08/24 04:00 12/08/24 04:00 12/08/24 04:00 Temperature 98.6 F Pulse Rate 61 77 Respiratory Rate 14 Blood Pressure 137/71 Pulse Oximetry 91 Oxygen Delivery High Flow Nasal Cannula Oxygen Flow Rate 7 Fraction of Inspired Oxygen 12/08/24 06:00 12/08/24 08:00 12/08/24 08:00 Temperature 98 F Pulse Rate 97 88 Respiratory Rate 18 Blood Pressure 146/71 H Pulse Oximetry 98 93 Oxygen Delivery High Flow Therapy with Na Oxygen Flow Rate 15 Fraction of Inspired Oxygen 12/08/24 08:00 12/08/24 08:05 12/08/24 08:05 Temperature Pulse Rate 99 79 Respiratory Rate 20 Blood Pressure Pulse Oximetry 95 Oxygen Delivery High Flow Nasal Cannula Oxygen Flow Rate 15 Fraction of Inspired Oxygen 12/08/24 08:15 12/08/24 10:00 12/08/24 10:26 Temperature Pulse Rate 83 110 H Respiratory Rate 20 Blood Pressure Pulse Oximetry Oxygen Delivery High Flow Therapy with Na Oxygen Flow Rate 10 Fraction of Inspired Oxygen 12/08/24 11:21 12/08/24 11:47 12/08/24 12:00 Temperature 97.9 F Pulse Rate 87 96 Respiratory Rate 18 Blood Pressure 130/69 Pulse Oximetry 93 94 Oxygen Delivery High Flow Therapy with Na Oxygen Flow Rate 10 Fraction of Inspired Oxygen 12/08/24 13:38 Temperature Pulse Rate Respiratory Rate Blood Pressure Pulse Oximetry Oxygen Delivery Nasal Cannula Oxygen Flow Rate 7 Fraction of Inspired Oxygen Intake/Output Intake/Output: Intake & Output 12/05/24 12/06/24 12/07/24 12/08/24 23:59 23:59 23:59 23:59 Intake Total 2091.5 1200 1030 840 Output Total 1350 0448 754 6230 Balance 741.5 50 230 -460 Meds/Results Medications: Active Medications Generic Name Dose Route Start Last Admin Trade Name Freq PRN Reason Stop Dose Admin Acetaminophen 650 mg 12/03/24 22:24 12/08/24 05:55 Acetaminophen 325 Mg Tablet PO 650 mg Q4H PRN Administration Mild Pain (1-3) or Fever Acetylcysteine 200 mg 12/04/24 08:00 12/08/24 08:04 Acetylcysteine 20% Inhal Soln 800 Mg/4 Ml Vial INHALATION 200 mg Q6HRT ATUL Administration Albuterol/Ipratropium 3 ml 12/04/24 04:34 12/06/24 07:55 Ipratropium 0.5 Mg/Albuterol Sulfate 2.5 Mg Ampul.Neb 3 Ml INHALATION 3 ml Q4H PRN Administration shortness of breath or wheezing Albuterol/Ipratropium 3 ml 12/06/24 14:00 12/08/24 08:04 Ipratropium 0.5 Mg/Albuterol Sulfate 2.5 Mg Ampul.Neb 3 Ml INHALATION 3 ml Q6HRT ATUL Administration Aspirin 81 mg 12/04/24 09:00 12/05/24 08:01 Aspirin 81 Mg Enteric Tablet PO 81 mg DAILY ATUL Administration Dronabinol 2.5 mg 12/07/24 10:15 12/08/24 08:22 Dronabinol (*Crx) 2.5 Mg Capsule PO 2.5 mg BID ATUL Administration Enoxaparin Sodium 30 mg 12/04/24 09:00 12/04/24 08:10 Enoxaparin 30 Mg/0.3 Ml Syringe SUB-Q 30 mg DAILY ATUL Administration Fluticasone Propionate 2 spray 12/07/24 09:00 12/08/24 08:23 Fluticasone Propionate 0.05% Na Spr 16 Gm Btl (*Bkc) NASAL 2 spray QAM ATUL Administration Furosemide 20 mg 12/08/24 09:00 12/08/24 10:14 Furosemide Inj 40 Mg/4 Ml Vial IV PUSH 20 mg BID ATUL Administration Guaifenesin 1,200 mg 12/06/24 21:00 12/08/24 08:22 Guaifenesin 12 Hr 600 Mg Tabcr PO 1,200 mg Q12HR ATUL Administration Cefepime HCl 2 gm in 50 mls @ 100 mls/hr 12/05/24 20:00 12/08/24 08:24 Maxipime 2 Gm/Ns 50 Ml IVPB 100 mls/hr Q12H ATUL Administration Metronidazole 500 mg in 100 mls @ 100 mls/hr 12/06/24 11:00 12/08/24 13:44 Flagyl 500 Mg/Iso Soln 100 Ml IVPB 100 mls/hr Q8HR ATUL Administration Doxycycline Hyclate 100 mg in 100 mls @ 100 mls/hr 12/07/24 14:30 12/08/24 08:24 Vibramycin 100 Mg/Ns 100 Ml IVPB 100 mls/hr Q12HR ATUL Administration Levothyroxine Sodium 88 mcg 12/04/24 06:30 12/08/24 05:44 Levothyroxine Sodium 88 Mcg Tablet PO 88 mcg DAILY@0630 ATUL Administration Pantoprazole Sodium 40 mg 12/05/24 09:00 12/08/24 08:22 Pantoprazole Sodium Iv 40 Mg Vial IV PUSH 40 mg Q12HR ATUL Administration Sodium Chloride 10 ml 12/03/24 22:00 12/08/24 13:44 Central Line Flush IV PUSH 10 ml Q8HR ATUL Administration Sodium Chloride 20 ml 12/03/24 21:34 Central Line Flush IV PUSH PRN PRN after blood draws Sodium Chloride 20 ml 12/03/24 22:03 12/07/24 04:05 Central Line Flush IV PUSH 20 ml PRN PRN Administration after blood draws Radiology Results: ITS Impressions Chest CTA 12/03/24 21:39 IMPRESSION: 1. No pulmonary embolism. 2. Pneumonia in the right lower lobe. 3. Focal areas of pneumonia in the middle lobe, lingula and left lower lobe. 4. Nodule in the lingula and left lower lobe. Three-month CT follow-up advised. 5. 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 6. Cholelithiasis. Fat infiltration of the liver. Venous Doppler Study 12/04/24 14:12 IMPRESSION: 1: No lower extremity deep venous thrombosis. High Resolution CT 12/06/24 09:19 IMPRESSION: 1. Worsening multifocal pneumonia in the bilateral lower lobes, right upper lobe and to lesser degree at the lingula. 2. New small bilateral pleural effusions, right greater than left. Chest X-Ray 12/08/24 08:48 IMPRESSION: Large right-sided pleural effusion. Small left-sided pleural effusion Left mid to lower lung field infiltrate, largely unchanged from prior. Labs Labs: Laboratory Results - last 24 hr 12/08/24 05:52 WBC 12.1 H RBC 3.26 L Hgb 10.4 L Hct 31.8 L MCV 97.5 MCH 31.9 MCHC 32.7 RDW 14.9 H Plt Count 169 MPV 10.6 H Immature Gran % (Auto) 1.4 H Neut % (Auto) 85.3 H Lymph % (Auto) 6.6 L Stone % (Auto) 6.5 Eos % (Auto) 0.1 Baso % (Auto) 0.1 L Lymph # (Auto) 0.80 L Stone # (Auto) 0.8 H Eos # (Auto) 0.0 Baso # (Auto) 0.0 Abs Immat Gran (auto) 0.17 H Absolute Neuts (auto) 10.3 H Absolute Nucleated RBC 0.020 H Nucleated RBC % 0.2 Sodium 136 L Potassium 2.5 L* Chloride 107 Carbon Dioxide 23 Anion Gap 6 BUN 14 Creatinine 0.69 L Estim Creat Clear Calc 39 Estimated GFR > 60 Glucose 91 Calcium 8.7 Phosphorus 1.8 L Magnesium 1.7 Total Bilirubin 1.1 AST 24 ALT 17 Alkaline Phosphatase 56 Total Protein 5.0 L Albumin 2.9 L Quality VTE Prophylaxis VTE prophylaxis: pharmacologic ordered
[2024-12-08 14:16] LABS: Anion Gap 10 mmol/L (4-12); Blood Urea Nitrogen 15 mg/dL (7-17); Calcium 9.2 mg/dL (8.4-10.2); Carbon Dioxide 24 mmol/L (22-30); Chloride 104 mmol/L (98-107); Estimated CRCL calculation 34 ml/min; Estimated Glomerular Filt Rate > 60; Glucose 91 mg/dL (65-110); Potassium 2.4 mmol/L (3.4-5.0); Sodium 138 mmol/L (137-145)
[2024-12-08] MEDS: MAGNESIUM SULF 2 GM/WATER 50ML 2 GM/50 ML BAG IVPB (14:53)
[2024-12-08] MEDS: POTASSIUM CHLORIDE 20 MEQ PACKET (FOR LIQUID) 40 MEQ PO (14:53)
[2024-12-08] MEDS: POTASSIUM CHLORIDE INJ 40 MEQ in SODIUM CHLORIDE 0.9% IV 500 ML 130 MEQ IVPB (14:53)
[2024-12-08] MEDS: METOPROLOL SUCCINATE EXT REL 100 MG TABCR PO (16:41)
[2024-12-08 20:23] LABS: Anion Gap 5 mmol/L (4-12); Blood Urea Nitrogen 15 mg/dL (7-17); Calcium 8.7 mg/dL (8.4-10.2); Carbon Dioxide 23 mmol/L (22-30); Chloride 106 mmol/L (98-107); Estimated CRCL calculation 34 ml/min; Estimated Glomerular Filt Rate > 60; Glucose 100 mg/dL (65-110); Magnesium 2.3 mg/dL (1.6-2.3); Potassium 3.6 mmol/L (3.4-5.0); Sodium 134 mmol/L (137-145)
[2024-12-08] MEDS: IPRATROPIUM BR 0.02% INH SOLN 0.5 MG/2.5 ML VIAL INHALATION (20:24)
[2024-12-08 20:52] LABS: Phosphorus < 1.0 mg/dL (2.5-4.5)
[2024-12-08] MEDS: POTASSIUM/PHOSPHORUS/SODIUM 1.5 GM PACKET 1 PACKET PO (21:27)
[2024-12-09] VITALS (15 sets, daily range): BP systolic 126–151; BP diastolic 57–98; PULSE 78–132; RESP 18–38; TEMP 36.6–37.2; O2SAT 70–95
[2024-12-09] MEDS: ACETYLCYSTEINE 20% INHAL SOLN 800 MG/4 ML VIAL 200 MG INHALATION ×2 (01:42→08:05)
[2024-12-09] MEDS: IPRATROPIUM BR 0.02% INH SOLN 0.5 MG/2.5 ML VIAL INHALATION ×2 (01:42→08:05)
[2024-12-09] MEDS: FUROSEMIDE INJ 40 MG/4 ML VIAL IV PUSH ×2 (02:23→05:59)
[2024-12-09] MEDS: NITROGLYCERIN OINTMENT 1 INCH DOSE TRANSDERM (03:20)
--- NOTE | 2024-12-09 03:59 | PC.NURSE ---
pt had increased SOB and work of breathing post breathing treatment. Nurse place pt on 15L [place] and 15L NRB. Pt continuing to desat and SOB increasing. RN placed pt on airvo 60L and 100% fiO2. RN suctioned blood-tinged sputum nasally and orally from pt and received orders for stat chest x-ray. RN received orders to administer 40mg of Lasix IVP to pt and 1in of nitro paste. Lasix and nitro paste administered. RN then received orders to place pt on bipap. Pt placed on bipap and oxygen saturation/work of breathing improved.
--- NOTE | 2024-12-09 04:01 | PM.CCN ---
Critical Care Event Note Summary Code activated: No Narrative: 12/09/2024 02:15 Nursing staff called when patient became acutely short of breath. She was noted to have frothy pink sputum coming from her mouth. She was acutely distressed despite being on her baseline Airvo support. Order was given for IV Lasix 40 mg and a stat chest x-ray was obtained. Stat chest x-ray demonstrated pulmonary edema. Clinical picture most consistent with flash pulmonary edema order was given for 1 in of nitropaste. Patient was also placed on BiPAP settings 12/8 with 100% FiO2. Patient took quite some time to recover but oxygen saturations at the time my evaluation had improved back up to 90-92%. Patient reported she felt significantly better on BiPAP but was having dry mouth. Physical exam demonstrated coarse crackles throughout with no evidence of peripheral edema. She did have some mottling to her knees bilaterally. No cyanosis noted at the time of my exam. Normal cap refill. Patient also does have significant hypophosphatemia. She received 1 dose of oral potassium phosphate supplement earlier. Will give 1 dose of IV sodium phosphate. Repeat electrolyte panel, magnesium level, phosphorus level, and CBC has been ordered for a.m. pure wick catheter in place to monitor strict I&O's. Will wean oxygen as tolerated. 35 minute spent in critical care activities. This case had a high probability of a clinically significant, sudden, or life threatening deterioration of this patient's condition which required my full and direct attention, intervention and personal management. Critical care time: 30 - 74 mins
[2024-12-09 04:36] LABS: Basophils Absolute Auto 0.1 K/mm3 (0.0-0.1); Basophils Percent Auto 0.3 % (0.2-1.2); Eosinophils Absolute Auto 0.7 K/mm3 (0-0.3); Eosinophils Percent Auto 3.6 % (0-4.4); Hematocrit 42.9 % (37.0-47.0); Hemoglobin 13.8 g/dL (12.0-15.0); Immature Granulocyte Absolute 0.31 K/mm3 (0.00-0.031); Immature Granulocyte Percent A 1.7 % (0-0.5); Lymphocytes Absolute Auto 1.14 K/mm3 (0.9-3.2); Lymphocytes Percent Auto 6.2 % (18.3-44.2); Mean Corpuscular HGB Conc 32.2 g/dl (32-36); Mean Corpuscular Hemoglobin 31.1 pg (26-34); Mean Corpuscular Volume 96.6 fl (80-100); Mean Platelet Volume 11.5 fl (7.4-10.4); Monocytes Absolute Auto 1.1 K/mm3 (0.1-0.6); Monocytes Percent Auto 5.9 % (2.6-8.5); Neutrophils Absolute Auto 15.2 K/mm3 (1.3-6.7); Neutrophils Percent Auto 82.3 % (45.5-73.1); Nucleated Red Blood Cells Perc 0.2 % (0.0-0.2); Platelet Count Result 184 k/mm3 (150-375); Red Blood Count 4.44 M/mm3 (4.2-5.4); Red Cell Distribution Width 15.3 % (11.5-14.5); White Blood Count 18.4 K/mm3 (4.5-10.0)
[2024-12-09 04:50] LABS: Alanine Aminotransferase 21 U/L (6-35); Albumin Level 3.4 g/dL (3.5-5.1); Alkaline Phosphatase 69 U/L (38-126); Anion Gap 10 mmol/L (4-12); Aspartate Amino Transferase 29 U/L (14-36); Bilirubin,Total 1.5 mg/dL (0.2-1.3); Blood Urea Nitrogen 17 mg/dL (7-17); Calcium 8.9 mg/dL (8.4-10.2); Carbon Dioxide 22 mmol/L (22-30); Chloride 105 mmol/L (98-107); Estimated CRCL calculation 33 ml/min; Estimated Glomerular Filt Rate 56; Glucose 103 mg/dL (65-110); Potassium 3.4 mmol/L (3.4-5.0); Sodium 137 mmol/L (137-145)
[2024-12-09] MEDS: SODIUM PHOSPHATE 20 MM in DEXTROSE 5% IN WATER 250 ML 50 MM IVPB (04:51)
[2024-12-09] MEDS: LORazepam INJ (*CRX) 2 MG/ML VIAL 0.5 MG IV PUSH ×7 (05:05→23:02)
[2024-12-09] MEDS: metroNIDAZOLE 500 MG/ISO 100ML 500 MG/100 ML BAG 100 MG IVPB (05:06)
[2024-12-09 05:33] LABS: Troponin I 0.077 ng/mL (0.000-0.034)
[2024-12-09 05:54] LABS: Haptoglobin 165 mg/dL (43-212)
--- NOTE | 2024-12-09 06:57 | ECG_ITS ---
Test Date: 2024-12-09 07:12:00 Measurements Intervals [place] Rate: 98 P: 0 WI: 0 QRS: -53 QRSD: 84 T: 13 QT: 373 QTc: 477 Interpretive Statements POSSIBLE SINUS RHYTHM WITH PACS. DIFFICULT TO DISCERN UNDERLYING RHYTHM DUE TO BASELINE ARTIFACT. LEFT ANTERIOR FASCICULAR BLOCK [QRS AXIS <= -45, QR IN I, RS IN II] INFERIOR MYOCARDIAL INFARCTION [40+ ms Q WAVE AND/OR ST/T ABNORMALITY IN II/aVF], PROBABLY OLD ANTEROSEPTAL MYOCARDIAL INFARCTION [40+ ms Q WAVE IN V1-V4], OF INDETERMINATE AGE Compared to ECG 12/05/2024 12:20:40 Myocardial infarct finding still present Electronically Signed On 12-09-2024 13:35:27 CDT by González Whittaker M.D.
[2024-12-09 07:56] LABS: Troponin I 0.642 ng/mL (0.000-0.034)
--- NOTE | 2024-12-09 08:02 | PC.NURSE ---
Dr. Humphrey updated with pt condition, still with labored breathing and restless on bipap, settings 12/6, rate 12, FiO2 100%. O2 sat 88%, HR 128. MD to come evaluate. Respiratory therapist called to bedside
[2024-12-09] MEDS: FUROSEMIDE INJ 40 MG/4 ML VIAL 20 MG IV PUSH (09:10)
--- NOTE | 2024-12-09 09:15 | P.PNIM_ITS ---
Progress Note: A&P Assessment and Plan (1) Septic shock: Code(s): A41.9 - Sepsis, unspecified organism; R65.21 - Severe sepsis with septic shock Status: Acute Assessment and Plan: From Pneumonia CTA Chest RLL pneumonia, RML, lingula and left lower lobe MRSA Negative Cefepime, Doxycycline, Flagyl Stopped Vanc Blood and Sputum cultue (2) Multifocal pneumonia: Code(s): J18.9 - Pneumonia, unspecified organism Status: Acute Assessment and Plan: Treatment as above (3) Hypothyroidism: Code(s): E03.9 - Hypothyroidism, unspecified Status: Acute Assessment and Plan: Continue levothyroxine -TSH level within normal limits (4) Electrolyte imbalance: Code(s): E87.8 - Other disorders of electrolyte and fluid balance, not elsewhere classified Status: Acute Assessment and Plan: Hyponatremia, could be related to pneumonia continue to monitor (5) Anemia: Code(s): D64.9 - Anemia, unspecified Status: Acute Assessment and Plan: Patient dropped hemoglobin to 6.9 this morning -will send stool for Hemoccult -folic acid and B12 levels within normal limit -9 deficiency anemia -PPI increased to q.12 hours -hold aspirin and Lovenox -appreciate GI evaluation and recommendations. Continue to monitor hemoglobin and this could be multifactorial secondary to sepsis, some pressured blood cell production, hemodilution. Plan Acute hypoxemic respiratory failure From Pneumonia and CHF Conitnue abx as above on lasix 20mg bid titrate oxygen CHF exacerbation ECHO showed Grade Diastolic Bilateral pleural effusion likleyf rom CHF contineu gentle rehydration and monitor Code Status: DNR/DNI DVT prophylaxis: Hold Lovenox, continue SCDs. No chemoprophylaxis due to drop in hemoglobin and anemia Stress ulcer prophylaxis: Protonix IV q.12 hours Nutrition: Heart healthy diet PT/OT for discharge recs Subjective Date/time seen: 12/09/24 09:15 Interval history: Had a discussion with the family. Initiating comfort care. Dr. Brown has assessed the patient and agrees with plan. Family wants to give antibiotic at least for 24 hours. Exam Narrative: General: acute distress HEENT:? Pupils equal and reactive cause care as clear, moist oral mucosa Neck:? Supple Respiratory:? Coarse breath sounds bilaterally, decreased at bases Rt > Lt, adequate air entry, Cardiac:? S1-S2 normal, regular rate and rhythm Abdomen:? Soft, nontender, nondistended, normoactive bowel sounds Extremities:? Bilateral lower extremity edema up to the knees, palpable pedal pulses Psych:? Normal mentation and affect, hard of hearing Objective Data Vital Signs Vital Signs: Vital Signs - 24 hr 12/08/24 10:00 12/08/24 10:26 12/08/24 11:21 Temperature 97.9 F Pulse Rate 110 H 87 Respiratory Rate 18 Blood Pressure 130/69 Pulse Oximetry 93 Oxygen Delivery High Flow Therapy with Na Oxygen Flow Rate 10 Fraction of Inspired Oxygen 12/08/24 11:47 12/08/24 12:00 12/08/24 13:38 Temperature Pulse Rate 96 Respiratory Rate Blood Pressure Pulse Oximetry 94 Oxygen Delivery High Flow Therapy with Na Nasal Cannula Oxygen Flow Rate 10 7 Fraction of Inspired Oxygen 12/08/24 14:00 12/08/24 14:56 12/08/24 14:56 Temperature Pulse Rate 98 78 Respiratory Rate 20 Blood Pressure Pulse Oximetry 91 Oxygen Delivery High Flow Nasal Cannula Oxygen Flow Rate 10 Fraction of Inspired Oxygen 12/08/24 15:32 12/08/24 15:58 12/08/24 16:00 Temperature 97.9 F Pulse Rate 112 H 118 H Respiratory Rate 20 18 Blood Pressure 139/59 L Pulse Oximetry 91 92 Oxygen Delivery High Flow Nasal Cannula Oxygen Flow Rate 7 Fraction of Inspired Oxygen 12/08/24 16:00 12/08/24 16:41 12/08/24 17:37 Temperature Pulse Rate 115 H 110 H 98 Respiratory Rate Blood Pressure 132/97 H Pulse Oximetry Oxygen Delivery Oxygen Flow Rate Fraction of Inspired Oxygen 12/08/24 18:00 12/08/24 20:00 12/08/24 20:00 Temperature 97.9 F Pulse Rate 112 H 88 Respiratory Rate 18 Blood Pressure 128/81 Pulse Oximetry 91 92 Oxygen Delivery High Flow Nasal Cannula Oxygen Flow Rate 10 Fraction of Inspired Oxygen 12/08/24 20:00 12/08/24 20:24 12/08/24 20:36 Temperature Pulse Rate 85 88 88 Respiratory Rate 18 18 Blood Pressure Pulse Oximetry Oxygen Delivery Oxygen Flow Rate Fraction of Inspired Oxygen 12/08/24 20:52 12/08/24 22:00 12/08/24 23:51 Temperature 97.7 F Pulse Rate 76 80 Respiratory Rate 18 Blood Pressure 114/88 Pulse Oximetry 92 92 Oxygen Delivery High Flow Nasal Cannula Oxygen Flow Rate 10 Fraction of Inspired Oxygen 12/09/24 00:00 12/09/24 00:00 12/09/24 01:42 Temperature Pulse Rate 78 88 Respiratory Rate 18 Blood Pressure Pulse Oximetry 92 Oxygen Delivery High Flow Nasal Cannula Oxygen Flow Rate 8 Fraction of Inspired Oxygen 12/09/24 01:52 12/09/24 02:00 12/09/24 02:59 Temperature Pulse Rate 88 91 Respiratory Rate 18 37 H Blood Pressure Pulse Oximetry Oxygen Delivery BiPAP Oxygen Flow Rate Fraction of Inspired Oxygen 12/09/24 03:55 12/09/24 04:00 12/09/24 04:00 Temperature 97.8 F Pulse Rate 100 Respiratory Rate 32 H 32 H Blood Pressure 151/98 H Pulse Oximetry 95 95 Oxygen Delivery BiPAP Oxygen Flow Rate Fraction of Inspired Oxygen 100 12/09/24 04:00 12/09/24 06:00 12/09/24 06:06 Temperature Pulse Rate 93 84 100 Respiratory Rate Blood Pressure Pulse Oximetry Oxygen Delivery Oxygen Flow Rate Fraction of Inspired Oxygen 12/09/24 08:00 12/09/24 08:05 12/09/24 08:21 Temperature 98.9 F Pulse Rate 80 108 H 108 H Respiratory Rate 18 34 H 34 H Blood Pressure 126/57 L Pulse Oximetry 93 90 Oxygen Delivery BiPAP Oxygen Flow Rate Fraction of Inspired Oxygen 12/09/24 08:22 12/09/24 08:23 Temperature Pulse Rate 118 H 108 H Respiratory Rate 36 H 34 H Blood Pressure Pulse Oximetry 90 Oxygen Delivery BiPAP Oxygen Flow Rate Fraction of Inspired Oxygen 100 Intake/Output Intake/Output: Intake & Output 12/06/24 12/07/24 12/08/24 12/09/24 23:59 23:59 23:59 23:59 Intake Total 1200 1030 2230 Output Total 6525 158 0473 700 Balance 50 230 430 -700 Meds/Results Medications: Active Medications Generic Name Dose Route Start Last Admin Trade Name Freq PRN Reason Stop Dose Admin Acetaminophen 650 mg 12/03/24 22:24 12/08/24 05:55 Acetaminophen 325 Mg Tablet PO 650 mg Q4H PRN Administration Mild Pain (1-3) or Fever Acetylcysteine 200 mg 12/04/24 08:00 12/09/24 08:05 Acetylcysteine 20% Inhal Soln 800 Mg/4 Ml Vial INHALATION 200 mg Q6HRT ATUL Administration Albuterol/Ipratropium 3 ml 12/04/24 04:34 12/06/24 07:55 Ipratropium 0.5 Mg/Albuterol Sulfate 2.5 Mg Ampul.Neb 3 Ml INHALATION 3 ml Q4H PRN Administration shortness of breath or wheezing Aspirin 81 mg 12/04/24 09:00 12/05/24 08:01 Aspirin 81 Mg Enteric Tablet PO 81 mg DAILY ATUL Administration Dronabinol 2.5 mg 12/07/24 10:15 12/08/24 16:41 Dronabinol (*Crx) 2.5 Mg Capsule PO 2.5 mg BID ATUL Administration Enoxaparin Sodium 30 mg 12/04/24 09:00 12/04/24 08:10 Enoxaparin 30 Mg/0.3 Ml Syringe SUB-Q 30 mg DAILY ATUL Administration Fluticasone Propionate 2 spray 12/07/24 09:00 12/08/24 08:23 Fluticasone Propionate 0.05% Na Spr 16 Gm Btl (*Bkc) NASAL 2 spray QAM ATUL Administration Furosemide 20 mg 12/08/24 09:00 12/09/24 09:10 Furosemide Inj 40 Mg/4 Ml Vial IV PUSH 20 mg BID ATUL Administration Guaifenesin 1,200 mg 12/06/24 21:00 12/08/24 21:18 Guaifenesin 12 Hr 600 Mg Tabcr PO 1,200 mg Q12HR ATUL Administration Cefepime HCl 2 gm in 50 mls @ 100 mls/hr 12/05/24 20:00 12/08/24 21:21 Maxipime 2 Gm/Ns 50 Ml IVPB Infused Q12H ATUL Infusion Metronidazole 500 mg in 100 mls @ 100 mls/hr 12/06/24 11:00 12/09/24 05:06 Flagyl 500 Mg/Iso Soln 100 Ml IVPB 100 mls/hr Q8HR ATUL Administration Doxycycline Hyclate 100 mg in 100 mls @ 100 mls/hr 12/07/24 14:30 12/08/24 22:08 Vibramycin 100 Mg/Ns 100 Ml IVPB Infused Q12HR ATUL Infusion Sodium Phosphate 20 mm/ 256.6667 mls @ 50 mls/hr 12/09/24 04:30 12/09/24 04:51 Dextrose IVPB 12/09/24 09:37 50 mls/hr ONCE ONE Administration Ipratropium [place] 0.5 mg 12/08/24 20:00 12/09/24 08:05 Ipratropium Br 0.02% Inh Soln 0.5 Mg/2.5 Ml Vial INHALATION 0.5 mg Q6HRT ATUL Administration Levothyroxine Sodium 88 mcg 12/04/24 06:30 12/09/24 06:06 Levothyroxine Sodium 88 Mcg Tablet PO Not Given DAILY@0630 PENDING SALE TO [facility] Metoprolol Succinate 100 mg 12/09/24 06:00 12/09/24 06:06 Metoprolol Succinate Ext Rel 100 Mg Tabcr PO Not Given Q12H ATUL Pantoprazole Sodium 40 mg 12/05/24 09:00 12/08/24 21:18 Pantoprazole Sodium Iv 40 Mg Vial IV PUSH 40 mg Q12HR ATUL Administration Sodium Chloride 20 ml 12/03/24 21:34 Central Line Flush IV PUSH PRN PRN after blood draws Sodium Chloride 20 ml 12/03/24 22:03 12/07/24 04:05 Central Line Flush IV PUSH 20 ml PRN PRN Administration after blood draws Radiology Results: ITS Impressions Chest CTA 12/03/24 21:39 IMPRESSION: 1. No pulmonary embolism. 2. Pneumonia in the right lower lobe. 3. Focal areas of pneumonia in the middle lobe, lingula and left lower lobe. 4. Nodule in the lingula and left lower lobe. Three-month CT follow-up advised. 5. 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 6. Cholelithiasis. Fat infiltration of the liver. Venous Doppler Study 12/04/24 14:12 IMPRESSION: 1: No lower extremity deep venous thrombosis. High Resolution CT 12/06/24 09:19 IMPRESSION: 1. Worsening multifocal pneumonia in the bilateral lower lobes, right upper lobe and to lesser degree at the lingula. 2. New small bilateral pleural effusions, right greater than left. Chest X-Ray 12/09/24 07:36 IMPRESSION: 1. Persistent opacities throughout the right lung and in the left mid to lower lung zone consistent with pneumonia. 2. Small bilateral pleural effusions, right greater than left. Labs Labs: Laboratory Results - last 24 hr 12/06/24 12/08/24 12/08/24 18:18 13:42 20:04 WBC RBC Hgb Hct MCV MCH MCHC RDW Plt Count MPV Immature Gran % (Auto) Neut % (Auto) Lymph % (Auto) [place] % (Auto) Eos % (Auto) Baso % (Auto) Lymph # (Auto) [place] # (Auto) Eos # (Auto) Baso # (Auto) Abs Immat Gran (auto) Absolute Neuts (auto) Absolute Nucleated RBC Nucleated RBC % Haptoglobin 165 Sodium 138 134 L Potassium 2.4 L* 3.6 Chloride 104 106 Carbon Dioxide 24 23 Anion Gap 10 5 BUN 15 15 Creatinine 0.81 0.81 Estim Creat Clear Calc 34 34 Estimated GFR > 60 > 60 Glucose 91 100 Calcium 9.2 8.7 Phosphorus < 1.0 L Magnesium 2.3 Total Bilirubin AST ALT Alkaline Phosphatase Troponin I Total Protein Albumin 12/09/24 12/09/24 12/09/24 03:59 04:03 07:01 WBC 18.4 H RBC 4.44 Hgb 13.8 D Hct 42.9 MCV 96.6 MCH 31.1 MCHC 32.2 RDW 15.3 H Plt Count 184 MPV 11.5 H Immature Gran % (Auto) 1.7 H Neut % (Auto) 82.3 H Lymph % (Auto) 6.2 L [place] % (Auto) 5.9 Eos % (Auto) 3.6 Baso % (Auto) 0.3 Lymph # (Auto) 1.14 [place] # (Auto) 1.1 H Eos # (Auto) 0.7 H Baso # (Auto) 0.1 Abs Immat Gran (auto) 0.31 H Absolute Neuts (auto) 15.2 H Absolute Nucleated RBC 0.030 H Nucleated RBC % 0.2 Haptoglobin Sodium 137 Potassium 3.4 Chloride 105 Carbon Dioxide 22 Anion Gap 10 BUN 17 Creatinine 0.95 Estim Creat Clear Calc 33 Estimated GFR 56 L Glucose 103 Calcium 8.9 Phosphorus 2.0 L Magnesium 2.0 Total Bilirubin 1.5 H AST 29 ALT 21 Alkaline Phosphatase 69 Troponin I 0.077 H* 0.642 H* D Total Protein 6.0 L Albumin 3.4 L Hospitalist MIPS Advance Care Plan I have confirmed that the patient's Advanced Care Plan is present, code status is documented, or surrogate decision maker is listed in patient medical record.: Yes Medication Reconciliation I have utilized all available resources to obtain, update and review the patients current medications (includes all prescriptions, OTC, herbals, ca nnabis, and nutritional supplements).: Yes
--- NOTE | 2024-12-09 09:23 | PC.NURSE ---
Per Dr. Humphrey, family wishes for patient to be comfortable at this time. Bi-pap removed, given 0.5 mg Ativan
--- NOTE | 2024-12-09 10:55 | PCRCNOTE ---
@ 0926am RT was called to bedside, patient was made comfort care by MD and family, Respiratory removed bipap and placed patient on 4L nasal cannula for comfort.
[2024-12-09] MEDS: SCOPOLAMINE 1 MG PATCH 1 PATCH TRANSDERM (11:07)
--- NOTE | 2024-12-09 11:10 | PCOTNOTE ---
Per RN, Patient not to be seen. Patient is going comfort care.
[2024-12-09] MEDS: MORPHINE SULFATE (*CRX) 2 MG/ML INJ 1 MG IV PUSH (11:18)
[2024-12-09] MEDS: MORPHINE 50 MG/NS 100ML (*CRX) 50 MG/100 ML BAG IV CONT (12:17)
[2024-12-10 14:58] LABS: Adenovirus DNA Not Detected (Not Detected); Chlamydophila pneumoniae Not Detected (Not Detected); Coronavirus 229E Not Detected (Not Detected); Coronavirus HKU1 Not Detected (Not Detected); Coronavirus NL63 Not Detected (Not Detected); Coronavirus OC43 Not Detected (Not Detected); Human Metapneumovirus Not Detected (Not Detected); Human Parainfluenza Virus 1 Not Detected (Not Detected); Human Parainfluenza Virus 2 Not Detected (Not Detected); Human Parainfluenza Virus 3 Not Detected (Not Detected); Human Parainfluenza Virus 4 Not Detected (Not Detected); Human RSV B Not Detected (Not Detected); Influenza A Not Detected (Not Detected); Influenza B Not Detected (Not Detected); Mycoplasma pneumoniae Not Detected (Not Detected); Rhinovirus/Enterovirus Not Detected (Not Detected)
[2024-12-11 14:58] LABS: Pneumococcal Antigen Urine NOT DETECTED
--- NOTE | 2024-12-11 18:28 | P.DN_ITS ---
Discharge Summary Date and Time Date of : 12/10/24 Time of : 00:01 Provider Pronounced By: 2 RNs Name of First RN That Pronounced: Lupe Garzon RN Name of Second RN That Pronounced: Arelis Rodrigez RN Probable Cause of Probable Cause of : Acute hypoxemic respiratory failure Summary Hospital Course: Chika Chan is a 89 year old female with history of hypertension, hypothyroidism, GERD, recent admission to the ICU at [facility] at the end of last month for pneumonia,according the daughters they were told that her EF was 65%. Off note patient was recently admitted to [facility] at the end of last month with pneumonia requiring ICU admission. She was discharged to a local rehab and this area but she has been hypotensive for several days, has been having cough, fevers full couple of days. She was found to be hypoxic so EMS was called. When EMS arrived she was saturating 83% on room air and 97% on 4 L after DuoNeb inhalation. She also was complaining of weakness, shortness of breath, cough productive of white sputum. Denies any chest pain, nausea, vomiting, abdominal pain, fevers or chills. Her blood pressures in the ER were 83/57, she received 2 L IV fluid bolus despite which her blood pressures were low, a central line in the left IJ was inserted and patient started on Levophed. Was given a dose of cefepime and started on vancomycin. Chest x-ray showed multifocal pneumonia. CTA chest with no pulmonary embolism, multifocal pneumonia. In the ER WBC was 411.4, hemoglobin 10.3, platelets 376, INR 1.1, sodium 130, potassium 3.4, CO2 21, BUN 26, creatinine 1.11, LFTs are within normal limits, lactic of 1.1, C-reactive protein 13.1, proBNP 1220. UA was unremarkable. Patient was initially admitted in ICU and downgraded to IMU. On 12/09/2024 patient had a rapid response with flash pulmonary edema. On 12/10/2024 family agrees with placing the patient in comfort care and hospice. Patient unfortunately due to acute hypoxemic respiratory failure. Additional Data Confirmation of as documented by pronouncing clinician: Pupillary Reflex, Palpable Pulses, Response to Stimuli, Heart Tones and Breath Sounds Name of Provider Notified: Linus Hernández NP Time Provider Notified: 00:05 Provider Requests Autopsy: No Family Requests Autopsy: No Skin Piler Notified: Yes Date [facility] Notified of : 12/10/24 Time [facility] Notified of : 00:31
[2024-12-11 18:43] LABS: Legionella pneumophila Ag Ur NOT DETECTED
[2024-12-11 19:17] LABS: Mycoplasma IgM Antibody Titer 130 U/mL
== END 2024-12-10 00:40 | disposition expired | DRG 871 ==
LOC: ANHED 22:22 → ANHICU 22:41 → ANHIMU 12-06 13:31
PROVIDERS: Emergency Medicine; Internal Medicine; Internal Medicine Gastroenterology; Internal Medicine Pulmonary Disease; Nurse Practitioner Gerontology; Physician Assistant; Admitting Provider General Practice; Emergency Provider Student in an Organized Health Care Education/Training Program; PCP Nurse Practitioner Adult Health; Visit Provider General Practice
DX: A41.9 Sepsis, unspecified organism (principal); J18.9 Pneumonia, unspecified organism; J96.01 Acute respiratory failure with hypoxia; R65.21 Severe sepsis with septic shock; N17.9 Acute kidney failure, unspecified; E87.1 Hypo-osmolality and hyponatremia; J44.0 Chronic obstructive pulmonary disease with (acute) lower respiratory infection; I11.0 Hypertensive heart disease with heart failure; I50.9 Heart failure, unspecified; D64.9 Anemia, unspecified; E86.0 Dehydration; E03.9 Hypothyroidism, unspecified; H91.90 Unspecified hearing loss, unspecified ear; J43.2 Centrilobular emphysema; K21.9 Gastro-esophageal reflux disease without esophagitis; Z66 Do not resuscitate; Z79.82 Long term (current) use of aspirin; Z20.822 Contact with and (suspected) exposure to COVID-19; Z87.891 Personal history of nicotine dependence
CPT/HCPCS: 36415; 36430; 36556; 36600; 71045; 71250; 71275; 80048; 80053; 80202; 81003; 82274; 82375; 82565; 82607; 82746; 82805; 83010; 83050; 83540; 83550; 83605; 83615; 83735; 83880; 84100; 84443; 84484; 85014; 85018; 85025; 85610; 85730; 86140; 86738; 86850; 86900; 86901; 86923; 87040; 87070; 87186; 87205; 87449; 87633; 87637; 87641; 87899; 93005; 93306; 93970; 94002; 94640; 94667; 94668; 96361; 96365; 97162; 97166; 99291; A9270; C1751; J0692; J1650; J1720; J1836; J1938; J2003; J2060; J2270; J2470; J3370; J3475; J3480; J7040; J7050; J7060; J7120; P9016; P9047; Q9967